=== PATIENT | male | born 1955 | race Caucasian/White ===

== ENCOUNTER → 2017-05-15 08:36 | Outpatient (CLI) | payer OTHER, SELFPAY ==
[2017-05-15 12:34] LABS: Absolute Lymphocyte Count 1.65 X10^3/ul (0.83-4.51); Basophil# 0.05 X10^3/uL; Basophil% 0.7 % (0-1); Eosinophil# 0.27 X10^3/uL; Hematocrit 44.2 % (40-54); Hemoglobin 15.4 g/dl (13.0-16.5); Lymphocyte # 1.65 X10^3/ul (4.0); Lymphocyte % 24.4 % (19-41); Mean Corp Hgb Conc 34.8 g/gl (32-36); Mean Corpuscular Hgb 30.6 pg (27.0-32.0); Mean Corpuscular Volume 87.7 fL (80-94); Mean Platelet Vol. 9.4 fl (6.2-12.0); Monocyte# 0.69 X10^3/uL; Monocyte% 10.2 % (0-10); Neutrophil # 4.03 X10^3/uL (2.7-7.7); Neutrophil % 59.7 % (47-70); Platelet Count 226 K/mm3 (150-450); RBC Distribution Width CV 13.1 % (11.6-14.6); Red Blood Count 5.04 M/mm3 (4.6-6.2); White Blood Count 6.8 K/mm3 (4.4-11.0)
[2017-05-15 12:39] LABS: POSITIVE COUNT NO; POSITIVE DIFFERENTIAL NO; POSITIVE MORPHOLOGY NO
[2017-05-15 12:56] LABS: ALB/GLOB Ratio 0.9 RATIO (0.9-2.4); AST(SGOT) 63 U/L (15-37); Alanine Aminotransfer ALT/SGPT 91 U/L (16-61); Albumin, Serum 3.6 g/dL (3.2-5.0); Alkaline Phosphatase 61 U/L (45-117); Anion Gap 9 (5-15); BUN 25 mg/dL (7-18); BUN/Creat Ratio 20.5 RATIO (10-20); Calcium,Total 8.5 mg/dL (8.5-10.1); Chloride 103 mmol/L (98-107); Cholesterol 200 mg/dL (200); Creatinine, Serum 1.22 mg/dL (0.70-1.30); EST Glomerular Filtration Rate 64 mL/min (>60); Est Glom Filt Rate - Afr Amer 77 mL/min (>60); Glucose 195 mg/dL (74-106); High Density Lipoprotein 40 mg/dL; Potassium 4.6 mmol/L (3.5-5.1); Protein, Total 7.6 g/dL (6.4-8.2); Sodium Level 137 mmol/L (136-145); Thyroid Stim Hormone (TSH) 1.39 uIU/mL (0.358-3.74); Triglycerides 218 mg/dL; Very Low Density Lipoprotein 44 mg/dL (5-40)
[2017-05-15 13:04] LABS: Microalbumin:Creatinine Ratio 72.5 mg/g CRE (<30 mg/g CRE)
== END ==
PROVIDERS: Family Provider Family Medicine; PCP Family Medicine; Visit Provider Family Medicine
DX: E11.65 Type 2 diabetes mellitus with hyperglycemia (principal); I12.9 Hypertensive chronic kidney disease with stage 1 through stage 4 chronic kidney disease, or unspecified chronic kidney disease; N18.9 Chronic kidney disease, unspecified; E78.5 Hyperlipidemia, unspecified
CPT/HCPCS: 36415; 80053; 80061; 82043; 82570; 84439; 84443; 85025

== ENCOUNTER → 2017-08-12 12:35 | Outpatient (CLI) | payer OTHER, SELFPAY ==
[2017-08-12 13:08] LABS: Absolute Neutrophil Count 9.7 X10^3/uL (2.0-7.7); Basophil# 0.03 X10^3/uL; Basophil% 0.3 % (0-1); Eosinophil# 0.03 X10^3/uL; Eosinophils% 0.3 % (0-5); Hematocrit 40.7 % (40-54); Hemoglobin 14.8 g/dl (13.0-16.5); Lymphocyte % 8.5 % (19-41); Mean Corp Hgb Conc 36.4 g/gl (32-36); Mean Corpuscular Hgb 31.2 pg (27.0-32.0); Mean Corpuscular Volume 85.9 fL (80-94); Mean Platelet Vol. 9.2 fl (6.2-12.0); Monocyte# 1.08 X10^3/uL; Monocyte% 9.1 % (0-10); Neutrophil # 9.65 X10^3/uL (2.7-7.7); Neutrophil % 81.5 % (47-70); Platelet Count 234 K/mm3 (150-450); RBC Distribution Width CV 12.6 % (11.6-14.6); RBC Distribution Width SD 38.8 fl (35.1-43.9); Red Blood Count 4.74 M/mm3 (4.6-6.2); White Blood Count 11.8 K/mm3 (4.4-11.0)
[2017-08-12 13:11] LABS: POSITIVE COUNT NO; POSITIVE DIFFERENTIAL NO; POSITIVE MORPHOLOGY NO
[2017-08-12 13:33] LABS: Anion Gap 7 (5-15); BUN 20 mg/dL (7-18); BUN/Creat Ratio 14.4 RATIO (10-20); Calcium,Total 8.9 mg/dL (8.5-10.1); Chloride 100 mmol/L (98-107); Creatinine, Serum 1.39 mg/dL (0.70-1.30); EST Glomerular Filtration Rate 55 mL/min (>60); Est Glom Filt Rate - Afr Amer 66 mL/min (>60); Glucose 158 mg/dL (74-106); Potassium 4.5 mmol/L (3.5-5.1); Sodium Level 133 mmol/L (136-145)
== END ==
PROVIDERS: Family Provider Family Medicine; PCP Family Medicine; Visit Provider Physician Assistant
DX: L03.90 Cellulitis, unspecified (principal)
CPT/HCPCS: 36415; 80048; 85025

== ENCOUNTER 2017-08-14 07:56 | Inpatient (IN) | payer OTHER, SELFPAY ==
[2017-08-14 07:57] VITALS: BP 134/60; PULSE 65; RESP 16; TEMP 36.2; O2SAT 98; BMI 37.8
--- NOTE | 2017-08-14 08:09 | ED.VISSUMM ---
- ER Visit Summary Date of Service: 08/14/17 Chief Complaint: Foot infection History of Present Illness: The patient is a 61 M history of insulin-dependent diabetes and neuropathy presents with right foot infection. Patient noticed some redness between his fourth and fifth toes a few days ago. He went to urgent care 2 days ago. He was started on Bactrim and Augmentin. He has been taking them. Over the past 48 hours since starting the medications, his infection has worsened. He has had increasing redness, swelling in his foot, and drainage from the wound. He does not recall any trauma. He does have some neuropathy in his feet. He states he does check his feet regularly. Blood sugars have been running in normal range. He does admit to some chills and sweats. He states he feels like I just have the flu. Physical Examination: Vital signs reviewed General: Well-nourished, well-developed Head: Normocephalic, atraumatic Eyes: Pupils equal and reactive, extraocular muscles intact Neck, supple, no lymphadenopathy Heart: Regular rate and rhythm Respiratory: No distress, clear bilaterally Abdomen: Soft, nontender, nondistended, no peritoneal signs Back: Nontender Extremities: Nontender, 2 x 2 centimeter ulceration in between the fourth and fifth toes. Surrounding cellulitis. Streaking up the mid hernandez. Normal pulses. Skin: Normal color no rash Neuro: Alert and oriented, no focal or lateralizing deficits Test Results: [] Emergency Department Course and Treatment: The patient does have ulceration with extending cellulitis. He has been on oral antibiotics without improvement. I did obtain screening labs. He has no significant leukocytosis. He is not tachycardic or hypotensive. His lactate is elevated to 2.5, but I do suspect this is likely from his metformin rather than acute sepsis. Blood cultures were obtained. X-rays show no bony destruction. As the patient has had worsening symptoms despite oral antibiotics, I do feel he is going require IV antibiotic and admission. Patient was discussed with the hospitalist and will be admitted. Treatment Plan: [] Disposition: Admission Impression: 1. Diabetic foot infection with cellulitis and failed outpatient treatment This note was generated with [employer] software. It may contain incorrect words, spelling, and punctuation that were not noted in review of the chart prior to signing ED Disposition - Plan for ED Patient: Chief Complaint: Wound Referrals: Otilio Sahu MD [Primary Care Provider] -
--- NOTE | 2017-08-14 08:50 | RAD_ITS ---
STUDY: X-RAY - RIGHT FOOT CLINICAL: Male, 61 years old. Nonhealing foot ulcer at the fifth MTP TECHNIQUE: 3 view(s) of the foot. COMPARISON: None. FINDINGS: There is an enthesophyte involving the posterior superior calcaneus at the site of insertion of the Achilles tendon. There is accessory navicular. There is os peroneum. Normal visualized subtalar, talonavicular, calcaneocuboid, tarsal and tarsometatarsal articulations. Normal metatarsi. There is degenerative arthrosis of the metatarsophalangeal joint of the hallux with a hallux valgus deformity. Normal tibial and fibular sesamoid bones. Normal interphalangeal joint of the great toe. Normal phalanges of the great toe. Normal second through fifth metatarsophalangeal joints. Normal interphalangeal joints and phalanges of the lesser toes. There are vascular calcifications. There is no fracture or destruction. RAD/Foot min 3 Views IMPRESSION: No fracture or destruction. Electronically Signed: Lionel Meier MD at 9:17 EDT , Service support ,
[2017-08-14 09:00] LABS: Absolute Lymphocyte Count 1.25 X10^3/ul (0.83-4.51); Absolute Neutrophil Count 6.6 X10^3/uL (2.0-7.7); Basophil# 0.02 X10^3/uL; Basophil% 0.2 % (0-1); Eosinophil# 0.13 X10^3/uL; Eosinophils% 1.4 % (0-5); Hematocrit 39.1 % (40-54); Hemoglobin 13.7 g/dl (13.0-16.5); Lymphocyte # 1.25 X10^3/ul (4.0); Lymphocyte % 13.9 % (19-41); Mean Corpuscular Hgb 30.4 pg (27.0-32.0); Mean Corpuscular Volume 86.9 fL (80-94); Mean Platelet Vol. 9.1 fl (6.2-12.0); Monocyte# 0.94 X10^3/uL; Monocyte% 10.5 % (0-10); Neutrophil # 6.61 X10^3/uL (2.7-7.7); Neutrophil % 73.8 % (47-70); POSITIVE COUNT NO; POSITIVE DIFFERENTIAL NO; POSITIVE MORPHOLOGY NO; Platelet Count 184 K/mm3 (150-450); RBC Distribution Width CV 13.1 % (11.6-14.6); RBC Distribution Width SD 41.8 fl (35.1-43.9)
[2017-08-14 09:21] LABS: ALB/GLOB Ratio 0.8 RATIO (0.9-2.4); AST(SGOT) 17 U/L (15-37); Alanine Aminotransfer ALT/SGPT 39 U/L (16-61); Albumin, Serum 3.1 g/dL (3.2-5.0); Alkaline Phosphatase 55 U/L (45-117); Anion Gap 7 (5-15); BUN 23 mg/dL (7-18); BUN/Creat Ratio 14.6 RATIO (10-20); Calcium,Total 8.3 mg/dL (8.5-10.1); Chloride 100 mmol/L (98-107); Creatinine, Serum 1.57 mg/dL (0.70-1.30); EST Glomerular Filtration Rate 48 mL/min (>60); Est Glom Filt Rate - Afr Amer 58 mL/min (>60); Estimated Creatinine Clearance 48.78 ml/min; Globulin 3.9 g/dL (2.2-4.2); Glucose 281 mg/dL (74-106); Potassium 4.6 mmol/L (3.5-5.1); Sodium Level 131 mmol/L (136-145)
--- NOTE | 2017-08-14 09:30 | ED.RN ---
lactic 2.[address] olson aware
[2017-08-14 09:31] LABS: Lactic Acid 2.5 mmol/L (0.4-2.0)
--- NOTE | 2017-08-14 09:44 | CASEMGMT ---
Social Work Note Attempted to see for initial assessment. Pt receiving pt care. Will need to be assessed on assigned unit. Lisbeth Henley, INJECTION MOLDING SUPERVISOR, STEP FINISHER
[2017-08-14 09:51] VITALS: BP 144/72; PULSE 62; RESP 18; O2SAT 95
[2017-08-14 10:15] VITALS: BMI 37.8
[2017-08-14 10:17] VITALS: BP 162/70; PULSE 60; RESP 18; TEMP 36.6; O2SAT 96
--- NOTE | 2017-08-14 10:35 | NURSING ---
pt doesn't take immunizations
[2017-08-14 11:26] LABS: Bedside Glucose 206 mg/dL (70-110)
[2017-08-14 11:59] LABS: Erythrocyte Sedimentation Rate 17 mm/hr (0-20)
--- NOTE | 2017-08-14 12:15 | CASEMGMT ---
RN PETR Face to Face with patient for initial transition planning/care coordination assessment. RN CM introduced self and role at [facility]. Patient sitting in chair, alert and oriented. Patient willing to participate in assessment and is able to answer all questions appropriately. Care providers, pharmacy, and demographics verified. See link attached. Patient wishes to discharge home, denies need for home health at this time. Patient states he has no further needs or concerns at this time. CM to follow for discharge planning needs that may arise. Disposition Plan: Patient to discharge home with family support and follow-up plans in place.
[2017-08-14 12:19] LABS: M R Staph aureus DNA By PCR Negative (Negative)
[2017-08-14 12:20] LABS: Probe Check PASS; Specimen Processing Control PASS; Staph aureus DNA By PCR POSITIVE (Negative)
[2017-08-14 12:20] LABS: M R Staph aureus DNA By PCR Negative (Negative); Probe Check PASS; Specimen Processing Control PASS
--- NOTE | 2017-08-14 12:39 | HP.PCM_ITS ---
<Eligio Kelly - Last Filed: 08/14/17 12:29> Problem List (1) Cellulitis Status: Acute (2) CAD (coronary artery disease) Status: Chronic (3) Type 2 diabetes mellitus Status: Chronic (4) Hypertension Status: Chronic (5) Hyperlipidemia Status: Chronic History of Present Illness Date of Admission: 08/14/17 Chief Complaint: right foot wound The patient is a 61 year old M with a hx of DMt2, HTN, CAD with prior stents and CABG, peripheral neuropathy, who presents to the ER with worsening of right foot wound after failing outpatient therapy. He presented to the [facility] 2 days ago with a one day history of blister with surrounding erythema of the right 5th digit and dorsum of his foot and malaise. He was prescribed bactrim and augmentin. He went to the hospital and had a CBC and BMP drawn that day with mild leukocytosis and mildly elevated BUN and Cr. He went home and his blister became larger, later deroofed, and the erythema worsened. He states he feels like he has the flu and has fevers chills and sweats at home. He has had prior feet infections that have led to admission to the hospital. He does not know if he had any particular bacteria or MRSA. 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 He cannot remember a specific trauma or inciting event. He has minimal pain. [] Past Medical History Past Medical History (Chronic Problems): Chronic Problems (Last Updated 08/12/17 @ 11:54 by Lorenza Nguyễn) CAD (coronary artery disease) (Chronic) Type 2 diabetes mellitus (Chronic) Hypertension (Chronic) Hyperlipidemia (Chronic) Medical History: Medical History (Last Updated 08/12/17 @ 11:54 by Lorenza Nguyễn) Diabetes E11.9 Heart disease I51.9 Liver disease K76.9 Hypertension I10 Allergies No Known Allergies Allergy (Unverified 08/14/17 07:58) Home Medications: Ambulatory Orders Medication Instructions Recorded carvedilol 25 mg tablet 25 mg PO BID 08/12/17 glimepiride 4 mg tablet 4 mg PO QAM 08/12/17 insulin glargine (U-100) 100 50 - 60 unit SC QDAY 08/12/17 unit/mL (3 mL) subcutaneous pen metformin 1,000 mg tablet 1,000 mg PO BID 08/12/17 omega-3 fatty acids 1,000 mg 1,200 mg PO BID 08/12/17 capsule Amoxicillin/Potassium Clav 1 each PO BID 08/14/17 [Augmentin 875-125 Tablet] Lisinopril [Zestril] 20 mg PO BID 08/14/17 Smz/Tmp Ds [Bactrim Ds] 1 tablet PO BID 08/14/17 Surgical History: Surgical History (Last Updated 08/12/17 @ 11:56 by Lorenza Nguyễn) History of back surgery Z98.890 Hx of CABG Z95.1 Hx of appendectomy Z90.49 Hx of toe surgery Z98.890 Surgical History: appendectomy, coronary bypass surgery, - - cabg Psychiatric History: No pertinent psych hx Lives: With Family Smoking Status: Never smoker Tobacco Use: Non-smoker Alcohol: Rare Drugs: None - *Family History Maternal Family History: Family History (Last Updated 08/12/17 @ 11:56 by Lorenza Nguyễn) Other CAD (coronary artery disease) Diabetes History Items: Diabetes Paternal Family History: Family History (Last Updated 08/12/17 @ 11:56 by Lorenza Nguyễn) Other CAD (coronary artery disease) Diabetes History Items: Heart Disease Review of Systems Constitutional: Reports: Anorexia, Chills, Fever, Night Sweats, Malaise. Denies : Weight Change HEENT: Denies: Head Aches, Sinus Congestion, Sinus Drainage Cardiovascular: Denies: Chest Pain, Palpitations Respiratory: Denies: Cough, Shortness of breath at rest, Sputum production Gastrointestinal: Denies: Abdominal Pain, Nausea, Vomiting Genitourinary: Denies: Dysuria Musculoskeletal: Denies: Joint Pain, Joint Tenderness Skin: Reports: Wounds. Denies: Rash Neurological: Denies: Numbness, Tingling, Focal weakness Psychiatric: Denies: Anxiety, Depression, Homicidal Ideations, Suicidal Ideations Hematologic/ Lymphatic: Denies: Easy Bruising, Easy Bleeding VTE Information - Inpt Only VTE Present on Admission: No VTE Mechan Device Prophylaxis: SCD's VTE Pharm Prophylaxis ordered?: Yes Patient Problems: Active and Suspected Problems (Last Updated 08/12/17 @ 11:54 by Lorenza Nguyễn) Cellulitis (Acute) - Physical Exam General: Alert, Oriented x3, Cooperative HEENT: Atraumatic, PERRLA, EOMI, Normocephalic Neck: Supple, No JVD, Negative Carotid Bruits Lungs: Clear to auscultation, Normal air movement Cardiovascular: Regular rate, No murmurs Abdomen: Bowel Sounds Present, Soft, Non Tender Extremities: No edema, Capillary Refill Less than 3 Seconds Skin: No rashes, No breakdown, Ulcer/ Wound - right 5th digit dorsal side open wound, no drainage currently, surrounding erythema. Musculoskeletal: No Tenderness to Palpation of Joints or Extremities Neurological: Cranial nerves II-XII grossly intact Psych/Mental Status: Normal Affect, Appropriate, Alert and oriented to time, place, person, mood and affect Vital Signs Temp Pulse Resp BP Pulse Ox 98 F 60 18 162/70 H 96 08/14/17 10:17 08/14/17 10:17 08/14/17 10:17 08/14/17 10:17 08/14/17 10:17 Oxygen Delivery Method Room Air Weight: 116 kg Body Mass Index (BMI) 37.8 Laboratory Tests Past 24 Hrs 08/14/17 08/14/17 10:45 10:50 S.aureus Protein A PCR POSITIVE H MRSA (PCR) Negative Negative POC Glucose 08/14/17 11:20 POC Glucose 206 H Assessment/Plan All Active Problems (Last Updated 08/12/17 @ 11:54 by Lorenza Nguyễn) Cellulitis (Acute) 1. Cellulitis Right 5th digit with diabetic foot wound - failed o/p therapy with Bactrim Augmentin. Start Vanc / Zosyn. Wound Cx. Blood Cx. Elevated Lactate - repeat. XR negative. Consult Podiatry, ID. Consider MRI. Currently afebrile. Leukocytosis has resolved. Elevated CRP, ESR normal. Hx cellulitis with hospital admission - ? bacterial pathology. MRSA screen negative, DC Vanco. MSSA positive. 2. DMt2 - hold orals - SSI. Diabetic diet. 3. Mildly elevated BUN/Cr - suspect underlying CKD based on prior labs on file. Will hydrate with IV fluids and monitor. 4. CAD prior stents/CABG - coreg, leila (hold), not on asa/statin, unclear why. 5. Hx Fatty liver dz. 6. Mild hyponatremia - ? etiology, possibly 2/2 hyperglycemia. Trend. 7. Obesity in DM - dietary consult. Diabetic diet. DVT ppx: heparin This patient was seen by Eligio Kelly PA-C under the supervision of Doctor Simon. <Best Montes - Last Filed: 08/14/17 16:04> History of Present Illness Seen and examined Patient came with a 2 days history of right fifth digit blister which burst out into ulcer. No fever or chills. [] Past Medical History Medical History: Medical History (Last Updated 08/12/17 @ 11:54 by Lorenza Nguyễn) Diabetes E11.9 Heart disease I51.9 Liver disease K76.9 Hypertension I10 Allergies No Known Allergies Allergy (Unverified 08/14/17 07:58) Surgical History: Surgical History (Last Updated 08/12/17 @ 11:56 by Lorenza Nguyễn) History of back surgery Z98.890 Hx of CABG Z95.1 Hx of appendectomy Z90.49 Hx of toe surgery Z98.890 - *Family History Maternal Family History: Family History (Last Updated 08/12/17 @ 11:56 by Lorenza Nguyễn) Other CAD (coronary artery disease) Diabetes Paternal Family History: Family History (Last Updated 08/12/17 @ 11:56 by Lorenza Nguyễn) Other CAD (coronary artery disease) Diabetes - Physical Exam Skin: Ulcer/ Wound - right 5th digit dorsal side open wound, no drainage currently, surrounding erythema. Superficial ulcer on the dorsum of right fifth digit Callosity present on the left fifth MTP joint Musculoskeletal: Arthritic Changes Vital Signs Temp Pulse Resp BP Pulse Ox 98 F 60 18 162/70 H 96 08/14/17 10:17 08/14/17 10:17 08/14/17 10:17 08/14/17 10:17 08/14/17 10:17 Oxygen Delivery Method Room Air Weight: 255 lb 11.779 oz Body Mass Index (BMI) 37.8 Laboratory Tests Past 24 Hrs 08/14/17 08/14/17 08/14/17 10:45 10:50 13:00 Lactic Acid 2.0 S.aureus Protein A PCR POSITIVE H MRSA (PCR) Negative Negative POC Glucose 08/14/17 11:20 POC Glucose 206 H Assessment/Plan This patient was seen in conjunction with Eligio CRAMER. I have independently interviewed and examined the patient and reviewed pertinent history, examination findings, laboratory and plan of management. I have reviewed the note and agree with the documented findings with the few additional points. In brief, patient is admitted for right fifth digit superficial ulcer with diabetic foot. Patient failed outpatient antibiotic. Patient got IV vancomycin. On IV Zosyn. Follow cultures. Podiatry and ID consult. Foot x-ray negative for fracture or dislocation I have discussed my assessment with Eligio CRAMER and orders have been reviewed. Clinical Impression(s) from Imaging Studies Foot X-Ray 08/14/17 08:50 IMPRESSION: No fracture or destruction. Code Visit Inpatient E&M: 23101 Init Hosp L3
[2017-08-14 12:49] LABS: Reflex Lactate? Y
[2017-08-14] MEDS: Piperacil/Tazobactam 3.375 GM/50 ML ML IV ×2 (14:56→21:13)
[2017-08-14] MEDS: 0.9% Normal Saline 1,000 ML 100 ML IV (15:01)
[2017-08-14 16:00] VITALS: BP 156/67; PULSE 96; RESP 16; TEMP 37.1; O2SAT 95
[2017-08-14 16:56] LABS: Bedside Glucose 181 mg/dL (70-110)
--- NOTE | 2017-08-14 17:12 | PCM.PROGNOTE ---
Patient Problems: Active and Suspected Problems (Last Updated 08/12/17 @ 11:54 by Lorenza Nguyễn) Ulcer of right foot with fat layer exposed (Acute) Type 2 diabetes mellitus with diabetic neuropathy (Acute) Cellulitis (Acute) Subjective: This 61 year old diabetic male was consulted to podiatry for cellulitis as well as a deroofed blister/ulcer to dorsolateral right foot and base of 5th toe. Patient states he noticed a small blister on his to on Thursday, and he says the blister grew quickly. He also noticed some redness and warmth to the area as well. He was admitted through the ER for this. Patient says that over the course of the day, he no longer has any feelings of nausea, vomiting, fever, or chills. - Physical Exam General: Alert, Oriented x3, Cooperative, No apparent distress Extremities: Capillary Refill Less than 3 Seconds - to distal digits, No Calf Tenderness - negative socorro and ayala sign, Diminished Peripheral Pulses - DP pulses palpable and PT pulses non palpable at this time, Edema - slight lower extremity edema appreciated Skin: Ulcer/ Wound - Ulcer underlying deroofed blister to dorsolateral right foot and extending to the base of the 5th toe. Area measuers approximately 3cm x 2.5 cm. Base is mixture of adherent slough, fibrin, and granular tissue. There is no probing to bone noted. There is no purulence. Slight serous drainage appreciated. Some surrounding erythema appreciated as well as an increase in warmth. Musculoskeletal: - - No tenderness with ulcer site manipulation Neurological: - - epicritic sensation grossly absent to right lower extremity Psych/Mental Status: Normal Affect, Appropriate Vital Signs Temp Pulse Resp BP Pulse Ox 98 F 60 18 162/70 H 96 08/14/17 10:17 08/14/17 10:17 08/14/17 10:17 08/14/17 10:17 08/14/17 10:17 Oxygen Delivery Method Room Air Weight: 116 kg Body Mass Index (BMI) 37.8 Laboratory Tests Past 24 Hrs 08/14/17 08/14/17 08/14/17 10:45 10:50 13:00 Lactic Acid 2.0 S.aureus Protein A PCR POSITIVE H MRSA (PCR) Negative Negative POC Glucose 08/14/17 08/14/17 16:49 11:20 POC Glucose 181 H 206 H Medical Necessity - Tobacco Use Smoking Status: Never smoker Tobacco Use: Non-smoker Assessment/Plan All Active Problems (Last Updated 08/12/17 @ 11:54 by Lorenza Nguyễn) Ulcer of right foot with fat layer exposed (Acute) Type 2 diabetes mellitus with diabetic neuropathy (Acute) Cellulitis (Acute) Ulcer/Deroofed blister with fat layer exposed to right foot Cellulitis right foot DM II Patient was carefully examined and evaluated in detail. Vital signs are currently stable with exception of increased BP. WBC is 9. ESR is 17 and CRP is 111. Wound cultures were taken and sent for aerobic, anaerobic, and mrsa pcr evaluation. Wound culture results are pending. MRSA pcr is negative. Blood culture results are pending. X-rays taken of right foot and show no osseous destruction or signs of osteomyelitis. No soft tissue emphysema appreciated. At this time, the ulcer site was carefully cleansed. Betadine then painted to ulcer base, followed by aquacel ag, 2x2, 4x4, and kerlix. Patient to keep all pressure off of the top of the right foot while ulcer is open. Patient to be partial weight bearing to heel of the right foot if possible. Podiatry will continue to follow this patient and monitor for lab results while patient is in house. Please contact with any questions.
--- NOTE | 2017-08-14 17:30 | NURSING ---
dr. Holt with patient, applying new dressing
[2017-08-14 20:53] VITALS: BP 161/72; PULSE 58; RESP 16; TEMP 36.9; O2SAT 96
[2017-08-14] MEDS: Glucerna Shake 120 ML LIQUID PO (21:15)
[2017-08-14 21:26] LABS: Bedside Glucose 237 mg/dL (70-110)
[2017-08-15] MEDS: metFORMIN HCl 1,000 MG Tablet 1000 MG PO ×3 (00:03→18:17)
[2017-08-15] MEDS: Lisinopril 20 MG Tablet PO ×3 (00:04→22:30)
[2017-08-15] MEDS: Carvedilol 25 MG Tablet PO ×3 (00:04→22:31)
[2017-08-15] MEDS: 0.9% Normal Saline 1,000 ML 100 ML IV ×2 (01:41→10:53)
[2017-08-15 02:45] VITALS: BP 125/65; PULSE 57; RESP 16; TEMP 37.1; O2SAT 96
[2017-08-15] MEDS: Piperacil/Tazobactam 3.375 GM/50 ML ML IV ×3 (06:50→22:37)
[2017-08-15] MEDS: Insulin Lispro 100 UNIT/ML INSULN.PEN SC ×3 (07:20→22:32)
[2017-08-15 07:25] LABS: Bedside Glucose 186 mg/dL (70-110)
[2017-08-15] MEDS: Glimepiride 4 MG Tablet PO (07:42)
[2017-08-15 07:53] VITALS: BP 134/77; PULSE 57; RESP 18; TEMP 37.2; O2SAT 99
[2017-08-15 08:30] LABS: Anion Gap 7 (5-15); BUN 14 mg/dL (7-18); BUN/Creat Ratio 10.5 RATIO (10-20); Calcium,Total 8.2 mg/dL (8.5-10.1); Chloride 105 mmol/L (98-107); Creatinine, Serum 1.33 mg/dL (0.70-1.30); EST Glomerular Filtration Rate 58 mL/min (>60); Est Glom Filt Rate - Afr Amer 70 mL/min (>60); Estimated Creatinine Clearance 57.59 ml/min; Glucose 191 mg/dL (74-106); Potassium 4.5 mmol/L (3.5-5.1); Sodium Level 136 mmol/L (136-145)
[2017-08-15 08:35] LABS: Hemoglobin A1c 7.8 % (4.2-6.3)
[2017-08-15] MEDS: Glucerna Shake 120 ML LIQUID PO ×4 (09:01→22:37)
--- NOTE | 2017-08-15 09:40 | PN_ITS ---
Patient Problems: Active and Suspected Problems (Last Updated 08/12/17 @ 11:54 by Lorenza Nguyễn) Ulcer of right foot with fat layer exposed (Acute) Type 2 diabetes mellitus with diabetic neuropathy (Acute) Cellulitis (Acute) Subjective: No fever chills, tachycardia Seen by freedom of information officer Dr. Holt. Wound reviewed Small amount of superficial slough present otherwise no soft tissue crepitus or bony tenderness Vitals/I&O's: Vital Signs Temp Pulse Resp BP Pulse Ox 98.9 F 57 L 18 134/77 H 99 08/15/17 07:53 08/15/17 07:53 08/15/17 07:53 08/15/17 07:53 08/15/17 07:53 Oxygen Delivery Method Room Air Weight: 255 lb 11.779 oz Body Mass Index (BMI) 37.8 Intake and Output for Last 24 Hours 08/13/17 08/14/17 08/15/17 23:59 23:59 23:59 Intake Total 1425 / 1425 3124 / 3124 Output Total 1800 / 1800 Balance -375 / -375 3124 / 3124 General: Alert, Oriented x3, Cooperative HEENT: Atraumatic, PERRLA, EOMI, Normocephalic Neck: Supple, No JVD, Negative Carotid Bruits Lungs: Clear to auscultation, Normal air movement Cardiovascular: Regular rate, Normal S1, Normal S2, No murmurs Abdomen: Bowel Sounds Present, Soft, Non Tender Extremities: No edema, Capillary Refill Less than 3 Seconds Skin: Ulcer/ Wound - Superficial ulcer present over the dorsum of right 5 MTP region. Small amount of superficial slough and localized surrounding erythema but. Musculoskeletal: No Tenderness to Palpation of Joints or Extremities Neurological: Cranial nerves II-XII grossly intact Psych/Mental Status: Normal Affect, Appropriate Microbiology Past 72 Hours 08/14/17 16:50 Wound - Toe Gram Stain - Final Laboratory Results 08/14/17 10:45: S.aureus Protein A PCR POSITIVE H, MRSA (PCR) Negative 08/14/17 10:50: MRSA (PCR) Negative 08/14/17 11:20: POC Glucose 206 H 08/14/17 13:00: Lactic Acid 2.0 08/14/17 16:49: POC Glucose 181 H 08/14/17 21:12: POC Glucose 237 H 08/15/17 07:08: POC Glucose 186 H 08/15/17 07:32: Sodium 136, Potassium 4.5, Chloride 105, Carbon Dioxide 24.0, Anion Gap 7, BUN 14, Creatinine 1.33 H, Estim Creat Clear Calc 57.59, Est GFR ( MDRD) Af Amer 70, Est GFR (MDRD) Non-Af 58 L, BUN/Creatinine Ratio 10.5, Glucose 191 H, Calcium 8.2 L, Phosphorus 3.0 08/15/17 07:32: Hemoglobin A1c 7.8 H Current Medications Acetaminophen (Tylenol) 650 mg PO Q6H PRN PRN PRN Reason: Mild Pain (scale 0-3)/T>100.7 Al Hydroxide/Mg Hydroxide (Mylanta Ii) 30 ml PO Q6H PRN PRN PRN Reason: Gastric Burning Bisacodyl (Dulcolax) 10 mg RECTAL DAILY PRN PRN PRN Reason: Constipation Carvedilol (Coreg) 25 mg PO BID [facility] Last Admin: 08/15/17 09:00 Dose: 25 mg Docusate Sodium (Colace) 200 mg PO BID PRN PRN PRN Reason: Constipation Fish Oil (Cvs Fish Oil 1,200 Mg Softgel) 1 each PO BID [facility] Last Admin: 08/15/17 09:01 Dose: 1 each Glimepiride (Amaryl) 4 mg PO DAILY@0800 [facility] Last Admin: 08/15/17 07:42 Dose: 4 mg Hydralazine HCl (Apresoline Iv) 5 mg IV Q6H PRN PRN PRN Reason: BLOOD PRESSURE Sodium Chloride () 1,000 mls @ 100 mls/hr IV .Q10H [facility] Last Admin: 08/15/17 01:41 Dose: 100 mls/hr Piperacillin Sod/Tazobactam Sod (Zosyn) 3.375 gm in 50 mls @ 12.5 mls/hr IV Q8 [facility] Last Admin: 08/15/17 06:50 Dose: 12.5 mls/hr Insulin Detemir (Levemir (Bkc)) 50 units SC QHS [facility] Last Admin: 08/15/17 00:04 Dose: 50 u Insulin Human Lispro (Humalog Kwikpen (Bk)) 0 unit SC TIDAC [facility] PRN Reason: Protocol Last Admin: 08/15/17 07:20 Dose: 1 u Lisinopril (Zestril) 20 mg PO BID [facility] Last Admin: 08/15/17 09:00 Dose: 20 mg [facility] Last Admin: 08/15/17 07:42 Dose: 1,000 mg Morphine Sulfate () 1 - 2 mg IV Q4H PRN PRN PRN Reason: SEVERE PAIN (6-10/10) Nutritional Formula (Lactose Free) (Glucerna Shake) 120 ml PO 4X/DAY [facility] Last Admin: 08/15/17 09:01 Dose: 120 ml Ondansetron HCl (Zofran) 4 mg IV Q8H PRN PRN PRN Reason: Nausea Oxycodone HCl (Oxyir) 5 mg PO Q4H PRN PRN PRN Reason: Moderate Pain (pain scale 4-5) Sodium Chloride () 5 - 30 ml IV UD PRN PRN Reason: SALINE FLUSH Medical Necessity - Tobacco Use Smoking Status: Never smoker Tobacco Use: Non-smoker Assessment/Plan All Active Problems (Last Updated 08/12/17 @ 11:54 by Lorenza Nguyễn) Ulcer of right foot with fat layer exposed (Acute) Type 2 diabetes mellitus with diabetic neuropathy (Acute) Cellulitis (Acute) This is a 61-year-old gentleman patient is admitted for right fifth digit superficial ulcer with localized surrounding cellulitis of right foot. Patient failed outpatient antibiotic; was on Bactrim and Augmentin . Patient got IV vancomycin. On IV Zosyn. Podiatry and ID consult. Foot x-ray negative for fracture or dislocation 1. Right lateral superficial ulcer ON RIGHT 5TH MTP region with surrounding localized cellulitis with diabetic neuropathy: Patient failed o/p therapy with Bactrim Augmentin. Patient initially started on IV vancomycin and Zosyn in ER but vancomycin discontinued as MRSA screen negative. Wound culture is showing preliminary staph most probably MSSA. Continue Zosyn as diabetic ulcer is generally polymicrobial in nature. podiatry consult appreciated With superficial nature of ulcer with no bony tenderness/bone erosion s on x-ray , I think MRIs not indicated and is not recommended by freedom of information officer too. 2. Uncontrolled DMt2 - hold orals - SSI. Diabetic diet. A1c 7.8. Levemir dose increased. NovoLog sliding scale increased to high medium scale 3. Mildly elevated BUN/Cr; probably chronic kidney disease stage III suspect underlying CKD based on prior labs on file. Will hydrate with IV fluids and monitor. 4. CAD prior stents/CABG - coreg, leila (hold), not on asa/statin, unclear why. 5. Hx Fatty liver dz. 6. Mild hyponatremia; isovolumic possibly 2/2 hyperglycemia. Sodium is better. 7. Obesity in DM - dietary consult. Diabetic diet. DVT ppx: heparin Clinical Impression(s) from Imaging Studies Foot X-Ray 08/14/17 08:50 IMPRESSION: No fracture or destruction. Microbiology Past 72 Hours 08/14/17 16:50 Wound - Toe Gram Stain - Final 08/14/17 16:50 Wound - Toe Wound Culture - Preliminary Staphylococcus aureus 08/14/17 08:43 Wound - Right Foot Gram Stain - Final 08/14/17 08:43 Wound - Right Foot Wound Culture - Preliminary Staphylococcus aureus Laboratory Results 08/14/17 13:00: Lactic Acid 2.0 08/14/17 16:49: POC Glucose 181 H 08/14/17 21:12: POC Glucose 237 H 08/15/17 07:08: POC Glucose 186 H 08/15/17 07:32: Sodium 136, Potassium 4.5, Chloride 105, Carbon Dioxide 24.0, Anion Gap 7, BUN 14, Creatinine 1.33 H, Estim Creat Clear Calc 57.59, Est GFR ( MDRD) Af Amer 70, Est GFR (MDRD) Non-Af 58 L, BUN/Creatinine Ratio 10.5, Glucose 191 H, Calcium 8.2 L, Phosphorus 3.0 08/15/17 07:32: Hemoglobin A1c 7.8 H 08/15/17 11:33: POC Glucose 256 H Code Visit Inpatient E&M: 60997 Subs Hosp L3
[2017-08-15 11:35] LABS: Bedside Glucose 256 mg/dL (70-110)
--- NOTE | 2017-08-15 12:06 | PCM.PROGNOTE ---
Patient Problems: Active and Suspected Problems (Last Updated 08/12/17 @ 11:54 by Lorenza Nguyễn) Ulcer of right foot with fat layer exposed (Acute) Type 2 diabetes mellitus with diabetic neuropathy (Acute) Cellulitis (Acute) Subjective: 61 year old diabetic male was seen resting bedside again today for right dorsolateral foot ulcer. He said he had no issues through the evening. He says he still feels well and has an appetite. He currently denies any feelings of nausea, vomiting, fever, or chills. - Physical Exam General: Alert, Oriented x3, Cooperative, No apparent distress Extremities: Capillary Refill Less than 3 Seconds, No Calf Tenderness - negative socorro and yaala sign, Diminished Peripheral Pulses - DP and PT pulses non palpable, Edema - slight lower extremity edema noted Skin: Ulcer/ Wound - Ulcer underlying deroofed blister to dorsolateral right foot and extending to the base of the 5th toe. Area measuers approximately 3cm x 2.5 cm. Base continues to be mixture of adherent slough, fibrin, and granular tissue. There is no probing to bone noted. There is no purulence. Slight serous drainage appreciated to dressing today. Some surrounding erythema appreciated again today similar in appearance to yesterday. Slight inc. in warmth still noted. Musculoskeletal: - - No tenderness with manipulation of ulcer site Neurological: - - epicritic sensation grossly absent to lower extremity Psych/Mental Status: Normal Affect, Appropriate Vital Signs Temp Pulse Resp BP Pulse Ox 98.9 F 57 L 18 134/77 H 99 08/15/17 07:53 08/15/17 07:53 08/15/17 07:53 08/15/17 07:53 08/15/17 07:53 Oxygen Delivery Method Room Air Weight: 116 kg Body Mass Index (BMI) 37.8 Intake and Output for Last 24 Hours 08/13/17 08/14/17 08/15/17 23:59 23:59 23:59 Intake Total 1425 / 1425 3124 / 3124 Output Total 1800 / 1800 Balance -375 / -375 3124 / 3124 Microbiology Past 72 Hours 08/14/17 16:50 Gram Stain - Final Wound - Toe Wound Culture - Preliminary Staphylococcus aureus Laboratory Tests Past 24 Hrs 08/14/17 08/14/17 08/14/17 10:45 10:50 13:00 Sodium Potassium Chloride Carbon Dioxide Anion Gap BUN Creatinine Estim Creat Clear Calc Est GFR (MDRD) Af Amer Est GFR (MDRD) Non-Af BUN/Creatinine Ratio Glucose Hemoglobin A1c Lactic Acid 2.0 Calcium Phosphorus S.aureus Protein A PCR POSITIVE H MRSA (PCR) Negative Negative 08/15/17 08/15/17 07:32 07:32 Sodium 136 Potassium 4.5 Chloride 105 Carbon Dioxide 24.0 Anion Gap 7 BUN 14 Creatinine 1.33 H Estim Creat Clear Calc 57.59 Est GFR (MDRD) Af Amer 70 Est GFR (MDRD) Non-Af 58 L BUN/Creatinine Ratio 10.5 Glucose 191 H Hemoglobin A1c 7.8 H Lactic Acid Calcium 8.2 L Phosphorus 3.0 S.aureus Protein A PCR MRSA (PCR) POC Glucose 08/15/17 08/15/17 08/14/17 11:33 07:08 21:12 POC Glucose 256 H 186 H 237 H 08/14/17 16:49 POC Glucose 181 H Medical Necessity - Tobacco Use Smoking Status: Never smoker Tobacco Use: Non-smoker Assessment/Plan All Active Problems (Last Updated 08/12/17 @ 11:54 by Lorenza Nguyễn) Ulcer of right foot with fat layer exposed (Acute) Type 2 diabetes mellitus with diabetic neuropathy (Acute) Cellulitis (Acute) Ulcer/Deroofed blister with fat layer exposed to right foot Cellulitis right foot DM II Patient was carefully examined and evaluated bedside again today. Ulcer site remains stable since last evening. Vital signs remain stable. WBC was 9 yesterday. ESR 17 and CRP is 111 yesterday. Wound cultures were taken and sent for aerobic, anaerobic, and mrsa pcr evaluation. Wound culture prelim results shoe staph aureus. Will continue to monitor as further results come in. MRSA pcr is negative. Blood culture results are pending. X-rays taken of right foot and show no osseous destruction or signs of osteomyelitis. No soft tissue emphysema appreciated. Can consider MRI if no improvement continues to be seen. At this time, the ulcer site was carefully cleansed. Betadine then painted to ulcer base, followed by aquacel ag, 2x2, 4x4, and kerlix. Patient to keep all pressure off of the top of the right foot while ulcer is open. Patient to be partial weight bearing to heel of the right foot if he needs to get around. Patient encouraged to elevate his right leg. Podiatry will continue to follow this patient and monitor for lab results while patient is in house. Please contact with any questions.
[2017-08-15 14:14] VITALS: BP 145/59; PULSE 60; RESP 18; TEMP 36.9; O2SAT 96
[2017-08-15 17:05] LABS: Bedside Glucose 184 mg/dL (70-110)
[2017-08-15 22:00] VITALS: BP 158/77; PULSE 58; RESP 18; TEMP 36.6; O2SAT 98
[2017-08-15 22:20] VITALS: PULSE 58; RESP 18; O2SAT 98
[2017-08-15 23:21] LABS: Bedside Glucose 173 mg/dL (70-110)
[2017-08-16] VITALS (8 sets, daily range): BP systolic 142–177; BP diastolic 76–80; PULSE 55–59; RESP 18; TEMP 36.1–36.8; O2SAT 95–98
[2017-08-16] MEDS: Piperacil/Tazobactam 3.375 GM/50 ML ML IV (06:11)
[2017-08-16 06:55] LABS: Bedside Glucose 140 mg/dL (70-110)
[2017-08-16] MEDS: metFORMIN HCl 1,000 MG Tablet 1000 MG PO (08:13)
[2017-08-16] MEDS: Glimepiride 4 MG Tablet PO (08:13)
--- NOTE | 2017-08-16 09:32 | PCM.PN.HOSP ---
Patient Problems: Active and Suspected Problems (Last Updated 08/12/17 @ 11:54 by Lorenza Nguyễn) Ulcer of right foot with fat layer exposed (Acute) Type 2 diabetes mellitus with diabetic neuropathy (Acute) Cellulitis (Acute) Subjective: No fever, chills. Pt states he was not taking lisinopril at home. but home meds states on high dose of Metformin 1000 mg bid and lisinopril 20 mg bid. Kidney function improved. Wound culture positive of MSSA Vitals/I&O's: Vital Signs Temp Pulse Resp BP Pulse Ox 97.7 F L 55 L 18 143/78 H 97 08/16/17 04:20 08/16/17 04:41 08/16/17 04:20 08/16/17 04:20 08/16/17 04:20 Oxygen Delivery Method Room Air Weight: 255 lb 11.779 oz Body Mass Index (BMI) 37.8 Intake and Output for Last 24 Hours 08/14/17 08/15/17 08/16/17 23:59 23:59 23:59 Intake Total 1425 / 1425 5644 / 5644 1601 / 1601 Output Total 1800 / 1800 3750 / 3750 Balance -375 / -375 5644 / 5644 -2149 / -2149 General: Alert, Oriented x3, Cooperative HEENT: Atraumatic, PERRLA, EOMI, Normocephalic Neck: Supple, No JVD, Negative Carotid Bruits Lungs: Clear to auscultation, Normal air movement Cardiovascular: Regular rate, Normal S1, Normal S2, No murmurs Abdomen: Bowel Sounds Present, Soft, Non Tender Extremities: No edema, Capillary Refill Less than 3 Seconds Skin: Ulcer/ Wound - superficial slough present. minimal discharge, dry Musculoskeletal: No Tenderness to Palpation of Joints or Extremities Neurological: Cranial nerves II-XII grossly intact Psych/Mental Status: Normal Affect, Appropriate Microbiology Past 72 Hours 08/14/17 16:50 Wound - Toe Gram Stain - Final 08/14/17 16:50 Wound - Toe Wound Culture - Final Staphylococcus aureus Laboratory Results 08/15/17 11:33: POC Glucose 256 H 08/15/17 17:01: POC Glucose 184 H 08/15/17 22:29: POC Glucose 173 H 08/16/17 06:37: POC Glucose 140 H Current Medications Acetaminophen (Tylenol) 650 mg PO Q6H PRN PRN PRN Reason: Mild Pain (scale 0-3)/T>100.7 Al Hydroxide/Mg Hydroxide (Mylanta Ii) 30 ml PO Q6H PRN PRN PRN Reason: Gastric Burning Bisacodyl (Dulcolax) 10 mg RECTAL DAILY PRN PRN PRN Reason: Constipation Carvedilol (Coreg) 25 mg PO BID [facility] Last Admin: 08/15/17 22:31 Dose: 25 mg Docusate Sodium (Colace) 200 mg PO BID PRN PRN PRN Reason: Constipation Fish Oil (Cvs Fish Oil 1,200 Mg Softgel) 1 each PO BID [facility] Last Admin: 08/15/17 22:31 Dose: 1 each Glimepiride (Amaryl) 4 mg PO DAILY@0800 [facility] Last Admin: 08/16/17 08:13 Dose: 4 mg Hydralazine HCl (Apresoline Iv) 5 mg IV Q6H PRN PRN PRN Reason: BLOOD PRESSURE Clindamycin Phosphate 600 mg/ (Sodium Chloride) 54 mls @ 162 mls/hr IV Q8 [facility] Insulin Detemir (Levemir (Bkc)) 55 units SC QHS [facility] Last Admin: 08/15/17 22:31 Dose: 55 u Insulin Human Lispro (Humalog Kwikpen (Bkc)) 0 unit SC ACHS [facility] PRN Reason: Protocol Last Admin: 08/16/17 06:38 Dose: Not Given Lactobacillus Acidophilus (Acidophilus) 1 tablet PO TID [facility] Lisinopril (Zestril) 20 mg PO DAILY [facility] Last Admin: 08/16/17 08:13 Dose: 1,000 mg Morphine Sulfate () 1 - 2 mg IV Q4H PRN PRN PRN Reason: SEVERE PAIN (6-10/10) Nutritional Formula (Lactose Free) (Glucerna Shake) 120 ml PO 4X/DAY [facility] Last Admin: 08/15/17 22:37 Dose: 120 ml Ondansetron HCl (Zofran) 4 mg IV Q8H PRN PRN PRN Reason: Nausea Oxycodone HCl (Oxyir) 5 mg PO Q4H PRN PRN PRN Reason: Moderate Pain (pain scale 4-5) Sodium Chloride () 5 - 30 ml IV UD PRN PRN Reason: SALINE FLUSH Medical Necessity - Tobacco Use Smoking Status: Never smoker Tobacco Use: Non-smoker Assessment/Plan All Active Problems (Last Updated 08/12/17 @ 11:54 by Lorenza Nguyễn) Ulcer of right foot with fat layer exposed (Acute) Type 2 diabetes mellitus with diabetic neuropathy (Acute) Cellulitis (Acute) This is a 61-year-old gentleman patient is admitted for right fifth digit superficial ulcer with localized surrounding cellulitis of right foot. Patient failed outpatient antibiotic; was on Bactrim and Augmentin . Patient got IV vancomycin. On IV Zosyn. Podiatry and ID consult. Foot x-ray negative for fracture or dislocation 1. Right lateral superficial ulcer ON RIGHT 5TH MTP region with surrounding localized cellulitis secondary to MSSA with diabetic neuropathy: Patient failed o/p therapy with Bactrim Augmentin. Patient initially started on IV vancomycin and Zosyn in ER but vancomycin discontinued as MRSA screen negative. Wound culture is showing wound culture MSSA. Initially patient was started on Zosyn as diabetic ulcer is generally polymicrobial in nature but no change to clindamycin. 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 2. Uncontrolled DMt2 - hold orals - SSI. Diabetic diet. A1c 7.8. Levemir dose increased. NovoLog sliding scale increased to high medium scale. Metformin dose decreased as the patient has lactic acidosis with moderate CKD stage III with estimated creatinine clearance 55 L/min. 3. chronic kidney disease stage III, diabetic nephropathy based on prior labs on file. Will hydrate with IV fluids and monitor. Creatinine improved from 1.7-1.33. BMP. 4. CAD prior stents/CABG and hypertension: coreg, not on asa/statin. Lisinopril decreased to 20 mg daily. BP is controlled. 5. Hx Fatty liver dz. 6. Mild hyponatremia; isovolumic possibly 2/2 hyperglycemia. Sodium is better. 7. Obesity in DM - dietary consult. Diabetic diet. DVT ppx: heparin Clinical Impression(s) from Imaging Studies Foot X-Ray 08/14/17 08:50 IMPRESSION: No fracture or destruction. Microbiology Past 72 Hours 08/14/17 16:50 Wound - Toe Gram Stain - Final 08/14/17 16:50 Wound - Toe Wound Culture - Preliminary Staphylococcus aureus 08/14/17 08:43 Wound - Right Foot Gram Stain - Final 08/14/17 08:43 Wound - Right Foot Wound Culture - Preliminary Staphylococcus aureus Laboratory Results 08/14/17 13:00: Lactic Acid 2.0 08/14/17 16:49: POC Glucose 181 H 08/14/17 21:12: POC Glucose 237 H 08/15/17 07:08: POC Glucose 186 H 08/15/17 07:32: Sodium 136, Potassium 4.5, Chloride 105, Carbon Dioxide 24.0, Anion Gap 7, BUN 14, Creatinine 1.33 H, Estim Creat Clear Calc 57.59, Est GFR (MDRD) Af Amer 70, Est GFR (MDRD) Non-Af 58 L, BUN/Creatinine Ratio 10.5, Glucose 191 H, Calcium 8.2 L, Phosphorus 3.0 08/15/17 07:32: Hemoglobin A1c 7.8 H 08/15/17 11:33: POC Glucose 256 H Code Visit Inpatient E&M: 36029 Subs Hosp L2
--- NOTE | 2017-08-16 09:40 | PN_ITS ---
Patient Problems: Active and Suspected Problems (Last Updated 08/12/17 @ 11:54 by Lorenza Nguyễn) Ulcer of right foot with fat layer exposed (Acute) Type 2 diabetes mellitus with diabetic neuropathy (Acute) Cellulitis (Acute) Subjective: No fever, chills. Pt states he was not taking lisinopril at home. but home meds states on high dose of Metformin 1000 mg bid and lisinopril 20 mg bid. Kidney function improved. Wound culture positive of MSSA Vitals/I&O's: Vital Signs Temp Pulse Resp BP Pulse Ox 97.7 F L 55 L 18 143/78 H 97 08/16/17 04:20 08/16/17 04:41 08/16/17 04:20 08/16/17 04:20 08/16/17 04:20 Oxygen Delivery Method Room Air Weight: 255 lb 11.779 oz Body Mass Index (BMI) 37.8 Intake and Output for Last 24 Hours 08/14/17 08/15/17 08/16/17 23:59 23:59 23:59 Intake Total 1425 / 1425 5644 / 5644 1601 / 1601 Output Total 1800 / 1800 3750 / 3750 Balance -375 / -375 5644 / 5644 -2149 / -2149 General: Alert, Oriented x3, Cooperative HEENT: Atraumatic, PERRLA, EOMI, Normocephalic Neck: Supple, No JVD, Negative Carotid Bruits Lungs: Clear to auscultation, Normal air movement Cardiovascular: Regular rate, Normal S1, Normal S2, No murmurs Abdomen: Bowel Sounds Present, Soft, Non Tender Extremities: No edema, Capillary Refill Less than 3 Seconds Skin: Ulcer/ Wound - superficial slough present. minimal discharge, dry Musculoskeletal: No Tenderness to Palpation of Joints or Extremities Neurological: Cranial nerves II-XII grossly intact Psych/Mental Status: Normal Affect, Appropriate Microbiology Past 72 Hours 08/14/17 16:50 Wound - Toe Gram Stain - Final 08/14/17 16:50 Wound - Toe Wound Culture - Final Staphylococcus aureus Laboratory Results 08/15/17 11:33: POC Glucose 256 H 08/15/17 17:01: POC Glucose 184 H 08/15/17 22:29: POC Glucose 173 H 08/16/17 06:37: POC Glucose 140 H Current Medications Acetaminophen (Tylenol) 650 mg PO Q6H PRN PRN PRN Reason: Mild Pain (scale 0-3)/T>100.7 Al Hydroxide/Mg Hydroxide (Mylanta Ii) 30 ml PO Q6H PRN PRN PRN Reason: Gastric Burning Bisacodyl (Dulcolax) 10 mg RECTAL DAILY PRN PRN PRN Reason: Constipation Carvedilol (Coreg) 25 mg PO BID [facility] Last Admin: 08/15/17 22:31 Dose: 25 mg Docusate Sodium (Colace) 200 mg PO BID PRN PRN PRN Reason: Constipation Fish Oil (Cvs Fish Oil 1,200 Mg Softgel) 1 each PO BID [facility] Last Admin: 08/15/17 22:31 Dose: 1 each Glimepiride (Amaryl) 4 mg PO DAILY@0800 [facility] Last Admin: 08/16/17 08:13 Dose: 4 mg Hydralazine HCl (Apresoline Iv) 5 mg IV Q6H PRN PRN PRN Reason: BLOOD PRESSURE Clindamycin Phosphate 600 mg/ (Sodium Chloride) 54 mls @ 162 mls/hr IV Q8 [facility] Insulin Detemir (Levemir (Bkc)) 55 units SC QHS [facility] Last Admin: 08/15/17 22:31 Dose: 55 u Insulin Human Lispro (Humalog Kwikpen (Bkc)) 0 unit SC ACHS [facility] PRN Reason: Protocol Last Admin: 08/16/17 06:38 Dose: Not Given Lactobacillus Acidophilus (Acidophilus) 1 tablet PO TID [facility] Lisinopril (Zestril) 20 mg PO DAILY [facility] ([facility] Last Admin: 08/16/17 08:13 Dose: 1,000 mg Morphine Sulfate () 1 - 2 mg IV Q4H PRN PRN PRN Reason: SEVERE PAIN (6-10/10) Nutritional Formula (Lactose Free) (Glucerna Shake) 120 ml PO 4X/DAY [facility] Last Admin: 08/15/17 22:37 Dose: 120 ml Ondansetron HCl (Zofran) 4 mg IV Q8H PRN PRN PRN Reason: Nausea Oxycodone HCl (Oxyir) 5 mg PO Q4H PRN PRN PRN Reason: Moderate Pain (pain scale 4-5) Sodium Chloride () 5 - 30 ml IV UD PRN PRN Reason: SALINE FLUSH Medical Necessity - Tobacco Use Smoking Status: Never smoker Tobacco Use: Non-smoker Assessment/Plan All Active Problems (Last Updated 08/12/17 @ 11:54 by Lorenza Nguyễn) Ulcer of right foot with fat layer exposed (Acute) Type 2 diabetes mellitus with diabetic neuropathy (Acute) Cellulitis (Acute) This is a 61-year-old gentleman patient is admitted for right fifth digit superficial ulcer with localized surrounding cellulitis of right foot. Patient failed outpatient antibiotic; was on Bactrim and Augmentin . Patient got IV vancomycin. On IV Zosyn. Podiatry and ID consult. Foot x-ray negative for fracture or dislocation 1. Right lateral superficial ulcer ON RIGHT 5TH MTP region with surrounding localized cellulitis secondary to MSSA with diabetic neuropathy: Patient failed o/p therapy with Bactrim Augmentin. Patient initially started on IV vancomycin and Zosyn in ER but vancomycin discontinued as MRSA screen negative. Wound culture is showing wound culture MSSA. Initially patient was started on Zosyn as diabetic ulcer is generally polymicrobial in nature but no change to clindamycin. 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 2. Uncontrolled DMt2 - hold orals - SSI. Diabetic diet. A1c 7.8. Levemir dose increased. NovoLog sliding scale increased to high medium scale. Metformin dose decreased as the patient has lactic acidosis with moderate CKD stage III with estimated creatinine clearance 55 L/min. 3. chronic kidney disease stage III, diabetic nephropathy based on prior labs on file. Will hydrate with IV fluids and monitor. Creatinine improved from 1.7- 1.33. BMP. 4. CAD prior stents/CABG and hypertension: coreg, not on asa/statin. Lisinopril decreased to 20 mg daily. BP is controlled. 5. Hx Fatty liver dz. 6. Mild hyponatremia; isovolumic possibly 2/2 hyperglycemia. Sodium is better. 7. Obesity in DM - dietary consult. Diabetic diet. DVT ppx: heparin Clinical Impression(s) from Imaging Studies Foot X-Ray 08/14/17 08:50 IMPRESSION: No fracture or destruction. Microbiology Past 72 Hours 08/14/17 16:50 Wound - Toe Gram Stain - Final 08/14/17 16:50 Wound - Toe Wound Culture - Preliminary Staphylococcus aureus 08/14/17 08:43 Wound - Right Foot Gram Stain - Final 08/14/17 08:43 Wound - Right Foot Wound Culture - Preliminary Staphylococcus aureus Laboratory Results 08/14/17 13:00: Lactic Acid 2.0 08/14/17 16:49: POC Glucose 181 H 08/14/17 21:12: POC Glucose 237 H 08/15/17 07:08: POC Glucose 186 H 08/15/17 07:32: Sodium 136, Potassium 4.5, Chloride 105, Carbon Dioxide 24.0, Anion Gap 7, BUN 14, Creatinine 1.33 H, Estim Creat Clear Calc 57.59, Est GFR ( MDRD) Af Amer 70, Est GFR (MDRD) Non-Af 58 L, BUN/Creatinine Ratio 10.5, Glucose 191 H, Calcium 8.2 L, Phosphorus 3.0 08/15/17 07:32: Hemoglobin A1c 7.8 H 08/15/17 11:33: POC Glucose 256 H Code Visit Inpatient E&M: 65698 Subs Hosp L2
[2017-08-16 10:17] LABS: Anion Gap 7 (5-15); BUN 16 mg/dL (7-18); BUN/Creat Ratio 11.3 RATIO (10-20); Chloride 101 mmol/L (98-107); Cholesterol 137 mg/dL (200); Creatinine, Serum 1.42 mg/dL (0.70-1.30); EST Glomerular Filtration Rate 54 mL/min (>60); Est Glom Filt Rate - Afr Amer 65 mL/min (>60); Estimated Creatinine Clearance 53.94 ml/min; Glucose 254 mg/dL (74-106); High Density Lipoprotein 35 mg/dL; Potassium 4.7 mmol/L (3.5-5.1); Sodium Level 134 mmol/L (136-145); Triglycerides 166 mg/dL; Very Low Density Lipoprotein 33 mg/dL (5-40)
[2017-08-16] MEDS: Carvedilol 25 MG Tablet PO ×2 (10:54→21:40)
[2017-08-16] MEDS: Lisinopril 20 MG Tablet PO (10:54)
[2017-08-16] MEDS: Glucerna Shake 120 ML LIQUID PO ×2 (10:57→21:44)
[2017-08-16] MEDS: Insulin Lispro 100 UNIT/ML INSULN.PEN SC ×3 (11:44→21:49)
[2017-08-16] MEDS: amLODIPine 5 MG Tablet PO (12:00)
[2017-08-16 12:11] LABS: Bedside Glucose 236 mg/dL (70-110)
--- NOTE | 2017-08-16 12:15 | PCM.PROGNOTE ---
Patient Problems: Active and Suspected Problems (Last Updated 08/12/17 @ 11:54 by Lorenza Nguyễn) Ulcer of right foot with fat layer exposed (Acute) Type 2 diabetes mellitus with diabetic neuropathy (Acute) Cellulitis (Acute) Subjective: This 61 year old diabetic male was seen resting bedside again today for right dorsolateral foot ulcer. He said he had no issues through the evening again. He says he still feels well and has an appetite. He currently denies any feelings of nausea, vomiting, fever, or chills. - Physical Exam General: Alert, Oriented x3, Cooperative, No apparent distress Extremities: Capillary Refill Less than 3 Seconds - to distal digits of right foot, No Calf Tenderness - negative socorro and ayala sign, Diminished Peripheral Pulses - DP and PT pulses faintly palpable, Edema - lower extremity edema, improved since yesterday Skin: Ulcer/ Wound - Ulcer underlying deroofed blister to dorsolateral right foot and extending to the base of the 5th toe. Area measuers approximately 3cm x 2.5 cm. Base continues to be mixture of adherent slough, fibrin, and granular tissue. There is no probing to bone noted. There is no purulence. Slight serous drainage appreciated to dressing today again. Erythema surrouning the area has increased since yesterday. No fluctuance noted around the area. Musculoskeletal: - - No tenderness with manipulation of ulcer site Neurological: - - epicritic sensation grossly absent to lower extermity Psych/Mental Status: Normal Affect, Appropriate Vital Signs Temp Pulse Resp BP Pulse Ox 97.0 F L 57 L 18 177/76 H 96 08/16/17 10:51 08/16/17 10:51 08/16/17 10:51 08/16/17 10:51 08/16/17 10:51 Oxygen Delivery Method Room Air Weight: 116 kg Body Mass Index (BMI) 37.8 Intake and Output for Last 24 Hours 08/14/17 08/15/17 08/16/17 23:59 23:59 23:59 Intake Total 1425 / 1425 5644 / 5644 1601 / 1601 Output Total 1800 / 1800 3750 / 3750 Balance -375 / -375 5644 / 5644 -2149 / -2149 Microbiology Past 72 Hours 08/14/17 16:50 Gram Stain - Final Wound - Toe Wound Culture - Final Staphylococcus aureus Laboratory Tests Past 24 Hrs 08/16/17 09:49 Sodium 134 L Potassium 4.7 Chloride 101 Carbon Dioxide 26.0 Anion Gap 7 BUN 16 Creatinine 1.42 H Estim Creat Clear Calc 53.94 Est GFR (MDRD) Af Amer 65 Est GFR (MDRD) Non-Af 54 L BUN/Creatinine Ratio 11.3 Glucose 254 H Calcium 9.0 Triglycerides 166 Cholesterol 137 LDL Cholesterol 69 VLDL Cholesterol 33 HDL Cholesterol 35 L POC Glucose 08/16/17 08/16/17 08/15/17 11:41 06:37 22:29 POC Glucose 236 H 140 H 173 H 08/15/17 17:01 POC Glucose 184 H Medical Necessity - Tobacco Use Smoking Status: Never smoker Tobacco Use: Non-smoker Assessment/Plan All Active Problems (Last Updated 08/12/17 @ 11:54 by Lorenza Nguyễn) Ulcer of right foot with fat layer exposed (Acute) Type 2 diabetes mellitus with diabetic neuropathy (Acute) Cellulitis (Acute) Ulcer/Deroofed blister with fat layer exposed to right foot Cellulitis right foot DM II Patient was carefully examined and evaluated bedside again today. Ulcer base remains stable since last evening, surrounding erythema has slightly increased since yesterday and was outlined today. Patient remains afebrile. WBC was 9 when last checked. ESR 17 and CRP is 111. Wound cultures were taken and sent for aerobic, anaerobic, and mrsa pcr evaluation. Wound culture prelim results shoe staph aureus. Patient was taken off vanc and zosyn by hospitalist since mrsa pcr was negative and was started about an hour ago on clindamycin. We will give the antibiotic some time to see if it will help decrease the patient's erythema. Will continue to monitor for any further wound culture results. I would recommend ID consult for tomorrow. Blood culture results show no growth after 48 hours. X-rays taken of right foot and show no osseous destruction or signs of osteomyelitis. No soft tissue emphysema appreciated. Can consider MRI if no improvement continues to be seen. At this time, the ulcer site was carefully cleansed. Ulcer site dressed with aquacel ag, 2x2, 4x4, and kerlix. Patient to keep all pressure off of the top of the right foot while ulcer is open. Patient to be partial weight bearing to heel of the right foot if he needs to get around. Patient encouraged to elevate his right leg. Podiatry will continue to follow this patient and monitor for lab results while patient is in house. Please contact with any questions.
[2017-08-16] MEDS: hydrALAZINE 25 MG Tablet PO ×2 (15:24→21:39)
[2017-08-16 17:31] LABS: Bedside Glucose 237 mg/dL (70-110)
[2017-08-16] MEDS: Acetaminophen 325 MG Tablet 650 MG PO (21:44)
[2017-08-16 23:05] LABS: Bedside Glucose 217 mg/dL (70-110)
[2017-08-17] VITALS (9 sets, daily range): BP systolic 145–169; BP diastolic 71–82; PULSE 55–63; RESP 14–18; TEMP 36.4–36.8; O2SAT 96–98
[2017-08-17] MEDS: hydrALAZINE 25 MG Tablet PO ×3 (06:25→21:40)
[2017-08-17 06:28] LABS: Anion Gap 7 (5-15); BUN 18 mg/dL (7-18); BUN/Creat Ratio 13.7 RATIO (10-20); Calcium,Total 9.3 mg/dL (8.5-10.1); Chloride 101 mmol/L (98-107); Creatinine, Serum 1.31 mg/dL (0.70-1.30); EST Glomerular Filtration Rate 59 mL/min (>60); Est Glom Filt Rate - Afr Amer 71 mL/min (>60); Estimated Creatinine Clearance 58.47 ml/min; Glucose 165 mg/dL (74-106); Potassium 4.5 mmol/L (3.5-5.1); Sodium Level 134 mmol/L (136-145)
[2017-08-17] MEDS: Insulin Lispro 100 UNIT/ML INSULN.PEN SC ×4 (06:32→21:47)
[2017-08-17 06:56] LABS: Bedside Glucose 162 mg/dL (70-110)
[2017-08-17] MEDS: Glimepiride 4 MG Tablet PO (08:39)
[2017-08-17] MEDS: amLODIPine 5 MG Tablet PO (08:40)
[2017-08-17] MEDS: Carvedilol 25 MG Tablet PO ×2 (08:40→21:41)
[2017-08-17] MEDS: Aspirin E.C. 81 MG Tablet PO (08:44)
[2017-08-17] MEDS: Glucerna Shake 120 ML LIQUID PO ×2 (10:11→21:42)
[2017-08-17 11:51] LABS: Bedside Glucose 272 mg/dL (70-110)
--- NOTE | 2017-08-17 14:18 | PCM.HP.ID ---
Problem List (1) MSSA (methicillin susceptible Staphylococcus aureus) infection Status: Acute Reason for Consult: mssa Consulted by: Dr. Lynch History of Present Illness: The patient is a 61 year old M with DM neuropathy who presented 08/14 with 3-4 days of R lateral foot blistering with progressive redness and swelling. He developed fever, chills, aches, n/v. Was started on bactrim and augmentin, but sx continued to progress. Taken to ED, temp was normal, but lactate over 2. Podiatry consulted, cxs grew MSSA, initially given vanc and zosyn, now abx narrowed to iv clinda. Feeling better. Full ROS performed and neg except as noted above. - Medical History Past Medical History (Chronic Problems): Chronic Problems (Last Updated 08/12/17 @ 11:54 by Lorenza Nguyễn) CAD (coronary artery disease) (Chronic) Type 2 diabetes mellitus (Chronic) Hypertension (Chronic) Hyperlipidemia (Chronic) Allergies/Adverse Reactions: Allergies No Known Allergies Allergy (Unverified 08/14/17 07:58) Home Medications: Ambulatory Orders Medication Instructions Recorded carvedilol 25 mg tablet 25 mg PO BID 08/12/17 glimepiride 4 mg tablet 4 mg PO QAM 08/12/17 insulin glargine (U-100) 100 50 - 60 unit SC QDAY 08/12/17 unit/mL (3 mL) subcutaneous pen metformin 1,000 mg tablet 1,000 mg PO BID 08/12/17 omega-3 fatty acids 1,000 mg 1,200 mg PO BID 08/12/17 capsule Amoxicillin/Potassium Clav 1 each PO BID 08/14/17 [Augmentin 875-125 Tablet] Lisinopril [Zestril] 20 mg PO BID 08/14/17 Smz/Tmp Ds [Bactrim Ds] 1 tablet PO BID 08/14/17 - Social History SMOKING STATUS:: Never smoker Vital Signs Temp Pulse Resp BP Pulse Ox 98.0 F 63 14 145/74 H 98 08/17/17 08:35 08/17/17 08:35 08/17/17 08:35 08/17/17 08:35 08/17/17 08:35 Oxygen Delivery Method Room Air Weight: 116 kg Body Mass Index (BMI) 37.8 Microbiology Past 72 Hours 08/14/17 16:50 Gram Stain - Final Wound - Toe Wound Culture - Final Staphylococcus aureus Anaerobic Culture - Final No anaerobic bacteria isolated. Laboratory Tests Past 24 Hrs 08/17/17 05:48 Sodium 134 L Potassium 4.5 Chloride 101 Carbon Dioxide 26.0 Anion Gap 7 BUN 18 Creatinine 1.31 H Estim Creat Clear Calc 58.47 Est GFR (MDRD) Af Amer 71 Est GFR (MDRD) Non-Af 59 L BUN/Creatinine Ratio 13.7 Glucose 165 H Calcium 9.3 - Other Studies Radiology: [] reviewed Other Studies: [] Route of nutrition/ use of supplements: [] Nutritional Intake: [] IV Site: [] Triplett Catheter: [] - Physical Exam General: Alert, Oriented x3, Cooperative, No apparent distress HEENT: Atraumatic, PERRLA, EOMI Neck: Supple, No Nodes Lungs: Clear to auscultation, Normal air movement Cardiovascular: Regular rate, Regular Rhythm Abdomen: Bowel Sounds Present, Soft, Non Tender, Non-Distended Extremities: No edema Skin: Ulcer/ Wound - R lateral foot IV Site: Peripheral, without redness Musculoskeletal: No Tenderness to Palpation of Joints or Extremities Neurological: Cranial nerves II-XII grossly intact - Assessment/Plan Antibiotics: [] Assessment/Plan: [] Active and Suspected Problems (Last Updated 08/12/17 @ 11:54 by Lorenza Nguyễn) Cellulitis (Acute) MSSA R foot infection with DM neuropathy - much improved, podiatry following. On iv clinda. Ok for d/c home on po Duricef 500mg bid and po flagyl 500mg tid for 10 more days. Will follow, thank you.
--- NOTE | 2017-08-17 15:15 | PCM.PROGNOTE ---
Patient Problems: Active and Suspected Problems (Last Updated 08/12/17 @ 11:54 by Lorenza Nguyễn) MSSA (methicillin susceptible Staphylococcus aureus) infection (Acute) Cellulitis (Acute) Subjective: Patient was seen today for follow up on right foot infection, MSSA, no fevers or chills, no overnight or acute events. He relates to no pain to foot. ID saw patient today, ok to switch to oral antibiotics. - Physical Exam General: Alert, Oriented x3, Cooperative, No apparent distress Extremities: Capillary Refill Less than 3 Seconds, No Calf Tenderness, Peripheral Pulses Normal, - - Ulceration to the dorsal aspect of the distal aspect of the 4th intermetatarsal space right foot with mostly granular base and some fibrotic eschar noted, cellulitis to the dorsal lateral foot appears to be fading and improving; no maloder, no fluctuance, no crepitus, no visible abscess, no evidence of acute ischemia present. The 4th interdigital space right foot with some maceration. Vital Signs Temp Pulse Resp BP Pulse Ox 97.5 F L 59 L 16 148/71 H 96 08/17/17 13:55 08/17/17 13:55 08/17/17 13:55 08/17/17 13:55 08/17/17 13:55 Oxygen Delivery Method Room Air Weight: 116 kg Body Mass Index (BMI) 37.8 Intake and Output for Last 24 Hours 08/15/17 08/16/17 08/17/17 23:59 23:59 23:59 Intake Total 5644 / 5644 2701 / 2701 3840 / 3840 Output Total 3750 / 3750 3775 / 3775 Balance 5644 / 5644 -1049 / -1049 65 / 65 Microbiology Past 72 Hours 08/14/17 16:50 Gram Stain - Final Wound - Toe Wound Culture - Final Staphylococcus aureus Anaerobic Culture - Final No anaerobic bacteria isolated. Laboratory Tests Past 24 Hrs 08/17/17 05:48 Sodium 134 L Potassium 4.5 Chloride 101 Carbon Dioxide 26.0 Anion Gap 7 BUN 18 Creatinine 1.31 H Estim Creat Clear Calc 58.47 Est GFR (MDRD) Af Amer 71 Est GFR (MDRD) Non-Af 59 L BUN/Creatinine Ratio 13.7 Glucose 165 H Calcium 9.3 POC Glucose 08/17/17 08/17/17 08/16/17 11:29 06:31 21:48 POC Glucose 272 H 162 H 217 H 08/16/17 17:17 POC Glucose 237 H Medical Necessity - Tobacco Use Smoking Status: Never smoker Tobacco Use: Non-smoker Assessment/Plan All Active Problems (Last Updated 08/12/17 @ 11:54 by Lorenza Nguyễn) MSSA (methicillin susceptible Staphylococcus aureus) infection (Acute) Ulcer of right foot with fat layer exposed (Acute) Type 2 diabetes mellitus with diabetic neuropathy (Acute) Cellulitis (Acute) Ulcer fat layer exposed to right foot Cellulitis right foot DM II w/ neuropathy Improvement noted today. Continue with antibiotic therapy, ID following. Culture growing MSSA. Continue with local wound care - Aquacel Ag with overlying gauze, kerlix and leila dressing. Also applied betadine solution to the right 4th interdigital space maceration. Spoke with Dr. Lynch, and will keep patient for continued IV antibiotic therapy. Patient to keep all pressure off of the top of the right foot while ulcer is open. Patient to keep foot elevated. Podiatry will continue to follow. Please contact with any questions.
[2017-08-17 16:25] LABS: Bedside Glucose 180 mg/dL (70-110)
--- NOTE | 2017-08-17 20:36 | PCM.PROGNOTE ---
Patient Problems: Active and Suspected Problems (Last Updated 08/12/17 @ 11:54 by Lorenza Nguyễn) MSSA (methicillin susceptible Staphylococcus aureus) infection (Acute) Cellulitis (Acute) Subjective: The patient is a 61-year-old male with a past medical history of coronary artery disease, diabetes mellitus type 2, hypertension and hyperlipidemia who presented to the emergency department at [facility] on 08/14/2017 with a wound on the right foot dorsal surface at the base of the great toe and second toe. This wound was surrounded by erythema and it was warm to touch. The wound had started as a blister and this became deroofed. White blood cell count in the emergency room was 9.0 with 74% neutrophils. Hemoglobin and platelets were within normal limits. Sodium was low at 131 and the BUN was 23 with a creatinine of 1.57. Creatinine in April 2017 was 1.22. Lactic acid was increased at 2.5. A PCR on the wound drainage was positive for staph aureus but negative for MRSA. Hemoglobin A1c is 7.8. Plain x-ray of the foot showed no fracture and no bony destruction. He was admitted to the hospital with a diagnosis of severe sepsis secondary to diabetic foot infection and started on vancomycin and Zosyn. Podiatry was consulted. He has been afebrile for the duration of his hospital stay. He has persistent systolic hypertension. Lisinopril was held at admission secondary to elevated creatinine. Wound culture grew pansensitive staph aureus with the exception of benzyl penicillin. Blood sugars have been erratic but metformin was discontinued at admission. He has no complaints today. - Physical Exam General: Alert, Oriented x3, Cooperative, No apparent distress Oral: Moist Mucosa, No Gingival or Mucosal Lesions/ Ulcerations Lungs: Clear to auscultation Cardiovascular: Regular rate, Regular Rhythm, Normal S1, Normal S2, No Gallop Abdomen: Bowel Sounds Present, Soft, Non Tender, Non-Distended, - - Bowel sounds are not hyperactive and he denies diarrhea Extremities: Capillary Refill Less than 3 Seconds, - - I reviewed with Dr. Cruz the photo he took with dressing change today.....the erythema has faded somewhat but, there is still erythema over most of the dorsal surface of the right foot and there fibrotic eschar at the wound margins Psych/Mental Status: Normal Affect, Appropriate Vital Signs Temp Pulse Resp BP Pulse Ox 97.5 F L 59 L 16 148/71 H 96 08/17/17 13:55 08/17/17 13:55 08/17/17 13:55 08/17/17 13:55 08/17/17 13:55 Oxygen Delivery Method Room Air Weight: 255 lb 11.779 oz Body Mass Index (BMI) 37.8 Intake and Output for Last 24 Hours 08/15/17 08/16/17 08/17/17 23:59 23:59 23:59 Intake Total 5644 / 5644 2701 / 2701 6013 / 6013 Output Total 3750 / 3750 6300 / 6300 Balance 5644 / 5644 -1049 / -1049 -287 / -287 Microbiology Past 72 Hours 08/14/17 16:50 Gram Stain - Final Wound - Toe Wound Culture - Final Staphylococcus aureus Anaerobic Culture - Final No anaerobic bacteria isolated. Laboratory Tests Past 24 Hrs 08/17/17 05:48 Sodium 134 L Potassium 4.5 Chloride 101 Carbon Dioxide 26.0 Anion Gap 7 BUN 18 Creatinine 1.31 H Estim Creat Clear Calc 58.47 Est GFR (MDRD) Af Amer 71 Est GFR (MDRD) Non-Af 59 L BUN/Creatinine Ratio 13.7 Glucose 165 H Calcium 9.3 POC Glucose 08/17/17 08/17/17 08/17/17 16:14 11:29 06:31 POC Glucose 180 H 272 H 162 H 08/16/17 21:48 POC Glucose 217 H Medical Necessity - Tobacco Use Smoking Status: Never smoker Tobacco Use: Non-smoker Assessment/Plan All Active Problems (Last Updated 08/12/17 @ 11:54 by Lorenza Nguyễn) MSSA (methicillin susceptible Staphylococcus aureus) infection (Acute) Ulcer of right foot with fat layer exposed (Acute) Type 2 diabetes mellitus with diabetic neuropathy (Acute) Cellulitis (Acute) Impressions 1. Diabetic foot infection secondary to staph aureus 2. Diabetes mellitus type 2-hemoglobin A1c is 7.8 3. Coronary artery disease 4. Obesity 5. Zepzfaleclzldg-sicr-rgwqvotsso 6. Hypertension Continue IV clindamycin for at least 24 hours transitioned to p.o. clindamycin when the erythema is significantly decreased. Patient's creatinine is now stable will add Glucophage 500 mg twice daily Discontinue hydralazine 3 times daily and restart lisinopril 20 mg twice daily Encouraged patient to keep his hemoglobin A1c 7.0 or less and also encouraged some weight loss Possible discharge in the a.m. Code Visit Inpatient E&M: 05894 Subs Hosp L2
[2017-08-17 23:26] LABS: Bedside Glucose 269 mg/dL (70-110)
[2017-08-18 02:21] VITALS: BP 160/83; PULSE 54; RESP 16; TEMP 36.5; O2SAT 96
[2017-08-18] MEDS: Insulin Lispro 100 UNIT/ML INSULN.PEN SC (07:01)
[2017-08-18 07:16] LABS: Bedside Glucose 256 mg/dL (70-110)
--- NOTE | 2017-08-18 08:20 | PCM.DC.POD ---
Weight Bearing Status: Partial weight bearing - Avoid weight to right forefoot Keep extremity elevated above heart level: Right Leg - Must keep right foot elevated with pillows Call your doctor if your incision/area has: Sudden Increased Bleeding, Increased Redness, Foul Smelling Discharge Call your doctor if you observe: Fever of 101 or Higher, Shortness of breath, Chest pain, Calf discomfort, Uncontrolled pain Additional Dressing/Incision Instructions:: Change dressing to right foot daily. Cleanse with normal saline solution. Apply Aquacel Ag to wound. Apply Betadine solution in between 4th and 5th toes. Apply gauze dressing with overlying leila bandage. Allergies/Adverse Reactions: Allergies No Known Allergies Allergy (Unverified 08/14/17 07:58) Medications to take at Discharge carvedilol 25 mg tablet 25 mg PO BID 08/12/17 glimepiride 4 mg tablet 4 mg PO QAM 08/12/17 insulin glargine (U-100) 100 unit/mL (3 mL) subcutaneous pen 50 - 60 unit SC QDAY 08/12/17 metformin 1,000 mg tablet 1,000 mg PO BID 08/12/17 omega-3 fatty acids 1,000 mg capsule 1,200 mg PO BID 08/12/17 Amoxicillin/Potassium Clav [Augmentin 875-125 Tablet] 1 each PO BID 08/14/17 Lisinopril [Zestril] 20 mg PO BID 08/14/17 Smz/Tmp Ds [Bactrim Ds] 1 tablet PO BID 08/14/17 Primary Care Physician: Otilio Sahu MD [Primary Care Provider] - Please Follow Up With: Dennys Cruz DPM - Office number is [phone] When: on 08/20/17, sooner if needed, [facility]
--- NOTE | 2017-08-18 08:24 | PCM.PROGNOTE ---
Patient Problems: Active and Suspected Problems (Last Updated 08/12/17 @ 11:54 by Lorenza Nguyễn) MSSA (methicillin susceptible Staphylococcus aureus) infection (Acute) Cellulitis (Acute) Subjective: Patient was seen today for follow up on right foot. Patient was seen with Dr. Lynch. Patient with no overnight or acute events. Patient with no new complaints. - Physical Exam General: Alert, Oriented x3, Cooperative, No apparent distress Extremities: Capillary Refill Less than 3 Seconds, No Calf Tenderness, - - Ulceration to the dorsal aspect of the distal aspect of the 4th intermetatarsal space right foot with mostly granular base and some fibrotic eschar noted - improving, cellulitis to the dorsal lateral foot is fading and improving; no maloder, no fluctuance, no crepitus, no visible abscess, no evidence of acute ischemia present. The 4th interdigital space right foot with some maceration, also improved. Vital Signs Temp Pulse Resp BP Pulse Ox 97.7 F L 54 L 16 160/83 H 96 08/18/17 02:21 08/18/17 02:21 08/18/17 02:21 08/18/17 02:21 08/18/17 02:21 Oxygen Delivery Method Room Air Weight: 116 kg Body Mass Index (BMI) 37.8 Intake and Output for Last 24 Hours 08/16/17 08/17/17 08/18/17 23:59 23:59 23:59 Intake Total 2701 / 2701 6013 / 6013 1187.3 / 1187.3 Output Total 3750 / 3750 6300 / 6300 Balance -1049 / -1049 -287 / -287 1187.3 / 1187.3 Microbiology Past 72 Hours 08/14/17 16:50 Gram Stain - Final Wound - Toe Wound Culture - Final Staphylococcus aureus Anaerobic Culture - Final No anaerobic bacteria isolated. POC Glucose 08/18/17 08/17/17 08/17/17 07:01 21:46 16:14 POC Glucose 256 H 269 H 180 H 08/17/17 11:29 POC Glucose 272 H Medical Necessity - Tobacco Use Smoking Status: Never smoker Tobacco Use: Non-smoker Assessment/Plan All Active Problems (Last Updated 08/12/17 @ 11:54 by Lorenza Nguyễn) MSSA (methicillin susceptible Staphylococcus aureus) infection (Acute) Ulcer of right foot with fat layer exposed (Acute) Type 2 diabetes mellitus with diabetic neuropathy (Acute) Cellulitis (Acute) Ulcer fat layer exposed to right foot Cellulitis right foot DM II w/ neuropathy Continued improvement noted. Reviewed with Dr. Lynch, patient going to be discharged home on oral antibiotic. Continue with local wound care - Aquacel Ag with overlying gauze, kerlix and leila dressing, and betadine solution in between 4th and 5th toes - change daily. Patient to keep all pressure off of the top of the right foot and off of forefoot while ulcer is open. Patient to keep foot elevated. Patient was advised to [facility] on , sooner if needed.
[2017-08-18 09:20] VITALS: BP 141/71; PULSE 60; RESP 16; TEMP 36.8; O2SAT 95
[2017-08-18] MEDS: Aspirin E.C. 81 MG Tablet PO (09:31)
[2017-08-18] MEDS: Carvedilol 25 MG Tablet PO (09:32)
[2017-08-18] MEDS: Glimepiride 4 MG Tablet PO (09:32)
[2017-08-18] MEDS: Glucerna Shake 120 ML LIQUID PO (09:35)
[2017-08-18] MEDS: amLODIPine 10 MG Tablet PO (09:35)
[2017-08-18] MEDS: Lisinopril 20 MG Tablet PO (09:35)
--- NOTE | 2017-08-18 09:45 | PCM.DC ---
- Discharge Diagnoses Current Active Problems: Current Active and Chronic Problems (Last Updated 08/12/17 @ 11:54 by Lorenza Nguyễn) MSSA (methicillin susceptible Staphylococcus aureus) infection (Acute) Cellulitis (Acute) You will use the following diet at home:: Calorie/Carbohydrate Controlled (specify 1200, 1400, etc) - 1900 calories Your food should be the consistency of: Regular Your liquids should be the consistency of: Regular/Thin Discharge Activity: - - You are going to have to decrease activity and keep the pight leg elevated until the ulceration is healed and the infection has resolved. May resume sexual activity in: No Restrictions Weight Bearing Status: Partial weight bearing - Avoid weight to right forefoot Keep extremity elevated above heart level: Right Leg - Must keep right foot elevated with pillows Call your doctor if your incision/area has: Sudden Increased Bleeding, Increased Redness, Foul Smelling Discharge Call your doctor if you observe: Fever of 101 or Higher, Shortness of breath, Chest pain, Calf discomfort, Uncontrolled pain Additional Dressing/Incision Instructions:: Change dressing to right foot daily. Cleanse with normal saline solution. Apply Aquacel Ag to wound. Apply Betadine solution in between 4th and 5th toes. Apply gauze dressing with overlying leila bandage. Additional Instructions: 1. The lipids are very well controlled but, unfortunately your blood sugars are not well controlled. Weight loss and increased exercise will help to get the BS's controlled. Your HGBA1C was 7.8 and I would like to see it 7.0 or less. After the foot has healed I think you should start an exercise program and work up to walking at least 30 minutes daily. IT IS VERY HARD TO LOSE WEIGHT.....I know this personally but you can do this! 2. Your Blood pressures have been high in the hospital but the Lisinopril was held due to a change in the kidney function due to the infection. I have restarted the Lisinopril. Ideally I would like to see the BP under 130/80. It might be a good idea to get a BP cuff for home and check your BP a few times a day at different times over the next 2 weeks and then bring the record to your PCP to review. Pending Tests on Discharge: none Allergies/Adverse Reactions: Allergies No Known Allergies Allergy (Unverified 08/14/17 07:58) Medications to take at Discharge carvedilol 25 mg tablet 25 mg PO BID 08/12/17 glimepiride 4 mg tablet 4 mg PO QAM 08/12/17 insulin glargine (U-100) 100 unit/mL (3 mL) subcutaneous pen 50 - 60 unit SC QDAY 08/12/17 metformin 1,000 mg tablet 1,000 mg PO BID 08/12/17 omega-3 fatty acids 1,000 mg capsule 1,200 mg PO BID 08/12/17 Lisinopril [Zestril] 20 mg PO BID 08/14/17 Cefadroxil [Duricef] 500 mg PO BID #20 cap 08/18/17 Metronidazole [Flagyl] 500 mg PO TID #30 tab 08/18/17 Oxycodone HCl/Acetaminophen [Percocet 5/325] 1 - 2 tab PO Q6H PRN PRN 7 Days #30 tab 08/18/17 The following prescriptions were given: Oxycodone HCl/Acetaminophen [Percocet 5/325] 1 - 2 tab PO Q6H PRN PRN 7 Days #30 tab PRN Reason: Pain Cefadroxil [Duricef] 500 mg PO BID #20 cap Metronidazole [Flagyl] 500 mg PO TID #30 tab Primary Care Physician: Otilio Sahu MD [Primary Care Provider] - Please follow up with your Primary Care Physician in: 1-2 weeks Please Follow Up With: Dennys Cruz DPM - Office number is [phone] When: on 08/20/17, sooner if needed, at [facility] Proposed Discharge Date: 08/18/17
--- NOTE | 2017-08-18 09:59 | DCINST_ITS ---
- Discharge Diagnoses Current Active Problems: Current Active and Chronic Problems (Last Updated 08/12/17 @ 11:54 by Lorenza Nguyễn) MSSA (methicillin susceptible Staphylococcus aureus) infection (Acute) Cellulitis (Acute) You will use the following diet at home:: Calorie/Carbohydrate Controlled ( specify 1200, 1400, etc) - 1900 calories Your food should be the consistency of: Regular Your liquids should be the consistency of: Regular/Thin Discharge Activity: - - You are going to have to decrease activity and keep the pight leg elevated until the ulceration is healed and the infection has resolved. May resume sexual activity in: No Restrictions Weight Bearing Status: Partial weight bearing - Avoid weight to right forefoot Keep extremity elevated above heart level: Right Leg - Must keep right foot elevated with pillows Call your doctor if your incision/area has: Sudden Increased Bleeding, Increased Redness, Foul Smelling Discharge Call your doctor if you observe: Fever of 101 or Higher, Shortness of breath, Chest pain, Calf discomfort, Uncontrolled pain Additional Dressing/Incision Instructions:: Change dressing to right foot daily. Cleanse with normal saline solution. Apply Aquacel Ag to wound. Apply Betadine solution in between 4th and 5th toes. Apply gauze dressing with overlying leila bandage. Additional Instructions: 1. The lipids are very well controlled but, unfortunately your blood sugars are not well controlled. Weight loss and increased exercise will help to get the BS's controlled. Your HGBA1C was 7.8 and I would like to see it 7.0 or less. After the foot has healed I think you should start an exercise program and work up to walking at least 30 minutes daily. IT IS VERY HARD TO LOSE WEIGHT.....I know this personally but you can do this! 2. Your Blood pressures have been high in the hospital but the Lisinopril was held due to a change in the kidney function due to the infection. I have restarted the Lisinopril. Ideally I would like to see the BP under 130/80. It might be a good idea to get a BP cuff for home and check your BP a few times a day at different times over the next 2 weeks and then bring the record to your PCP to review. Pending Tests on Discharge: none Allergies/Adverse Reactions: Allergies No Known Allergies Allergy (Unverified 08/14/17 07:58) Medications to take at Discharge carvedilol 25 mg tablet 25 mg PO BID 08/12/17 glimepiride 4 mg tablet 4 mg PO QAM 08/12/17 insulin glargine (U-100) 100 unit/mL (3 mL) subcutaneous pen 50 - 60 unit SC QDAY 08/12/17 metformin 1,000 mg tablet 1,000 mg PO BID 08/12/17 omega-3 fatty acids 1,000 mg capsule 1,200 mg PO BID 08/12/17 Lisinopril [Zestril] 20 mg PO BID 08/14/17 Cefadroxil [Duricef] 500 mg PO BID #20 cap 08/18/17 Metronidazole [Flagyl] 500 mg PO TID #30 tab 08/18/17 Oxycodone HCl/Acetaminophen [Percocet 5/325] 1 - 2 tab PO Q6H PRN PRN 7 Days # 30 tab 08/18/17 The following prescriptions were given: Oxycodone HCl/Acetaminophen [Percocet 5/325] 1 - 2 tab PO Q6H PRN PRN 7 Days # 30 tab PRN Reason: Pain Cefadroxil [Duricef] 500 mg PO BID #20 cap Metronidazole [Flagyl] 500 mg PO TID #30 tab Primary Care Physician: Otilio Sahu MD [Primary Care Provider] - Please follow up with your Primary Care Physician in: 1-2 weeks Please Follow Up With: Dennys Cruz DPM - Office number is [phone] When: on 08/20/17, sooner if needed, at [facility] Proposed Discharge Date: 08/18/17
--- NOTE | 2017-08-18 10:03 | PCM.DC.SUM ---
Discharge Date and Diagnosis - Problem List Patient Problems: Active and Suspected Problems (Last Updated 08/12/17 @ 11:54 by Lorenza Nguyễn) Obesity, Class II, BMI 35-39.9, with comorbidity (Acute) Date of Admission: 08/14/17 Date of Discharge: 08/18/17 - Primary Discharge Diagnosis Active and Suspected Problems (Last Updated 08/12/17 @ 11:54 by Lorenza Nguyễn) MSSA (methicillin susceptible Staphylococcus aureus) infection (Acute) Right foot Cellulitis (Acute) with ulceration of the Right foot with fat layer exposed AGUSTIN due to infection - Secondary Discharge Diagnosis Chronic Problems (Last Updated 08/12/17 @ 11:54 by Lorenza Nguyễn) Type 2 diabetes mellitus with diabetic neuropathy (Chronic) - not adequately controlled with HGBA1C of 7.8 CAD (coronary artery disease) (Chronic) Hypertension (Chronic) Hyperlipidemia (Chronic) Obesity, Class II, BMI 35-39.9, with comorbidity (Acute) Hospital Course and Treatment Imaging Results: Clinical Impression(s) from Imaging Studies Foot X-Ray 08/14/17 08:50 IMPRESSION: No fracture or destruction. Electronically Signed: Lionel Meier MD at 9:17 EDT , Service support , Laboratory Tests 08/14/17 08/14/17 08/14/17 08:40 08:40 08:43 WBC 9.0 RBC 4.50 L Hgb 13.7 Hct 39.1 L MCV 86.9 MCH 30.4 MCHC 35.0 RDW 13.1 RDW Differential 41.8 Plt Count 184 MPV 9.1 Immature Gran % (Auto) 0.200 Neut % (Auto) 73.8 H Lymph % (Auto) 13.9 L [place] % (Auto) 10.5 H Eos % (Auto) 1.4 Baso % (Auto) 0.2 Absolute Neuts (auto) 6.6 Absolute Lymphs (auto) 1.25 Total Counted Not Reportable ESR 17 Sodium Potassium Chloride Carbon Dioxide Anion Gap BUN Creatinine Estim Creat Clear Calc Est GFR (MDRD) Af Amer Est GFR (MDRD) Non-Af BUN/Creatinine Ratio Glucose Hemoglobin A1c Lactic Acid Calcium Phosphorus Total Bilirubin AST ALT Alkaline Phosphatase C-React Prot Ext Range 111.00 H Total Protein Albumin Globulin Albumin/Globulin Ratio Triglycerides Cholesterol LDL Cholesterol VLDL Cholesterol HDL Cholesterol S.aureus Protein A PCR MRSA (PCR) POC Glucose 08/14/17 08/14/17 08/14/17 08:43 08:43 10:45 WBC RBC Hgb Hct MCV MCH MCHC RDW RDW Differential Plt Count MPV Immature Gran % (Auto) Neut % (Auto) Lymph % (Auto) [place] % (Auto) Eos % (Auto) Baso % (Auto) Absolute Neuts (auto) Absolute Lymphs (auto) Total Counted ESR Sodium 131 L Potassium 4.6 Chloride 100 Carbon Dioxide 24.0 Anion Gap 7 BUN 23 H Creatinine 1.57 H Estim Creat Clear Calc 48.78 Est GFR (MDRD) Af Amer 58 L Est GFR (MDRD) Non-Af 48 L BUN/Creatinine Ratio 14.6 Glucose 281 H Hemoglobin A1c Lactic Acid 2.5 H Calcium 8.3 L Phosphorus Total Bilirubin 0.90 AST 17 ALT 39 Alkaline Phosphatase 55 C-React Prot Ext Range Total Protein 7.0 Albumin 3.1 L Globulin 3.9 Albumin/Globulin Ratio 0.8 L Triglycerides Cholesterol LDL Cholesterol VLDL Cholesterol HDL Cholesterol S.aureus Protein A PCR POSITIVE H MRSA (PCR) Negative POC Glucose 08/14/17 08/14/17 08/14/17 10:50 11:20 13:00 WBC RBC Hgb Hct MCV MCH MCHC RDW RDW Differential Plt Count MPV Immature Gran % (Auto) Neut % (Auto) Lymph % (Auto) [place] % (Auto) Eos % (Auto) Baso % (Auto) Absolute Neuts (auto) Absolute Lymphs (auto) Total Counted ESR Sodium Potassium Chloride Carbon Dioxide Anion Gap BUN Creatinine Estim Creat Clear Calc Est GFR (MDRD) Af Amer Est GFR (MDRD) Non-Af BUN/Creatinine Ratio Glucose Hemoglobin A1c Lactic Acid 2.0 Calcium Phosphorus Total Bilirubin AST ALT Alkaline Phosphatase C-React Prot Ext Range Total Protein Albumin Globulin Albumin/Globulin Ratio Triglycerides Cholesterol LDL Cholesterol VLDL Cholesterol HDL Cholesterol S.aureus Protein A PCR MRSA (PCR) Negative POC Glucose 206 H 08/14/17 08/14/17 08/15/17 16:49 21:12 07:08 WBC RBC Hgb Hct MCV MCH MCHC RDW RDW Differential Plt Count MPV Immature Gran % (Auto) Neut % (Auto) Lymph % (Auto) [place] % (Auto) Eos % (Auto) Baso % (Auto) Absolute Neuts (auto) Absolute Lymphs (auto) Total Counted ESR Sodium Potassium Chloride Carbon Dioxide Anion Gap BUN Creatinine Estim Creat Clear Calc Est GFR (MDRD) Af Amer Est GFR (MDRD) Non-Af BUN/Creatinine Ratio Glucose Hemoglobin A1c Lactic Acid Calcium Phosphorus Total Bilirubin AST ALT Alkaline Phosphatase C-React Prot Ext Range Total Protein Albumin Globulin Albumin/Globulin Ratio Triglycerides Cholesterol LDL Cholesterol VLDL Cholesterol HDL Cholesterol S.aureus Protein A PCR MRSA (PCR) POC Glucose 181 H 237 H 186 H 08/15/17 08/15/17 08/15/17 07:32 07:32 11:33 WBC RBC Hgb Hct MCV MCH MCHC RDW RDW Differential Plt Count MPV Immature Gran % (Auto) Neut % (Auto) Lymph % (Auto) [place] % (Auto) Eos % (Auto) Baso % (Auto) Absolute Neuts (auto) Absolute Lymphs (auto) Total Counted ESR Sodium 136 Potassium 4.5 Chloride 105 Carbon Dioxide 24.0 Anion Gap 7 BUN 14 Creatinine 1.33 H Estim Creat Clear Calc 57.59 Est GFR (MDRD) Af Amer 70 Est GFR (MDRD) Non-Af 58 L BUN/Creatinine Ratio 10.5 Glucose 191 H Hemoglobin A1c 7.8 H Lactic Acid Calcium 8.2 L Phosphorus 3.0 Total Bilirubin AST ALT Alkaline Phosphatase C-React Prot Ext Range Total Protein Albumin Globulin Albumin/Globulin Ratio Triglycerides Cholesterol LDL Cholesterol VLDL Cholesterol HDL Cholesterol S.aureus Protein A PCR MRSA (PCR) POC Glucose 256 H 08/15/17 08/15/17 08/16/17 17:01 22:29 06:37 WBC RBC Hgb Hct MCV MCH MCHC RDW RDW Differential Plt Count MPV Immature Gran % (Auto) Neut % (Auto) Lymph % (Auto) [place] % (Auto) Eos % (Auto) Baso % (Auto) Absolute Neuts (auto) Absolute Lymphs (auto) Total Counted ESR Sodium Potassium Chloride Carbon Dioxide Anion Gap BUN Creatinine Estim Creat Clear Calc Est GFR (MDRD) Af Amer Est GFR (MDRD) Non-Af BUN/Creatinine Ratio Glucose Hemoglobin A1c Lactic Acid Calcium Phosphorus Total Bilirubin AST ALT Alkaline Phosphatase C-React Prot Ext Range Total Protein Albumin Globulin Albumin/Globulin Ratio Triglycerides Cholesterol LDL Cholesterol VLDL Cholesterol HDL Cholesterol S.aureus Protein A PCR MRSA (PCR) POC Glucose 184 H 173 H 140 H 08/16/17 08/16/17 08/16/17 09:49 11:41 17:17 WBC RBC Hgb Hct MCV MCH MCHC RDW RDW Differential Plt Count MPV Immature Gran % (Auto) Neut % (Auto) Lymph % (Auto) [place] % (Auto) Eos % (Auto) Baso % (Auto) Absolute Neuts (auto) Absolute Lymphs (auto) Total Counted ESR Sodium 134 L Potassium 4.7 Chloride 101 Carbon Dioxide 26.0 Anion Gap 7 BUN 16 Creatinine 1.42 H Estim Creat Clear Calc 53.94 Est GFR (MDRD) Af Amer 65 Est GFR (MDRD) Non-Af 54 L BUN/Creatinine Ratio 11.3 Glucose 254 H Hemoglobin A1c Lactic Acid Calcium 9.0 Phosphorus Total Bilirubin AST ALT Alkaline Phosphatase C-React Prot Ext Range Total Protein Albumin Globulin Albumin/Globulin Ratio Triglycerides 166 Cholesterol 137 LDL Cholesterol 69 VLDL Cholesterol 33 HDL Cholesterol 35 L S.aureus Protein A PCR MRSA (PCR) POC Glucose 236 H 237 H 08/16/17 08/17/17 08/17/17 21:48 05:48 06:31 WBC RBC Hgb Hct MCV MCH MCHC RDW RDW Differential Plt Count MPV Immature Gran % (Auto) Neut % (Auto) Lymph % (Auto) [place] % (Auto) Eos % (Auto) Baso % (Auto) Absolute Neuts (auto) Absolute Lymphs (auto) Total Counted ESR Sodium 134 L Potassium 4.5 Chloride 101 Carbon Dioxide 26.0 Anion Gap 7 BUN 18 Creatinine 1.31 H Estim Creat Clear Calc 58.47 Est GFR (MDRD) Af Amer 71 Est GFR (MDRD) Non-Af 59 L BUN/Creatinine Ratio 13.7 Glucose 165 H Hemoglobin A1c Lactic Acid Calcium 9.3 Phosphorus Total Bilirubin AST ALT Alkaline Phosphatase C-React Prot Ext Range Total Protein Albumin Globulin Albumin/Globulin Ratio Triglycerides Cholesterol LDL Cholesterol VLDL Cholesterol HDL Cholesterol S.aureus Protein A PCR MRSA (PCR) POC Glucose 217 H 162 H 08/17/17 08/17/17 08/17/17 11:29 16:14 21:46 WBC RBC Hgb Hct MCV MCH MCHC RDW RDW Differential Plt Count MPV Immature Gran % (Auto) Neut % (Auto) Lymph % (Auto) [place] % (Auto) Eos % (Auto) Baso % (Auto) Absolute Neuts (auto) Absolute Lymphs (auto) Total Counted ESR Sodium Potassium Chloride Carbon Dioxide Anion Gap BUN Creatinine Estim Creat Clear Calc Est GFR (MDRD) Af Amer Est GFR (MDRD) Non-Af BUN/Creatinine Ratio Glucose Hemoglobin A1c Lactic Acid Calcium Phosphorus Total Bilirubin AST ALT Alkaline Phosphatase C-React Prot Ext Range Total Protein Albumin Globulin Albumin/Globulin Ratio Triglycerides Cholesterol LDL Cholesterol VLDL Cholesterol HDL Cholesterol S.aureus Protein A PCR MRSA (PCR) POC Glucose 272 H 180 H 269 H 08/18/17 07:01 WBC RBC Hgb Hct MCV MCH MCHC RDW RDW Differential Plt Count MPV Immature Gran % (Auto) Neut % (Auto) Lymph % (Auto) [place] % (Auto) Eos % (Auto) Baso % (Auto) Absolute Neuts (auto) Absolute Lymphs (auto) Total Counted ESR Sodium Potassium Chloride Carbon Dioxide Anion Gap BUN Creatinine Estim Creat Clear Calc Est GFR (MDRD) Af Amer Est GFR (MDRD) Non-Af BUN/Creatinine Ratio Glucose Hemoglobin A1c Lactic Acid Calcium Phosphorus Total Bilirubin AST ALT Alkaline Phosphatase C-React Prot Ext Range Total Protein Albumin Globulin Albumin/Globulin Ratio Triglycerides Cholesterol LDL Cholesterol VLDL Cholesterol HDL Cholesterol S.aureus Protein A PCR MRSA (PCR) POC Glucose 256 H Microbiology 08/14/17 16:50 Wound - Toe Gram Stain - Final 08/14/17 16:50 Wound - Toe Wound Culture - Final Staphylococcus aureus 08/14/17 16:50 Wound - Toe Anaerobic Culture - Final No anaerobic bacteria isolated. 08/14/17 09:03 Blood Culture (Wb) - Right Hand Blood Culture - Preliminary No growth in 48 hours. 08/14/17 08:43 Blood Culture (Wb) - Right Forearm Blood Culture - Preliminary No growth in 48 hours. 08/14/17 08:43 Wound - Right Foot Gram Stain - Final 08/14/17 08:43 Wound - Right Foot Wound Culture - Final Staphylococcus aureus Consultations 08/14/17 12:19 Consult: Onc/Wound/orthotics technician Routine Comment: Reason for Consult:: right MTP site ulcer Operations: None Procedures: - - Bedside debridement by podiatry Summary of Care Provided: The patient is a 61-year-old male with a past medical history of coronary artery disease, diabetes mellitus type 2, hypertension and hyperlipidemia who presented to the emergency department at [facility] on 08/14/2017 with a wound on the right foot dorsal surface in the fourth interdigital space. This wound was surrounded by erythema and it was warm to touch. The wound had started as a blister and this became deroofed. White blood cell count in the emergency room was 9.0 with 74% neutrophils. Hemoglobin and platelets were within normal limits. Sodium was low at 131 and the BUN was 23 with a creatinine of 1.57. Creatinine in April 2017 was 1.22. Lactic acid was increased at 2.5. A PCR on the wound drainage was positive for staph aureus but negative for MRSA. Hemoglobin A1c is 7.8. The sed rate was 17 but CRP was increased at 111. Plain x-ray of the foot showed no fracture and no bony destruction. He was admitted to the hospital with a diagnosis of severe sepsis secondary to diabetic foot infection and started on vancomycin and Zosyn. Podiatry was consulted. Dr. Bowser from infectious disease was also consulted. Vancomycin was discontinued when the results of the PCR were negative for MRSA but the patient was continued on Zosyn. The erythema gradually dissipated the swelling improved with elevation. Creatinine decreased to 1.31 on 08/17/2017. Lipid panel showed the LDL to be 69 and HDL to be 35. Hemoglobin A1c was 7.8 which is improved from his last hemoglobin A1c which was in excess of 9. On 08/18/2017 he was afebrile with stable vital signs. There was a trace of swelling in the right foot but overall it had markedly improved. The erythema continues to fade and there was no pain to palpation. Was discharged home with a 10 day course of Flagyl 500 mg 3 times daily and Duricef 500 mg twice daily. He will follow-up with Dr. Cruz in the office on 08/20/2017. Was instructed to limit weightbearing on the right foot and to keep it elevated anytime he is sitting. If the erythema or swelling increase he will call Dr. Cruz. He was also instructed to follow-up with his primary care physician, Dr. Otilio Sahu, in 1-2 weeks. He has been having significant diarrhea with metformin 1000 mg twice daily and it is sometimes embarrassing and inconvenient with his work. The importance of diet and exercise was stressed. He has chrnic back pain and swimming may a good option for him. He has not followed with podiatry in the past and has had multiple blisters on his feet when attempting to exercise. Dr. Cruz will be addressing proper footwear with this patient. Discharge Activity: - - You are going to have to decrease activity and keep the pight leg elevated until the ulceration is healed and the infection has resolved. May resume sexual activity in: No Restrictions Weight Bearing Status: Partial weight bearing - Avoid weight to right forefoot Keep extremity elevated above heart level: Right Leg - Must keep right foot elevated with pillows Call your doctor if your incision/area has: Sudden Increased Bleeding, Increased Redness, Foul Smelling Discharge Call your doctor if you observe: Fever of 101 or Higher, Shortness of breath, Chest pain, Calf discomfort, Uncontrolled pain Additional Dressing/Incision Instructions:: Change dressing to right foot daily. Cleanse with normal saline solution. Apply Aquacel Ag to wound. Apply Betadine solution in between 4th and 5th toes. Apply gauze dressing with overlying leila bandage. Home Medications: Medications to take at Discharge carvedilol 25 mg tablet 25 mg PO BID 08/12/17 glimepiride 4 mg tablet 4 mg PO QAM 08/12/17 insulin glargine (U-100) 100 unit/mL (3 mL) subcutaneous pen 50 - 60 unit SC QDAY 08/12/17 metformin 1,000 mg tablet 1,000 mg PO BID 08/12/17 omega-3 fatty acids 1,000 mg capsule 1,200 mg PO BID 08/12/17 Lisinopril [Zestril] 20 mg PO BID 08/14/17 Cefadroxil [Duricef] 500 mg PO BID #20 cap 08/18/17 Metronidazole [Flagyl] 500 mg PO TID #30 tab 08/18/17 Oxycodone HCl/Acetaminophen [Percocet 5/325] 1 - 2 tab PO Q6H PRN PRN 7 Days #30 tab 08/18/17 Following Prescrptions Were Given to Patient: Oxycodone HCl/Acetaminophen [Percocet 5/325] 1 - 2 tab PO Q6H PRN PRN 7 Days #30 tab PRN Reason: Pain Cefadroxil [Duricef] 500 mg PO BID #20 cap Metronidazole [Flagyl] 500 mg PO TID #30 tab Primary Care Physician: Otilio Sahu MD [Primary Care Provider] - Please follow up with your Primary Care Physician in: 1-2 weeks Please Follow Up With: Dennys Cruz DPM - Office number is [phone] When: on 08/20/17, sooner if needed, at [facility] Disposition: Home Minutes spent on discharge:: 35 Patient Condition:: Good Medical Necessity - Tobacco Use Smoking Status: Never smoker Tobacco Use: Non-smoker Meaningful Use Info Meaningful Use Diagnoses (Choose all that apply): None applicable Code Visit Inpatient E&M: 36710 Disch Hosp
[2017-08-18 11:45] VITALS: BP 144/78; PULSE 60; RESP 14; TEMP 36.9; O2SAT 97
== END 2017-08-18 12:13 | disposition home or self-care (01) | DRG 638 ==
LOC: ED 08:13 → MS3 09:54
PROVIDERS: Podiatrist; Admitting Provider Internal Medicine; Emergency Provider Emergency Medicine; Family Provider Family Medicine; PCP Family Medicine; Visit Provider Internal Medicine
DX: E11.621 Type 2 diabetes mellitus with foot ulcer (principal); L03.115 Cellulitis of right lower limb; E87.1 Hypo-osmolality and hyponatremia; Z68.37 Body mass index [BMI] 37.0-37.9, adult; N17.9 Acute kidney failure, unspecified; E66.9 Obesity, unspecified; E11.40 Type 2 diabetes mellitus with diabetic neuropathy, unspecified; I25.10 Atherosclerotic heart disease of native coronary artery without angina pectoris; E78.5 Hyperlipidemia, unspecified; B95.61 Methicillin susceptible Staphylococcus aureus infection as the cause of diseases classified elsewhere; K76.0 Fatty (change of) liver, not elsewhere classified; E11.65 Type 2 diabetes mellitus with hyperglycemia; L97.512 Non-pressure chronic ulcer of other part of right foot with fat layer exposed; Z95.1 Presence of aortocoronary bypass graft; Z79.4 Long term (current) use of insulin; E11.628 Type 2 diabetes mellitus with other skin complications; I10 Essential (primary) hypertension
CPT/HCPCS: 36415; 73630; 80048; 80053; 80061; 82962; 83036; 83605; 84100; 85025; 85652; 86140; 87040; 87070; 87075; 87077; 87186; 87205; 87640; 87641; 97802; 99284; J7030; J7040; J7050; A4216; J3490

== ENCOUNTER → 2017-09-09 12:14 | Outpatient (CLI) | payer OTHER, SELFPAY ==
[2017-09-09 13:26] LABS: Anion Gap 9 (5-15); BUN 22 mg/dL (7-18); BUN/Creat Ratio 20.4 RATIO (10-20); Calcium,Total 8.8 mg/dL (8.5-10.1); Chloride 103 mmol/L (98-107); Creatinine, Serum 1.08 mg/dL (0.70-1.30); EST Glomerular Filtration Rate 73 mL/min (>60); Est Glom Filt Rate - Afr Amer 89 mL/min (>60); Glucose 147 mg/dL (74-106); Potassium 4.3 mmol/L (3.5-5.1); Sodium Level 139 mmol/L (136-145)
[2017-09-09 14:01] LABS: AST(SGOT) 23 U/L (15-37); Alanine Aminotransfer ALT/SGPT 42 U/L (16-61); Albumin, Serum 3.5 g/dL (3.2-5.0); Alkaline Phosphatase 51 U/L (45-117); Bilirubin, Direct 0.13 mg/dL (0.00-0.30); Protein, Total 7.5 g/dL (6.4-8.2)
[2017-09-09 14:38] LABS: Hematocrit 40.1 % (40-54); Hemoglobin 14.1 g/dl (13.0-16.5); Mean Corp Hgb Conc 35.2 g/gl (32-36); Mean Corpuscular Hgb 30.7 pg (27.0-32.0); Mean Corpuscular Volume 87.2 fL (80-94); RBC Distribution Width CV 12.8 % (11.6-14.6); RBC Distribution Width SD 40.9 fl (35.1-43.9); White Blood Count 6.8 K/mm3 (4.4-11.0)
[2017-09-09 14:39] LABS: Absolute Lymphocyte Count 2.01 X10^3/ul (0.83-4.51); Absolute Neutrophil Count 3.9 X10^3/uL (2.0-7.7); Basophil# 0.03 X10^3/uL; Basophil% 0.4 % (0-1); Eosinophil# 0.22 X10^3/uL; Eosinophils% 3.2 % (0-5); Lymphocyte # 2.01 X10^3/ul (4.0); Lymphocyte % 29.4 % (19-41); Mean Platelet Vol. 9.4 fl (6.2-12.0); Monocyte# 0.64 X10^3/uL; Monocyte% 9.4 % (0-10); Neutrophil # 3.91 X10^3/uL (2.7-7.7); Neutrophil % 57.2 % (47-70); POSITIVE COUNT NO; POSITIVE DIFFERENTIAL NO; POSITIVE MORPHOLOGY NO; Platelet Count 193 K/mm3 (150-450)
== END ==
PROVIDERS: Family Provider Family Medicine; PCP Family Medicine; Visit Provider Podiatrist
DX: L03.115 Cellulitis of right lower limb (principal)
CPT/HCPCS: 36415; 80048; 80076; 85025

== ENCOUNTER → 2017-09-24 18:26 | Outpatient (CLI) | payer OTHER, SELFPAY | PROVIDERS: Visit Provider Podiatrist | DX: L03.116 Cellulitis of left lower limb (principal) | CPT/HCPCS: 87070; 87205 ==

== ENCOUNTER → 2018-05-07 13:54 | Outpatient (CLI) | payer OTHER, SELFPAY ==
[2018-05-07 15:41] LABS: ALB/GLOB Ratio 1.1 RATIO (0.9-2.4); AST(SGOT) 39 U/L (15-37); Alanine Aminotransfer ALT/SGPT 69 U/L (16-61); Alkaline Phosphatase 57 U/L (45-117); Anion Gap 8 (5-15); BUN 26 mg/dL (7-18); BUN/Creat Ratio 20.8 RATIO (10-20); Calcium,Total 9.1 mg/dL (8.5-10.1); Chloride 101 mmol/L (98-107); Creatinine, Serum 1.25 mg/dL (0.70-1.30); EST Glomerular Filtration Rate 62 mL/min (>60); Est Glom Filt Rate - Afr Amer 75 mL/min (>60); Globulin 3.8 g/dL (2.2-4.2); Glucose 95 mg/dL (74-106); Potassium 4.5 mmol/L (3.5-5.1); Protein, Total 7.8 g/dL (6.4-8.2); Sodium Level 134 mmol/L (136-145)
== END ==
PROVIDERS: Family Provider Family Medicine; PCP Family Medicine; Visit Provider Family Medicine
DX: E11.65 Type 2 diabetes mellitus with hyperglycemia (principal); E11.22 Type 2 diabetes mellitus with diabetic chronic kidney disease; N18.9 Chronic kidney disease, unspecified; R74.8 Abnormal levels of other serum enzymes
CPT/HCPCS: 36415; 80053

== ENCOUNTER 2019-09-16 19:33 | Inpatient (IN) | payer OTHER, SELFPAY ==
[2019-09-16 19:35] VITALS: BP 158/71; PULSE 96; RESP 18; TEMP 37.8; O2SAT 95; BMI 34.7
--- NOTE | 2019-09-16 20:13 | ED.VISSUMM ---
- ER Visit Summary Date of Service: 09/16/19 Chief Complaint: Cellulitis right great toe History of Present Illness: The patient is a 63 M who presents with cellulitis to his right great toe that is been getting worse over the past 2 weeks. Patient states that is gotten significantly worse over the last 2 days. Patient states the pain is a mild ache. Patient states that today he developed a fever of 100 at home. Patient states nothing makes the pain better or worse. Patient states he called his primary care physician who was supposed to call in a topical antibiotic but never did. Patient states he has a history of cellulitis to his right great toe that went into sepsis a couple years ago. Patient denies any discharge or drainage. Patient is a history of diabetes and diabetic neuropathy. Physical Examination: Vital signs are stable. Patient does have a temperature of 100.1 here. Patient is in no acute distress. Skin is warm and dry. There is edema, erythema, and ecchymosis over the right great toe. There is also a grade 2 ulceration on the plantar aspect of the right great toe. There is no discharge or drainage. There is some edema of the right foot and ankle. Pedal pulses were equal bilaterally. There is no calf tenderness. Heart was regular rate and rhythm. Lungs are clear and equal bilaterally. Abdomen is soft and nontender. Cranial nerves II through XII are intact. Sensation was intact light touch in all digits. Capillary refill was less than 2 seconds in all digits. There are no focal motor or sensory deficits. Test Results: CBC shows mild leukocytosis of 13.1. Comprehensive metabolic profile showed slightly elevated BUN of 38 and creatinine of 1.42. These were slightly increased from most recent values but they have been elevated like this in the past. Glucose was elevated at 307. Lactate was normal at 1.0. X-rays of the right foot were obtained. There is some soft tissue swelling but no evidence of osteomyelitis. Emergency Department Course and Treatment: Patient was given a dose of Unasyn here. The wound was cleaned and dressed. Patient is feeling better on reevaluation. Given the patient's history of sepsis from his cellulitis, I recommended the patient be admitted at least overnight for observation. Case was discussed with the hospitalist. She will admit the patient to her service. Patient understood and was agreeable with the plan. All questions were answered. Disposition: Admit to hospital Impression: 1. Cellulitis right foot 2. Open wound right great toe This note was generated with [employer] dictation software. It may contain incorrect words, spelling, and punctuation that were not noted in review of the chart prior to signing ED Disposition - Plan for ED Patient: Disposition: Acute Care Hospital [facility] Diagnosis: Cellulitis, Open wound of right great toe Referrals: Otilio Sahu MD [Primary Care Provider] -
[2019-09-16 20:23] LABS: Absolute Lymphocyte Count 0.52 X10^3/uL (0.83-4.51); Absolute Neutrophil Count 11.9 X10^3/uL (2.0-7.7); Basophil# 0.03 X10^3/uL; Basophil% 0.2 % (0-1); Eosinophil# 0.11 X10^3/uL; Eosinophils% 0.8 % (0-5); Hematocrit 37.3 % (40-54); Hemoglobin 13.1 g/dL (13.0-16.5); Lymphocyte # 0.52 X10^3/ul (4.0); Mean Corp Hgb Conc 35.1 g/dL (32-36); Mean Corpuscular Hgb 30.4 pg (27.0-32.0); Mean Corpuscular Volume 86.5 fL (80-94); Mean Platelet Vol. 8.9 fl (6.2-12.0); Monocyte# 0.48 X10^3/uL; Monocyte% 3.7 % (0-10); NRBC Flagged by Analyzer 0 % (0-5); Neutrophil # 11.89 X10^3/uL (2.7-7.7); Neutrophil % 90.6 % (47-70); POSITIVE DIFFERENTIAL YES; Platelet Count 277 K/mm3 (150-450); RBC Distribution Width CV 11.9 % (11.6-14.6); RBC Distribution Width SD 37.9 fl (35.1-43.9); Red Blood Count 4.31 M/mm3 (4.6-6.2); White Blood Count 13.1 K/mm3 (4.4-11.0)
[2019-09-16 20:26] LABS: Differential Indicated SCAN CRITERIA MET
[2019-09-16] MEDS: 0.9% Normal Saline 1,000 ML 1000 ML IV (20:28)
[2019-09-16 20:30] LABS: Prothrombin Time (Protime)PT. 12.8 SECONDS (11.7-14.9)
[2019-09-16 20:34] LABS: ALB/GLOB Ratio 0.8 RATIO (0.9-2.4); AST(SGOT) 16 U/L (15-37); Alanine Aminotransfer ALT/SGPT 20 U/L (16-61); Albumin, Serum 3.4 g/dL (3.2-5.0); Alkaline Phosphatase 76 U/L (45-117); Anion Gap 8 (5-15); BUN 38 mg/dL (7-18); BUN/Creat Ratio 26.8 RATIO (10-20); Chloride 102 mmol/L (98-107); Creatinine, Serum 1.42 mg/dL (0.70-1.30); EST Glomerular Filtration Rate 53 mL/min (>60); Est Glom Filt Rate - Afr Amer 64 mL/min (>60); Estimated Creatinine Clearance 52.55 ml/min; Globulin 4.1 g/dL (2.2-4.2); Glucose 307 mg/dL (74-106); Protein, Total 7.5 g/dL (6.4-8.2); Sodium Level 133 mmol/L (136-145)
[2019-09-16 20:36] VITALS: BP 125/55; PULSE 94; RESP 20; TEMP 37.7; O2SAT 96
[2019-09-16 21:07] LABS: Differential Comment SCANNED
--- NOTE | 2019-09-16 21:12 | RAD_ITS ---
STUDY: X-RAY - RIGHT FOOT CLINICAL: Male, 63 years old. blister and drainage in right foot with pain TECHNIQUE: 3 view(s) of the foot. COMPARISON: None. FINDINGS: Normal talus, calcaneus, and tarsal bones. Small corticated ossicles at the medial side of the navicular bone compatible with an unfused apophysis which is a normal variant. Small cortical osteophytes seen at the tip of the medial malleolus. A small osteochondromas also present at the base and medial side of the distal phalanx of the great toe, and is benign and of no clinical significance. Moderate soft tissue swelling is seen on the medial side of the foot with milder changes seen on the lateral side. No visualized subcutaneous gas on this image. No cortical erosion/osteomyelitis seen. No fracture is seen. RAD/Foot min 3 Views IMPRESSION: Mild to moderate soft tissue swelling Electronically Signed: Kip Sahrma MD at 21:57 EDT , Service support ,
[2019-09-16 21:36] VITALS: BP 156/73; PULSE 87; RESP 20; TEMP 37.4; O2SAT 95
--- NOTE | 2019-09-16 22:25 | PCM.HP.STD ---
Problem List (1) Cellulitis Status: Acute Qualifiers: Site of cellulitis: extremity Site of cellulitis of extremity: toe Laterality: right Qualified Code(s): L03.031 - Cellulitis of right toe (2) Ulcer of right foot with fat layer exposed Status: Acute (3) Obesity (BMI 30.0-34.9) Status: Chronic (4) Type 2 diabetes mellitus with diabetic neuropathy Status: Chronic Qualifiers: Diabetes mellitus intermediate designer insulin use: with shelter use Qualified Code(s): E11.40 - Type 2 diabetes mellitus with diabetic neuropathy, unspecified; Z79.4 - detention (current) use of insulin (5) CAD (coronary artery disease) Status: Chronic Qualifiers: Coronary Disease-Associated Artery/Lesion type: unspecified vessel or lesion type [place] vs. transplanted heart: unspecified whether [place] or transplanted heart Associated angina: angina presence unspecified Qualified Code(s): I25.10 - Atherosclerotic heart disease of [place] coronary artery without angina pectoris (6) Hypertension Status: Chronic Qualifiers: Hypertension type: essential hypertension Qualified Code(s): I10 - Essential (primary) hypertension (7) Hyperlipidemia Status: Chronic Qualifiers: Hyperlipidemia type: unspecified Qualified Code(s): E78.5 - Hyperlipidemia, unspecified History of Present Illness Date of Admission: 09/16/19 Chief Complaint: R great toe redness, erythema, wound The patient is a 63 y/o M w/ PMHx: CKD stage III, Diabetes mellitus type II with neuropathy, HTN, HLD, Obesity who presents to the [facility] ED on 09/16/19 with history of right great toe redness, edema and pain ongoing for the last 2 weeks, more severe over the last 2 days with ongoing pain described as an aching with no improvement with any interventions noting that he had discussed the case with his PCP and was supposed to have topical antibiotic therapy with this was not initiated prompting eventual presentation to the ED for evaluation. He reportedly was recently in the pool and states he had been very long. He has a pool at his home in the pool is treated. He denies any recent injury specifically or trauma to the right great toe. He describes the pain as moderate to severe, rated currently 5 out of 10 in severity. He notes recently increased fatigue, malaise, fever, chills as well as decreased appetite and nausea associated. Work-up in the ED included T100.1, heart rate 96, BP 158/71, respiratory rate 20, 96% on room air, CBC with WC 13.1, hemoglobin 13.1, platelet 277 with left shift with concurrent lymphopenia, unremarkable coags, CMP with sodium 133, BUN/creatinine 38/1.42, glucose 307, lactic acid 1.0, plain film of the right foot with mild to moderate soft tissue swelling. In the ED patient administered normal saline, Unasyn therapy. Past Medical History Past Medical History (Chronic Problems): Chronic Problems (Last Updated 08/12/17 @ 11:54 by Lorenza Nguyễn) Obesity (BMI 30.0-34.9) (Chronic) Type 2 diabetes mellitus with diabetic neuropathy (Chronic) CAD (coronary artery disease) (Chronic) Type 2 diabetes mellitus (Chronic) Hypertension (Chronic) Hyperlipidemia (Chronic) Medical History: Medical History (Last Updated 08/12/17 @ 11:54 by Lorenza Nguyễn) Diabetes E11.9 Heart disease I51.9 Liver disease K76.9 Hypertension I10 Allergies atorvastatin [From Lipitor] Adverse Reaction (Verified 09/16/19 20:33) Pain in joints rosuvastatin [From Crestor] Adverse Reaction (Verified 09/16/19 20:33) Pain in joints Home Medications: Ambulatory Orders Medication Instructions Recorded carvedilol 25 mg tablet 25 mg PO BID 08/12/17 glimepiride 4 mg tablet 4 mg PO DAILY 08/12/17 insulin glargine 100 unit/mL (3 40 - 50 unit SC DAILY 08/12/17 mL) subcutaneous pen metformin 1,000 mg tablet 1,000 mg PO BID 08/12/17 Lisinopril [Zestril] 20 mg PO BID 08/14/17 Multivit-Mins/Iron/Folic/Lycop 1 tab PO BID 09/16/19 [Centrum Ultra Men's Tablet] Oregano Oil [Oil of Oregano] 1,500 mg PO BID 09/16/19 Surgical History: Surgical History (Last Updated 08/12/17 @ 11:56 by Lorenza Nguyễn) History of back surgery Z98.890 Hx of CABG Z95.1 Hx of appendectomy Z90.49 Hx of toe surgery Z98.890 Surgical History: appendectomy, coronary bypass surgery, - - CABG x 4 and PCI x 4, appendectomy, toe surgery, back surgery x2. Psychiatric History: No pertinent psych hx Lives: Spouse/ Significant Other Smoking Status: Never smoker Tobacco Use: Non-smoker Alcohol: None Drugs: None - *Family History Maternal Family History: Family History (Last Updated 08/12/17 @ 11:56 by Lorenza Nguyễn) Other CAD (coronary artery disease) Diabetes History Items: Diabetes Paternal Family History: Family History (Last Updated 08/12/17 @ 11:56 by Lorenza Nguyễn) Other CAD (coronary artery disease) Diabetes History Items: Heart Disease Review of Systems Constitutional: Reports: Anorexia, Chills, Fever, Malaise, Weakness, Fatigue. Denies: Weight Change HEENT: Denies: Head Aches, Sinus Congestion, Sinus Drainage Cardiovascular: Denies: Chest Pain, Palpitations Respiratory: Denies: Cough, Shortness of breath at rest, Sputum production Gastrointestinal: Reports: Nausea. Denies: Abdominal Pain, Vomiting Genitourinary: Denies: Dysuria Musculoskeletal: Reports: Foot Pain, Joint Pain. Denies: Joint Tenderness Skin: Reports: Skin Changes. Denies: Rash, Wounds Neurological: Denies: Numbness, Tingling, Focal weakness Psychiatric: Denies: Anxiety, Depression, Homicidal Ideations, Suicidal Ideations Hematologic/ Lymphatic: Reports: Easy Bruising, Easy Bleeding VTE Information - Inpt Only VTE Present on Admission: No VTE Mechan Device Prophylaxis: SCD's VTE Pharm Prophylaxis ordered?: Yes Subjective: Patient seated upright in the ED bed, fatigued appearing, flat affect. Objective: Physical Examination: General: awake, alert, oriented x 3 and cooperative, seated upright in the ED bed in no apparent distress but fatigued and ill-appearing. Skin: normal color, turgor, no icterus, cyanosis except notable right great toe edema extending to midfoot and dorsally, dorsal great toe ulceration, no discharge, erythema extending circumferentially and up to the proximal foot concurrently. HEENT: AT/NC, EOMI, PERRLA, dry MM, no carotid bruits or JVD noted. Lungs: CTA bilaterally, moderate effort, moderate decrease BL bases, no rales, ronchi or wheezing. Heart: Improved, regular rate and rhythm; no gallop, rub audible. Abdomen: soft, obese, NTTP, ND, normal BS, no HSM. Extremities: no cyanosis, clubbing, see skin. Neurological: patient awake, alert, oriented x 3; cognitive function intact; pupils equally reactive to light and accomodation; cranial nerves II-XII grossly normal, moving all 4 extremities with discomfort of the right lower extremity with movements, no focal deficits, strength moderately global decrease secondary to acute presentation. Psychiatric: affect appears fatigued, mildly flat affect, no acute evidence of depressive or anxiety feelings. - Physical Exam Vitals/I&O's: Vital Signs Temp Pulse Resp BP Pulse Ox 99.4 F H 87 20 H 156/73 H 95 09/16/19 21:36 09/16/19 21:36 09/16/19 21:36 09/16/19 21:36 09/16/19 21:36 Oxygen Delivery Method Room Air Weight: 235 lb Body Mass Index (BMI) 34.7 Intake and Output for Last 24 Hours 09/14/19 09/15/19 09/16/19 23:59 23:59 23:59 Intake Total 1112 / 1112 Balance 1112 / 1112 Laboratory Results 09/16/19 19:55: WBC 13.1 H, RBC 4.31 L, Hgb 13.1, Hct 37.3 L, MCV 86.5, MCH 30.4, MCHC 35.1, RDW Std Deviation 37.9, RDW Coeff of [place] 11.9, Plt Count 277, MPV 8.9, Immature Gran % (Auto) 0.700, Neut % (Auto) 90.6 H, Lymph % (Auto) 4.0 L, [place] % (Auto) 3.7, Eos % (Auto) 0.8, Baso % (Auto) 0.2, Absolute Neuts (auto) 11.9 H, Absolute Lymphs (auto) 0.52 L, Nucleated RBC % 0, Differential Comment SCANNED 09/16/19 19:55: PT 12.8, INR 1.0, APTT 30.0 09/16/19 19:55: Sodium 133 L, Potassium 4.0, Chloride 102, Carbon Dioxide 23.0, Anion Gap 8, BUN 38 H, Creatinine 1.42 H, Estim Creat Clear Calc 52.55, Est GFR (MDRD) Af Amer 64, Est GFR (MDRD) Non-Af 53 L, BUN/Creatinine Ratio 26.8 H, Glucose 307 H, Calcium 9.0, Total Bilirubin 0.60, AST 16, ALT 20, Alkaline Phosphatase 76, Total Protein 7.5, Albumin 3.4, Globulin 4.1, Albumin/Globulin Ratio 0.8 L 09/16/19 19:55: Lactic Acid 1.0 Assessment/Plan All Active Problems (Last Updated 08/12/17 @ 11:54 by Lorenza Nguyễn) Obesity, Class II, BMI 35-39.9, with comorbidity (Acute) MSSA (methicillin susceptible Staphylococcus aureus) infection (Acute) Ulcer of right foot with fat layer exposed (Acute) Cellulitis (Acute) The patient is a 63 y/o M w/ PMHx: CKD stage III, Diabetes mellitus type II with neuropathy, HTN, HLD, Obesity who presents to the [facility] ED on 09/16/19 with history of right great toe redness, edema and pain ongoing for the last 2 weeks, more severe over the last 2 days with ongoing pain described as an aching with no improvement with associated fatigue, malaise, fever, chills as well as decreased appetite and nausea associated. 1. Right lower extremity foot/great toe Cellulitis/Diabetic foot infection: Will admit to [facility], maintain on IV Vanco and Unasyn giving patient diabetic history pending wound cultures and podiatry evaluation (previously evaluated by Dr. Cruz service), currently no drainage but if onset would obtain wound culture and wound MRSA PCR, plan repeat CBC in AM, continue affected extremity elevation above heart when seated and in bed, monitor erythema outline with VS checks. Wound RN consulted and pending. 2. Diabetes mellitus type II: Hold oral home regimen, obtain hemoglobin A1c, nutrition consultation for education and teaching given presentation, ADA diet, accu checks w/ ISS. 3. Hypertension: Continue home regimen including Coreg, lisinopril, PRN hydralazine. 4. Hyperlipidemia: Noted statin allergy, not on regimen. 5. Chronic Kidney Disease Stage III: Admission BUN/Cr 38/1.42, baseline renal function 1.0-1.2, mildly increased, judiciously hydrating, repeat BMP in AM. 6. CAD: Status post CABG x 4 and PCI x 4, will maintain on asa, coreg, lisinopril, noted statin allergy. 7. Obesity: Weight loss and lifestyle changes encouraged. 8. DVT prophylaxis: SCDs, Lovenox. 9. CODE status: Discussed concept of healthcare power of assistant city attorney and living will with patient at length and his noted that if he was interested he could discuss these items with social work/case management for assistance and initiation. Discussed CODE status concept including difference between FULL code, DNR-CCA and DNR-CC status. Following discussions about the differences in these status will remain full code with encourage continued discussions and set up of healthcare Pap assistant city attorney/living will. Advanced Care Planning Face to Face Time: 16 minutes. Inpatient E&M: 26748 Init Hosp L3 Procedures: 70226 Advncd Care Plan 30 Min
[2019-09-16 22:36] VITALS: BP 130/61; PULSE 84; RESP 18; TEMP 37.1; O2SAT 94
[2019-09-16 23:00] VITALS: BP 130/61; PULSE 85; RESP 18; TEMP 37.1; O2SAT 94
[2019-09-16 23:40] VITALS: BMI 35.9
[2019-09-16 23:43] VITALS: BP 134/71; PULSE 74; RESP 14; TEMP 36.9; O2SAT 98
[2019-09-16 23:53] LABS: Magnesium 1.5 mg/dL (1.6-2.6)
[2019-09-16 23:57] VITALS: BMI 36.0
[2019-09-17] MEDS: 0.9% Normal Saline 1,000 ML 100 ML IV ×3 (00:25→21:25)
--- NOTE | 2019-09-17 00:50 | PCM.RX.CS ---
Consult Pharmacy has been consulted to manage selected antiobiotic: Vancomycin Type of Consult: New start Suspected Infection: Skin/Soft tissue Labs: Sodium 133 mmol/L (136-145) L 09/16/19 19:55 Potassium 4.0 mmol/L (3.5-5.1) 09/16/19 19:55 Chloride 102 mmol/L (98-107) 09/16/19 19:55 Carbon Dioxide 23.0 mmol/L (21.0-32.0) 09/16/19 19:55 Anion Gap 8 (5-15) 09/16/19 19:55 BUN 38 mg/dL (7-18) H 09/16/19 19:55 Creatinine 1.42 mg/dL (0.70-1.30) H 09/16/19 19:55 Est GFR (MDRD) Af Amer 64 mL/min (>60) 09/16/19 19:55 Est GFR (MDRD) Non-Af 53 mL/min (>60) L 09/16/19 19:55 BUN/Creatinine Ratio 26.8 RATIO (10-20) H 09/16/19 19:55 Glucose 307 mg/dL (74-106) H 09/16/19 19:55 Weight used for dosin kg Estimated Creatinine Clearance: 64.2 Goal Trough: 15-20 mcg/mL Pharmacy Plan for Drug Dosing: Pharmacy Service will continue to monitor and adjust dosing as required. Medications Vancomycin HCl 1,500 mg/ (Sodium Chloride) 530 mls @ 250 mls/hr IV Q12H CYN Vancomycin HCl 2,000 mg/ (Sodium Chloride) 540 mls @ 250 mls/hr IV X1 ONE Stop: 09/17/19 01:39 Last Admin: 09/17/19 00:25 Dose: 250 mls/hr Documented by: Follow-Up Labs: Trough Vancomycin Labs to be done on [date and time ordered]: 09/17 @ 1200
[2019-09-17 01:13] LABS: Hemoglobin A1c 10.7 % (3.8-5.6)
[2019-09-17 04:35] VITALS: BP 151/71; PULSE 68; RESP 16; TEMP 36.7; O2SAT 97
[2019-09-17] MEDS: Acetaminophen 325 MG Tablet 650 MG PO ×2 (04:46→21:34)
[2019-09-17] MEDS: Insulin Lispro 100 UNIT/ML INSULN.PEN SC ×4 (06:43→21:37)
[2019-09-17 06:45] LABS: Absolute Neutrophil Count 11.4 X10^3/uL (2.0-7.7); Basophil# 0.03 X10^3/uL; Basophil% 0.2 % (0-1); Eosinophil# 0.03 X10^3/uL; Eosinophils% 0.2 % (0-5); Hematocrit 34.4 % (40-54); Lymphocyte % 4.7 % (19-41); Mean Corp Hgb Conc 34.9 g/dL (32-36); Mean Corpuscular Hgb 30.9 pg (27.0-32.0); Mean Corpuscular Volume 88.7 fL (80-94); Mean Platelet Vol. 8.7 fl (6.2-12.0); Monocyte# 0.73 X10^3/uL; Monocyte% 5.7 % (0-10); NRBC Flagged by Analyzer 0 % (0-5); Neutrophil # 11.43 X10^3/uL (2.7-7.7); Neutrophil % 88.6 % (47-70); POSITIVE DIFFERENTIAL YES; Platelet Count 226 K/mm3 (150-450); RBC Distribution Width CV 12.5 % (11.6-14.6); RBC Distribution Width SD 39.7 fl (35.1-43.9); Red Blood Count 3.88 M/mm3 (4.6-6.2); White Blood Count 12.9 K/mm3 (4.4-11.0)
[2019-09-17 06:46] LABS: Bedside Glucose 330 mg/dL (70-110)
[2019-09-17 06:56] LABS: ALB/GLOB Ratio 0.8 RATIO (0.9-2.4); AST(SGOT) 13 U/L (15-37); Alanine Aminotransfer ALT/SGPT 17 U/L (16-61); Albumin, Serum 2.8 g/dL (3.2-5.0); Alkaline Phosphatase 60 U/L (45-117); Anion Gap 5 (5-15); BUN 30 mg/dL (7-18); BUN/Creat Ratio 27.3 RATIO (10-20); Calcium,Total 8.3 mg/dL (8.5-10.1); Chloride 105 mmol/L (98-107); EST Glomerular Filtration Rate 71 mL/min (>60); Est Glom Filt Rate - Afr Amer 86 mL/min (>60); Estimated Creatinine Clearance 67.84 ml/min; Globulin 3.7 g/dL (2.2-4.2); Glucose 331 mg/dL (74-106); Potassium 4.6 mmol/L (3.5-5.1); Protein, Total 6.5 g/dL (6.4-8.2); Sodium Level 134 mmol/L (136-145)
[2019-09-17 06:57] LABS: Differential Indicated SCAN CRITERIA MET
--- NOTE | 2019-09-17 07:12 | PCM.PN.HOSP ---
Patient Problems: Active and Suspected Problems (Last Updated 08/12/17 @ 11:54 by Lorenza Nguyễn) Cellulitis (Acute) Open wound of right great toe (Acute) Cellulitis of right foot (Acute) Ulcer of right foot with fat layer exposed (Acute) Reason for Visit: Right great toes ulcer with cellulitis. Diabetes mellitus type 2, coronary artery disease status post quadruple bypass in 2013 Objective: Patient is admitted with 2-week history of right great toe ulcer with surrounding cellulitis. Patient is non-smoker Wound is deep to subcutaneous tissue level which is debrided bedside by industrial organization manager. No fever or chills. Blood pressure controlled Physical exam General: Alert, Oriented x3, Cooperative HEENT: Atraumatic, PERRLA, EOMI, Normocephalic Oral: No Gingival or Mucosal Lesions/ Ulcerations Neck: Supple, No JVD, Negative Carotid Bruits Lungs: Air entry diminished in bilateral lung bases. No crepitation/rhonchi Cardiovascular: Regular rate, Regular Rhythm, Normal S1, Normal S2, No murmurs. CABG scar Abdomen: Bowel Sounds Present, Soft, Non Tender, Non-Distended : No renal angle tenderness. No suprapubic tenderness. Extremities: No edema, Capillary Refill Less than 3 Seconds Skin: Right great toe ulcer with dressing on. Surrounding cellulitis with redness and mild edema in surrounding forefoot Musculoskeletal: No Tenderness to Palpation of Joints or Extremities. 2 times lumbar spine surgery with surgical scar Neurological: Cranial nerves II-XII grossly intact, Deep Tendon Reflexes 2+/4 and Symmetrical, Neuro grossly intact Psych/Mental Status: Normal Affect, Appropriate Vitals/I&O's: Vital Signs Temp Pulse Resp BP Pulse Ox 98.1 F 68 16 151/71 H 97 09/17/19 04:35 09/17/19 04:35 09/17/19 04:35 09/17/19 04:35 09/17/19 04:35 Oxygen Delivery Method Room Air Weight: 243 lb 9.773 oz Body Mass Index (BMI) 35.9 Intake and Output for Last 24 Hours 09/15/19 09/16/19 09/17/19 23:59 23:59 23:59 Intake Total 1112 / 1112 644 / 644 Output Total 775 / 775 Balance 1112 / 1112 -131 / -131 Laboratory Results 09/16/19 19:55: WBC 13.1 H, RBC 4.31 L, Hgb 13.1, Hct 37.3 L, MCV 86.5, MCH 30.4, MCHC 35.1, RDW Std Deviation 37.9, RDW Coeff of [place] 11.9, Plt Count 277, MPV 8.9, Immature Gran % (Auto) 0.700, Neut % (Auto) 90.6 H, Lymph % (Auto) 4.0 L, [place] % (Auto) 3.7, Eos % (Auto) 0.8, Baso % (Auto) 0.2, Absolute Neuts (auto) 11.9 H, Absolute Lymphs (auto) 0.52 L, Nucleated RBC % 0, Differential Comment SCANNED 09/16/19 19:55: PT 12.8, INR 1.0, APTT 30.0 09/16/19 19:55: Sodium 133 L, Potassium 4.0, Chloride 102, Carbon Dioxide 23.0, Anion Gap 8, BUN 38 H, Creatinine 1.42 H, Estim Creat Clear Calc 52.55, Est GFR (MDRD) Af Amer 64, Est GFR (MDRD) Non-Af 53 L, BUN/Creatinine Ratio 26.8 H, Glucose 307 H, Calcium 9.0, Total Bilirubin 0.60, AST 16, ALT 20, Alkaline Phosphatase 76, Total Protein 7.5, Albumin 3.4, Globulin 4.1, Albumin/Globulin Ratio 0.8 L 09/16/19 19:55: Lactic Acid 1.0 09/16/19 19:55: Magnesium 1.5 L 09/16/19 19:55: Hemoglobin A1c 10.7 H 09/17/19 06:25: WBC 12.9 H, RBC 3.88 L, Hgb 12.0 L, Hct 34.4 L, MCV 88.7, MCH 30.9, MCHC 34.9, RDW Std Deviation 39.7, RDW Coeff of [place] 12.5, Plt Count 226, MPV 8.7, Immature Gran % (Auto) 0.600, Neut % (Auto) 88.6 H, Lymph % (Auto) 4.7 L, [place] % (Auto) 5.7, Eos % (Auto) 0.2, Baso % (Auto) 0.2, Absolute Neuts (auto) 11.4 H, Absolute Lymphs (auto) 0.60 L, Nucleated RBC % 0 09/17/19 06:25: Sodium 134 L, Potassium 4.6, Chloride 105, Carbon Dioxide 24.0, Anion Gap 5, BUN 30 H, Creatinine 1.10, Estim Creat Clear Calc 67.84, Est GFR (MDRD) Af Amer 86, Est GFR (MDRD) Non-Af 71, BUN/Creatinine Ratio 27.3 H, Glucose 331 H, Calcium 8.3 L, Total Bilirubin 0.70, AST 13 L, ALT 17, Alkaline Phosphatase 60, Total Protein 6.5, Albumin 2.8 L, Globulin 3.7, Albumin/Globulin Ratio 0.8 L 09/17/19 06:39: POC Glucose 330 H Current Medications Acetaminophen (Tylenol) 650 mg PO Q6H PRN PRN PRN Reason: Pain Score 1-10/Temp > 100.7 F Last Admin: 09/17/19 04:46 Dose: 650 mg Documented by: Al Hydroxide/Mg Hydroxide (Mylanta Ii) 30 ml PO Q6H PRN PRN PRN Reason: Gastric Burning Albuterol Sulfate (Ventolin Aerosols) 2.5 mg INHALATION Q2H PRN PRN PRN Reason: Dyspnea, wheezing Carvedilol (Coreg) 25 mg PO BID [facility] Dextrose (D50w Syringe) 0 gm IV X1 PRN; Protocol PRN Reason: Hypoglycemia Enoxaparin Sodium (Lovenox) 40 mg SC DAILY [facility] Glucagon () 1 mg IM .X1 PRN PRN Reason: Hypoglycemia Guaifenesin (Robitussin) 20 ml PO Q4H PRN PRN PRN Reason: COUGH Hydralazine HCl (Apresoline Iv) 10 mg IV Q4H PRN PRN PRN Reason: SBP > 160 Sodium Chloride () 1,000 mls @ 100 mls/hr IV .Q10H [facility] Last Infusion: 09/17/19 02:35 Dose: 100 mls/hr Documented by: Vancomycin IV Pharmacy to Dose (1 ea/ Sodium Chloride) 500 mls @ 250 mls/hr IV X1 PRN; Protocol PRN Reason: Rx to Dose Piperacillin Sod/Tazobactam (Sod 3.375 gm/ Sodium Chloride) 50 mls @ 12.5 mls/hr IV Q8 [facility] Last Admin: 09/17/19 06:17 Dose: 12.5 mls/hr Documented by: Sodium Chloride () 250 mls @ 15 mls/hr IV .[id number] PRN PRN Reason: Saline Flush Sodium Chloride () 250 mls @ 15 mls/hr IV .[id number] PRN PRN Reason: Additional IVPB Infusion Vancomycin HCl 1,500 mg/ (Sodium Chloride) 530 mls @ 250 mls/hr IV Q12H [facility] Insulin Glargine (Lantus (Bkc)) 40 units SC DAILY [facility] Insulin Human Lispro (Humalog Kwikpen (Bkc)) 0 unit SC ACHS [facility]; Protocol Last Admin: 09/17/19 06:43 Dose: 5 u Documented by: Lisinopril (Zestril) 20 mg PO BID [facility] Magnesium Hydroxide (Milk Of Magnesia) 30 ml PO DAILY PRN PRN PRN Reason: Constipation Morphine Sulfate () 2 mg IV Q3H PRN PRN PRN Reason: Pain Score 6-10/10 Nitroglycerin (Nitrostat) 0.4 mg SUBLINGUAL Q5M PRN PRN Reason: CARDIAC/CHEST PAIN Ondansetron HCl (Zofran) 4 mg IV Q8H PRN PRN PRN Reason: NAUSEA/VOMITING Oxycodone HCl (Oxyir) 5 mg PO Q4H PRN PRN PRN Reason: Pain Score 4-5/10 Prochlorperazine Edisylate (Compazine Iv) 5 mg IV Q4H PRN PRN PRN Reason: Breakthrough nausea/vomiting Psyllium Hydrophilic Mucilloid (Metamucil) 1 packet PO DAILY PRN PRN PRN Reason: Constipation Senna/Docusate Sodium (Senokot-S, Lizz-Colace) 2 tablet PO BID PRN PRN PRN Reason: Constipation Sodium Chloride () 10 - 40 ml IV UD PRN PRN Reason: SALINE FLUSH Temazepam (Restoril) 15 mg PO QHS PRN PRN PRN Reason: INSOMNIA Throat Lozenges (Cepacol Sore Throat Lozenge) 1 lozenge MUCOUS MEM Q2H PRN PRN PRN Reason: SORE THROAT STROKE Vital Signs/Narrative: Vital Signs Temp Pulse Resp BP Pulse Ox 09/17/19 04:35 98.1 F 68 16 151/71 H 97 Medical Necessity - Tobacco Use Smoking Status: Never smoker Tobacco Use: Non-smoker Assessment/Plan All Active Problems (Last Updated 08/12/17 @ 11:54 by Lorenza Nguyễn) Cellulitis (Acute) Open wound of right great toe (Acute) Cellulitis of right foot (Acute) Ulcer of right foot with fat layer exposed (Acute) Obesity, Class II, BMI 35-39.9, with comorbidity (Acute) MSSA (methicillin susceptible Staphylococcus aureus) infection (Acute) Ulcer of right foot with fat layer exposed (Acute) Cellulitis (Acute) The patient is a 63 y/o with history of coronary artery disease status post CABG, CKD stage III, Diabetes mellitus type II with neuropathy, HTN, HLD, Obesity is admitted with right great toe redness, edema and pain ongoing for the last 2 weeks, which started with a small blister, got ruptured into ulcer along with systemic symptoms of fever, chills, nausea and loss of appetite. 1. Right great toe superficial ulcer with surrounding cellulitis of foot: Patient is being admitted in [facility] floor. Was seen by industrial organization manager. Had bedside wound debridement, subcutaneous deep ulcer. Wound deep culture was taken and pending. On broad-spectrum antibiotic, will narrow down as the culture result comes. ESR and CRP are elevated. 2. Diabetes mellitus type II, uncontrolled with hyperglycemia: Glucose 330. A1c 10.7%. On glimepiride 4 mg daily. Lantus 50 units subcutaneous daily. Accu-Cheks before meals and at bedtime and cover with Humalog sliding scale. Titrate insulin as per Accu-Chek. Hold metformin. 3. Hypertension: Blood pressure elevated. Continue home regimen including Coreg, lisinopril, PRN hydralazine. 4. Hyperlipidemia: Noted statin allergy, not on hyperlipidemic agent. Fasting lipid profile ordered 5. Chronic Kidney Disease Stage III: Admission BUN/Cr 38/1.42, baseline renal function 1.0-1.2, monitor kidney function and electrolytes. 6. CAD: Status post CABG x 4 and PCI x 4, continue Asa, coreg, lisinopril, noted statin allergy. 7. Obesity: Weight loss and lifestyle changes encouraged. 8. DVT prophylaxis: SCDs, Lovenox. 9. CODE status: Full code Total time of the visit including total time spent in counseling or coordination of care, (more than 50% of the total time, spent in obtaining medical information from nurses and other ancillary care providers), discussion with apprenticeship consultant, review of labs and imaging is 30 minutes. Clinical Impression(s) from Imaging Studies Foot X-Ray 09/16/19 21:12 IMPRESSION: Mild to moderate soft tissue swelling Inpatient E&M: 83796 Subs Hosp L2
--- NOTE | 2019-09-17 07:17 | CON.PCM_ITS ---
Problem List (1) Cellulitis of right foot Status: Acute (2) Ulcer of right foot with fat layer exposed Status: Acute (3) Type 2 diabetes mellitus with diabetic neuropathy Status: Chronic Qualifiers: Diabetes mellitus terminal computer operator insulin use: with senior care use Qualified Code(s): E11.40 - Type 2 diabetes mellitus with diabetic neuropathy, unspecified; Z79.4 - terminal gauger supervisor (current) use of insulin Reason for Consult Date of Consultation: 09/17/19 Reason for Consultation: Right great toe infection with ulcer History of Present Illness: The patient is a 63 year old M with significant past medical history of diabetes with neuropathy, cardiac disease, chronic kidney disease stage III, hyp ertension, hyperlipidemia, and obesity presents for right foot ulcer which he relates was present for approximately 2 weeks after he went in a swimming pool while he was visiting with his grandchildren, and developed a blister. This blister drained and he developed a wound. His status worsened approximately 3 days ago when he noticed redness, fever, chills, and loss of appetite. He presents to the emergency room overnight. He denies claudication. He does have neuropathy and has lack of sensation to the ball of his foot and toes. He does not have full feeling to his foot. He does have a history of prior lower extremity ulcer history. He denies current pain at this time. Past Medical History Past Medical History (Chronic Problems): Chronic Problems (Last Updated 08/12/17 @ 11:54 by Lorenza Nguyễn) Obesity (BMI 30.0-34.9) (Chronic) Type 2 diabetes mellitus with diabetic neuropathy (Chronic) CAD (coronary artery disease) (Chronic) Type 2 diabetes mellitus (Chronic) Hypertension (Chronic) Hyperlipidemia (Chronic) Medical History: Medical History (Last Updated 08/12/17 @ 11:54 by Lorenza Nguyễn) Diabetes E11.9 Heart disease I51.9 Liver disease K76.9 Hypertension I10 Allergies atorvastatin [From Lipitor] Adverse Reaction (Verified 09/16/19 20:33) Pain in joints rosuvastatin [From Crestor] Adverse Reaction (Verified 09/16/19 20:33) Pain in joints Home Medications: Ambulatory Orders Medication Instructions Recorded carvedilol 25 mg tablet 25 mg PO BID 08/12/17 glimepiride 4 mg tablet 4 mg PO DAILY 08/12/17 insulin glargine 100 unit/mL (3 40 - 50 unit SC DAILY 08/12/17 mL) subcutaneous pen metformin 1,000 mg tablet 1,000 mg PO BID 08/12/17 Lisinopril [Zestril] 20 mg PO BID 08/14/17 Multivit-Mins/Iron/Folic/Lycop 1 tab PO BID 09/16/19 [Centrum Ultra Men's Tablet] Oregano Oil [Oil of Oregano] 1,500 mg PO BID 09/16/19 Surgical History: Surgical History (Last Updated 08/12/17 @ 11:56 by Lorenza Nguyễn) History of back surgery Z98.890 Hx of CABG Z95.1 Hx of appendectomy Z90.49 Hx of toe surgery Z98.890 Surgical History: appendectomy, coronary bypass surgery, - - CABG x 4 and PCI x 4, appendectomy, toe surgery, back surgery x2. Psychiatric History: No pertinent psych hx Lives: Spouse/ Significant Other Smoking Status: Never smoker Tobacco Use: Non-smoker Alcohol: None Drugs: None - *Family History Maternal Family History: Family History (Last Updated 08/12/17 @ 11:56 by Lorenza Nguyễn) Other CAD (coronary artery disease) Diabetes History Items: Diabetes Paternal Family History: Family History (Last Updated 08/12/17 @ 11:56 by Lorenza Nguyễn) Other CAD (coronary artery disease) Diabetes History Items: Heart Disease Review of Systems Constitutional: Reports: Chills, Fever Cardiovascular: Denies: Chest Pain, Claudication Respiratory: Denies: Cough Gastrointestinal: Denies: Nausea, Vomiting Musculoskeletal: Denies: Foot Pain, Leg Pain Skin: Reports: Skin Changes, Wounds Neurological: Reports: Incoordination, Numbness, Tingling Psychiatric: Denies: Depression Hematologic/ Lymphatic: Reports: Easy Bruising, Easy Bleeding Patient Problems: Active and Suspected Problems (Last Updated 08/12/17 @ 11:54 by Lorenza Nguyễn) Cellulitis (Acute) Open wound of right great toe (Acute) Cellulitis of right foot (Acute) Ulcer of right foot with fat layer exposed (Acute) - Physical Exam Vitals/I&O's: Vital Signs Temp Pulse Resp BP Pulse Ox 98.1 F 68 16 151/71 H 97 09/17/19 04:35 09/17/19 04:35 09/17/19 04:35 09/17/19 04:35 09/17/19 04:35 Oxygen Delivery Method Room Air Weight: 110.5 kg Body Mass Index (BMI) 35.9 Intake and Output for Last 24 Hours 09/15/19 09/16/19 09/17/19 23:59 23:59 23:59 Intake Total 1112 / 1112 644 / 644 Output Total 775 / 775 Balance 1111 / 1111 -131 / -131 General: Alert, Oriented x3, Cooperative HEENT: Atraumatic Extremities: No cyanosis, Capillary Refill Less than 3 Seconds - All digits bilateral feet, No Calf Tenderness - Negative Clinton and Pina sign bilateral. Compartments are soft to palpate bilateral lower extremities, Edema - Mild forefoot, Peripheral Pulses Normal - 2 out of 4 PT and DP pulses bilateral Skin: Ulcer/ Wound - Skin discontinuity to plantar right hallux measures approximately 3.7 x 2.3 x 0.1 cm and post debridement 3.8 x 2.4 x 0.1 cm with granular and fibrous base. There is no deep tissue exposure noted. There is erythema extending to the hallux and just past proximally to the first metatarsal phalangeal joint level. There is no necrosis or deep probing., - - He does have a hair on his foot and his skin turgor is slightly atrophic Musculoskeletal: No Tenderness to Palpation of Joints or Extremities, - - No bogginess or fluctuance at the ulcer site. No pain on palpation, crepitus, laxity, or pain with passive manipulation of the hallux interphalangeal joint or first metatarsal phalangeal joint of the right foot. The nail complex remains well adhered and intact in the right hallux Neurological: - - decreased epicritic sensation via light touch consistent with neuropathy Psych/Mental Status: Normal Affect, Appropriate Microbiology Past 72 Hours 09/16/19 20:20 Blood Culture (Wb) - Right Forearm Blood Culture - Preliminary Laboratory Results 09/16/19 19:55: WBC 13.1 H, RBC 4.31 L, Hgb 13.1, Hct 37.3 L, MCV 86.5, MCH 30.4, MCHC 35.1, RDW Std Deviation 37.9, RDW Coeff of Shelby 11.9, Plt Count 277, MPV 8.9, Immature Gran % (Auto) 0.700, Neut % (Auto) 90.6 H, Lymph % (Auto) 4.0 L, Lee % (Auto) 3.7, Eos % (Auto) 0.8, Baso % (Auto) 0.2, Absolute Neuts (auto) 11.9 H, Absolute Lymphs (auto) 0.52 L, Nucleated RBC % 0, Differential Comment SCANNED 09/16/19 19:55: PT 12.8, INR 1.0, APTT 30.0 09/16/19 19:55: Sodium 133 L, Potassium 4.0, Chloride 102, Carbon Dioxide 23.0, Anion Gap 8, BUN 38 H, Creatinine 1.42 H, Estim Creat Clear Calc 52.55, Est GFR (MDRD) Af Amer 64, Est GFR (MDRD) Non-Af 53 L, BUN/Creatinine Ratio 26.8 H, Glucose 307 H, Calcium 9.0, Total Bilirubin 0.60, AST 16, ALT 20, Alkaline Phosphatase 76, Total Protein 7.5, Albumin 3.4, Globulin 4.1, Albumin/Globulin Ratio 0.8 L 09/16/19 19:55: Lactic Acid 1.0 09/16/19 19:55: Magnesium 1.5 L 09/16/19 19:55: Hemoglobin A1c 10.7 H 09/17/19 06:25: WBC 12.9 H, RBC 3.88 L, Hgb 12.0 L, Hct 34.4 L, MCV 88.7, MCH 30.9, MCHC 34.9, RDW Std Deviation 39.7, RDW Coeff of Shelby 12.5, Plt Count 226, MPV 8.7, Immature Gran % (Auto) 0.600, Neut % (Auto) 88.6 H, Lymph % (Auto) 4.7 L, Lee % (Auto) 5.7, Eos % (Auto) 0.2, Baso % (Auto) 0.2, Absolute Neuts (auto) 11.4 H, Absolute Lymphs (auto) 0.60 L, Nucleated RBC % 0 09/17/19 06:25: Sodium 134 L, Potassium 4.6, Chloride 105, Carbon Dioxide 24.0, Anion Gap 5, BUN 30 H, Creatinine 1.10, Estim Creat Clear Calc 67.84, Est GFR (MDRD) Af Amer 86, Est GFR (MDRD) Non-Af 71, BUN/Creatinine Ratio 27.3 H, Glucose 331 H, Calcium 8.3 L, Total Bilirubin 0.70, AST 13 L, ALT 17, Alkaline Phosphatase 60, Total Protein 6.5, Albumin 2.8 L, Globulin 3.7, Albumin/Globulin Ratio 0.8 L 09/17/19 06:39: POC Glucose 330 H Current Medications Acetaminophen (Tylenol) 650 mg PO Q6H PRN PRN PRN Reason: Pain Score 1-10/Temp > 100.7 F Last Admin: 09/17/19 04:46 Dose: 650 mg Documented by: Al Hydroxide/Mg Hydroxide (Mylanta Ii) 30 ml PO Q6H PRN PRN PRN Reason: Gastric Burning Albuterol Sulfate (Ventolin Aerosols) 2.5 mg INHALATION Q2H PRN PRN PRN Reason: Dyspnea, wheezing Carvedilol (Coreg) 25 mg PO BID [facility] Dextrose (D50w Syringe) 0 gm IV X1 PRN; Protocol PRN Reason: Hypoglycemia Enoxaparin Sodium (Lovenox) 40 mg SC DAILY [facility] Glucagon () 1 mg IM .X1 PRN PRN Reason: Hypoglycemia Guaifenesin (Robitussin) 20 ml PO Q4H PRN PRN PRN Reason: COUGH Hydralazine HCl (Apresoline Iv) 10 mg IV Q4H PRN PRN PRN Reason: SBP > 160 Sodium Chloride () 1,000 mls @ 100 mls/hr IV .Q10H [facility] Last Infusion: 09/17/19 02:35 Dose: 100 mls/hr Documented by: Vancomycin IV Pharmacy to Dose (1 ea/ Sodium Chloride) 500 mls @ 250 mls/hr IV X1 PRN; Protocol PRN Reason: Rx to Dose Piperacillin Sod/Tazobactam (Sod 3.375 gm/ Sodium Chloride) 50 mls @ 12.5 mls/hr IV Q8 [facility] Last Admin: 09/17/19 06:17 Dose: 12.5 mls/hr Documented by: Sodium Chloride () 250 mls @ 15 mls/hr IV .[id number] PRN PRN Reason: Saline Flush Sodium Chloride () 250 mls @ 15 mls/hr IV .[id number] PRN PRN Reason: Additional IVPB Infusion Vancomycin HCl 1,500 mg/ (Sodium Chloride) 530 mls @ 250 mls/hr IV Q12H [facility] Insulin Glargine (Lantus (Bkc)) 40 units SC DAILY [facility] Insulin Human Lispro (Humalog Kwikpen (Bkc)) 0 unit SC ACHS [facility]; Protocol Last Admin: 09/17/19 06:43 Dose: 5 u Documented by: Lisinopril (Zestril) 20 mg PO BID [facility] Magnesium Hydroxide (Milk Of Magnesia) 30 ml PO DAILY PRN PRN PRN Reason: Constipation Morphine Sulfate () 2 mg IV Q3H PRN PRN PRN Reason: Pain Score 6-10/10 Nitroglycerin (Nitrostat) 0.4 mg SUBLINGUAL Q5M PRN PRN Reason: CARDIAC/CHEST PAIN Ondansetron HCl (Zofran) 4 mg IV Q8H PRN PRN PRN Reason: NAUSEA/VOMITING Oxycodone HCl (Oxyir) 5 mg PO Q4H PRN PRN PRN Reason: Pain Score 4-5/10 Prochlorperazine Edisylate (Compazine Iv) 5 mg IV Q4H PRN PRN PRN Reason: Breakthrough nausea/vomiting Psyllium Hydrophilic Mucilloid (Metamucil) 1 packet PO DAILY PRN PRN PRN Reason: Constipation Senna/Docusate Sodium (Senokot-S, Lizz-Colace) 2 tablet PO BID PRN PRN PRN Reason: Constipation Sodium Chloride () 10 - 40 ml IV UD PRN PRN Reason: SALINE FLUSH Temazepam (Restoril) 15 mg PO QHS PRN PRN PRN Reason: INSOMNIA Throat Lozenges (Cepacol Sore Throat Lozenge) 1 lozenge MUCOUS MEM Q2H PRN PRN PRN Reason: SORE THROAT Assessment/Plan All Active Problems (Last Updated 08/12/17 @ 11:54 by Lorenza Nguyễn) Cellulitis (Acute) Open wound of right great toe (Acute) Cellulitis of right foot (Acute) Ulcer of right foot with fat layer exposed (Acute) Obesity, Class II, BMI 35-39.9, with comorbidity (Acute) MSSA (methicillin susceptible Staphylococcus aureus) infection (Acute) Ulcer of right foot with fat layer exposed (Acute) Cellulitis (Acute) Right foot cellulitis Right foot ulcer with fat layer exposed, Ware grade 1 Uncontrolled diabetes with neuropathy (hemoglobin A1c 10.7) Other comorbidities I reviewed and discussed his case. He did have a low-grade fever overnight. Otherwise, his vitals remained stable. He did also have leukocytosis and his white blood cell count still elevated at 12.9 this morning. ESR and CRP results are pending. His blood cultures were taken upon arrival and these are pending. After subcutaneous excisional debridement and irrigation was performed bedside this morning, and aerobic, anaerobic, and MRSA PCR culture was obtained. His 3 nonweightbearing foot x-rays were reviewed that were obtained upon arrival in the emergency room. There was no acute fracture, dislocation, soft tissue emphysema, foreign body. There is some edema noted to the forefoot. He was started on broad-spectrum antibiotics including vancomycin and Zosyn. I recommend continuing these medications until we get preliminary wound culture results. I do not suspect deep tissue was involved or an abscess at this time and do not recommend surgery. He will be monitored closely if lack of improvement is noted other advanced imaging or more aggressive care will be considered. Verbal consent was obtained to perform a subcutaneous excisional debridement of the right hallux with a 15 blade scalpel. He tolerated this well and anesthesia was not required due to his neuropathy status. This was performed to excise fibrous tissue, devitalized subcutaneous tissue, biofilm, slough, and peripheral macerated tissue. Pressure was applied to maintain hemostasis. Betadine soaked Adaptic, gauze, and Mark roll were applied as a dressing. Strict offloading was recommended by heel weightbearing in a surgical shoe. She was ordered. I recommend nutritional consultation and supplementation to optimize healing. We discussed diabetic control and how important it is to help him heal his current wound and prevent future complications. Medical management per hospitalist service is noted and appreciated. Thank you very much for the consultation. Please not hesitate to call if you have any questions. I will continue to follow him closely while in house. Sara Kendrick DPM, [facility] [phone]
[2019-09-17 08:55] LABS: Erythrocyte Sedimentation Rate 25 mm/hr (0-20)
[2019-09-17 09:24] LABS: Differential Comment SCANNED
[2019-09-17 09:34] LABS: M R Staph aureus DNA By PCR Negative (Negative); Probe Check PASS; Specimen Processing Control PASS; Staph aureus DNA By PCR POSITIVE (Negative)
[2019-09-17 10:19] VITALS: BP 159/69; PULSE 82; RESP 18; TEMP 37.8; O2SAT 98
[2019-09-17] MEDS: Lisinopril 20 MG Tablet PO ×2 (10:23→21:33)
[2019-09-17] MEDS: Carvedilol 25 MG Tablet PO ×2 (10:23→21:33)
[2019-09-17] MEDS: Ibuprofen 600 MG Tablet PO (10:29)
[2019-09-17] MEDS: Glimepiride 4 MG Tablet PO (10:30)
[2019-09-17] MEDS: Enoxaparin 40 MG/0.4 ML Syringe SC (10:31)
[2019-09-17 11:45] LABS: Bedside Glucose 491 mg/dL (70-110)
[2019-09-17] MEDS: Insulin Lispro 100 UNIT/ML INSULN.PEN 7 UNIT SC (12:39)
[2019-09-17 13:16] VITALS: O2SAT 96
[2019-09-17 14:20] VITALS: BP 117/64; PULSE 66; RESP 18; TEMP 36.7; O2SAT 96
--- NOTE | 2019-09-17 15:00 | CASEMGMT ---
RN CM PRINCIPAL TECHNICAL WRITER CM to room to meet with patient for initial transition planning/care coordination assessment. BROOK HUMPHREYS introduced self and role at [facility]. Pt voices understanding and consents to assessment at this time. Pt sitting up in recliner chair in room in no distress at this time. at bedside. Pt is A/O at this time and answers all questions appropriately. Care providers, pharmacy, and demographics verified/updated at this time. PCP: Dr Sahu Specialists: Coke [employer] Mason @ [facility] in [place]. Pt states he has not been there several years. Preferred Pharmacy: [facility] Insurance: No insurance. Self Pay Prescription Benefit: None. Self Pay Living Will/HPOA: Pt does not currently have LW/HCPOA and declines info at this time. Pt made aware that he can contact as an out-pt and make appt in the future if he decides he would like to talk with someone about this or would like to utilize [facility] social work for advanced directive completion. LNOK: , Emily. 4 adult children. Daughter, Santa is a BROADCAST FIELD SUPERVISOR and lives nearby. Living Arrangements: Lives w/his in one-story home w/3 steps to enter. Was independent prior to hospitalization. Has his own business. Transportation: Pt, , family. DME: States has the following DME: Glucometer, BP cuff. Pt to be NWB to rt great toe. Pt denies wanting crutches or walker. Pt/ state he has rented a Knee scooter in the past and they will be looking into purchasing one. occupational therapist home based aware pt is to have a Surgical shoe per Dr Kendrick note and is working on getting this for pt. HHC/SNF: No hx of SNF. Has had HHC in the past after CABG. Declines need for any HHC. /pt state they are comfortable/able to complete dressing changes. states, dtr/Santa/BROADCAST FIELD SUPERVISOR can assist if needed as well. Pt wishes to return home and states has no concerns with going home at time of discharge. CM to follow for any discharge planning/needs. Pt/ voices no further concerns/needs at this time. Advised them to ask for CM if any further questions/concerns/needs arise. They voice understanding. PLAN: Home with spousal/family support. Cultures pending. Per Dr Simon, he anticipates pt will be discharged home on PO atb's. CM to follow for any additional needs. Karin DENNISONN RN CM
[2019-09-17 16:36] LABS: Bedside Glucose 267 mg/dL (70-110)
[2019-09-17] MEDS: Insulin Lispro 100 UNIT/ML INSULN.PEN 10 UNIT SC (17:37)
[2019-09-17 21:27] VITALS: BP 164/84; PULSE 71; RESP 18; TEMP 37.7; O2SAT 98
[2019-09-17] MEDS: oxyCODONE 5 MG Tablet PO (21:34)
[2019-09-17 21:50] LABS: Bedside Glucose 350 mg/dL (70-110)
[2019-09-18 02:59] VITALS: BP 147/78; PULSE 67; RESP 16; TEMP 36.7; O2SAT 98
[2019-09-18] MEDS: Acetaminophen 325 MG Tablet 650 MG PO ×3 (05:20→22:37)
[2019-09-18] MEDS: oxyCODONE 5 MG Tablet PO ×3 (05:20→22:36)
[2019-09-18 06:18] LABS: Absolute Lymphocyte Count 1.27 X10^3/uL (0.83-4.51); Absolute Neutrophil Count 5.8 X10^3/uL (2.0-7.7); Basophil# 0.03 X10^3/uL; Basophil% 0.4 % (0-1); Eosinophil# 0.07 X10^3/uL; Eosinophils% 0.9 % (0-5); Hematocrit 33.5 % (40-54); Hemoglobin 11.6 g/dL (13.0-16.5); Lymphocyte # 1.27 X10^3/ul (4.0); Lymphocyte % 15.8 % (19-41); Mean Corp Hgb Conc 34.6 g/dL (32-36); Mean Corpuscular Hgb 30.4 pg (27.0-32.0); Mean Corpuscular Volume 87.9 fL (80-94); Mean Platelet Vol. 8.5 fl (6.2-12.0); Monocyte# 0.82 X10^3/uL; Monocyte% 10.2 % (0-10); NRBC Flagged by Analyzer 0 % (0-5); Neutrophil # 5.75 X10^3/uL (2.7-7.7); Neutrophil % 71.6 % (47-70); Platelet Count 208 K/mm3 (150-450); RBC Distribution Width CV 12.4 % (11.6-14.6); RBC Distribution Width SD 39.6 fl (35.1-43.9); Red Blood Count 3.81 M/mm3 (4.6-6.2)
[2019-09-18] MEDS: 0.9% Normal Saline 1,000 ML 100 ML IV (06:29)
[2019-09-18 06:50] LABS: Anion Gap 4 (5-15); BUN 24 mg/dL (7-18); BUN/Creat Ratio 22.6 RATIO (10-20); Calcium,Total 8.2 mg/dL (8.5-10.1); Chloride 102 mmol/L (98-107); Creatinine, Serum 1.06 mg/dL (0.70-1.30); EST Glomerular Filtration Rate 75 mL/min (>60); Est Glom Filt Rate - Afr Amer 90 mL/min (>60); Glucose 268 mg/dL (74-106); Potassium 4.2 mmol/L (3.5-5.1); Sodium Level 131 mmol/L (136-145)
[2019-09-18 07:25] VITALS: O2SAT 95
[2019-09-18] MEDS: Insulin Lispro 100 UNIT/ML INSULN.PEN SC ×4 (08:06→22:27)
[2019-09-18] MEDS: Insulin Lispro 100 UNIT/ML INSULN.PEN 15 UNIT SC ×3 (08:06→16:04)
[2019-09-18] MEDS: Glimepiride 4 MG Tablet PO (08:07)
[2019-09-18] MEDS: Carvedilol 25 MG Tablet PO ×2 (08:07→22:27)
[2019-09-18] MEDS: Lisinopril 20 MG Tablet PO ×2 (08:08→22:27)
[2019-09-18] MEDS: Enoxaparin 40 MG/0.4 ML Syringe SC (08:08)
--- NOTE | 2019-09-18 08:09 | PCM.PN.HOSP ---
Patient Problems: Active and Suspected Problems (Last Updated 08/12/17 @ 11:54 by Lorenza Nguyễn) Cellulitis (Acute) Open wound of right great toe (Acute) Cellulitis of right foot (Acute) Ulcer of right foot with fat layer exposed (Acute) Reason for Visit: Follow-up for left great toe diabetic ulcer with cellulitis and group B strep bacteremia Objective: Patient had low-grade fever, T 100, 99.8 Fahrenheit but no subjective chills or diaphoresis. Complain of mild pain over left shoulder and elbow arthritis pain as he felt on his left shoulder while working on his backyard and mild. About 3 weeks ago Physical exam: General: Alert, Oriented x3, Cooperative HEENT: Atraumatic, PERRLA, EOMI, Normocephalic Oral: No Gingival or Mucosal Lesions/ Ulcerations Neck: Supple, No JVD, Negative Carotid Bruits Lungs: Air entry diminished in bilateral lung bases. No crepitation/rhonchi Cardiovascular: Regular rate, Regular Rhythm, Normal S1, Normal S2, No murmurs Abdomen: Bowel Sounds Present, Soft, Non Tender, Non-Distended : No renal angle tenderness. No suprapubic tenderness. Extremities: No edema, Capillary Refill Less than 3 Seconds Skin: Right great toe superficial ulcer with cellulitis status post debridement and dressing Musculoskeletal: Mild tenderness over left shoulder over the deltoid region. Patient has all baseline range of movement although cannot lift more than 90 degrees abduction, which is chronic problem. Mild tenderness on the right great toe Neurological: Cranial nerves II-XII grossly intact, Deep Tendon Reflexes 2+/4 and Symmetrical, Neuro grossly intact Psych/Mental Status: Normal Affect, Appropriate Vitals/I&O's: Vital Signs Temp Pulse Resp BP Pulse Ox 98.0 F 67 16 147/78 H 95 09/18/19 02:59 09/18/19 02:59 09/18/19 02:59 09/18/19 02:59 09/18/19 07:25 Oxygen Delivery Method Room Air Weight: 243 lb 9.773 oz Body Mass Index (BMI) 35.9 Intake and Output for Last 24 Hours 09/16/19 09/17/19 09/18/19 23:59 23:59 23:59 Intake Total 1112 / 1112 4227.34 / 4527.34 2206.67 / 2206.67 Output Total 3125 / 4075 2650 / 2650 Balance 1112 / 1112 1102.34 / 452.34 -443.33 / -443.33 Microbiology Past 72 Hours 09/17/19 08:00 Wound - Aerobic & Anaerobic Swabs Gram Stain - Preliminary 09/16/19 20:20 Blood Culture (Wb) - Right Forearm Bacteria Detection (PCR) - Final Streptococcus agalactiae (B) 09/16/19 20:20 Blood Culture (Wb) - Right Forearm Blood Culture - Preliminary 09/16/19 19:55 Blood Culture (Wb) - Left Forearm Blood Culture - Preliminary Laboratory Results 09/17/19 06:25: Differential Comment SCANNED 09/17/19 06:25: ESR 25 H 09/17/19 06:25: C-React Prot Ext Range 103.00 H 09/17/19 08:00: S.aureus Protein A PCR POSITIVE H, MRSA (PCR) Negative 09/17/19 11:35: POC Glucose 491 H* 09/17/19 16:29: POC Glucose 267 H 09/17/19 21:37: POC Glucose 350 H 09/18/19 05:50: WBC 8.0, RBC 3.81 L, Hgb 11.6 L, Hct 33.5 L, MCV 87.9, MCH 30.4, MCHC 34.6, RDW Std Deviation 39.6, RDW Coeff of [place] 12.4, Plt Count 208, MPV 8.5, Immature Gran % (Auto) 1.100 H, Neut % (Auto) 71.6 H, Lymph % (Auto) 15.8 L, [place] % (Auto) 10.2 H, Eos % (Auto) 0.9, Baso % (Auto) 0.4, Absolute Neuts (auto) 5.8, Absolute Lymphs (auto) 1.27, Nucleated RBC % 0 09/18/19 05:50: Sodium 131 L, Potassium 4.2, Chloride 102, Carbon Dioxide 25.0, Anion Gap 4 L, BUN 24 H, Creatinine 1.06, Estim Creat Clear Calc 70.40, Est GFR (MDRD) Af Amer 90, Est GFR (MDRD) Non-Af 75, BUN/Creatinine Ratio 22.6 H, Glucose 268 H, Calcium 8.2 L Current Medications Acetaminophen (Tylenol) 650 mg PO Q6H PRN PRN PRN Reason: Pain Score 1-10/Temp > 100.7 F Last Admin: 09/18/19 05:20 Dose: 650 mg Documented by: Al Hydroxide/Mg Hydroxide (Mylanta Ii) 30 ml PO Q6H PRN PRN PRN Reason: Gastric Burning Albuterol Sulfate (Ventolin Aerosols) 2.5 mg INHALATION Q2H PRN PRN PRN Reason: Dyspnea, wheezing Carvedilol (Coreg) 25 mg PO BID [facility] Last Admin: 09/18/19 08:07 Dose: 25 mg Documented by: Dextrose (D50w Syringe) 0 gm IV X1 PRN; Protocol PRN Reason: Hypoglycemia Enoxaparin Sodium (Lovenox) 40 mg SC DAILY [facility] Last Admin: 09/18/19 08:08 Dose: 40 mg Documented by: Glimepiride (Amaryl) 4 mg PO DAILYCM [facility] Last Admin: 09/18/19 08:07 Dose: 4 mg Documented by: Glucagon () 1 mg IM .X1 PRN PRN Reason: Hypoglycemia Guaifenesin (Robitussin) 20 ml PO Q4H PRN PRN PRN Reason: COUGH Hydralazine HCl (Apresoline Iv) 10 mg IV Q4H PRN PRN PRN Reason: SBP > 160 Sodium Chloride () 1,000 mls @ 100 mls/hr IV .Q10H [facility] Last Admin: 09/18/19 06:29 Dose: 100 mls/hr Documented by: Sodium Chloride () 250 mls @ 15 mls/hr IV .[id number] PRN PRN Reason: Saline Flush Sodium Chloride () 250 mls @ 15 mls/hr IV .[id number] PRN PRN Reason: Additional IVPB Infusion Ceftriaxone Sodium 2 gm/ (Sodium Chloride) 50 mls @ 100 mls/hr IV Q24 [facility] Last Infusion: 09/17/19 13:09 Dose: Infused Documented by: Ibuprofen (Motrin) 600 mg PO Q8H PRN PRN Reason: Headache/pain 1-12/09 Last Admin: 09/17/19 10:29 Dose: 600 mg Documented by: Insulin Glargine (Lantus (Bkc)) 60 units SC DAILY [facility] Last Admin: 07/19/20 08:08 Dose: 60 u Documented by: Insulin Human Lispro (Humalog Kwikpen (Bkc)) 0 unit SC ACHS [facility]; Protocol Last Admin: 09/18/19 08:06 Dose: 3 u Documented by: Insulin Human Lispro (Humalog Kwikpen (Bkc)) 15 unit SC TIDAC [facility] Last Admin: 09/18/19 08:06 Dose: 15 u Documented by: Lisinopril (Zestril) 20 mg PO BID [facility] Last Admin: 09/18/19 08:08 Dose: 20 mg Documented by: Magnesium Hydroxide (Milk Of Magnesia) 30 ml PO DAILY PRN PRN PRN Reason: Constipation Morphine Sulfate () 2 mg IV Q3H PRN PRN PRN Reason: Pain Score 6-10/10 Nitroglycerin (Nitrostat) 0.4 mg SUBLINGUAL Q5M PRN PRN Reason: CARDIAC/CHEST PAIN Nutritional Formula (Efren - [place] Flavor) [facility] Last Admin: 09/18/19 08:06 Dose: 1 packet Documented by: Ondansetron HCl (Zofran) 4 mg IV Q8H PRN PRN PRN Reason: NAUSEA/VOMITING Oxycodone HCl (Oxyir) 5 mg PO Q4H PRN PRN PRN Reason: Pain Score 4-5/10 Last Admin: 09/18/19 05:20 Dose: 5 mg Documented by: Prochlorperazine Edisylate (Compazine Iv) 5 mg IV Q4H PRN PRN PRN Reason: Breakthrough nausea/vomiting Psyllium Hydrophilic Mucilloid (Metamucil) 1 packet PO DAILY PRN PRN PRN Reason: Constipation Senna/Docusate Sodium (Senokot-S, Lizz-Colace) 2 tablet PO BID PRN PRN PRN Reason: Constipation Sodium Chloride () 10 - 40 ml IV UD PRN PRN Reason: SALINE FLUSH Temazepam (Restoril) 15 mg PO QHS PRN PRN PRN Reason: INSOMNIA Throat Lozenges (Cepacol Sore Throat Lozenge) 1 lozenge MUCOUS MEM Q2H PRN PRN PRN Reason: SORE THROAT STROKE Vital Signs/Narrative: Vital Signs Pulse Ox 09/18/19 07:25 95 Medical Necessity - Tobacco Use Smoking Status: Never smoker Tobacco Use: Non-smoker Assessment/Plan All Active Problems (Last Updated 08/12/17 @ 11:54 by Lorenza Nguyễn) Cellulitis (Acute) Open wound of right great toe (Acute) Cellulitis of right foot (Acute) Ulcer of right foot with fat layer exposed (Acute) Obesity, Class II, BMI 35-39.9, with comorbidity (Acute) MSSA (methicillin susceptible Staphylococcus aureus) infection (Acute) Ulcer of right foot with fat layer exposed (Acute) Cellulitis (Acute) The patient is a 63 y/o with history of coronary artery disease status post CABG, CKD stage III, Diabetes mellitus type II with neuropathy, HTN, HLD, Obesity is admitted with right great toe redness, edema and pain ongoing for the last 2 weeks, which started with a small blister, got ruptured into ulcer along with systemic symptoms of fever, chills, nausea and loss of appetite. 1. Right great toe superficial ulcer with surrounding cellulitis of foot: Patient is being admitted in [facility] floor. Was seen by manager social services. Had bedside wound debridement, subcutaneous deep ulcer. Wound deep culture was taken and pending. On broad-spectrum antibiotic, will narrow down as the culture result comes. ESR and CRP are elevated. 09/17: Leukocytosis resolved. Mild low-grade fever. Continue IV antibiotic and follow blood and wound culture. Patient will need about 10 days total duration of antibiotic. 2. Diabetes mellitus type II, uncontrolled with hyperglycemia: Glucose 330. A1c 10.7%. On glimepiride 4 mg daily. Lantus 50 units subcutaneous daily. Accu-Cheks before meals and at bedtime and cover with Humalog sliding scale. Titrate insulin as per Accu-Chek. Hold metformin. Blood sugar increased between 270-350. Lantus and meal Humalog insulin increase. 3. Hypertension: Blood pressure elevated. Continue home regimen including Coreg, lisinopril, PRN hydralazine. 4. Hyperlipidemia: Noted statin allergy, not on hyperlipidemic agent. Fasting lipid profile ordered 5. Chronic Kidney Disease Stage III: Admission BUN/Cr 38/1.42, baseline renal function 1.0-1.2, monitor kidney function and electrolytes. 6. CAD: Status post CABG x 4 and PCI x 4, continue Asa, coreg, lisinopril, noted statin allergy. 7. Obesity: Weight loss and lifestyle changes encouraged. 8. DVT prophylaxis: SCDs, Lovenox. 9. CODE status: Full code Total time of the visit including total time spent in counseling or coordination of care, (more than 50% of the total time, spent in obtaining medical information from nurses and other ancillary care providers), discussion with medical record consultant, review of labs and imaging is 30 minutes. Clinical Impression(s) from Imaging Studies Foot X-Ray 09/16/19 21:12 IMPRESSION: Mild to moderate soft tissue swelling Inpatient E&M: 89553 Subs Hosp L2
[2019-09-18 08:25] VITALS: BP 156/78; PULSE 59; RESP 16; TEMP 36.8; O2SAT 99
--- NOTE | 2019-09-18 09:07 | PCM.PROGNOTE ---
Patient Problems: Active and Suspected Problems (Last Updated 08/12/17 @ 11:54 by Lorenza Nguyễn) Cellulitis (Acute) Open wound of right great toe (Acute) Cellulitis of right foot (Acute) Ulcer of right foot with fat layer exposed (Acute) Subjective: This 63-year-old male with diabetes seen bedside this morning for follow-up of right foot ulcer with cellulitis. He denies fever, chill, nausea, vomiting overnight. He denies foot pain. He has been able to heel weight-bear in a surgical shoe to keep pressure off of his ulcer site. He understands he has bacteremia and additional hospitalization and antibiotics are recommended. - Physical Exam Vitals/I&O's: Vital Signs Temp Pulse Resp BP Pulse Ox 98.3 F 59 L 16 156/78 H 99 09/18/19 08:25 09/18/19 08:25 09/18/19 08:25 09/18/19 08:25 09/18/19 08:25 Oxygen Delivery Method Room Air Weight: 110.5 kg Body Mass Index (BMI) 35.9 Intake and Output for Last 24 Hours 09/16/19 09/17/19 09/18/19 23:59 23:59 23:59 Intake Total 1112 / 1112 4227.34 / 4527.34 2413.34 / 2413.34 Output Total 3125 / 4075 2650 / 2650 Balance 1112 / 1112 1102.34 / 452.34 -236.66 / -236.66 General: Alert, Oriented x3, Cooperative Extremities: No cyanosis, Capillary Refill Less than 3 Seconds, No Calf Tenderness - Negative [place] and Pina, Edema - Decreased right foot, Peripheral Pulses Normal, - - No pain in the hallux interphalangeal joint or metatarsal phalangeal joint. Compartments are soft to palpate. Skin: Ulcer/ Wound - No purulence, odor, necrosis, or maceration. The peripheral erythema is significantly reduced in location and intensity. There is no deep probing. The ulcer bed is granular, fibrous. Musculoskeletal: Muscle Wasting Neurological: - - Lack of normal epicritic sensation consistent with neuropathy status Psych/Mental Status: Normal Affect, Appropriate Microbiology Past 72 Hours 09/17/19 08:00 Wound - Aerobic & Anaerobic Swabs Gram Stain - Preliminary 09/16/19 20:20 Blood Culture (Wb) - Right Forearm Bacteria Detection (PCR) - Final Streptococcus agalactiae (B) 09/16/19 20:20 Blood Culture (Wb) - Right Forearm Blood Culture - Preliminary 09/16/19 19:55 Blood Culture (Wb) - Left Forearm Blood Culture - Preliminary Laboratory Results 09/17/19 06:25: Differential Comment SCANNED 09/17/19 08:00: S.aureus Protein A PCR POSITIVE H, MRSA (PCR) Negative 09/17/19 11:35: POC Glucose 491 H* 09/17/19 16:29: POC Glucose 267 H 09/17/19 21:37: POC Glucose 350 H 09/18/19 05:50: WBC 8.0, RBC 3.81 L, Hgb 11.6 L, Hct 33.5 L, MCV 87.9, MCH 30.4, MCHC 34.6, RDW Std Deviation 39.6, RDW Coeff of [place] 12.4, Plt Count 208, MPV 8.5, Immature Gran % (Auto) 1.100 H, Neut % (Auto) 71.6 H, Lymph % (Auto) 15.8 L, [place] % (Auto) 10.2 H, Eos % (Auto) 0.9, Baso % (Auto) 0.4, Absolute Neuts (auto) 5.8, Absolute Lymphs (auto) 1.27, Nucleated RBC % 0 09/18/19 05:50: Sodium 131 L, Potassium 4.2, Chloride 102, Carbon Dioxide 25.0, Anion Gap 4 L, BUN 24 H, Creatinine 1.06, Estim Creat Clear Calc 70.40, Est GFR (MDRD) Af Amer 90, Est GFR (MDRD) Non-Af 75, BUN/Creatinine Ratio 22.6 H, Glucose 268 H, Calcium 8.2 L Current Medications Acetaminophen (Tylenol) 650 mg PO Q6H PRN PRN PRN Reason: Pain Score 1-10/Temp > 100.7 F Last Admin: 09/18/19 05:20 Dose: 650 mg Documented by: Al Hydroxide/Mg Hydroxide (Mylanta Ii) 30 ml PO Q6H PRN PRN PRN Reason: Gastric Burning Albuterol Sulfate (Ventolin Aerosols) 2.5 mg INHALATION Q2H PRN PRN PRN Reason: Dyspnea, wheezing Carvedilol (Coreg) 25 mg PO BID [facility] Last Admin: 09/18/19 08:07 Dose: 25 mg Documented by: Dextrose (D50w Syringe) 0 gm IV X1 PRN; Protocol PRN Reason: Hypoglycemia Enoxaparin Sodium (Lovenox) 40 mg SC DAILY [facility] Last Admin: 09/18/19 08:08 Dose: 40 mg Documented by: [facility] Last Admin: 09/18/19 08:07 Dose: 4 mg Documented by: Glucagon () 1 mg IM .X1 PRN PRN Reason: Hypoglycemia Guaifenesin (Robitussin) 20 ml PO Q4H PRN PRN PRN Reason: COUGH Hydralazine HCl (Apresoline Iv) 10 mg IV Q4H PRN PRN PRN Reason: SBP > 160 Sodium Chloride () 250 mls @ 15 mls/hr IV .[id number] PRN PRN Reason: Saline Flush Sodium Chloride () 250 mls @ 15 mls/hr IV .[id number] PRN PRN Reason: Additional IVPB Infusion Ceftriaxone Sodium 2 gm/ (Sodium Chloride) 50 mls @ 100 mls/hr IV Q24 [facility] Last Infusion: 09/17/19 13:09 Dose: Infused Documented by: Ibuprofen (Motrin) 600 mg PO Q8H PRN PRN Reason: Headache/pain 1-12/09 Last Admin: 09/17/19 10:29 Dose: 600 mg Documented by: Insulin Glargine (Lantus (Bkc)) 60 units SC DAILY [facility] Last Admin: 09/18/19 08:08 Dose: 60 u Documented by: Insulin Human Lispro (Humalog Kwikpen (Bkc)) 0 unit SC ACHS [facility]; Protocol Last Admin: 09/18/19 08:06 Dose: 3 u Documented by: Insulin Human Lispro (Humalog Kwikpen (Bkc)) 15 unit SC TIDAC [facility] Last Admin: 09/18/19 08:06 Dose: 15 u Documented by: Lisinopril (Zestril) 20 mg PO BID [facility] Last Admin: 09/18/19 08:08 Dose: 20 mg Documented by: Magnesium Hydroxide (Milk Of Magnesia) 30 ml PO DAILY PRN PRN PRN Reason: Constipation Morphine Sulfate () 2 mg IV Q3H PRN PRN PRN Reason: Pain Score 6-10/10 Nitroglycerin (Nitrostat) 0.4 mg SUBLINGUAL Q5M PRN PRN Reason: CARDIAC/CHEST PAIN Nutritional Formula (Efren - [place] Flavor) 1 packet PO BIDCM [facility] Last Admin: 09/18/19 08:06 Dose: 1 packet Documented by: Ondansetron HCl (Zofran) 4 mg IV Q8H PRN PRN PRN Reason: NAUSEA/VOMITING Oxycodone HCl (Oxyir) 5 mg PO Q4H PRN PRN PRN Reason: Pain Score 4-5/10 Last Admin: 09/18/19 05:20 Dose: 5 mg Documented by: Prochlorperazine Edisylate (Compazine Iv) 5 mg IV Q4H PRN PRN PRN Reason: Breakthrough nausea/vomiting Psyllium Hydrophilic Mucilloid (Metamucil) 1 packet PO DAILY PRN PRN PRN Reason: Constipation Senna/Docusate Sodium (Senokot-S, Lizz-Colace) 2 tablet PO BID PRN PRN PRN Reason: Constipation Sodium Chloride () 10 - 40 ml IV UD PRN PRN Reason: SALINE FLUSH Temazepam (Restoril) 15 mg PO QHS PRN PRN PRN Reason: INSOMNIA Throat Lozenges (Cepacol Sore Throat Lozenge) 1 lozenge MUCOUS MEM Q2H PRN PRN PRN Reason: SORE THROAT Medical Necessity - Tobacco Use Smoking Status: Never smoker Tobacco Use: Non-smoker Assessment/Plan All Active Problems (Last Updated 08/12/17 @ 11:54 by Lorenza Nguyễn) Cellulitis (Acute) Open wound of right great toe (Acute) Cellulitis of right foot (Acute) Ulcer of right foot with fat layer exposed (Acute) Obesity, Class II, BMI 35-39.9, with comorbidity (Acute) MSSA (methicillin susceptible Staphylococcus aureus) infection (Acute) Ulcer of right foot with fat layer exposed (Acute) Cellulitis (Acute) Right foot cellulitis resolving Right foot ulcer with fat layer exposed, Ware grade 1 Bacteremia Uncontrolled diabetes with neuropathy (hemoglobin A1c 10.7) Other comorbidities I reviewed and discussed his case. He did have a low-grade fever again yesterday. Otherwise, his vitals remained stable. His leukocytosis has resolved. His ESR was 25 and C-reactive protein was 103. His blood cultures is demonstrating strep growth in his wound cultures from his foot are still pending. He will continue on IV antibiotics at this time will likely need a 10-day course. His foot is demonstrating improvement I do not recommend surgical intervention or advanced imaging at this time. I recommend proceeding with wound care. Adaptic and Betadine soaked gauze was applied today. He will transition into other wound care products in the outpatient setting. Additional susceptibilities should be available tomorrow to develop his home plan. He was advised to keep strict weight off of the ulcer site to allow healing to occur. He is heel weightbearing surgical shoe. His glucose levels have been consistently elevated while in house. He understands better glucose management is needed for healing and to prevent additional problems. I recommend nutritional consultation and supplementation to optimize healing. Medical management and DVT prophylaxis per hospitalist service is noted and appreciated. Please not hesitate to call if you have any questions. I will continue to follow him closely while in house. Otherwise, to follow-up at the [facility] within the next week. Sara Kendrick DPM, FACFAS [facility] [phone]
--- NOTE | 2019-09-18 10:15 | DCINST_ITS ---
Weight Bearing Status: Partial weight bearing - heel weightbear with surgical shoe Keep extremity elevated above heart level: Right Leg Call your doctor if your incision/area has: Continuous Slow Oozing, Sudden Increased Bleeding, Increased Pain/ Swelling, Increased Redness, Foul Smelling Discharge Call your doctor if you observe: Fever of 101 or Higher, Change in Color, Calf discomfort, Uncontrolled pain Cleanse incision/area with: Soap & Water Additional Dressing/Incision Instructions:: change daily with adaptic and betadine gauze Allergies/Adverse Reactions: Allergies atorvastatin [From Lipitor] Adverse Reaction (Verified 09/16/19 20:33) Pain in joints rosuvastatin [From Crestor] Adverse Reaction (Verified 09/16/19 20:33) Pain in joints Medications to take at Discharge carvedilol 25 mg tablet 25 mg PO BID 08/12/17 glimepiride 4 mg tablet 4 mg PO DAILY 08/12/17 insulin glargine 100 unit/mL (3 mL) subcutaneous pen 40 - 50 unit SC DAILY 08/12/17 metformin 1,000 mg tablet 1,000 mg PO BID 08/12/17 Lisinopril [Zestril] 20 mg PO BID 08/14/17 Multivit-Mins/Iron/Folic/Lycop [Centrum Ultra Men's Tablet] 1 tab PO BID 09/16/19 Oregano Oil [Oil of Oregano] 1,500 mg PO BID 09/16/19 Primary Care Physician: Otilio Sahu MD [Primary Care Provider] - Test Results: Test results from this visit will be discussed in further detail at your follow- up appointment, if applicable. Please Follow Up With: Dennys Cruz DPM When: within [facility]. Call [phone].
[2019-09-18] MEDS: Doxycycline 100 MG CAPSULE PO ×2 (10:46→22:27)
[2019-09-18 11:46] VITALS: BP 136/74; PULSE 60; RESP 16; TEMP 37.1; O2SAT 99
[2019-09-18 15:42] VITALS: BP 163/72; PULSE 58; RESP 16; TEMP 37.1; O2SAT 100
[2019-09-18 17:03] LABS: Bedside Glucose 267 mg/dL (70-110)
[2019-09-18 17:03] LABS: Bedside Glucose 285 mg/dL (70-110)
[2019-09-18 17:04] LABS: Bedside Glucose 179 mg/dL (70-110)
[2019-09-18 22:31] VITALS: BP 161/76; PULSE 62; RESP 17; TEMP 37; O2SAT 98
[2019-09-18 22:35] LABS: Bedside Glucose 204 mg/dL (70-110)
[2019-09-19 02:32] VITALS: BP 151/85; PULSE 58; RESP 16; TEMP 37.1; O2SAT 98
[2019-09-19 07:30] VITALS: O2SAT 96
[2019-09-19] MEDS: Insulin Lispro 100 UNIT/ML INSULN.PEN 15 UNIT SC ×3 (07:55→16:53)
[2019-09-19] MEDS: Insulin Lispro 100 UNIT/ML INSULN.PEN SC ×3 (07:55→16:54)
[2019-09-19] MEDS: Glimepiride 4 MG Tablet PO (07:57)
[2019-09-19 08:01] LABS: Bedside Glucose 239 mg/dL (70-110)
[2019-09-19 08:38] VITALS: BP 158/78; PULSE 66; RESP 18; TEMP 36.9; O2SAT 100
--- NOTE | 2019-09-19 08:54 | NURSING ---
lab here to draw blood cultures
[2019-09-19] MEDS: Carvedilol 25 MG Tablet PO ×2 (09:12→22:05)
[2019-09-19] MEDS: Doxycycline 100 MG CAPSULE PO (09:12)
[2019-09-19] MEDS: Enoxaparin 40 MG/0.4 ML Syringe SC (09:13)
[2019-09-19] MEDS: Lisinopril 20 MG Tablet PO ×2 (09:13→22:05)
[2019-09-19] MEDS: 0.9% Saline Lock 10 ML Syringe IV (09:16)
[2019-09-19 12:05] LABS: Bedside Glucose 290 mg/dL (70-110)
--- NOTE | 2019-09-19 13:49 | ECHOCS_ITS ---
Reason For Study: MURMUR Procedure This was a 2D Doppler, Color Flow transthoracic echocardiogram. The study was technically difficult. Contrast injection was performed. Exam performed portable in patient room. Left Ventricle Normal LV size. Left ventricular systolic function is normal. The estimated ejection fraction is 53 %. No regional wall motion abnormalities noted. Right Ventricle Normal RV size. Normal systolic function. Atria The left atrium is mildly enlarged. Normal right atrium. Mitral Valve Mitral valve not well visualized. Tricuspid Valve The tricuspid valve is not well visualized. Mild tricuspid valve insufficiency. Aortic Valve The aortic valve is not well visualized. Great Vessels Normal aortic root. The pulmonary artery is normal size. Normal inferior vena cava. Pericardium/Pleural No pericardial effusion. Medication Diluted definity 3.0ml given slow IV push to enhance endocardial definition. MMode/2D Measurements & Calculations LVIDd: 5.2 cm IVSd: 0.95 cm Ao root diam: 4.2 cm LVIDs: 3.7 cm LVPWd: 0.99 cm RVDd: 4.3 cm FS: 29.9 % LAV(MOD-bp): 67.6 ml LA A4 area: 20.9 cm2 LA dimension(2D): 4.3 cm LAV(MOD-bp) Indexed: 30.1 ml/m2 LAV(MOD-sp2): 70.8 ml LAV(MOD-sp4): 60.3 ml RA A4 area: 19.3 cm2 Time Measurements MV dec time: 0.20 sec Doppler Measurements & Calculations MV E max jordan: 109.2 cm/sec Lat Peak E' Jordan: 9.8 cm/sec Med Peak E' Jordan: 7.2 cm/sec MV A max jordan: 83.5 cm/sec E/E' lat: 11.1 E/E' med: 15.2 MV E/A: 1.3 Ao V2 max: 140.1 cm/sec LV V1 max: 92.9 cm/sec PA V2 max: 108.6 cm/sec Ao max P.9 mmHg LV V1 max P.5 mmHg TR max jordan: 213.0 cm/sec TR max P.2 mmHg Interpretation Summary Normal LV size. Left ventricular systolic function is normal. The estimated ejection fraction is 53 %. Mild tricuspid valve insufficiency. Contrast injection was performed. Ordering Physician: Fernando Bowser Referring Physician: GORDO DONALD Performed By: Alva Ruff RDCS, RVT
--- NOTE | 2019-09-19 13:57 | PCM.PROGNOTE ---
Patient Problems: Active and Suspected Problems (Last Updated 08/12/17 @ 11:54 by Lorenza Nguyễn) Bacteremia (Acute) Cellulitis (Acute) Open wound of right great toe (Acute) Cellulitis of right foot (Acute) Ulcer of right foot with fat layer exposed (Acute) Subjective: Patient was seen today for follow up on infection ulceration right 1st toe. He is resting in chair, no other complaints. No complaints of fever, chills, nausea or vomiting at this time. - Physical Exam Vitals/I&O's: Vital Signs Temp Pulse Resp BP Pulse Ox 98.4 F 66 18 158/78 H 100 09/19/19 08:38 09/19/19 08:38 09/19/19 08:38 09/19/19 08:38 09/19/19 08:38 Oxygen Delivery Method Room Air Weight: 110.5 kg Body Mass Index (BMI) 35.9 Intake and Output for Last 24 Hours 09/17/19 09/18/19 09/19/19 23:59 23:59 23:59 Intake Total 4227.34 / 4527.34 3693.59 / 3693.59 700 / 700 Output Total 3125 / 4075 2650 / 2650 Balance 1102.34 / 452.34 1043.59 / 1043.59 700 / 700 General: Alert, Oriented x3, Cooperative, No apparent distress Extremities: No cyanosis, Capillary Refill Less than 3 Seconds, No Calf Tenderness, Peripheral Pulses Normal, - - Ulceration plantar right 1st toe with significantly less cellulitis present - ulcer is down to subcutaneous tissue layer, there is granular tissue and some fibrous tissue, no necrosis, no fluctuance, no visible abscess, slight serous drainage, no purulence, no maloder, ulceration measures 2.1 cm x 3cm. CFT < 2 seconds to all toes, some residual edema to the right foot which is improving. Microbiology Past 72 Hours 09/17/19 08:00 Wound - Aerobic & Anaerobic Swabs Gram Stain - Preliminary 09/17/19 08:00 Wound - Aerobic & Anaerobic Swabs Wound Culture - Preliminary Staphylococcus aureus Streptococcus agalactiae (B) 09/17/19 08:00 Wound - Aerobic & Anaerobic Swabs Anaerobic Culture - Preliminary Checking for anaerobes, further studies to follow. 09/16/19 19:55 Blood Culture (Wb) - Left Forearm Blood Culture - Preliminary Streptococcus agalactiae (B) Staphylococcus aureus 09/16/19 20:20 Blood Culture (Wb) - Right Forearm Bacteria Detection (PCR) - Final Streptococcus agalactiae (B) 09/16/19 20:20 Blood Culture (Wb) - Right Forearm Blood Culture - Preliminary Streptococcus agalactiae (B) Beta hemolytic organism Laboratory Results 09/18/19 06:29: POC Glucose 267 H 09/18/19 11:19: POC Glucose 285 H 09/18/19 16:02: POC Glucose 179 H 09/18/19 22:26: POC Glucose 204 H 09/19/19 07:51: POC Glucose 239 H 09/19/19 12:00: POC Glucose 290 H Current Medications Acetaminophen (Tylenol) 650 mg PO Q6H PRN PRN PRN Reason: Pain Score 1-10/Temp > 100.7 F Last Admin: 09/18/19 22:37 Dose: 650 mg Documented by: Albuterol Sulfate (Ventolin Aerosols) 2.5 mg INHALATION Q2H PRN PRN PRN Reason: Dyspnea, wheezing Carvedilol (Coreg) 25 mg PO BID [facility] Last Admin: 09/19/19 09:12 Dose: 25 mg Documented by: Dextrose (D50w Syringe) 0 gm IV X1 PRN; Protocol PRN Reason: Hypoglycemia Enoxaparin Sodium (Lovenox) 40 mg SC DAILY [facility] Last Admin: 09/19/19 09:13 Dose: 40 mg Documented by: [facility] Last Admin: 09/19/19 07:57 Dose: 4 mg Documented by: Glucagon () 1 mg IM .X1 PRN PRN Reason: Hypoglycemia Guaifenesin (Robitussin) 20 ml PO Q4H PRN PRN PRN Reason: COUGH Hydralazine HCl (Apresoline Iv) 10 mg IV Q4H PRN PRN PRN Reason: SBP > 160 Sodium Chloride () 250 mls @ 15 mls/hr IV .[id number] PRN PRN Reason: Saline Flush Sodium Chloride () 250 mls @ 15 mls/hr IV .[id number] PRN PRN Reason: Additional IVPB Infusion Cefazolin Sodium 2 gm/ Sodium (Chloride) 110 mls @ 150 mls/hr IV Q8 [facility] Vancomycin IV Pharmacy to Dose (1 ea/ Sodium Chloride) 500 mls @ 250 mls/hr IV X1 PRN; Protocol PRN Reason: Rx to Dose Ibuprofen (Motrin) 600 mg PO Q8H PRN PRN Reason: Headache/pain 1-10/10 Last Admin: 09/17/19 10:29 Dose: 600 mg Documented by: Insulin Glargine (Lantus (Bkc)) 60 units SC DAILY [facility] Last Admin: 09/19/19 09:14 Dose: 60 u Documented by: Insulin Human Lispro (Humalog Kwikpen (Bk)) 0 unit SC ACHS [facility]; Protocol Last Admin: 09/19/19 12:32 Dose: 4 u Documented by: Insulin Human Lispro (Humalog Kwikpen (Bk)) 15 unit SC TIDAC [facility] Last Admin: 09/19/19 12:30 Dose: 15 u Documented by: Lisinopril (Zestril) 20 mg PO BID [facility] Last Admin: 09/19/19 09:13 Dose: 20 mg Documented by: Morphine Sulfate () 2 mg IV Q3H PRN PRN PRN Reason: Pain Score 6-10/10 Nitroglycerin (Nitrostat) 0.4 mg SUBLINGUAL Q5M PRN PRN Reason: CARDIAC/CHEST PAIN Nutritional Formula (Efren - [place] Flavor) 1 packet PO BIDCM [facility] Last Admin: 09/19/19 07:57 Dose: 1 packet Documented by: Ondansetron HCl (Zofran) 4 mg IV Q8H PRN PRN PRN Reason: NAUSEA/VOMITING Oxycodone HCl (Oxyir) 5 mg PO Q4H PRN PRN PRN Reason: Pain Score 4-5/10 Last Admin: 09/18/19 22:36 Dose: 5 mg Documented by: Prochlorperazine Edisylate (Compazine Iv) 5 mg IV Q4H PRN PRN PRN Reason: Breakthrough nausea/vomiting Psyllium Hydrophilic Mucilloid (Metamucil) 1 packet PO DAILY PRN PRN PRN Reason: Constipation Senna/Docusate Sodium (Senokot-S, Lizz-Colace) 2 tablet PO BID PRN PRN PRN Reason: Constipation Sodium Chloride () 10 - 40 ml IV UD PRN PRN Reason: SALINE FLUSH Last Admin: 09/19/19 09:16 Dose: 20 ml Documented by: Temazepam (Restoril) 15 mg PO QHS PRN PRN PRN Reason: INSOMNIA Throat Lozenges (Cepacol Sore Throat Lozenge) 1 lozenge MUCOUS MEM Q2H PRN PRN PRN Reason: SORE THROAT Medical Necessity - Tobacco Use Smoking Status: Never smoker Tobacco Use: Non-smoker Assessment/Plan All Active Problems (Last Updated 08/12/17 @ 11:54 by Lorenza Nguyễn) Bacteremia (Acute) Cellulitis (Acute) Open wound of right great toe (Acute) Cellulitis of right foot (Acute) Ulcer of right foot with fat layer exposed (Acute) Obesity, Class II, BMI 35-39.9, with comorbidity (Acute) MSSA (methicillin susceptible Staphylococcus aureus) infection (Acute) Ulcer of right foot with fat layer exposed (Acute) Cellulitis (Acute) Right foot cellulitis resolving Right foot ulcer with fat layer exposed, Ware grade 1 Bacteremia Uncontrolled diabetes with neuropathy (hemoglobin A1c 10.7) Other comorbidities Cellulitis right 1st toe much improved. Reviewed culture results - wound culture and blood cultures- strep and staph - patient on IV antibiotics, and ID service/Dr. Bowser has been consulted. Wound care right 1st toe: Cleanse w/ normal saline soln. Apply Aquacel Ag and overlying gauze dressing - change daily. Keep offloaded at all times - heel weightbearing in surgical shoe. Reviewed importance of proper blood sugar control to optimize healing. Medical management and DVT prophylaxis per hospitalist service is noted and appreciated. Patient to follow up at [facility] within 1 week after discharge, sooner if needed.
--- NOTE | 2019-09-19 14:02 | NURSING ---
cefazolin antb not here for pt administration
--- NOTE | 2019-09-19 14:03 | PCM.PROGNOTE ---
Patient Problems: Active and Suspected Problems (Last Updated 08/12/17 @ 11:54 by Lorenza Nguyễn) Bacteremia (Acute) Cellulitis (Acute) Open wound of right great toe (Acute) Ulcer of right foot with fat layer exposed (Acute) Subjective: Chief complaint: Follow-up after admission for right big toe infected diabetic superficial ulcer with surrounding cellulitis and also found to have bacteremia. Patient seen and examined. No acute events overnight. Today, he denied any complaints. Denied fever or chills. He denied any pain of the right foot. Blood pressure slightly elevated, other vital signs are stable. - Physical Exam Vitals/I&O's: Vital Signs Temp Pulse Resp BP Pulse Ox 98.4 F 66 18 158/78 H 100 09/19/19 08:38 09/19/19 08:38 09/19/19 08:38 09/19/19 08:38 09/19/19 08:38 Oxygen Delivery Method Room Air Weight: 243 lb 9.773 oz Body Mass Index (BMI) 35.9 Intake and Output for Last 24 Hours 09/17/19 09/18/19 09/19/19 23:59 23:59 23:59 Intake Total 4227.34 / 4527.34 3693.59 / 3693.59 700 / 700 Output Total 3125 / 4075 2650 / 2650 Balance 1102.34 / 452.34 1043.59 / 1043.59 700 / 700 General: Alert, Oriented x3, Cooperative, No apparent distress HEENT: Atraumatic, PERRLA, EOMI, Normocephalic Oral: Moist Mucosa, No Gingival or Mucosal Lesions/ Ulcerations Neck: Supple, No JVD, Negative Carotid Bruits, Trachea Midline, Thyroid Normal Size and Texture Lungs: Clear to auscultation, Normal air movement, No rhonchi, No rales, Diminished Cardiovascular: Regular rate, Regular Rhythm, Normal S1, Normal S2, PMI Normal Abdomen: Bowel Sounds Present, Soft, Non Tender, Non-Distended, No Hepato-splenomegaly Extremities: No clubbing, No cyanosis, No edema Skin: No rashes, Ulcer/ Wound Lymphatic: No Cervical, Supraclavicular, or Inguinal Adenopathy Neurological: Cranial nerves II-XII grossly intact, Neuro grossly intact Psych/Mental Status: Normal Affect, Appropriate, Alert and oriented to time, place, person, mood and affect Microbiology Past 72 Hours 09/17/19 08:00 Wound - Aerobic & Anaerobic Swabs Gram Stain - Preliminary 09/17/19 08:00 Wound - Aerobic & Anaerobic Swabs Wound Culture - Preliminary Staphylococcus aureus Streptococcus agalactiae (B) 09/17/19 08:00 Wound - Aerobic & Anaerobic Swabs Anaerobic Culture - Preliminary Checking for anaerobes, further studies to follow. 09/16/19 19:55 Blood Culture (Wb) - Left Forearm Blood Culture - Preliminary Streptococcus agalactiae (B) Staphylococcus aureus 09/16/19 20:20 Blood Culture (Wb) - Right Forearm Bacteria Detection (PCR) - Final Streptococcus agalactiae (B) 09/16/19 20:20 Blood Culture (Wb) - Right Forearm Blood Culture - Preliminary Streptococcus agalactiae (B) Beta hemolytic organism Laboratory Results 09/18/19 06:29: POC Glucose 267 H 09/18/19 11:19: POC Glucose 285 H 09/18/19 16:02: POC Glucose 179 H 09/18/19 22:26: POC Glucose 204 H 09/19/19 07:51: POC Glucose 239 H 09/19/19 12:00: POC Glucose 290 H Current Medications Acetaminophen (Tylenol) 650 mg PO Q6H PRN PRN PRN Reason: Pain Score 1-10/Temp > 100.7 F Last Admin: 09/18/19 22:37 Dose: 650 mg Documented by: Albuterol Sulfate (Ventolin Aerosols) 2.5 mg INHALATION Q2H PRN PRN PRN Reason: Dyspnea, wheezing Carvedilol (Coreg) 25 mg PO BID [facility] Last Admin: 09/19/19 09:12 Dose: 25 mg Documented by: Dextrose (D50w Syringe) 0 gm IV X1 PRN; Protocol PRN Reason: Hypoglycemia Enoxaparin Sodium (Lovenox) 40 mg SC DAILY [facility] Last Admin: 09/19/19 09:13 Dose: 40 mg Documented by: [facility] Last Admin: 09/19/19 07:57 Dose: 4 mg Documented by: Glucagon () 1 mg IM .X1 PRN PRN Reason: Hypoglycemia Guaifenesin (Robitussin) 20 ml PO Q4H PRN PRN PRN Reason: COUGH Hydralazine HCl (Apresoline Iv) 10 mg IV Q4H PRN PRN PRN Reason: SBP > 160 Sodium Chloride () 250 mls @ 15 mls/hr IV .[id number] PRN PRN Reason: Saline Flush Sodium Chloride () 250 mls @ 15 mls/hr IV .[id number] PRN PRN Reason: Additional IVPB Infusion Cefazolin Sodium 2 gm/ Sodium (Chloride) 110 mls @ 150 mls/hr IV Q8 [facility] Vancomycin IV Pharmacy to Dose (1 ea/ Sodium Chloride) 500 mls @ 250 mls/hr IV X1 PRN; Protocol PRN Reason: Rx to Dose Ibuprofen (Motrin) 600 mg PO Q8H PRN PRN Reason: Headache/pain 1-12/09 Last Admin: 09/17/19 10:29 Dose: 600 mg Documented by: Insulin Glargine (Lantus (Bkc)) 60 units SC DAILY [facility] Last Admin: 09/19/19 09:14 Dose: 60 u Documented by: Insulin Human Lispro (Humalog Kwikpen (Bkc)) 0 unit SC ACHS [facility]; Protocol Last Admin: 09/19/19 12:32 Dose: 4 u Documented by: Insulin Human Lispro (Humalog Kwikpen (Bkc)) 15 unit SC TIDAC [facility] Last Admin: 09/19/19 12:30 Dose: 15 u Documented by: Lisinopril (Zestril) 20 mg PO BID [facility] Last Admin: 09/19/19 09:13 Dose: 20 mg Documented by: Morphine Sulfate () 2 mg IV Q3H PRN PRN PRN Reason: Pain Score 6-10/10 Nitroglycerin (Nitrostat) 0.4 mg SUBLINGUAL Q5M PRN PRN Reason: CARDIAC/CHEST PAIN Nutritional Formula (Efren - [place] Flavor) [facility] Last Admin: 09/19/19 07:57 Dose: 1 packet Documented by: Ondansetron HCl (Zofran) 4 mg IV Q8H PRN PRN PRN Reason: NAUSEA/VOMITING Oxycodone HCl (Oxyir) 5 mg PO Q4H PRN PRN PRN Reason: Pain Score 4-5/10 Last Admin: 09/18/19 22:36 Dose: 5 mg Documented by: Prochlorperazine Edisylate (Compazine Iv) 5 mg IV Q4H PRN PRN PRN Reason: Breakthrough nausea/vomiting Psyllium Hydrophilic Mucilloid (Metamucil) 1 packet PO DAILY PRN PRN PRN Reason: Constipation Senna/Docusate Sodium (Senokot-S, Lizz-Colace) 2 tablet PO BID PRN PRN PRN Reason: Constipation Sodium Chloride () 10 - 40 ml IV UD PRN PRN Reason: SALINE FLUSH Last Admin: 09/19/19 09:16 Dose: 20 ml Documented by: Temazepam (Restoril) 15 mg PO QHS PRN PRN PRN Reason: INSOMNIA Throat Lozenges (Cepacol Sore Throat Lozenge) 1 lozenge MUCOUS MEM Q2H PRN PRN PRN Reason: SORE THROAT Medical Necessity - Tobacco Use Smoking Status: Never smoker Tobacco Use: Non-smoker Assessment/Plan All Active Problems (Last Updated 08/12/17 @ 11:54 by Lorenza Nguyễn) Bacteremia (Acute) Cellulitis (Acute) Open wound of right great toe (Acute) Ulcer of right foot with fat layer exposed (Acute) MSSA (methicillin susceptible Staphylococcus aureus) infection (Acute) This is a 63 years old male patient presented to the emergency room because of swelling and erythema as well as pain of the right big toe, found to have infected diabetic superficial right big toe ulcer with surrounding cellulitis and also found to have bacteremia. #1 acute right big toe diabetic infected superficial nonhealing ulcer/surrounding cellulitis: Patient was on IV Rocephin. Infectious disease changed antibiotics to IV cefazolin and vancomycin. Routine blood work from yesterday reviewed, remarkable for sodium of 131, otherwise normal. No leukocytosis, patient has been afebrile. MRSA PCR was negative. Staph aureus PCR was positive. Wound culture revealed staph aureus and Streptococcus agalactiae, final is pending. Plan to continue IV cefazolin and IV vancomycin, repeat blood culture, repeat CBC and BMP tomorrow morning, follow blood and wound cultures. #2 Gram-positive bacteremia: Blood culture revealed strep agalactiae and staph aureus in 2 bottles. Patient is on IV cefazolin and vancomycin as above. Final results of the cultures are pending. Plan to repeat blood culture as above, infectious disease on the case. #3 type 2 diabetes mellitus: Blood sugar has been under fair control, has been in the 200s. He is on Lantus daily, Humalog insulin 3 times daily as well as sliding scale. Plan to continue same treatment. #4 hypertension: Blood pressure slightly elevated, continue Coreg and lisinopril, continue IV hydralazine PRN. #5 CAD status post CABG and stents: Stable, no acute issues. Continue lisinopril, Coreg. #6 stage III chronic kidney disease: Baseline creatinine has been anywhere from 1 to 1.5 mg/dL. Today's creatinine is 1.06, stable at baseline. #7 DVT prophylaxis: Subcu Lovenox. This note was generated with Win[employer] dictation software. It may contain incorrect words, spelling, and punctuation that were not noted in checking the note before signing. Inpatient E&M: 89561 Subs Hosp L2
--- NOTE | 2019-09-19 14:20 | NURSING ---
echo being done at bedside
[2019-09-19 15:00] VITALS: BP 159/87; PULSE 60; RESP 18; TEMP 36.7; O2SAT 97
--- NOTE | 2019-09-19 15:17 | PCM.HP.ID ---
Problem List (1) Bacteremia Status: Acute Reason for Consult: bacteremia Consulted by: Dr. Carter History of Present Illness: The patient is a 63 year old M with DM neuropathy, developed blister on R 1st toe about 2 weeks ago. Had progressive redness, swelling. No pain. Started to have redness up his foot, then fever, chills on 09/15. Came to ED that day, started vanc/unasyn, now on ceftriaxone. Feeling better. at bedside provided additional history. No more fever, redness improved, no n/v/d, no new joint or back pain. Full ROS performed and neg except as noted above. - Medical History Past Medical History (Chronic Problems): Chronic Problems (Last Updated 08/12/17 @ 11:54 by Lorenza Nguyễn) Obesity (BMI 30.0-34.9) (Chronic) Obesity, Class II, BMI 35-39.9, with comorbidity (Chronic) Type 2 diabetes mellitus with diabetic neuropathy (Chronic) CAD (coronary artery disease) (Chronic) Type 2 diabetes mellitus (Chronic) Hypertension (Chronic) Hyperlipidemia (Chronic) Allergies/Adverse Reactions: Allergies atorvastatin [From Lipitor] Adverse Reaction (Verified 09/16/19 20:33) Pain in joints rosuvastatin [From Crestor] Adverse Reaction (Verified 09/16/19 20:33) Pain in joints Home Medications: Ambulatory Orders Medication Instructions Recorded carvedilol 25 mg tablet 25 mg PO BID 08/12/17 glimepiride 4 mg tablet 4 mg PO DAILY 08/12/17 insulin glargine 100 unit/mL (3 40 - 50 unit SC DAILY 08/12/17 mL) subcutaneous pen metformin 1,000 mg tablet 1,000 mg PO BID 08/12/17 RX: Lisinopril [Zestril] 20 mg PO BID 08/14/17 Multivit-Mins/Iron/Folic/Lycop 1 tab PO BID 09/16/19 [Centrum Ultra Men's Tablet] Oregano Oil [Oil of Oregano] 1,500 mg PO BID 09/16/19 - Social History SMOKING STATUS:: Never smoker Vital Signs Temp Pulse Resp BP Pulse Ox 98.4 F 66 18 158/78 H 100 09/19/19 08:38 09/19/19 08:38 09/19/19 08:38 09/19/19 08:38 09/19/19 08:38 Oxygen Delivery Method Room Air Weight: 110.5 kg Body Mass Index (BMI) 35.9 Microbiology Past 72 Hours 09/17/19 08:00 Gram Stain - Preliminary Wound - Aerobic & Anaerobic Swabs Wound Culture - Preliminary Staphylococcus aureus Streptococcus agalactiae (B) Anaerobic Culture - Preliminary Checking for anaerobes, further studies to follow. 09/16/19 19:55 Blood Culture - Preliminary Blood Culture (Wb) - Left Forearm Streptococcus agalactiae (B) Staphylococcus aureus 09/16/19 20:20 Bacteria Detection (PCR) - Final Blood Culture (Wb) - Right Forearm Streptococcus agalactiae (B) Blood Culture - Preliminary Streptococcus agalactiae (B) Beta hemolytic organism - Other Studies Radiology: [] reviewed Other Studies: [] Route of nutrition/ use of supplements: [] Nutritional Intake: [] IV Site: [] Triplett Catheter: [] - Physical Exam General: Alert, Oriented x3, Cooperative, No apparent distress HEENT: Atraumatic, PERRLA, EOMI Neck: Supple, No Nodes Lungs: Clear to auscultation, Normal air movement Cardiovascular: Regular rate, Regular Rhythm, No murmurs Abdomen: Soft, Non Tender, Non-Distended Extremities: No edema Skin: Ulcer/ Wound - reviewed photo R big toe, - - no splinter hemorrhages on hands IV Site: Peripheral, without redness, - Musculoskeletal: No Tenderness to Palpation of Joints or Extremities - including spine Neurological: Cranial nerves II-XII grossly intact - Assessment/Plan Antibiotics: [] Assessment/Plan: [] Active and Suspected Problems (Last Updated 08/12/17 @ 11:54 by Lorenza Nguyễn) Bacteremia (Acute) Cellulitis (Acute) Open wound of right great toe (Acute) Ulcer of right foot with fat layer exposed (Acute) staph aureus and GBS bacteremia from R 1st toe diabetic infection - wound pcr with mssa. On ceftriaxone, will change to vanc/cefazolin while susc pending. Check TTE, repeat bcx pending from today. Will follow, thank you.
--- NOTE | 2019-09-19 15:41 | NURSING ---
cefazolin still not on unit for pt administration
--- NOTE | 2019-09-19 15:42 | CASEMGMT ---
Social Work Note Pt is listed as SPERDEP. Per PFS notes, pt completed ED self pay deposit. SW to continue to follow for any financial concerns that may arise. Marianela Yates CREATIVE ART THERAPIST, SPOOL TENDER
[2019-09-19] MEDS: Cefazolin 2 GM in 0.9% Normal Saline 100 ML IV ×2 (15:45→22:10)
[2019-09-19] MEDS: oxyCODONE 5 MG Tablet PO ×2 (15:51→22:05)
[2019-09-19 17:00] LABS: Bedside Glucose 186 mg/dL (70-110)
--- NOTE | 2019-09-19 17:40 | PCM.RX.CS ---
Consult Pharmacy has been consulted to manage selected antiobiotic: Vancomycin Type of Consult: New start Suspected Infection: Skin/Soft tissue, Bacteremia Prior Doses of Antibiotics Received/Current Regimen: 2000MG LOADING DOSE GIVEN 09/18 @ 1650 Labs: Sodium 131 mmol/L (136-145) L 09/18/19 05:50 Potassium 4.2 mmol/L (3.5-5.1) 09/18/19 05:50 Chloride 102 mmol/L (98-107) 09/18/19 05:50 Carbon Dioxide 25.0 mmol/L (21.0-32.0) 09/18/19 05:50 Anion Gap 4 (5-15) L 09/18/19 05:50 BUN 24 mg/dL (7-18) H 09/18/19 05:50 Creatinine 1.06 mg/dL (0.70-1.30) 09/18/19 05:50 Est GFR (MDRD) Af Amer 90 mL/min (>60) 09/18/19 05:50 Est GFR (MDRD) Non-Af 75 mL/min (>60) 09/18/19 05:50 BUN/Creatinine Ratio 22.6 RATIO (10-20) H 09/18/19 05:50 Glucose 268 mg/dL (74-106) H 09/18/19 05:50 Microbiology: Microbiology 09/17/19 08:00 Wound - Aerobic & Anaerobic Swabs Gram Stain - Preliminary 09/17/19 08:00 Wound - Aerobic & Anaerobic Swabs Wound Culture - Preliminary Staphylococcus aureus Streptococcus agalactiae (B) 09/17/19 08:00 Wound - Aerobic & Anaerobic Swabs Anaerobic Culture - Preliminary Checking for anaerobes, further studies to follow. 09/16/19 19:55 Blood Culture (Wb) - Left Forearm Blood Culture - Preliminary Streptococcus agalactiae (B) Staphylococcus aureus 09/16/19 20:20 Blood Culture (Wb) - Right Forearm Bacteria Detection (PCR) - Final Streptococcus agalactiae (B) 09/16/19 20:20 Blood Culture (Wb) - Right Forearm Blood Culture - Preliminary Streptococcus agalactiae (B) Beta hemolytic organism Weight used for dosin.5 kg Goal Trough: 15-20 mcg/mL Pharmacy Plan for Drug Dosing: NEW START IV VANCOMYCIN Consulting Physician: HENOK Indication: BACTEREMIA/WOUND Goal Trough: 15-20 MG/DL SrCr: 1.06 CrCl: 86.2 ML/MIN - USING ADJUSTED BODY WEIGHT Comments: BLOOD CX WITH STAPH, WOUND CX WITH STREP Vancomcyin Dose: GOT 2000MG LOADING DOSE 09/18 @ 1650. WILL START 2000MG Q12H 09/19 @ 0500 Pharmacy Service will continue to monitor and adjust dosing as required. Labs to be done on [date and time ordered]: 09/20 @ 5208
[2019-09-19 20:30] VITALS: BP 164/74; PULSE 57; RESP 16; TEMP 36.8; O2SAT 98
[2019-09-19] MEDS: Acetaminophen 325 MG Tablet 650 MG PO (22:05)
[2019-09-19 22:21] LABS: Bedside Glucose 144 mg/dL (70-110)
[2019-09-20 02:19] VITALS: BP 166/81; PULSE 55; RESP 16; TEMP 37; O2SAT 100
[2019-09-20] MEDS: Ibuprofen 600 MG Tablet PO (02:25)
[2019-09-20 02:26] VITALS: BP 166/81; PULSE 55
[2019-09-20] MEDS: hydrALAZINE 20 MG/ML Vial 10 MG IV (02:26)
[2019-09-20] MEDS: Cefazolin 2 GM in 0.9% Normal Saline 100 ML IV (05:21)
[2019-09-20 05:22] VITALS: BP 178/82; PULSE 56
[2019-09-20] MEDS: Lisinopril 20 MG Tablet PO (05:40)
[2019-09-20] MEDS: Carvedilol 25 MG Tablet PO (05:41)
[2019-09-20 06:08] LABS: Absolute Lymphocyte Count 1.34 X10^3/uL (0.83-4.51); Basophil# 0.04 X10^3/uL; Basophil% 0.8 % (0-1); Eosinophils% 3.8 % (0-5); Hematocrit 37.5 % (40-54); Hemoglobin 13.1 g/dL (13.0-16.5); Lymphocyte # 1.34 X10^3/ul (4.0); Lymphocyte % 25.5 % (19-41); Mean Corp Hgb Conc 34.9 g/dL (32-36); Mean Corpuscular Hgb 30.5 pg (27.0-32.0); Mean Corpuscular Volume 87.4 fL (80-94); Mean Platelet Vol. 8.7 fl (6.2-12.0); Monocyte# 0.58 X10^3/uL; NRBC Flagged by Analyzer 0 % (0-5); Neutrophil # 3.01 X10^3/uL (2.7-7.7); Neutrophil % 57.4 % (47-70); Platelet Count 254 K/mm3 (150-450); RBC Distribution Width CV 12.2 % (11.6-14.6); RBC Distribution Width SD 39.1 fl (35.1-43.9); Red Blood Count 4.29 M/mm3 (4.6-6.2); White Blood Count 5.3 K/mm3 (4.4-11.0)
[2019-09-20 06:28] LABS: Anion Gap 4 (5-15); BUN 21 mg/dL (7-18); BUN/Creat Ratio 18.6 RATIO (10-20); Calcium,Total 8.7 mg/dL (8.5-10.1); Chloride 101 mmol/L (98-107); Creatinine, Serum 1.13 mg/dL (0.70-1.30); EST Glomerular Filtration Rate 69 mL/min (>60); Est Glom Filt Rate - Afr Amer 84 mL/min (>60); Estimated Creatinine Clearance 66.04 ml/min; Glucose 239 mg/dL (74-106); Potassium 4.1 mmol/L (3.5-5.1); Sodium Level 133 mmol/L (136-145)
[2019-09-20 06:56] VITALS: BP 133/65; PULSE 56
[2019-09-20 07:10] VITALS: O2SAT 97
[2019-09-20 07:36] VITALS: BP 147/67; PULSE 53; RESP 16; TEMP 36.5; O2SAT 97
[2019-09-20 08:06] LABS: Bedside Glucose 278 mg/dL (70-110)
[2019-09-20] MEDS: Insulin Lispro 100 UNIT/ML INSULN.PEN SC ×2 (08:25→12:16)
[2019-09-20] MEDS: Insulin Lispro 100 UNIT/ML INSULN.PEN 15 UNIT SC ×2 (08:25→12:16)
[2019-09-20] MEDS: Glimepiride 4 MG Tablet PO (08:27)
[2019-09-20] MEDS: Enoxaparin 40 MG/0.4 ML Syringe SC (08:29)
--- NOTE | 2019-09-20 09:40 | CASEMGMT ---
RN CM NOTE: Pt will be discharged home on Zyvox, which has been e-scribed to [facility] retail pharmacy. Call placed to [facility] retail rx and zaidi check completed. Cost will be ~$59. Pt made aware and states this is affordable. Karin DENNISONN RN CM
--- NOTE | 2019-09-20 10:05 | DCINST_ITS ---
- Discharge Diagnoses Current Active Problems: Current Active and Chronic Problems (Last Updated 08/12/17 @ 11:54 by Lorenza Nguyễn) Obesity (BMI 30.0-34.9) (Chronic) Cellulitis (Acute) Open wound of right great toe (Acute) Ulcer of right foot with fat layer exposed (Acute) You will use the following diet at home:: Calorie/Carbohydrate Controlled (specify 1200, 1400, etc) - 1800 NOEL., Cardiac Your food should be the consistency of: Regular Discharge Activity: Return to Normal Activity Weight Bearing Status: Partial weight bearing - heel weightbear with surgical shoe Keep extremity elevated above heart level: Right Leg Call your doctor if your incision/area has: Continuous Slow Oozing, Sudden Increased Bleeding, Increased Pain/ Swelling, Increased Redness, Foul Smelling Discharge Call your doctor if you observe: Fever of 101 or Higher, Change in Color, Shortness of breath, Dizziness, Fainting spells, Chest pain, Increased palpitations (irregular heartbeat), Calf discomfort, Uncontrolled pain Cleanse incision/area with: Soap & Water Additional Dressing/Incision Instructions:: change daily with adaptic and betadine gauze Allergies/Adverse Reactions: Allergies atorvastatin [From Lipitor] Adverse Reaction (Verified 09/16/19 20:33) Pain in joints rosuvastatin [From Crestor] Adverse Reaction (Verified 09/16/19 20:33) Pain in joints Medications to take at Discharge carvedilol 25 mg tablet 25 mg PO BID 08/12/17 glimepiride 4 mg tablet 4 mg PO DAILY 08/12/17 insulin glargine 100 unit/mL (3 mL) subcutaneous pen 40 - 50 unit SC DAILY 08/12/17 metformin 1,000 mg tablet 1,000 mg PO BID 08/12/17 Lisinopril [Zestril] 20 mg PO BID 08/14/17 Multivit-Mins/Iron/Folic/Lycop [Centrum Ultra Men's Tablet] 1 tab PO BID 09/16/19 Oregano Oil [Oil of Oregano] 1,500 mg PO BID 09/16/19 Linezolid 600 mg PO BID #24 tab 09/20/19 The following prescriptions were given: Linezolid 600 mg PO BID #24 tab Transmission Status: Received by [facility] Primary Care Physician: Otilio Sahu MD [Primary Care Provider] - Please follow up with your Primary Care Physician in: 1 WEEK. Test Results: Test results from this visit will be discussed in further detail at your follow- up appointment, if applicable. Please Follow Up With: Dennys Cruz DPM When: within 1 week at [facility]. Call [phone].
--- NOTE | 2019-09-20 10:19 | NURSING ---
spoke with Tracy in retail pharmacy and was notified that they are filling prescription now and will bring up when completed. Notified that paid already over telephone. Pt updated with same.
--- NOTE | 2019-09-20 10:39 | PN.ID_ITS ---
Patient Problems: Active and Suspected Problems (Last Updated 08/12/17 @ 11:54 by Lorenza Nguyễn) Cellulitis (Acute) Open wound of right great toe (Acute) Ulcer of right foot with fat layer exposed (Acute) Subjective: Feeling good, no fever, no n/v/d. - Physical Exam Vitals/I&O's: Vital Signs Temp Pulse Resp BP Pulse Ox 97.7 F L 53 L 16 147/67 H 97 09/20/19 07:36 09/20/19 07:36 09/20/19 07:36 09/20/19 07:36 09/20/19 07:36 Oxygen Delivery Method Room Air Weight: 110.5 kg Body Mass Index (BMI) 35.9 Intake and Output for Last 24 Hours 09/18/19 09/19/19 09/20/19 23:59 23:59 23:59 Intake Total 3693.59 / 3693.59 1510 / 1510 650.25 / 650.25 Output Total 2650 / 2650 Balance 1043.59 / 1043.59 1510 / 1510 650.25 / 650.25 General: Alert, Cooperative, No apparent distress Lungs: Clear to auscultation, Normal air movement Cardiovascular: Regular rate, Regular Rhythm, No murmurs Abdomen: Soft, Non Tender, Non-Distended Skin: Ulcer/ Wound - R toe wrapped Microbiology Past 72 Hours 09/16/19 20:20 Blood Culture (Wb) - Right Forearm Bacteria Detection (PCR) - Final Streptococcus agalactiae (B) 09/16/19 20:20 Blood Culture (Wb) - Right Forearm Blood Culture - Final Streptococcus agalactiae (B) Staphylococcus aureus 09/17/19 08:00 Wound - Aerobic & Anaerobic Swabs Gram Stain - Preliminary 09/17/19 08:00 Wound - Aerobic & Anaerobic Swabs Wound Culture - Final Staphylococcus aureus Streptococcus agalactiae (B) 09/17/19 08:00 Wound - Aerobic & Anaerobic Swabs Anaerobic Culture - Preliminary Checking for anaerobes, further studies to follow. 09/16/19 19:55 Blood Culture (Wb) - Left Forearm Blood Culture - Preliminary Streptococcus agalactiae (B) Staphylococcus aureus Laboratory Results 09/19/19 12:00: POC Glucose 290 H 09/19/19 16:48: POC Glucose 186 H 09/19/19 22:09: POC Glucose 144 H 09/20/19 05:50: WBC 5.3, RBC 4.29 L, Hgb 13.1, Hct 37.5 L, MCV 87.4, MCH 30.5, MCHC 34.9, RDW Std Deviation 39.1, RDW Coeff of [place] 12.2, Plt Count 254, MPV 8.7, Immature Gran % (Auto) 1.500 H, Neut % (Auto) 57.4, Lymph % (Auto) 25.5, [place] % (Auto) 11.0 H, Eos % (Auto) 3.8, Baso % (Auto) 0.8, Absolute Neuts (auto) 3.0, Absolute Lymphs (auto) 1.34, Nucleated RBC % 0 09/20/19 05:50: Sodium 133 L, Potassium 4.1, Chloride 101, Carbon Dioxide 28.0, Anion Gap 4 L, BUN 21 H, Creatinine 1.13, Estim Creat Clear Calc 66.04, Est GFR (MDRD) Af Amer 84, Est GFR (MDRD) Non-Af 69, BUN/Creatinine Ratio 18.6, Glucose 239 H, Calcium 8.7 09/20/19 07:39: POC Glucose 278 H Current Medications Acetaminophen (Tylenol) 650 mg PO Q6H PRN PRN PRN Reason: Pain Score 1-10/Temp > 100.7 F Last Admin: 09/19/19 22:05 Dose: 650 mg Documented by: Albuterol Sulfate (Ventolin Aerosols) 2.5 mg INHALATION Q2H PRN PRN PRN Reason: Dyspnea, wheezing Carvedilol (Coreg) 25 mg PO BID [facility] Last Admin: 09/20/19 05:41 Dose: 25 mg Documented by: Dextrose (D50w Syringe) 0 gm IV X1 PRN; Protocol PRN Reason: Hypoglycemia Enoxaparin Sodium (Lovenox) 40 mg SC DAILY [facility] Last Admin: 09/20/19 08:29 Dose: 40 mg Documented by: [facility] Last Admin: 09/20/19 08:27 Dose: 4 mg Documented by: Glucagon () 1 mg IM .X1 PRN PRN Reason: Hypoglycemia Guaifenesin (Robitussin) 20 ml PO Q4H PRN PRN PRN Reason: COUGH Hydralazine HCl (Apresoline Iv) 10 mg IV Q4H PRN PRN PRN Reason: SBP > 160 Last Admin: 09/20/19 02:26 Dose: 10 mg Documented by: Sodium Chloride () 250 mls @ 15 mls/hr IV .[id number] PRN PRN Reason: Saline Flush Sodium Chloride () 250 mls @ 15 mls/hr IV .[id number] PRN PRN Reason: Additional IVPB Infusion Cefazolin Sodium 2 gm/ Sodium (Chloride) 110 mls @ 150 mls/hr IV Q8 [facility] Last Infusion: 09/20/19 06:05 Dose: Infused Documented by: Vancomycin IV Pharmacy to Dose (1 ea/ Sodium Chloride) 500 mls @ 250 mls/hr IV X1 PRN; Protocol PRN Reason: Rx to Dose Vancomycin HCl 2,000 mg/ (Sodium Chloride) 540 mls @ 250 mls/hr IV Q12H [facility] Last Infusion: 09/20/19 08:40 Dose: Infused Documented by: Ibuprofen (Motrin) 600 mg PO Q8H PRN PRN Reason: Headache/pain 1-10/10 Last Admin: 09/20/19 02:25 Dose: 600 mg Documented by: Insulin Glargine (Lantus (Bkc)) 60 units SC DAILY [facility] Last Admin: 09/20/19 08:27 Dose: 60 u Documented by: Insulin Human Lispro (Humalog Kwikpen (Bkc)) 0 unit SC ACHS [facility]; Protocol Last Admin: 09/20/19 08:25 Dose: 4 u Documented by: Insulin Human Lispro (Humalog Kwikpen (Bkc)) 15 unit SC TIDAC [facility] Last Admin: 09/20/19 08:25 Dose: 15 u Documented by: Lisinopril (Zestril) 20 mg PO BID [facility] Last Admin: 09/20/19 05:40 Dose: 20 mg Documented by: Morphine Sulfate () 2 mg IV Q3H PRN PRN PRN Reason: Pain Score 6-10/10 Nitroglycerin (Nitrostat) 0.4 mg SUBLINGUAL Q5M PRN PRN Reason: CARDIAC/CHEST PAIN Nutritional Formula (Efren - [place] Flavor) [facility] Last Admin: 09/20/19 08:27 Dose: 1 packet Documented by: Ondansetron HCl (Zofran) 4 mg IV Q8H PRN PRN PRN Reason: NAUSEA/VOMITING Oxycodone HCl (Oxyir) 5 mg PO Q4H PRN PRN PRN Reason: Pain Score 4-5/10 Last Admin: 09/19/19 22:05 Dose: 5 mg Documented by: Prochlorperazine Edisylate (Compazine Iv) 5 mg IV Q4H PRN PRN PRN Reason: Breakthrough nausea/vomiting Psyllium Hydrophilic Mucilloid (Metamucil) 1 packet PO DAILY PRN PRN PRN Reason: Constipation Senna/Docusate Sodium (Senokot-S, Lizz-Colace) 2 tablet PO BID PRN PRN PRN Reason: Constipation Sodium Chloride () 10 - 40 ml IV UD PRN PRN Reason: SALINE FLUSH Last Admin: 09/19/19 09:16 Dose: 20 ml Documented by: Temazepam (Restoril) 15 mg PO QHS PRN PRN PRN Reason: INSOMNIA Throat Lozenges (Cepacol Sore Throat Lozenge) 1 lozenge MUCOUS MEM Q2H PRN PRN PRN Reason: SORE THROAT Medical Necessity - Tobacco Use Smoking Status: Never smoker Tobacco Use: Non-smoker Route of nutrition/ use of supplements: [] Nutritional Intake: [] IV Site: [] Triplett Catheter: [] - Assessment/Plan Antibiotics: [] Assessment/Plan: [] Active and Suspected Problems (Last Updated 08/12/17 @ 11:54 by Lorenza Nguyễn) Bacteremia (Acute) Cellulitis (Acute) Open wound of right great toe (Acute) Ulcer of right foot with fat layer exposed (Acute) MSSA and GBS bacteremia from R 1st toe diabetic infection - wound pcr with mssa. Ok for d/c home on po linezolid for 12 more days. Repeat bcx neg so far, TTE neg for veg. Will follow, d/w Dr. Carter
--- NOTE | 2019-09-20 10:47 | DS.PCM_ITS ---
Discharge Date and Diagnosis - Problem List Patient Problems: Active and Suspected Problems (Last Updated 08/12/17 @ 11:54 by Lorenza Nguyễn) Cellulitis (Acute) Open wound of right great toe (Acute) Ulcer of right foot with fat layer exposed (Acute) Date of Admission: 09/16/19 Date of Discharge: 09/20/19 - Primary Discharge Diagnosis Acute Problems: Active Problems (Last Updated 08/12/17 @ 11:54 by Lorenza Nguyễn) #1 MSSA/Streptococcus agalactiae acute right big toe diabetic infected superficial nonhealing ulcer with surrounding cellulitis. #2 MSSA/Streptococcus agalactiae bacteremia. - Secondary Discharge Diagnosis Chronic Problems: Chronic Problems (Last Updated 08/12/17 @ 11:54 by Lorenza Nguyễn) Obesity (BMI 30.0-34.9) (Chronic) Obesity, Class II, BMI 35-39.9, with comorbidity (Chronic) Type 2 diabetes mellitus with diabetic neuropathy (Chronic) CAD (coronary artery disease) (Chronic) Type 2 diabetes mellitus (Chronic) Hypertension (Chronic) Hyperlipidemia (Chronic) Hospital Course and Treatment Imaging Results: Clinical Impression(s) from Imaging Studies Foot X-Ray 09/16/19 21:12 IMPRESSION: Mild to moderate soft tissue swelling Electronically Signed: Kip Sharma MD at 21:57 EDT , Service support , . Echocardiogram. Interpretation Summary Normal LV size. Left ventricular systolic function is normal. The estimated ejection fraction is 53 %. Mild tricuspid valve insufficiency. Contrast injection was performed. Consultations 09/16/19 23:40 Consult: Onc/Wound/tack welder Routine Comment: Operations: None Procedures: 2-D Echocardiogram, - - Subcutaneous excisional debridement of the right hallux. Summary of Care Provided: Patient seen and examined on the day of discharge and appeared to be stable to be discharged home. He denied any complaints. He remained afebrile, other vital signs were stable. The patient is a 63 year old M presented to the emergency room because of swelling and erythema as well as pain of the right big toe, found to have acute right big toe diabetic infected superficial ulcer with surrounding cellulitis and was complicated by bacteremia. Initially, patient was treated with IV Rocephin and later, he was started on IV cefazolin and vancomycin by infectious disease. His routine blood work was remarkable for leukocytosis which was resolved and treated. Staph aureus PCR was positive. MRSA PCR screen was negative. There was no evidence of sepsis or severe sepsis. Podiatry medicine consulted and patient underwent subcutaneous excisional debridement of the right hallux. Patient was continued on IV antibiotics. Wound culture revealed MSSA and Streptococcus agalactiae. Blood culture revealed same bacteria including MSSA and Streptococcus agalactiae. 2D echocardiogram done and showed no evidence of valvular vegetations, ejection fraction was normal. Patient remained afebrile throughout admission, leukocytosis resolved. Repeat blood culture sent before discharge and was negative up to the time of discharge. Patient discharged home in a stable medical condition, discharged on linezolid 600 g p.o. twice daily for 12 more days of treatment according to infectious disease recommendations, continued on his previous home medications without any changes, plan to follow-up with podiatry medicine in 1 week, recommended follow- up with PCP in 1 week. Patient Problems: Active and Suspected Problems (Last Updated 08/12/17 @ 11:54 by Lorenza Nguyễn) Cellulitis (Acute) Open wound of right great toe (Acute) Ulcer of right foot with fat layer exposed (Acute) - Physical Exam Vitals/I&O's: Vital Signs Temp Pulse Resp BP Pulse Ox 97.7 F L 53 L 16 147/67 H 97 09/20/19 07:36 09/20/19 07:36 09/20/19 07:36 09/20/19 07:36 09/20/19 07:36 Oxygen Delivery Method Room Air Weight: 243 lb 9.773 oz Body Mass Index (BMI) 35.9 Intake and Output for Last 24 Hours 09/18/19 09/19/19 09/20/19 23:59 23:59 23:59 Intake Total 3693.59 / 3693.59 1510 / 1510 650.25 / 650.25 Output Total 2650 / 2650 Balance 1043.59 / 1043.59 1510 / 1510 650.25 / 650.25 General: Alert, Oriented x3, Cooperative, No apparent distress HEENT: Atraumatic, PERRLA, EOMI, Normocephalic Oral: Moist Mucosa, No Gingival or Mucosal Lesions/ Ulcerations Neck: Supple, No JVD, Negative Carotid Bruits, Trachea Midline, Thyroid Normal Size and Texture Lungs: Clear to auscultation, Normal air movement, No rhonchi, No wheeze, No rales Cardiovascular: Regular rate, Regular Rhythm, Normal S1, Normal S2, PMI Normal Abdomen: Bowel Sounds Present, Soft, Non Tender, Non-Distended, No Hepato- splenomegaly Extremities: No clubbing, No cyanosis, No edema Skin: No rashes, Ulcer/ Wound Lymphatic: No Cervical, Supraclavicular, or Inguinal Adenopathy Neurological: Cranial nerves II-XII grossly intact, Neuro grossly intact Microbiology Past 72 Hours 09/16/19 20:20 Blood Culture (Wb) - Right Forearm Bacteria Detection (PCR) - Final Streptococcus agalactiae (B) 09/16/19 20:20 Blood Culture (Wb) - Right Forearm Blood Culture - Final Streptococcus agalactiae (B) Staphylococcus aureus 09/17/19 08:00 Wound - Aerobic & Anaerobic Swabs Gram Stain - Preliminary 09/17/19 08:00 Wound - Aerobic & Anaerobic Swabs Wound Culture - Final Staphylococcus aureus Streptococcus agalactiae (B) 09/17/19 08:00 Wound - Aerobic & Anaerobic Swabs Anaerobic Culture - Preliminary Checking for anaerobes, further studies to follow. 09/16/19 19:55 Blood Culture (Wb) - Left Forearm Blood Culture - Preliminary Streptococcus agalactiae (B) Staphylococcus aureus Laboratory Results 09/19/19 12:00: POC Glucose 290 H 09/19/19 16:48: POC Glucose 186 H 09/19/19 22:09: POC Glucose 144 H 09/20/19 05:50: WBC 5.3, RBC 4.29 L, Hgb 13.1, Hct 37.5 L, MCV 87.4, MCH 30.5, MCHC 34.9, RDW Std Deviation 39.1, RDW Coeff of [place] 12.2, Plt Count 254, MPV 8.7, Immature Gran % (Auto) 1.500 H, Neut % (Auto) 57.4, Lymph % (Auto) 25.5, [place] % (Auto) 11.0 H, Eos % (Auto) 3.8, Baso % (Auto) 0.8, Absolute Neuts (auto) 3.0, Absolute Lymphs (auto) 1.34, Nucleated RBC % 0 09/20/19 05:50: Sodium 133 L, Potassium 4.1, Chloride 101, Carbon Dioxide 28.0, Anion Gap 4 L, BUN 21 H, Creatinine 1.13, Estim Creat Clear Calc 66.04, Est GFR (MDRD) Af Amer 84, Est GFR (MDRD) Non-Af 69, BUN/Creatinine Ratio 18.6, Glucose 239 H, Calcium 8.7 09/20/19 07:39: POC Glucose 278 H Current Medications Acetaminophen (Tylenol) 650 mg PO Q6H PRN PRN PRN Reason: Pain Score 1-10/Temp > 100.7 F Last Admin: 09/19/19 22:05 Dose: 650 mg Documented by: Albuterol Sulfate (Ventolin Aerosols) 2.5 mg INHALATION Q2H PRN PRN PRN Reason: Dyspnea, wheezing Carvedilol (Coreg) 25 mg PO BID [facility] Last Admin: 09/20/19 05:41 Dose: 25 mg Documented by: Dextrose (D50w Syringe) 0 gm IV X1 PRN; Protocol PRN Reason: Hypoglycemia Enoxaparin Sodium (Lovenox) 40 mg SC DAILY [facility] Last Admin: 09/20/19 08:29 Dose: 40 mg Documented by: Glimepiride (Amaryl) 4 mg PO DAILYCM [facility] Last Admin: 09/20/19 08:27 Dose: 4 mg Documented by: Glucagon () 1 mg IM .X1 PRN PRN Reason: Hypoglycemia Guaifenesin (Robitussin) 20 ml PO Q4H PRN PRN PRN Reason: COUGH Hydralazine HCl (Apresoline Iv) 10 mg IV Q4H PRN PRN PRN Reason: SBP > 160 Last Admin: 09/20/19 02:26 Dose: 10 mg Documented by: Sodium Chloride () 250 mls @ 15 mls/hr IV .[id number] PRN PRN Reason: Saline Flush Sodium Chloride () 250 mls @ 15 mls/hr IV .[id number] PRN PRN Reason: Additional IVPB Infusion Cefazolin Sodium 2 gm/ Sodium (Chloride) 110 mls @ 150 mls/hr IV Q8 [facility] Last Infusion: 09/20/19 06:05 Dose: Infused Documented by: Vancomycin IV Pharmacy to Dose (1 ea/ Sodium Chloride) 500 mls @ 250 mls/hr IV X1 PRN; Protocol PRN Reason: Rx to Dose Vancomycin HCl 2,000 mg/ (Sodium Chloride) 540 mls @ 250 mls/hr IV Q12H [facility] Last Infusion: 09/20/19 08:40 Dose: Infused Documented by: Ibuprofen (Motrin) 600 mg PO Q8H PRN PRN Reason: Headache/pain 1-10/10 Last Admin: 09/20/19 02:25 Dose: 600 mg Documented by: Insulin Glargine (Lantus (Bkc)) 60 units SC DAILY [facility] Last Admin: 09/20/19 08:27 Dose: 60 u Documented by: Insulin Human Lispro (Humalog Kwikpen ([facility])) 0 unit SC ACHS [facility]; Protocol Last Admin: 09/20/19 08:25 Dose: 4 u Documented by: Insulin Human Lispro (Humalog Kwikpen ([facility])) 15 unit SC TIDAC [facility] Last Admin: 09/20/19 08:25 Dose: 15 u Documented by: Lisinopril (Zestril) 20 mg PO BID [facility] Last Admin: 09/20/19 05:40 Dose: 20 mg Documented by: Morphine Sulfate () 2 mg IV Q3H PRN PRN PRN Reason: Pain Score 6-10/10 Nitroglycerin (Nitrostat) 0.4 mg SUBLINGUAL Q5M PRN PRN Reason: CARDIAC/CHEST PAIN Nutritional Formula (Efren - [place] Flavor) [facility] Last Admin: 09/20/19 08:27 Dose: 1 packet Documented by: Ondansetron HCl (Zofran) 4 mg IV Q8H PRN PRN PRN Reason: NAUSEA/VOMITING Oxycodone HCl (Oxyir) 5 mg PO Q4H PRN PRN PRN Reason: Pain Score 4-5/10 Last Admin: 09/19/19 22:05 Dose: 5 mg Documented by: Prochlorperazine Edisylate (Compazine Iv) 5 mg IV Q4H PRN PRN PRN Reason: Breakthrough nausea/vomiting Psyllium Hydrophilic Mucilloid (Metamucil) 1 packet PO DAILY PRN PRN PRN Reason: Constipation Senna/Docusate Sodium (Senokot-S, Lizz-Colace) 2 tablet PO BID PRN PRN PRN Reason: Constipation Sodium Chloride () 10 - 40 ml IV UD PRN PRN Reason: SALINE FLUSH Last Admin: 09/19/19 09:16 Dose: 20 ml Documented by: Temazepam (Restoril) 15 mg PO QHS PRN PRN PRN Reason: INSOMNIA Throat Lozenges (Cepacol Sore Throat Lozenge) 1 lozenge MUCOUS MEM Q2H PRN PRN PRN Reason: SORE THROAT Discharge Activity: Return to Normal Activity Weight Bearing Status: Partial weight bearing - heel weightbear with surgical shoe Keep extremity elevated above heart level: Right Leg Call your doctor if your incision/area has: Continuous Slow Oozing, Sudden Increased Bleeding, Increased Pain/ Swelling, Increased Redness, Foul Smelling Discharge Call your doctor if you observe: Fever of 101 or Higher, Change in Color, Shortness of breath, Dizziness, Fainting spells, Chest pain, Increased palpitations (irregular heartbeat), Calf discomfort, Uncontrolled pain Cleanse incision/area with: Soap & Water Additional Dressing/Incision Instructions:: change daily with adaptic and betadine gauze Home Medications: Medications to take at Discharge carvedilol 25 mg tablet 25 mg PO BID 08/12/17 glimepiride 4 mg tablet 4 mg PO DAILY 08/12/17 insulin glargine 100 unit/mL (3 mL) subcutaneous pen 40 - 50 unit SC DAILY 08/12/17 metformin 1,000 mg tablet 1,000 mg PO BID 08/12/17 Lisinopril [Zestril] 20 mg PO BID 08/14/17 Multivit-Mins/Iron/Folic/Lycop [Centrum Ultra Men's Tablet] 1 tab PO BID 09/16/19 Oregano Oil [Oil of Oregano] 1,500 mg PO BID 09/16/19 Linezolid 600 mg PO BID #24 tab 09/20/19 Following Prescrptions Were Given to Patient: Linezolid 600 mg PO BID #24 tab Transmission Status: Received by [facility] Primary Care Physician: Otilio Sahu MD [Primary Care Provider] - Please follow up with your Primary Care Physician in: 1 WEEK. Please Follow Up With: Dennys Cruz DPM When: within 1 week at [facility]. Call [phone]. Disposition: Home Minutes spent on discharge:: 32 Patient Condition:: Stable Medical Necessity - Tobacco Use Smoking Status: Never smoker Tobacco Use: Non-smoker Meaningful Use Info Meaningful Use Diagnoses (Choose all that apply): None applicable Inpatient E&M: 17521 Disch Hosp
--- NOTE | 2019-09-20 10:50 | NURSING ---
Addendum entered by Amanda Barbour 09/20/19 10:56: Dressing changed to right great toe per dr. mcrae, prior to d/c Original Note: called office- staff had appointment listed for dr. cruz for 09/21 at 1330. Pt states he scheduled appt for 09/21 at 1630 and would prefer to keep this appt. this rN called into office and verified that 1630 is scheduled and notified that it does not appear that there was one scheduled for 1330 for pt. Also, spoke with Dr. Cruz to clarify home dressing change. Pt notified this RN that staff is to change dressing today prior to d/c per Dr. Cruz's request. Same to be completed.
[2019-09-20 11:20] LABS: Bedside Glucose 323 mg/dL (70-110)
--- NOTE | 2019-09-20 11:34 | PHA.DC.MC ---
Pharmacy Service has performed discharge medication reconciliation and counseling for this patient. 1. LINEZOLID 600MG PO BID X 12 DAYS The patient's discharge medication list was reviewed for discrepancies and discrepancies were resolved. Home Medications carvedilol 25 mg tablet 25 mg PO BID 08/12/17 glimepiride 4 mg tablet 4 mg PO DAILY 08/12/17 insulin glargine 100 unit/mL (3 mL) subcutaneous pen 40 - 50 unit SC DAILY 08/12/17 metformin 1,000 mg tablet 1,000 mg PO BID 08/12/17 Lisinopril [Zestril] 20 mg PO BID 08/14/17 Multivit-Mins/Iron/Folic/Lycop [Centrum Ultra Men's Tablet] 1 tab PO BID 09/16/19 Oregano Oil [Oil of Oregano] 1,500 mg PO BID 09/16/19 Linezolid 600 mg PO BID #24 tab 09/20/19 The patient was counseled on the following discharge medications and changes in medications for homegoing were reviewed. The Reason for Use, instructions for use, and potential side effects were reviewed for all new medications. The patient's questions regarding all of their medications were answered. The patient was able to verbally demonstrate an understanding of their discharge medications.
--- NOTE | 2019-09-21 16:35 | CASEMGMT ---
[facility] Discharge Follow-up Phone Call: TOMER: Geoffrey Strata: 3 Call Date: 09/21/2019 Discharge Date: 09/20/2019 Time of Call: 1635 Admitting Diagnosis: Infected DM toe ulcer with cellulitis Call placed to patient. Patient states he has been doing well since discharge. States he has not yet changed his dressing but denied any concerns about doing so and affirmed he has support from his and daughter. States he has his antibiotic. Denied any fever. Pt denied any questions regarding his discharge instructions or his medications. Trey Hollis RN CM
== END 2019-09-20 12:20 | disposition home or self-care (01) | DRG 623 ==
LOC: ED 22:29 → MS3 09-17 01:47
PROVIDERS: Internal Medicine; Podiatrist; Admitting Provider Family Medicine; Emergency Provider Emergency Medicine; PCP Family Medicine; Visit Provider Hospitalist
DX: E11.621 Type 2 diabetes mellitus with foot ulcer (principal); L03.115 Cellulitis of right lower limb; R78.81 Bacteremia; B95.61 Methicillin susceptible Staphylococcus aureus infection as the cause of diseases classified elsewhere; B95.1 Streptococcus, group B, as the cause of diseases classified elsewhere; B96.89 Other specified bacterial agents as the cause of diseases classified elsewhere; E11.22 Type 2 diabetes mellitus with diabetic chronic kidney disease; L97.512 Non-pressure chronic ulcer of other part of right foot with fat layer exposed; I12.9 Hypertensive chronic kidney disease with stage 1 through stage 4 chronic kidney disease, or unspecified chronic kidney disease; N18.3 Chronic kidney disease, stage 3 (moderate); I25.10 Atherosclerotic heart disease of native coronary artery without angina pectoris; E11.40 Type 2 diabetes mellitus with diabetic neuropathy, unspecified; E11.65 Type 2 diabetes mellitus with hyperglycemia; E78.5 Hyperlipidemia, unspecified; E66.9 Obesity, unspecified; Z68.35 Body mass index [BMI] 35.0-35.9, adult; Z79.4 Long term (current) use of insulin; Z79.899 Other long term (current) drug therapy; Z95.1 Presence of aortocoronary bypass graft
CPT/HCPCS: 36415; 73630; 80048; 80053; 82962; 83036; 83605; 83735; 85025; 85610; 85652; 85730; 86140; 87040; 87070; 87075; 87077; 87149; 87186; 87205; 87640; 93306; 97802; 99251; 99284; J7030; J7040; Q9957; A4216; C8929; G0463; J0295; J0696

== ENCOUNTER 2019-12-12 20:33 | Emergency (ER) | payer MEDICARE, BC, SELFPAY ==
[2019-12-12 20:33] VITALS: BP 117/57; PULSE 68; RESP 16; TEMP 36.3; O2SAT 97; BMI 37.7
[2019-12-12 20:34] VITALS: BP 117/57; PULSE 68; RESP 16; TEMP 36.3; O2SAT 97
--- NOTE | 2019-12-12 20:44 | ED.DCSUM_ITS ---
History of Present Illness Chief Complaint: Wound Informant: Patient Onset: Yesterday Narrative: Patient present secondary to left foot wound. He has history of diabetic foot wounds to his right foot that Dr. Patel has been treating. Yesterday he noted a wound to the bottom of his left second toe. His daughter who is a nurse practitioner called in prescriptions for Augmentin and Bactrim for him. He has not noted fever or chills. - Past Medical History (1) CAD (coronary artery disease) Status: Chronic (2) Hyperlipidemia Status: Chronic (3) Hypertension Status: Chronic (4) Type 2 diabetes mellitus with diabetic neuropathy Status: Chronic Past Medical History - Allergies and Home Meds Allergies/Adverse Reactions: Allergies atorvastatin [From Lipitor] Adverse Reaction (Verified 09/16/19 20:33) Pain in joints rosuvastatin [From Crestor] Adverse Reaction (Verified 09/16/19 20:33) Pain in joints Primary Care Physician: Otilio Sahu MD [Primary Care Provider] - Prior records reviewed: Yes Surgical History: appendectomy, coronary bypass surgery, - - CABG x 4 and PCI x 4, appendectomy, toe surgery, back surgery x2. Lives: Spouse/ Significant Other Smoking Status: Never smoker - Family History Maternal Family History: Family History (Last Updated 08/12/17 @ 11:56 by Lorenza Nguyễn) Other CAD (coronary artery disease) Diabetes Family History: Reports: Diabetes Paternal Family History: Family History (Last Updated 08/12/17 @ 11:56 by Lorenza Nguyễn) Other CAD (coronary artery disease) Diabetes Family History: Reports: Heart Disease Review of Systems General: Denies: Chills, Fever Eyes: Denies: Visual changes - bilaterally Cardiovascular: Denies: Chest pain Respiratory: Denies: Dyspnea, Cough Gastrointestinal: Denies: Abdominal pain Musculoskeletal: Denies: Swelling Skin: Reports: Wounds Neurological: Reports: Parasthesia - Chronic neuropathy to feet. Denies: Weakness Hematologic: Denies: Easy bruising, Easy bleeding Allergy: Denies: Uticaria Physical Exam Vital Signs/Narrative: Vital Signs Temp Pulse Resp BP Pulse Ox 12/12/19 20:33 97.4 F L 68 16 117/57 L 97 Inital Vital Signs reviewed: Yes General: Well nourished, Well developed Head: Normocephalic ENT: Moist mucous membranes Neck: Supple Cardiovascular: Regular rate, Regular rhythm Respiratory: No distress, CTA bilaterally Abdomen: Soft, Nontender Extremities: - - Boot in place on right foot. The plantar surface of the left second toe has an open wound. Mild erythema at the base of the left toe. No lymphangitic streak noted. No tenderness over the calf. Neurological: Alert, Oriented x3 Psychological: Normal affect Diagnostic/Tx/Re-eval Impressions Foot X-Ray 12/12/19 21:15 IMPRESSION: Normal x-ray examination of the foot. Electronically Signed: Marshall Dawson DO at 22:29 EDT Tel [phone], Service support , 12/12/19 21:15 Foot min 3 Views [RAD] Stat Laboratory Results 12/12/19 12/12/19 20:55 20:55 WBC 8.9 RBC 4.44 L Hgb 13.6 Hct 38.8 L MCV 87.4 MCH 30.6 MCHC 35.1 RDW Std Deviation 40.0 RDW Coeff of [place] 12.5 Plt Count 248 MPV 9.2 Immature Gran % (Auto) 1.000 H Neut % (Auto) 63.6 Lymph % (Auto) 23.2 [place] % (Auto) 9.1 Eos % (Auto) 2.7 Baso % (Auto) 0.4 Absolute Neuts (auto) 5.7 Absolute Lymphs (auto) 2.07 Nucleated RBC % 0 Sodium 134 L Potassium 4.6 Chloride 103 Carbon Dioxide 25.0 Anion Gap 6 BUN 27 H Creatinine 1.44 H Estim Creat Clear Calc 51.14 Est GFR (MDRD) Af Amer 63 Est GFR (MDRD) Non-Af 52 L BUN/Creatinine Ratio 18.8 Glucose 215 H Calcium 8.8 - Medical Decision Making Wound and blood cultures were obtained. Test results discussed with patient and at bedside. He was given IV fluids secondary to mild dehydration. I spoke with Dr. Cruz, his vegetable farmworker. He states the patient can use the silver cell dressing and gauze that he has been using for his other foot. He is to call the office tomorrow morning and he will be seen tomorrow. Patient and are in agreement this plan. ED Disposition - Plan for ED Patient: Disposition: Home or Assisted Living Diagnosis: Diabetic foot infection Instructions: Diabetic Foot Ulcers Referrals: Dennys Cruz DPM [STAFF PHYSICIAN] - 1 Day
[2019-12-12 21:09] LABS: Absolute Lymphocyte Count 2.07 X10^3/uL (0.83-4.51); Absolute Neutrophil Count 5.7 X10^3/uL (2.0-7.7); Basophil# 0.04 X10^3/uL; Basophil% 0.4 % (0-1); Eosinophil# 0.24 X10^3/uL; Eosinophils% 2.7 % (0-5); Hematocrit 38.8 % (40-54); Hemoglobin 13.6 g/dL (13.0-16.5); Lymphocyte # 2.07 X10^3/ul (4.0); Lymphocyte % 23.2 % (19-41); Mean Corp Hgb Conc 35.1 g/dL (32-36); Mean Corpuscular Hgb 30.6 pg (27.0-32.0); Mean Corpuscular Volume 87.4 fL (80-94); Mean Platelet Vol. 9.2 fl (6.2-12.0); Monocyte# 0.81 X10^3/uL; Monocyte% 9.1 % (0-10); NRBC Flagged by Analyzer 0 % (0-5); Neutrophil # 5.68 X10^3/uL (2.7-7.7); Neutrophil % 63.6 % (47-70); Platelet Count 248 K/mm3 (150-450); RBC Distribution Width CV 12.5 % (11.6-14.6); Red Blood Count 4.44 M/mm3 (4.6-6.2); White Blood Count 8.9 K/mm3 (4.4-11.0)
--- NOTE | 2019-12-12 21:15 | RAD_ITS ---
STUDY: X-RAY - LEFT FOOT CLINICAL: Male, 64 years old. LEFT FOOT INFECTION UNDER SECOND TOE TECHNIQUE: 3 view(s) of the foot. COMPARISON: None. FINDINGS: Normal talus, calcaneus, and tarsal bones. Normal visualized subtalar, talonavicular, calcaneocuboid, tarsal and tarsometatarsal articulations. Normal metatarsi. Normal metatarsophalangeal joint of the great toe. Normal tibial and fibular sesamoid bones. Normal interphalangeal joint of the great toe. Normal phalanges of the great toe. Normal second through fifth metatarsophalangeal joints. Normal interphalangeal joints and phalanges of the lesser toes. The soft tissue structures are unremarkable. No subcutaneous emphysema. RAD/Foot min 3 Views IMPRESSION: Normal x-ray examination of the foot. Electronically Signed: Marshall Dawson DO at 22:29 EDT Tel [phone], Service support ,
[2019-12-12 21:28] LABS: Anion Gap 6 (5-15); BUN 27 mg/dL (7-18); BUN/Creat Ratio 18.8 RATIO (10-20); Calcium,Total 8.8 mg/dL (8.5-10.1); Chloride 103 mmol/L (98-107); Creatinine, Serum 1.44 mg/dL (0.70-1.30); EST Glomerular Filtration Rate 52 mL/min (>60); Est Glom Filt Rate - Afr Amer 63 mL/min (>60); Estimated Creatinine Clearance 51.14 ml/min; Glucose 215 mg/dL (74-106); Potassium 4.6 mmol/L (3.5-5.1); Sodium Level 134 mmol/L (136-145)
[2019-12-12 21:34] VITALS: BP 132/72; PULSE 60; RESP 18; TEMP 36.7; O2SAT 98
[2019-12-12 22:00] VITALS: BP 145/75; PULSE 61; RESP 18; TEMP 36.9; O2SAT 95
[2019-12-12] MEDS: 0.9% Normal Saline 1,000 ML 999 ML IV (22:11)
[2019-12-12 23:04] VITALS: BP 166/66; PULSE 71; RESP 18; O2SAT 98
== END 2019-12-12 23:05 | disposition home or self-care (01) ==
PROVIDERS: Emergency Provider Emergency Medicine; PCP Family Medicine
DX: L08.9 Local infection of the skin and subcutaneous tissue, unspecified (principal); I25.10 Atherosclerotic heart disease of native coronary artery without angina pectoris; Z95.1 Presence of aortocoronary bypass graft
CPT/HCPCS: 73630; 80048; 85025; 87040; 87070; 87077; 87186; 87205; 99281; 99285; J7030; A4216

== ENCOUNTER → 2019-12-16 15:25 | Outpatient (CLI) | payer MEDICARE, SELFPAY ==
[2019-12-12 20:33] VITALS: BMI 37.7
[2019-12-16 17:42] LABS: Hematocrit 43.3 % (40-54); Hemoglobin 14.7 g/dL (13.0-16.5); Mean Corp Hgb Conc 33.9 g/dL (32-36); Mean Corpuscular Hgb 29.8 pg (27.0-32.0); Mean Corpuscular Volume 87.7 fL (80-94); Platelet Count 334 K/mm3 (150-450); RBC Distribution Width CV 12.7 % (11.6-14.6); RBC Distribution Width SD 40.7 fl (35.1-43.9); Red Blood Count 4.94 M/mm3 (4.6-6.2); White Blood Count 9.8 K/mm3 (4.4-11.0)
[2019-12-16 17:54] LABS: Anion Gap 7 (5-15); BUN 34 mg/dL (7-18); BUN/Creat Ratio 22.1 RATIO (10-20); Calcium,Total 9.4 mg/dL (8.5-10.1); Chloride 100 mmol/L (98-107); Creatinine, Serum 1.54 mg/dL (0.70-1.30); EST Glomerular Filtration Rate 48 mL/min (>60); Est Glom Filt Rate - Afr Amer 59 mL/min (>60); Glucose 154 mg/dL (74-106); Potassium 4.5 mmol/L (3.5-5.1); Sodium Level 132 mmol/L (136-145)
== END ==
PROVIDERS: PCP Family Medicine; Referring Provider Internal Medicine Infectious Disease; Visit Provider Internal Medicine Infectious Disease
DX: E11.9 Type 2 diabetes mellitus without complications (principal)
CPT/HCPCS: 36415; 80048; 85027

== ENCOUNTER 2020-01-25 13:02 | Outpatient (RCR) | payer MEDICARE, SELFPAY ==
[2020-01-25 13:19] VITALS: BP 151/76; PULSE 79; RESP 18; TEMP 36.6; BMI 76.5
--- NOTE | 2020-01-25 20:06 | HP.PCM_ITS ---
(1) Other specified peripheral vascular diseases Status: Chronic Code(s): I73.89 - Other specified peripheral vascular diseases (2) Ulcer of right foot with fat layer exposed Status: Chronic Code(s): L97.512 - Non-pressure chronic ulcer of other part of right foot with fat layer exposed (3) Ulcer of left foot with fat layer exposed Status: Chronic Code(s): L97.522 - Non-pressure chronic ulcer of other part of left foot with fat layer exposed (4) Type 2 diabetes mellitus with diabetic neuropathy Status: Chronic Qualifiers: Code(s): E11.40 - Type 2 diabetes mellitus with diabetic neuropathy, unspecified (5) Delayed wound healing Status: Acute Code(s): T14.8XXD - Other injury of unspecified body region, subsequent encounter History of Present Illness Date of Service: 01/25/20 Chief Complaint: Right great toe ulcer. Left second toe ulcer History of Wound: This 64-year-old diabetic male has chronic recurrent foot ulcers. He was initially seen for right hallux infected ulcer in the hospital and the ulcer has been present for over 4 months. He has had ongoing delayed healing. He has recently been offloading the right foot with a cam walker boot and continues to offload the left ulcer with a surgical shoe. He reports improved compliance with offloading at home. He relates his glucose levels are too elevated and his hemoglobin A1c is over 10. He has been changing the dressings daily with silver cell. He washes his feet with saline. He denies fever, chill, nausea, vomiting. He denies claudication. He has rest paresthesias and neuropathy. He presents to the wound care center today to see if there are advanced comprehensive treatment options. Past Medical History Past Medical History: Chronic Problems (Last Updated 08/12/17 @ 11:54 by Lorenza Nguyễn) Other specified peripheral vascular diseases (Chronic) Ulcer of right foot with fat layer exposed (Chronic) Ulcer of left foot with fat layer exposed (Chronic) Obesity (BMI 30.0-34.9) (Chronic) Obesity, Class II, BMI 35-39.9, with comorbidity (Chronic) Type 2 diabetes mellitus with diabetic neuropathy (Chronic) CAD (coronary artery disease) (Chronic) Type 2 diabetes mellitus (Chronic) Hypertension (Chronic) Hyperlipidemia (Chronic) Surgical History: appendectomy, coronary bypass surgery, - - CABG x 4 and PCI x 4, appendectomy, toe surgery, back surgery x2. Allergies/Adverse Reactions: Allergies atorvastatin [From Lipitor] Adverse Reaction (Verified 01/25/20 13:39) Pain in joints rosuvastatin [From Crestor] Adverse Reaction (Verified 01/25/20 13:39) Pain in joints Home Medications: Ambulatory Orders Medication Instructions Recorded carvedilol 25 mg tablet 25 mg PO BID 08/12/17 glimepiride 4 mg tablet 4 mg PO DAILY 08/12/17 insulin glargine 100 unit/mL (3 40 - 50 unit SC DAILY 08/12/17 mL) subcutaneous pen metformin 1,000 mg tablet 1,000 mg PO BID 08/12/17 Lisinopril [Zestril] 20 mg PO BID 08/14/17 Multivit-Mins/Iron/Folic/Lycop 1 tab PO BID 09/16/19 [Centrum Ultra Men's Tablet] Oregano Oil [Oil of Oregano] 1,500 mg PO BID 09/16/19 - Family History Maternal Family History: Family History (Last Updated 08/12/17 @ 11:56 by Lorenza Nguyễn) Other CAD (coronary artery disease) Diabetes Diabetes Paternal Family History: Family History (Last Updated 08/12/17 @ 11:56 by Lorenza Nguyễn) Other CAD (coronary artery disease) Diabetes Heart Disease Smoking Status: Never smoker Tobacco Use: Non-smoker Review of Systems Constitutional: Denies: Chills, Fever, Weakness, Fatigue Cardiovascular: Denies: Chest Pain, Claudication, Edema Respiratory: Denies: Cough, Shortness of Breath Gastrointestinal: Denies: Nausea, Vomiting Musculoskeletal: Denies: Foot Pain, Leg Pain Skin: Reports: Skin Changes, Wounds Neurological: Reports: Numbness - Physical Exam Vital Signs Temp Pulse Resp BP 97.9 F 79 18 151/76 H 01/25/20 13:19 01/25/20 13:19 01/25/20 13:19 01/25/20 13:19 General: Alert, Oriented x3, Cooperative, No apparent distress HEENT: Atraumatic Extremities: No cyanosis, Capillary Refill Less than 3 Seconds - All digits bilateral, No Calf Tenderness - Negative [place] and Pina sign bilateral. Compartments soft to palpate without fluctuance or bogginess bilateral lower extremities, Diminished Peripheral Pulses - He does have palpable DP pulses and nonpalpable PT pulses bilateral Skin: Ulcer/ Wound - Right hallux ulcer and left second toe ulcer have significant peripheral epithelialization and the bases are now healthy and granular. He does not have purulence, erythema streaking, maceration necrosis or deep tissue exposure. Adjacent skin is hairless and atrophic Wound Measurements and Assessment WC - Nurse 1 - General Ulcer Measurement Start: 01/25/20 13:16 Freq: Status: Active Protocol: Activity Type Activity Date Activity User E-Sign Co-Sign Detail Recorded Client Recorded Date Recorded By Document 01/25/20 13:19 DL [id number] 01/25/20 13:36 DL 01/25/20 13:19 Wound Center Nurse 1 [Ulcer Assessment] #2 L 2nd toe -Current Size (cm) - Length 0.3 -Current Size (cm) - Width 0.2 -Current Size (cm) - Depth 0.1 -Total Square Cm 0.06 -Photo Taken Yes -Tunneling No -Undermining/Tunneling No -Exudate Amt None Present -Wound Margin Thickened -Granulation Amt Small (1-33%) -Granulation Quality [place] -Necrosis Amt Small (1-33%) -Necrotic Tissue Type Adherent Slough -Structure Exposed N/A -Texture (Lizz-wound Skin Appearance) Scarring -Moisture (Lizz-wound Skin Appearance Dry/Scaly ) -Color (Lizz-wound Skin Appearance) No Abnormality -Temperature (Lizz-wound Skin No Abnormality Appearance) (Pt Warm) -Tenderness on Palpation (Lizz-wound No Skin Appearance) -Anesthetic Used 4% Lidocaine Solution #1 R Grt Toe -Current Size (cm) - Length 0.4 -Current Size (cm) - Width 0.4 -Current Size (cm) - Depth 0.3 -Total Square Cm 0.16 -Photo Taken Yes -Maximum Distance #2 (cm) 0.2 -Circular Undermining Yes -Exudate Amt None Present -Exudate Type Serosanguineous -Wound Margin Thickened -Granulation Amt Small (1-33%) -Granulation Quality Red -Necrosis Amt Small (1-33%) -Necrotic Tissue Type Adherent Slough -Structure Exposed N/A -Texture (Lizz-wound Skin Appearance) Callus,Scarring -Moisture (Lizz-wound Skin Appearance Dry/Scaly ) -Color (Lizz-wound Skin Appearance) No Abnormality -Temperature (Lizz-wound Skin No Abnormality Appearance) (Pt Warm) -Tenderness on Palpation (Lizz-wound No Skin Appearance) -Ulcer Cleansing Wound Cleanser -Foul Odor after Cleansing No -Anesthetic Used 4% Lidocaine Solution WC - Nurse 2 - General Ulcer CM Notes Start: 01/25/20 13:16 Freq: Status: Active Protocol: Activity Type Activity Date Activity User E-Sign Co-Sign Detail Recorded Client Recorded Date Recorded By Document 01/25/20 13:53 [id number] 01/25/20 14:00 01/25/20 13:53 Wound Center Nurse 2 [Procedure/Treatment] #2 L 2nd toe -Time 13:56 -Correct Patient Yes -Correct Side, Site, Position Yes -Correct Procedure Yes -Procedure Performed Yes -Type of Procedure Debridement -Clinical Debridement Subcutaneous -Tissue Removed Subcutaneous -Post Debridement (cm) - Length 0.4 -Post Debridement (cm) - Width 0.9 -Post Debridement (cm) - Depth 0.1 -Total Square (Post) (cm) 0.36 -Area of Debridement (cm) - Length 0.4 -Area of Debridement (cm) - Width 0.9 -Total Square (Area) (cm) 0.36 -Tunneling No -Undermining/Tunneling No -Circular Undermining No -Wound/Ulcer Outcome Not Healed -Ulcer Cleansing Rinsed/ Irrigated with Saline -Foul Odor after Cleansing No -Bioengineered Tissue No -Bleeding Controlled with Pressure -Offloading Yes -Type of Offloading Surgical Shoe -Treatment Response Procedure Tolerated Well -Debridement - Subq, 1st 20sq cm No #1 R Grt Toe -Time 13:57 -Correct Patient Yes -Correct Side, Site, Position Yes -Correct Procedure Yes -Procedure Performed Yes -Type of Procedure Debridement -Clinical Debridement Subcutaneous -Tissue Removed Subcutaneous -Post Debridement (cm) - Length 0.5 -Post Debridement (cm) - Width 0.9 -Post Debridement (cm) - Depth 0.1 -Total Square (Post) (cm) 0.45 -Area of Debridement (cm) - Length 0.5 -Area of Debridement (cm) - Width 0.9 -Total Square (Area) (cm) 0.45 -Tunneling No -Undermining/Tunneling No -Circular Undermining No -Wound/Ulcer Outcome Not Healed -Ulcer Cleansing Rinsed/ Irrigated with Saline -Foul Odor after Cleansing No -Bioengineered Tissue No -Bleeding Controlled with Pressure -Offloading Yes -Type of Offloading Camwalker -Treatment Response Procedure Tolerated Well -Debridement - Subq, 1st 20sq cm Yes [See Physician Procedure note for Specifics] Pain Scale: 0-10 Numeric [Pain] -Is Patient Pain Free? Yes - Nurse 3 - General Ulcer D/C NN Start: 01/25/20 13:16 Freq: Status: Active Protocol: Activity Type Activity Date Activity User E-Sign Co-Sign Detail Recorded Client Recorded Date Recorded By Document 01/25/20 14:11 DL [id number] 01/25/20 14:15 DL 01/25/20 14:11 Wound Care Nurse 3 [Wound Dressing] #2 L 2nd toe -Ulcer Cleansing Rinsed/ Irrigated with Saline -Foul Odor after Cleansing No -Primary Dressing Applied Aquacel AG 4x4 -Primary Dressing Covered/Secured Dry Gauze, with Secured with Tape -Aquacel AG 4x4 1 #1 R Grt Toe -Ulcer Cleansing Rinsed/ Irrigated with Saline -Foul Odor after Cleansing No -Other Dressing Aqaucel ag -Primary Dressing Covered/Secured Dry Gauze, with Secured with Tape [Post Procedure Tolerated] -Treatment Response Procedure Tolerated Well Pain Scale: 0-10 Numeric [Pain] -Is Patient Pain Free? Yes - Visit Discharge [Visit Discharge Information] -Discharge Condition Stable -Ambulatory Status Ambulatory -Transportation Private Auto Musculoskeletal: No Tenderness to Palpation of Joints or Extremities, Muscle Wasting, - - Reduced first metatarsophalangeal joint loaded and unloaded range of motion right Neurological: - - Lack of epicritic sensation to light touch is consistent with neuropathy Psych/Mental Status: Normal Affect, Appropriate Debridement Note Post-Debridement Measurements/Treatment WC - Nurse 2 - General Ulcer CM Notes Start: 01/25/20 13:16 Freq: Status: Active Protocol: Activity Type Activity Date Activity User E-Sign Co-Sign Detail Recorded Client Recorded Date Recorded By Document 01/25/20 13:53 [id number] 01/25/20 14:00 01/25/20 13:53 Wound Center Nurse 2 #2 L 2nd toe -Time 13:56 -Correct Patient Yes -Correct Side, Site, Position Yes -Correct Procedure Yes -Procedure Performed Yes -Type of Procedure Debridement -Clinical Debridement Subcutaneous -Tissue Removed Subcutaneous -Post Debridement (cm) - Length 0.4 -Post Debridement (cm) - Width 0.9 -Post Debridement (cm) - Depth 0.1 -Total Square (Post) (cm) 0.36 -Area of Debridement (cm) - Length 0.4 -Area of Debridement (cm) - Width 0.9 -Total Square (Area) (cm) 0.36 -Tunneling No -Undermining/Tunneling No -Circular Undermining No -Wound/Ulcer Outcome Not Healed -Ulcer Cleansing Rinsed/ Irrigated with Saline -Foul Odor after Cleansing No -Bioengineered Tissue No -Bleeding Controlled with Pressure -Offloading Yes -Type of Offloading Surgical Shoe -Treatment Response Procedure Tolerated Well -Debridement - Subq, 1st 20sq cm No #1 R Grt Toe -Time 13:57 -Correct Patient Yes -Correct Side, Site, Position Yes -Correct Procedure Yes -Procedure Performed Yes -Type of Procedure Debridement -Clinical Debridement Subcutaneous -Tissue Removed Subcutaneous -Post Debridement (cm) - Length 0.5 -Post Debridement (cm) - Width 0.9 -Post Debridement (cm) - Depth 0.1 -Total Square (Post) (cm) 0.45 -Area of Debridement (cm) - Length 0.5 -Area of Debridement (cm) - Width 0.9 -Total Square (Area) (cm) 0.45 -Tunneling No -Undermining/Tunneling No -Circular Undermining No -Wound/Ulcer Outcome Not Healed -Ulcer Cleansing Rinsed/ Irrigated with Saline -Foul Odor after Cleansing No -Bioengineered Tissue No -Bleeding Controlled with Pressure -Offloading Yes -Type of Offloading Camwalker -Treatment Response Procedure Tolerated Well -Debridement - Subq, 1st 20sq cm Yes Pain Scale: 0-10 Numeric Is Patient Pain Free? Yes WC - Nurse 3 - General Ulcer D/C NN Start: 01/25/20 13:16 Freq: Status: Active Protocol: Activity Type Activity Date Activity User E-Sign Co-Sign Detail Recorded Client Recorded Date Recorded By Document 01/25/20 14:11 DL [id number] 01/25/20 14:15 DL 01/25/20 14:11 Wound Care Nurse 3 #2 L 2nd toe -Ulcer Cleansing Rinsed/ Irrigated with Saline -Foul Odor after Cleansing No -Primary Dressing Applied Aquacel AG 4x4 -Primary Dressing Covered/Secured with Dry Gauze, Secured with Tape -Aquacel AG 4x4 1 #1 R Grt Toe -Ulcer Cleansing Rinsed/ Irrigated with Saline -Foul Odor after Cleansing No -Other Dressing Aqaucel ag -Primary Dressing Covered/Secured with Dry Gauze, Secured with Tape Treatment Response Procedure Tolerated Well Pain Scale: 0-10 Numeric Is Patient Pain Free? Yes WC - Visit Discharge Discharge Condition Stable Ambulatory Status Ambulatory Transportation Private Auto Wound debrided: plantar hallux Laterality: Right Wound Grade/Stage: grade 1 Type of Debridement: Excisional debridement Anesthesia Used: 5% Lidocaine Gel Depth: in the subcutaneous layer Percentage of wound debrided: 100 Instrument Used: #15 blade Tissue Removed: fibrous, devitalized subcutaneous, biofilm, slough Severity: Fat Layer Exposed Amount of bleeding with debridement: Mild Bleeding Controlled with: Pressure Patient tolerated procedure well - Additional Wound Wound debrided: plantar second toe Laterality: Left Wound Grade/Stage: grade 1 Type of Debridement: Excisional debridement Anesthesia Used: 5% Lidocaine Gel Depth: in the subcutaneous layer Percentage of wound debrided: 100 Instrument Used: #15 blade Tissue Removed: fibrous, devitalized subcutaneous, biofilm, slough Severity: Fat Layer Exposed Amount of bleeding with debridement: Mild Bleeding Controlled with: Pressure Patient tolerated procedure: Patient tolerated procedure well Assessment/Plan Active Problems (Last Updated 08/12/17 @ 11:54 by Lorenza Nguyễn) Other specified peripheral vascular diseases (Chronic) Ulcer of right foot with fat layer exposed (Chronic) Ulcer of left foot with fat layer exposed (Chronic) Delayed wound healing (Acute) Type 2 diabetes mellitus with diabetic neuropathy (Chronic) Assessment: Right foot ulcer hallux with fat layer exposed, no infection. Left second toe ulcer fat layer exposed, no infection. Uncontrolled diabetes (hemoglobin A1c 10.7). Delayed healing. Peripheral vascular disease work-up in process. Malnutrition suspected Plan: I reviewed and discussed his case and reviewed his medical records. Ulcer debridement was performed as noted in the clinical panel in a subcutaneous excisional manner. To continue to change dressing daily with silver cell. I recommend he washes his feet daily with antibacterial soap and water such as Dial soap. He was reassured no local signs of infection or deep tissue exposure was noted. To continue strict offloading with right cam walker boot and left surgical shoe with dual density offloading Plastizote liners. Due to his ulcer chronicity I recommend noninvasive vascular studies in order was provided today. I also recommend he maintains proper glycemic control and improve diet. I recommended a previous nutrition referral and endocrinology referral. I will confirm where he is at his process. I will also confirm if he had a recent x- ray of the foot performed if he demonstrates lack of progress at his follow-up exam. It is noted both ulcers have significantly reduced in size. His size reduction currently does not qualify him for application for advanced wound healing product, such as epifix. This will be considered if he has a setback. I reviewed his labs from last month without gross abnormalities. His hemoglobin A1c was 10.7 on 09-16-2019. I answered all his questions. He was advised to return to the wound center in 1 week.
== END 2020-01-30 23:59 ==
LOC: WC 13:02
PROVIDERS: PCP Family Medicine; Referring Provider Podiatrist; Visit Provider Podiatrist
DX: E11.621 Type 2 diabetes mellitus with foot ulcer (principal); E11.51 Type 2 diabetes mellitus with diabetic peripheral angiopathy without gangrene; E11.40 Type 2 diabetes mellitus with diabetic neuropathy, unspecified; L97.512 Non-pressure chronic ulcer of other part of right foot with fat layer exposed; L97.522 Non-pressure chronic ulcer of other part of left foot with fat layer exposed; I25.10 Atherosclerotic heart disease of native coronary artery without angina pectoris; E66.9 Obesity, unspecified; E78.5 Hyperlipidemia, unspecified; I10 Essential (primary) hypertension
CPT/HCPCS: 11042; 99213; G0463

== ENCOUNTER 2020-01-28 11:29 | Inpatient (IN) | payer MEDICARE, BC, SELFPAY ==
[2020-01-28] VITALS (8 sets, daily range): BP systolic 119–196; BP diastolic 60–107; PULSE 75–93; RESP 18–29; TEMP 37.3–38.3; O2SAT 93–97; BMI 35.4; BMI 37.6; BMI 37.7
--- NOTE | 2020-01-28 11:40 | RAD_ITS ---
STUDY: X-RAY CHEST REASON FOR EXAM: Male, 64 years old. FEVER TECHNIQUE: AP COMPARISON: None. FINDINGS: EKG leads project over the chest. Sternal wires and mediastinal surgical clips compatible with prior CABG. Lungs are underexpanded with patchy groundglass and reticular opacities predominantly in the lung bases also extending into the left upper lobe. There is no demonstrated pleural abnormality. Normal size heart. Normal mediastinum and sharmila. Normal visualized pulmonary arteries. Normal visualized aortic arch and descending thoracic aorta. Normal visualized thoracic spine. Normal visualized ribs, clavicles, and shoulders. There is no demonstrated abnormality of the visualized soft tissue structures of the upper abdomen. RAD/Chest 1 View (Portable) IMPRESSION: Multilobar groundglass opacities suggesting possibility of pneumonia, including viral causes, although can also be seen in pulmonary edema. Electronically Signed: Eric Marie MD ([place]) at 13:13 EST , Service support ,
--- NOTE | 2020-01-28 11:40 | EKG12_ITS ---
Test Reason : DYSRHYTHMIA Blood Pressure : / mmHG Vent. Rate : 079 BPM Atrial Rate : 079 BPM P-R Int : 184 ms QRS Dur : 148 ms QT Int : 388 ms P-R-T Axes : 040 -30 -10 degrees QTc Int : 444 ms Normal sinus rhythm Left axis deviation Right bundle branch block Inferior infarct , age undetermined Abnormal ECG Confirmed by TAHIR BERMUDEZ, RENYALDO ([id number]), editor dictionary KRYSTYNA NUÑEZ ([id number]) on 01/31/2020 9:13:28 AM Referred By: LUCIANO Confirmed By:REYNALDO HARO MD
--- NOTE | 2020-01-28 11:48 | NURSING ---
NO OLD EKGS
--- NOTE | 2020-01-28 11:50 | RAD_ITS ---
STUDY: X-RAY - RIGHT FOOT CLINICAL: Male, 64 years old. ULCER BIG TOE TECHNIQUE: 3 view(s) of the foot. COMPARISON: None. FINDINGS: Normal talus, calcaneus, and tarsal bones. Degenerative spurring of the dorsal midfoot. Normal metatarsi. There is degenerative arthrosis of the metatarsophalangeal joint of the hallux . Normal tibial and fibular sesamoid bones. Normal interphalangeal joint of the great toe. Normal phalanges of the great toe. Normal second through fifth metatarsophalangeal joints. Normal interphalangeal joints and phalanges of the lesser toes. The soft tissue structures are unremarkable. RAD/Foot min 3 Views IMPRESSION: No destructive bony process. Degenerative changes. Electronically Signed: Eric Marie MD ([place]) at 13:15 EST , Service support ,
--- NOTE | 2020-01-28 11:50 | RAD_ITS ---
STUDY: X-RAY - LEFT FOOT CLINICAL: Male, 64 years old. RED RIGHT FOOT. PT ONLY COMPLAINT IS BACK PAIN TECHNIQUE: 3 view(s) of the foot. COMPARISON: None. FINDINGS: Normal talus, calcaneus, and tarsal bones. Degenerative spurring of the dorsal midfoot. Normal metatarsi. There is degenerative arthrosis of the metatarsophalangeal joint of the hallux . Normal tibial and fibular sesamoid bones. Normal interphalangeal joint of the great toe. Normal phalanges of the great toe. Normal second through fifth metatarsophalangeal joints. Normal interphalangeal joints and phalanges of the lesser toes. The soft tissue structures are unremarkable. RAD/Foot min 3 Views IMPRESSION: No destructive bony process. Degenerative changes. Electronically Signed: Eric Marie MD ([place]) at 13:14 EST , Service support ,
[2020-01-28] MEDS: Acetaminophen 500 MG Tablet 1000 MG PO (11:58)
--- NOTE | 2020-01-28 12:07 | ED.VISSUMM ---
- ER Visit Summary Date of Service: 01/28/20 Chief Complaint: Fever, chills, toe infection History of Present Illness: The patient is a 64 M who presents with fever, chills, and infection in his toes that began yesterday. states it is gradually gotten worse. states the patient has become more weak since yesterday. Patient also admits to some pain in his low back. Patient describes it as sharp. Patient is nothing makes his symptoms better or worse. Patient admits to some nausea and vomiting. Patient also admits to mild headache. Patient denies any chest pain or shortness of breath. Patient states his temperature at home was not elevated but states he felt warm. Physical Examination: Vital signs are stable. Patient is febrile here with a temperature of 101. Patient is in no acute distress. Oral mucosa is pink and moist. Neck is supple. Trachea is midline. There is no JVD. Heart was regular rate and rhythm. Lungs are clear and equal bilaterally. There is good respiratory effort noted. Abdomen is soft. Bowel sounds are normal. There is no tenderness. Cranial nerves II through XII are grossly intact. There are no focal motor or sensory deficits noted. Skin is warm and dry. There is erythema over the right great toe and left second toe. There is a superficial ulcer on the plantar aspect of the distal phalanx of the right great toe and on the plantar aspect of the proximal phalanx of the left second toe. There is no active discharge or drainage. Capillary refill is less than 2 seconds in all digits. Test Results: Portable 1 view chest x-ray was obtained. On my interpretation, lung palm show bilateral groundglass infiltrates versus pulmonary edema. There is normal cardiac silhouette. Bony thorax is normal. There is no acute process noted. Radiologist also interpreted the x-ray and agrees. CBC shows a mild leukocytosis of 13.6. Sodium was 129. Blood cultures were obtained and are pending. COVID-19 antigen test was obtained and was negative. X-ray of the right foot was obtained. There are 3 views. On my interpretation, there is no acute fracture or evidence of osteomyelitis. X-ray of the left foot was obtained. There are 3 views. On my interpretation there is also no evidence of fracture or osteomyelitis. These were also interpreted by the radiologist and he agrees with interpretation. Emergency Department Course and Treatment: Patient was started on Unasyn and vancomycin. Case was discussed with the hospitalist. He will admit the patient to his service. Patient understands and is agreeable with the plan. All questions were answered. Sepsis re-evaluation was performed. Disposition: Admit to hospital Impression: 1. Sepsis 2. Cellulitis right great toe 3. Cellulitis left second toe This note was generated with [employer] dictation software. It may contain incorrect words, spelling, and punctuation that were not noted in review of the chart prior to signing ED Disposition - Plan for ED Patient: Disposition: Acute Care Hospital [facility] Diagnosis: Sepsis, Cellulitis of great toe, right, Cellulitis of second toe, left Referrals: Otilio Sahu MD [Primary Care Provider] -
[2020-01-28 12:23] LABS: Absolute Neutrophil Count 11.8 X10^3/uL (2.0-7.7); Basophil# 0.03 X10^3/uL; Basophil% 0.2 % (0-1); Eosinophil# 0.01 X10^3/uL; Eosinophils% 0.1 % (0-5); Hematocrit 39.4 % (40-54); Hemoglobin 14.4 g/dL (13.0-16.5); Lymphocyte % 3.7 % (19-41); Mean Corp Hgb Conc 36.5 g/dL (32-36); Mean Corpuscular Hgb 31.7 pg (27.0-32.0); Mean Corpuscular Volume 86.8 fL (80-94); Mean Platelet Vol. 9.3 fl (6.2-12.0); Monocyte# 1.03 X10^3/uL; Monocyte% 7.6 % (0-10); NRBC Flagged by Analyzer 0 % (0-5); POSITIVE DIFFERENTIAL YES; Platelet Count 206 K/mm3 (150-450); RBC Distribution Width CV 12.9 % (11.6-14.6); RBC Distribution Width SD 40.2 fl (35.1-43.9); Red Blood Count 4.54 M/mm3 (4.6-6.2); White Blood Count 13.6 K/mm3 (4.4-11.0)
[2020-01-28 12:24] LABS: Differential Indicated SCAN CRITERIA MET
[2020-01-28 12:30] LABS: Partial Thromboplast Time 28.6 Seconds (24.1-36.2)
[2020-01-28 12:37] LABS: ALB/GLOB Ratio 0.9 RATIO (0.9-2.4); AST(SGOT) 16 U/L (15-37); Alanine Aminotransfer ALT/SGPT 29 U/L (16-61); Albumin, Serum 3.5 g/dL (3.2-5.0); Alkaline Phosphatase 75 U/L (45-117); Anion Gap 8 (5-15); BUN 23 mg/dL (7-18); BUN/Creat Ratio 18.4 RATIO (10-20); Calcium,Total 8.9 mg/dL (8.5-10.1); Chloride 97 mmol/L (98-107); Creatinine, Serum 1.25 mg/dL (0.70-1.30); EST Glomerular Filtration Rate 62 mL/min (>60); Est Glom Filt Rate - Afr Amer 75 mL/min (>60); Estimated Creatinine Clearance 58.92 ml/min; Globulin 4.1 g/dL (2.2-4.2); Glucose 304 mg/dL (74-106); Potassium 4.2 mmol/L (3.5-5.1); Protein, Total 7.6 g/dL (6.4-8.2); Sodium Level 129 mmol/L (136-145)
[2020-01-28] MEDS: Ondansetron 4 MG/2 ML Vial IV (12:38)
[2020-01-28 12:44] LABS: Lactic Acid 1.8 mmol/L (0.4-1.9)
[2020-01-28 12:47] LABS: Differential Comment SCANNED
[2020-01-28] MEDS: Morphine 4 MG/ML Syringe IV (14:56)
--- NOTE | 2020-01-28 15:20 | NURSING ---
DR ALSTON FOR DR DUBON
--- NOTE | 2020-01-28 15:26 | NURSING ---
MED SURG KOTSONIS SEPSIS, CELLULITIS RT GREAT TOE, CELLULITISI LT SECOND TOE
--- NOTE | 2020-01-28 15:49 | HP.PCM_ITS ---
<Eligio Kelly - Last Filed: 01/28/20 15:49> Problem List (1) COVID-19 Status: Acute (2) Cellulitis Status: Acute (3) Type 2 diabetes mellitus with diabetic neuropathy Status: Chronic (4) CAD (coronary artery disease) Status: Chronic (5) Type 2 diabetes mellitus Status: Chronic (6) Hypertension Status: Chronic (7) Hyperlipidemia Status: Chronic History of Present Illness Date of Admission: 01/28/20 Chief Complaint: fevers The patient is a 64 year old M with pmhx of DMt2 with peripheral neuropathy and associated nonhealing toe wounds, CAD with prior CABG, who presents with generalized illness including fevers/chills, and concern for worsening toe wounds. He has been followed by Leonard Kendrick and Nancy for his toe wounds and was recently seen in the office and told his feet are improving significantly. 2 days ago he developed fevers and chills, and some increased redness and a small amount of yellow discharge on the band aid. He now has fevers, chills, cough, mild SOB with no hypoxia, diarrhea, abdominal bloating, worsening of his chronic back pain. He has no sensation of pain in his feet due to neuropathy. He denies any new trauma to the area. In the ER he was found to have mild redness around the toe wounds - left 2nd digit, right 1st digit - no discharge present. His chest xray demonstrates BL groundglass opacities. [] Past Medical History Past Medical History (Chronic Problems): Chronic Problems (Last Updated 08/12/17 @ 11:54 by Lorenza Nguyễn) Other specified peripheral vascular diseases (Chronic) Ulcer of right foot with fat layer exposed (Chronic) Ulcer of left foot with fat layer exposed (Chronic) Obesity (BMI 30.0-34.9) (Chronic) Obesity, Class II, BMI 35-39.9, with comorbidity (Chronic) Type 2 diabetes mellitus with diabetic neuropathy (Chronic) CAD (coronary artery disease) (Chronic) Type 2 diabetes mellitus (Chronic) Hypertension (Chronic) Hyperlipidemia (Chronic) Medical History: Medical History (Last Updated 08/12/17 @ 11:54 by Lorenza Nguyễn) Diabetes E11.9 Heart disease I51.9 Liver disease K76.9 Hypertension I10 Allergies atorvastatin [From Lipitor] Adverse Reaction (Verified 01/25/20 13:39) Pain in joints rosuvastatin [From Crestor] Adverse Reaction (Verified 01/25/20 13:39) Pain in joints Home Medications: Ambulatory Orders Medication Instructions Recorded carvedilol 25 mg tablet 25 mg PO BID 08/12/17 glimepiride 4 mg tablet 4 mg PO DAILY 08/12/17 insulin glargine 100 unit/mL (3 70 unit SC QHS 08/12/17 mL) subcutaneous pen metformin 1,000 mg tablet 1,000 mg PO BID 08/12/17 Lisinopril [Zestril] 20 mg PO BID 08/14/17 Multivit-Mins/Iron/Folic/Lycop 1 tab PO BID 09/16/19 [Centrum Ultra Men's Tablet] Oregano Oil [Oil of Oregano] 1,500 mg PO BID 09/16/19 Surgical History: Surgical History (Last Updated 08/12/17 @ 11:56 by Lorenza Nguyễn) History of back surgery Z98.890 Hx of CABG Z95.1 Hx of appendectomy Z90.49 Hx of toe surgery Z98.890 Surgical History: appendectomy, coronary bypass surgery, - - CABG x 4 and PCI x 4, appendectomy, toe surgery, back surgery x2. Psychiatric History: No pertinent psych hx Lives: With Family Smoking Status: Never smoker Tobacco Use: Non-smoker Alcohol: None Drugs: None - *Family History Maternal Family History: Family History (Last Reviewed 01/28/20 @ 16:02 by BELA Camarena) Other CAD (coronary artery disease) Diabetes History Items: Diabetes Paternal Family History: Family History (Last Reviewed 01/28/20 @ 16:02 by BELA Camarena) Other CAD (coronary artery disease) Diabetes History Items: Heart Disease Review of Systems Constitutional: Reports: Chills, Fever, Malaise, Weakness. Denies: Weight Change HEENT: Denies: Head Aches, Sinus Congestion, Sinus Drainage Cardiovascular: Denies: Chest Pain, Chest Tightness, Edema, Heaviness, Light Headedness, Palpitations, Syncope Respiratory: Reports: Cough, Shortness of Breath. Denies: Shortness of breath at rest, Sputum production Gastrointestinal: Reports: Diarrhea, - - bloating. Denies: Abdominal Pain, Nausea, Vomiting Genitourinary: Denies: Dysuria, Hesitancy, Urgency Musculoskeletal: Reports: Back Pain - worsening of chronic back pain. Denies: Joint Pain, Joint Tenderness Skin: Reports: Wounds. Denies: Lesions, Rash Neurological: Denies: Numbness, Tingling, Focal weakness Psychiatric: Denies: Anxiety, Depression, Homicidal Ideations, Suicidal Ideations Hematologic/ Lymphatic: Denies: Easy Bruising, Easy Bleeding VTE Information - Inpt Only VTE Present on Admission: No VTE Mechan Device Prophylaxis: None VTE Pharm Prophylaxis ordered?: Yes - Physical Exam Vitals/I&O's: Vital Signs Temp Pulse Resp BP Pulse Ox 99.1 F 76 20 H 138/75 H 97 01/28/20 15:36 01/28/20 15:36 01/28/20 15:36 01/28/20 15:36 01/28/20 15:36 Oxygen Flow Rate (L/min) 2 Oxygen Delivery Method Room Air Weight: 240 lb Body Mass Index (BMI) 35.4 Intake and Output for Last 24 Hours 01/26/20 01/27/20 01/28/20 23:59 23:59 23:59 Intake Total 112 / 112 Balance 112 / 112 General: Alert, Oriented x3, Cooperative HEENT: Atraumatic, PERRLA, EOMI, Normocephalic Neck: Supple, No JVD, Negative Carotid Bruits Lungs: Clear to auscultation, Normal air movement Cardiovascular: Regular rate, No murmurs Abdomen: Bowel Sounds Present, Soft, Non Tender Extremities: No edema, Capillary Refill Less than 3 Seconds Skin: No rashes, No breakdown Musculoskeletal: No Tenderness to Palpation of Joints or Extremities Neurological: Cranial nerves II-XII grossly intact Psych/Mental Status: Normal Affect, Appropriate, Alert and oriented to time, place, person, mood and affect Microbiology Past 72 Hours 01/28/20 14:30 Mucosa - Nose SARS-CoV-2 Antigen (Rapid) - Final Laboratory Results 01/28/20 12:10: WBC 13.6 H, RBC 4.54 L, Hgb 14.4, Hct 39.4 L, MCV 86.8, MCH 31.7, MCHC 36.5 H, RDW Std Deviation 40.2, RDW Coeff of Shelby 12.9, Plt Count 206, MPV 9.3, Immature Gran % (Auto) 1.400 H, Neut % (Auto) 87.0 H, Lymph % (Auto) 3.7 L, Cedar % (Auto) 7.6, Eos % (Auto) 0.1, Baso % (Auto) 0.2, Absolute Neuts (auto) 11.8 H, Absolute Lymphs (auto) 0.50 L, Nucleated RBC % 0, Differential Comment SCANNED 01/28/20 12:10: PT 13.0, INR 1.0, APTT 28.6 01/28/20 12:10: Sodium 129 L, Potassium 4.2, Chloride 97 L, Carbon Dioxide 24.0, Anion Gap 8, BUN 23 H, Creatinine 1.25, Estim Creat Clear Calc 58.92, Est GFR (MDRD) Af Amer 75, Est GFR (MDRD) Non-Af 62, BUN/Creatinine Ratio 18.4, Glucose 304 H, Calcium 8.9, Total Bilirubin 1.30 H, AST 16, ALT 29, Alkaline Phosphatase 75, Total Protein 7.6, Albumin 3.5, Globulin 4.1, Albumin/Globulin Ratio 0.9 01/28/20 12:10: Lactic Acid 1.8 Current Medications Vancomycin HCl 2,000 mg/ (Sodium Chloride) 540 mls @ 250 mls/hr IV X1 ONE Stop: 01/28/20 16:09 Last Admin: 01/28/20 15:16 Dose: 250 mls/hr Documented by: Assessment/Plan All Active Problems (Last Updated 08/12/17 @ 11:54 by Lorenza Nguyễn) Delayed wound healing (Acute) COVID-19 (Acute) Sepsis (Acute) Cellulitis of great toe, right (Acute) Cellulitis of second toe, left (Acute) Bacteremia (Acute) Cellulitis (Acute) Open wound of right great toe (Acute) Ulcer of right foot with fat layer exposed (Acute) MSSA (methicillin susceptible Staphylococcus aureus) infection (Acute) 1. Covid 19 - patient presenting with fever, cough, sob, leukocytosis, GI symptoms, lymphopenia, BL multilobular ground glass infiltrates on xray. Covid antigen test is negative however his clinical picture is c/w covid19. Pt will be admitted to the cohort unit and started on decadron. He is not hypoxic at this time. Check D dimer and Procalcitonin. He is tachypneic with a fever of 101.0. 2. Possible sepsis due to nonhealing wounds/cellulitis - confounding the above is his presentation with some mild increase in redness and a yellow discharge on his band aid from his toe wounds. In the ER there is only mild increased redness and no discharge. Xrays are negative for acute process. Pt will be started empirically on vancomycin. He has had strep and staph in the past. Dr Kendrick will be consulted as she has been following in the wound center - and notably the patient and state that at the last visit his wounds were improving. Consult wound nurse. 3. Hyponatremia - possibly due to infection and hyperglycemia. Provide 0.9% NaCl. 4. Hx CAD/CABG - coreg, zestril. statin allergic. non on aspirin for unclear reasons. 5. DMt2 with hyperglycemia, peripheral neuropathy, obesity - galrgine will be divided into BID dosing. Add sliding scale. Expect worsening hyperglycemia with decadron. Hold metformin, glimeperide. Punchboard Filling Machine Operator consult. 6. HTN - home meds DVT ppx: Lovenox This patient was seen by Eligio Kelly PA-C under the supervision of Dr. Delgadillo. <Jori Delgadillo - Last Filed: 01/28/20 19:19> History of Present Illness The patient is a 64 year old M [] Past Medical History Medical History: Medical History (Last Updated 08/12/17 @ 11:54 by Lorenza Nguyễn) Diabetes E11.9 Heart disease I51.9 Liver disease K76.9 Hypertension I10 Allergies atorvastatin [From Lipitor] Adverse Reaction (Verified 01/25/20 13:39) Pain in joints rosuvastatin [From Crestor] Adverse Reaction (Verified 01/25/20 13:39) Pain in joints Surgical History: Surgical History (Last Updated 08/12/17 @ 11:56 by Lorenza Nguyễn) History of back surgery Z98.890 Hx of CABG Z95.1 Hx of appendectomy Z90.49 Hx of toe surgery Z98.890 - *Family History Maternal Family History: Family History (Last Reviewed 01/28/20 @ 16:02 by BELA Camarena) Other CAD (coronary artery disease) Diabetes Paternal Family History: Family History (Last Reviewed 11/28/20 @ 16:02 by BELA Camarena) Other CAD (coronary artery disease) Diabetes - Physical Exam Vitals/I&O's: Vital Signs Temp Pulse Resp BP Pulse Ox 100.2 F H 89 18 159/77 H 96 01/28/20 17:17 01/28/20 17:17 01/28/20 17:17 01/28/20 17:17 01/28/20 17:17 Oxygen Flow Rate (L/min) 2 Oxygen Delivery Method Nasal Cannula Weight: 255 lb Body Mass Index (BMI) 37.6 Intake and Output for Last 24 Hours 01/26/20 01/27/20 01/28/20 23:59 23:59 23:59 Intake Total 752 / 752 Balance 752 / 752 Microbiology Past 72 Hours 01/28/20 14:30 Mucosa - Nose SARS-CoV-2 Antigen (Rapid) - Final Laboratory Results 01/28/20 12:10: WBC 13.6 H, RBC 4.54 L, Hgb 14.4, Hct 39.4 L, MCV 86.8, MCH 31.7, MCHC 36.5 H, RDW Std Deviation 40.2, RDW Coeff of Shelby 12.9, Plt Count 206, MPV 9.3, Immature Gran % (Auto) 1.400 H, Neut % (Auto) 87.0 H, Lymph % (Auto) 3.7 L, Cedar % (Auto) 7.6, Eos % (Auto) 0.1, Baso % (Auto) 0.2, Absolute Neuts (auto) 11.8 H, Absolute Lymphs (auto) 0.50 L, Nucleated RBC % 0, Differential Comment SCANNED 01/28/20 12:10: PT 13.0, INR 1.0, APTT 28.6 01/28/20 12:10: Sodium 129 L, Potassium 4.2, Chloride 97 L, Carbon Dioxide 24.0, Anion Gap 8, BUN 23 H, Creatinine 1.25, Estim Creat Clear Calc 58.92, Est GFR (MDRD) Af Amer 75, Est GFR (MDRD) Non-Af 62, BUN/Creatinine Ratio 18.4, Glucose 304 H, Calcium 8.9, Total Bilirubin 1.30 H, AST 16, ALT 29, Alkaline Phosphatase 75, Total Protein 7.6, Albumin 3.5, Globulin 4.1, Albumin/Globulin Ratio 0.9 01/28/20 12:10: Lactic Acid 1.8 01/28/20 12:10: D-Dimer Quant (PE/DVT) 0.55 H* 01/28/20 12:10: Procalcitonin 0.36 H 01/28/20 17:55: POC Glucose 306 H Current Medications Acetaminophen (Acetaminophen 325 Mg Tablet) 650 mg PO Q6H PRN PRN PRN Reason: Pain Score 1-10/Temp > 100.7 F Carvedilol (Carvedilol 25 Mg Tablet) 25 mg PO BID@0800,2200 [facility] Dexamethasone (Dexamethasone 4 Mg Tablet) 6 mg PO DAILY@0800 [facility] Last Admin: 01/28/20 18:58 Dose: 6 mg Documented by: Dextrose (Dextrose 50%-Water 25 Gm/50 Ml Disp.Syrin) 0 gm IV X1 PRN; Protocol PRN Reason: Hypoglycemia Enoxaparin Sodium (Enoxaparin 40 Mg/0.4 Ml Syringe) 40 mg SC DAILY@0800 [facility] Glucagon (Glucagon 1 Mg/Ml Syringe) 1 mg IM .X1 PRN PRN Reason: Hypoglycemia Sodium Chloride () 1,000 mls @ 100 mls/hr IV .Q10H [facility] Last Admin: 01/28/20 18:57 Dose: 100 mls/hr Documented by: Vancomycin IV Pharmacy to Dose (1 ea/ Sodium Chloride) 500 mls @ 250 mls/hr IV PRN PRN; Protocol PRN Reason: Rx to Dose Vancomycin HCl 1,750 mg/ (Sodium Chloride) 535 mls @ 250 mls/hr IV Q12H [facility] Insulin Glargine (Insulin Glargine 100 Units/Ml Pen) 35 units SC BREAKFAST [facility] Insulin Glargine (Insulin Glargine 100 Units/Ml Pen) 35 units SC DINNER [facility] Last Admin: 01/28/20 18:57 Dose: 35 u Documented by: Insulin Human Lispro (Insulin Lispro 100 Unit/Ml Insuln.Pen) 0 unit SC ACHS [facility]; Protocol Last Admin: 01/28/20 19:00 Dose: 6 u Documented by: Lisinopril (Lisinopril 20 Mg Tablet) 20 mg PO BID@0800,2200 [facility] Melatonin (Melatonin 3 Mg Tablet) 3 mg PO QHS PRN PRN PRN Reason: INSOMNIA Ondansetron HCl (Ondansetron 4 Mg/2 Ml Vial) 4 mg IV Q8H PRN PRN PRN Reason: NAUSEA/VOMITING Sodium Chloride (0.9% Saline Lock 10 Ml Syringe) 10 - 40 ml IV UD PRN PRN Reason: SALINE FLUSH Addendum: Dr. Delgadillo I personally examined the patient and reviewed the chart. I agree with the above. 64-year-old male with a history of diabetes with peripheral neuropathy presents to the hospital with acute on chronic back pain. Per the , since he had just received morphine and was groggy, he made an odd motion yesterday try to get out of the way of his daughter and may have developed a muscle spasm but he was complaining of a significant enough amount of pain today that he presented to the hospital. She also mentioned that part of her concern was a new fever as well as purulent drainage from his left second digit when she remove the Band-Aid. He has wounds on his second toe on the left and his first toe on the right that are being followed by the wound care doctors. The right great toe is somewhat red, but is the second toe on the left that had the purulent drainage. He may benefit from an MRI on Thursday. His previous wound cultures have grown staph aureus and strep agalactiae both sensitive to vancomycin which is what he will be continued with. His confounding history begins with the fever followed by cough, that was initially related to be new and then in discussion with his with a chronic cough that he has mostly when he sleeps. Though he did cough frequently during my exam. He is short of breath and tachypneic but not hypoxic so he was placed on oxygen. His Covid test came back negative however this was felt to potentially be a false negative given the shortness of breath, fever, and chest x-ray changes consisting of multilobar groundglass opacities. D-dimer is normal for age. We will continue with Decadron for his Covid. Inpatient E&M: 24435 Init Hosp L3
[2020-01-28 18:05] LABS: Bedside Glucose 306 mg/dL (70-110)
--- NOTE | 2020-01-28 18:06 | PCM.RX.CS ---
Consult Pharmacy has been consulted to manage selected antiobiotic: Vancomycin Type of Consult: New start Suspected Infection: Skin/Soft tissue Labs: Sodium 129 mmol/L (136-145) L 01/28/20 12:10 Potassium 4.2 mmol/L (3.5-5.1) 01/28/20 12:10 Chloride 97 mmol/L (98-107) L 01/28/20 12:10 Carbon Dioxide 24.0 mmol/L (21.0-32.0) 01/28/20 12:10 Anion Gap 8 (5-15) 01/28/20 12:10 BUN 23 mg/dL (7-18) H 01/28/20 12:10 Creatinine 1.25 mg/dL (0.70-1.30) 01/28/20 12:10 Est GFR (MDRD) Af Amer 75 mL/min (>60) 01/28/20 12:10 Est GFR (MDRD) Non-Af 62 mL/min (>60) 01/28/20 12:10 BUN/Creatinine Ratio 18.4 RATIO (-20) 01/28/20 12:10 Glucose 304 mg/dL (74-106) H 01/28/20 12:10 Microbiology: Microbiology 01/28/20 14:30 Mucosa - Nose SARS-CoV-2 Antigen (Rapid) - Final Goal Trough: 15-20 mcg/mL Pharmacy Plan for Drug Dosing: NEW START IV VANCOMYCIN Consulting Physician: Dr. Delgadillo Indication: SSTI Goal Trough: 15-20 SrCr: 1.25 CrCl: 74 mL/min (using AdjBW) Comments: Pt had 2000mg IV X1 in the ED 01/28/20 @1516. Vancomcyin Dose: 1750mg IV Q12hr 01/29/20 @0300 (12hrs from initial dose) Pending Level: 01/30/20 @0230 (prior to 4th total dose per protocol) Pharmacy Service will continue to monitor and adjust dosing as required.
[2020-01-28 18:18] LABS: Procalcitonin 0.36 ng/mL (0.00-0.09)
[2020-01-28 18:28] LABS: D-Dimer Quantitative (DVT/PE) 0.55 FEU/ug/m (0.27-0.49)
[2020-01-28] MEDS: 0.9% Normal Saline 1,000 ML 100 ML IV (18:57)
[2020-01-28] MEDS: dexAMETHasone 4 MG Tablet 6 MG PO (18:58)
[2020-01-28] MEDS: Insulin Lispro 100 UNIT/ML INSULN.PEN SC ×2 (19:00→21:06)
--- NOTE | 2020-01-28 19:32 | NURSING ---
ELEVATED D DIMER 0.55, PRIMARY NURSE MADE AWARE
--- NOTE | 2020-01-28 20:27 | CON.PCM_ITS ---
Reason for Consult Date of Consultation: 01/28/20 Reason for Consultation: Infected toe ulcers History of Present Illness: The patient is a 64 year old gentleman with multiple medical problems including uncontrolled diabetes presented to ER today for fever, chills, nausea/vomiting, shortness of breath, back pain and concern for infected ulcerations on feet. Patient most recently has been following at wound center and was last seen this past Thursday by Dr. Kendrick and at that time wounds were looking good with no evidence of infection. Patient relates his symptoms started on Thanksgiving, relates he was on feet more than he should have been. Symptoms have been worsening so he was admitted. He had a COVID test which was negative however there is concern this could be a false negative. Patient had bilateral foot xrays done in the ER which did not show any evidence of osteomyelitis, and no gas in the tissues. Patient's WBC elevated at 13.6 Temp is 100.2F, Blood cultures with gram positive cocci in chains. Past Medical History Past Medical History (Chronic Problems): Chronic Problems (Last Updated 08/12/17 @ 11:54 by Lorenza Nguyễn) Other specified peripheral vascular diseases (Chronic) Ulcer of right foot with fat layer exposed (Chronic) Ulcer of left foot with fat layer exposed (Chronic) Obesity (BMI 30.0-34.9) (Chronic) Obesity, Class II, BMI 35-39.9, with comorbidity (Chronic) Type 2 diabetes mellitus with diabetic neuropathy (Chronic) CAD (coronary artery disease) (Chronic) Type 2 diabetes mellitus (Chronic) Hypertension (Chronic) Hyperlipidemia (Chronic) Medical History: Medical History (Last Updated 08/12/17 @ 11:54 by Lorenza Nguyễn) Diabetes E11.9 Heart disease I51.9 Liver disease K76.9 Hypertension I10 Allergies atorvastatin [From Lipitor] Adverse Reaction (Verified 01/25/20 13:39) Pain in joints rosuvastatin [From Crestor] Adverse Reaction (Verified 01/25/20 13:39) Pain in joints Home Medications: Ambulatory Orders Medication Instructions Recorded carvedilol 25 mg tablet 25 mg PO BID 08/12/17 glimepiride 4 mg tablet 4 mg PO DAILY 08/12/17 insulin glargine 100 unit/mL (3 70 unit SC QHS 08/12/17 mL) subcutaneous pen metformin 1,000 mg tablet 1,000 mg PO BID 08/12/17 RX: Lisinopril [Zestril] 20 mg PO BID 08/14/17 RX: Multivit-Mins/Iron/Folic/Lycop 1 tab PO BID 09/16/19 [Centrum Ultra Men's Tablet] RX: Oregano Oil [Oil of Oregano] 1,500 mg PO BID 09/16/19 Surgical History: Surgical History (Last Updated 08/12/17 @ 11:56 by Lorenza Nguyễn) History of back surgery Z98.890 Hx of CABG Z95.1 Hx of appendectomy Z90.49 Hx of toe surgery Z98.890 Surgical History: appendectomy, coronary bypass surgery, - - CABG x 4 and PCI x 4, appendectomy, toe surgery, back surgery x2. Psychiatric History: No pertinent psych hx Lives: With Family Smoking Status: Never smoker Tobacco Use: Non-smoker Alcohol: None Drugs: None - *Family History Maternal Family History: Family History (Last Reviewed 01/28/20 @ 16:02 by Eligio CRAMER PA) Other CAD (coronary artery disease) Diabetes History Items: Diabetes Paternal Family History: Family History (Last Reviewed 01/28/20 @ 16:02 by Eligio CRAMER PA) Other CAD (coronary artery disease) Diabetes History Items: Heart Disease Patient Problems: Active and Suspected Problems (Last Updated 08/12/17 @ 11:54 by Lorenza Nguyễn) COVID-19 (Acute) Sepsis (Acute) Cellulitis of great toe, right (Acute) Cellulitis of second toe, left (Acute) Cellulitis (Acute) - Physical Exam Vitals/I&O's: Vital Signs Temp Pulse Resp BP Pulse Ox 100.2 F H 89 18 159/77 H 96 01/28/20 17:17 01/28/20 17:17 01/28/20 17:17 01/28/20 17:17 01/28/20 17:17 Oxygen Flow Rate (L/min) 2 Oxygen Delivery Method Nasal Cannula Weight: 115.666 kg Body Mass Index (BMI) 37.6 Intake and Output for Last 24 Hours 01/26/20 01/27/20 01/28/20 23:59 23:59 23:59 Intake Total 752 / 752 Balance 752 / 752 General: Oriented x3, Cooperative, Lethargic Extremities: No clubbing, No cyanosis, Capillary Refill Less than 3 Seconds, No Calf Tenderness, Edema - there is some edema to the right 1st toe, there is no evidence of acute ishemia to the foot or ankle bilateral., Peripheral Pulses Normal, - - Ulceration to the right 1st toe plantarly down to subcutanous tissue with cellulitis noted to 1st ray, there is nonviable tissue, there is no probe to bone, no visible abscess, no crepitus, no maloder, no fluctuance, no blistering Skin: No rashes - to the foot or ankle bilateral., Ulcer/ Wound, - - Ulceration to the left 2nd toe plantarly down to subcutanous tissue with slight cellulitis noted around the margins, there is some nonviable tissue, there is no probe to bone, no visible abscess, no crepitus, no maloder, no fluctuance, no blister Musculoskeletal: No Tenderness to Palpation of Joints or Extremities - to the foot or ankle bilateral., No Muscle Wasting Psych/Mental Status: Alert and oriented to time, place, person, mood and affect Microbiology Past 72 Hours 01/28/20 12:10 Blood Culture (Wb) - Right Hand Blood Culture - Preliminary 01/28/20 12:10 Blood Culture (Wb) - Left Hand Blood Culture - Preliminary 01/28/20 14:30 Mucosa - Nose SARS-CoV-2 Antigen (Rapid) - Final Laboratory Results 01/28/20 12:10: WBC 13.6 H, RBC 4.54 L, Hgb 14.4, Hct 39.4 L, MCV 86.8, MCH 31.7, MCHC 36.5 H, RDW Std Deviation 40.2, RDW Coeff of Shelby 12.9, Plt Count 206, MPV 9.3, Immature Gran % (Auto) 1.400 H, Neut % (Auto) 87.0 H, Lymph % (Auto) 3.7 L, Grand % (Auto) 7.6, Eos % (Auto) 0.1, Baso % (Auto) 0.2, Absolute Neuts (auto) 11.8 H, Absolute Lymphs (auto) 0.50 L, Nucleated RBC % 0, Differential Comment SCANNED 01/28/20 12:10: PT 13.0, INR 1.0, APTT 28.6 01/28/20 12:10: Sodium 129 L, Potassium 4.2, Chloride 97 L, Carbon Dioxide 24.0, Anion Gap 8, BUN 23 H, Creatinine 1.25, Estim Creat Clear Calc 58.92, Est GFR (MDRD) Af Amer 75, Est GFR (MDRD) Non-Af 62, BUN/Creatinine Ratio 18.4, Glucose 304 H, Calcium 8.9, Total Bilirubin 1.30 H, AST 16, ALT 29, Alkaline Phosphatase 75, Total Protein 7.6, Albumin 3.5, Globulin 4.1, Albumin/Globulin Ratio 0.9 01/28/20 12:10: Lactic Acid 1.8 01/28/20 12:10: D-Dimer Quant (PE/DVT) 0.55 H* 01/28/20 12:10: Procalcitonin 0.36 H 01/28/20 17:55: POC Glucose 306 H Current Medications Acetaminophen (Acetaminophen 325 Mg Tablet) 650 mg PO Q6H PRN PRN PRN Reason: Pain Score 1-10/Temp > 100.7 F Carvedilol (Carvedilol 25 Mg Tablet) 25 mg PO BID@0800,2200 [facility] Dexamethasone (Dexamethasone 4 Mg Tablet) 6 mg PO DAILY@0800 [facility] Last Admin: 01/28/20 18:58 Dose: 6 mg Documented by: Dextrose (Dextrose 50%-Water 25 Gm/50 Ml Disp.Syrin) 0 gm IV X1 PRN; Protocol PRN Reason: Hypoglycemia Enoxaparin Sodium (Enoxaparin 40 Mg/0.4 Ml Syringe) 40 mg SC DAILY@0800 [facility] Glucagon (Glucagon 1 Mg/Ml Syringe) 1 mg IM .X1 PRN PRN Reason: Hypoglycemia Sodium Chloride () 1,000 mls @ 100 mls/hr IV .Q10H [facility] Last Admin: 01/28/20 18:57 Dose: 100 mls/hr Documented by: Vancomycin IV Pharmacy to Dose (1 ea/ Sodium Chloride) 500 mls @ 250 mls/hr IV PRN PRN; Protocol PRN Reason: Rx to Dose Vancomycin HCl 1,750 mg/ (Sodium Chloride) 535 mls @ 250 mls/hr IV Q12H [facility] Insulin Glargine (Insulin Glargine 100 Units/Ml Pen) 35 units SC BREAKFAST [facility] Insulin Glargine (Insulin Glargine 100 Units/Ml Pen) 35 units SC DINNER [facility] Last Admin: 01/28/20 18:57 Dose: 35 u Documented by: Insulin Human Lispro (Insulin Lispro 100 Unit/Ml Insuln.Pen) 0 unit SC ACHS [facility]; Protocol Last Admin: 01/28/20 19:00 Dose: 6 u Documented by: Lisinopril (Lisinopril 20 Mg Tablet) 20 mg PO BID@0800,2200 [facility] Melatonin (Melatonin 3 Mg Tablet) 3 mg PO QHS PRN PRN PRN Reason: INSOMNIA Ondansetron HCl (Ondansetron 4 Mg/2 Ml Vial) 4 mg IV Q8H PRN PRN PRN Reason: NAUSEA/VOMITING Sodium Chloride (0.9% Saline Lock 10 Ml Syringe) 10 - 40 ml IV UD PRN PRN Reason: SALINE FLUSH Assessment/Plan All Active Problems (Last Updated 08/12/17 @ 11:54 by Lorenza Nguyễn) Delayed wound healing (Acute) COVID-19 (Acute) Sepsis (Acute) Cellulitis of great toe, right (Acute) Cellulitis of second toe, left (Acute) Bacteremia (Acute) Cellulitis (Acute) Open wound of right great toe (Acute) Ulcer of right foot with fat layer exposed (Acute) MSSA (methicillin susceptible Staphylococcus aureus) infection (Acute) Ulceration down to subcutaneous tissue right 1st toe with cellulitis Ulceration down to subcutaneous tissue left 2nd toe with cellulitis Uncontrolled Diabetes with peripheral neuropathy COVID 19 Sepsis Multiple Comorbidities Reviewed diagnostic data, temp 100.2F, WBC elevated at 13.6, bilateral foot xrays with no gas or evidence of osteomyelitis, blood cultures with gram positive cocci in chains. There is noted infection to the right 1st toe and left 2nd toe. The ulcerations were debrided in excisional fashion using a 15 blade down to the subcutaneous tissue layer. Post debridement the ulcerations measured: right 1st toe: 2.4cm x 1.3cm and 0.2cm in depth and left 2nd toe: 0.8cm x 0.5cm and 0.2cm in depth both down to subcutaneous tissue layer. There is no probe to bone or abscess noted. A culture was obtained from each wound site and sent to microbiology. No anesthesia was needed due to patient's neuropathy. Hemostasis was achieved with pressure and gauze, EBL was minimal. Cleansed with normal saline soln. Applied Aquacel Ag and overlying gauze, kerlix and leila dressing - change daily. Follow cultures - broad spectrum IV antibiotics at this time - Vancomycin, added Zosyn Will discuss with medicine team about possible MRI for further evaluation of osteomyelitis, especially right 1st toe as ulceration has been open for several months. Keep ulcerations offloaded at all times. Diabetes, COVID and other medical problems per medicine team. Podiatry will continue to follow, thank you for consultation.
[2020-01-28] MEDS: Lisinopril 20 MG Tablet PO (21:06)
[2020-01-28] MEDS: Carvedilol 25 MG Tablet PO (21:06)
[2020-01-28] MEDS: Acetaminophen 325 MG Tablet 650 MG PO (21:22)
[2020-01-28 21:30] LABS: Bedside Glucose 344 mg/dL (70-110)
[2020-01-28 22:24] LABS: M R Staph aureus DNA By PCR Negative (Negative); Probe Check PASS; Specimen Processing Control PASS; Staph aureus DNA By PCR POSITIVE (Negative)
[2020-01-28] MEDS: 0.9% Saline Lock 10 ML Syringe IV (22:40)
[2020-01-29 03:06] VITALS: BP 113/53; PULSE 64; RESP 16; TEMP 36.9; O2SAT 97
[2020-01-29] MEDS: 0.9% Normal Saline 1,000 ML 100 ML IV (05:43)
[2020-01-29 06:54] LABS: Absolute Lymphocyte Count 0.77 X10^3/uL (0.83-4.51); Basophil# 0.02 X10^3/uL; Basophil% 0.2 % (0-1); Hematocrit 36.4 % (40-54); Hemoglobin 12.4 g/dL (13.0-16.5); Lymphocyte # 0.77 X10^3/ul (4.0); Lymphocyte % 5.9 % (19-41); Mean Corp Hgb Conc 34.1 g/dL (32-36); Mean Corpuscular Hgb 30.2 pg (27.0-32.0); Mean Corpuscular Volume 88.8 fL (80-94); Monocyte# 0.85 X10^3/uL; Monocyte% 6.5 % (0-10); NRBC Flagged by Analyzer 0 % (0-5); Neutrophil % 84.7 % (47-70); Platelet Count 153 K/mm3 (150-450); RBC Distribution Width SD 42.2 fl (35.1-43.9)
[2020-01-29 07:19] LABS: Anion Gap 8 (5-15); BUN 29 mg/dL (7-18); BUN/Creat Ratio 19.6 RATIO (10-20); Calcium,Total 8.2 mg/dL (8.5-10.1); Chloride 97 mmol/L (98-107); Creatinine, Serum 1.48 mg/dL (0.70-1.30); EST Glomerular Filtration Rate 51 mL/min (>60); Est Glom Filt Rate - Afr Amer 61 mL/min (>60); Estimated Creatinine Clearance 49.76 ml/min; Glucose 345 mg/dL (74-106); Potassium 4.4 mmol/L (3.5-5.1); Sodium Level 129 mmol/L (136-145)
[2020-01-29 09:19] VITALS: BP 135/70; PULSE 71; RESP 18; TEMP 36.6; O2SAT 98
[2020-01-29] MEDS: Enoxaparin 40 MG/0.4 ML Syringe SC (09:24)
[2020-01-29] MEDS: dexAMETHasone 4 MG Tablet 6 MG PO (09:25)
[2020-01-29] MEDS: Carvedilol 25 MG Tablet PO ×2 (09:25→21:51)
[2020-01-29] MEDS: Lisinopril 20 MG Tablet PO ×2 (09:25→21:51)
[2020-01-29] MEDS: Insulin Lispro 100 UNIT/ML INSULN.PEN SC ×4 (09:26→22:33)
--- NOTE | 2020-01-29 09:57 | PN_ITS ---
Patient Problems: Active and Suspected Problems (Last Updated 08/12/17 @ 11:54 by Lorenza Nguyễn) COVID-19 (Acute) Sepsis (Acute) Cellulitis of great toe, right (Acute) Cellulitis of second toe, left (Acute) Cellulitis (Acute) Reason for Visit: Cellulitis Subjective: No shortness of breath. Notes that his feet have been an issue for several months. Denies any COVID-19 contacts. Vitals/I&O's: Vital Signs Temp Pulse Resp BP Pulse Ox 36.6 C 71 18 135/70 H 98 01/29/20 09:19 01/29/20 09:19 01/29/20 09:19 01/29/20 09:19 01/29/20 09:19 Oxygen Flow Rate (L/min) 1 Oxygen Delivery Method Room Air Weight: 115.666 kg Body Mass Index (BMI) 37.6 Intake and Output for Last 24 Hours 01/27/20 01/28/20 01/29/20 23:59 23:59 23:59 Intake Total 752 / 752 1496.67 / 1496.67 Output Total 1100 / 1100 Balance 752 / 752 396.67 / 396.67 General: Alert, No apparent distress HEENT: Atraumatic, Normocephalic Oral: Moist Mucosa, No Gingival or Mucosal Lesions/ Ulcerations Neck: No Nodes, Thyroid Normal Size and Texture Lungs: Clear to auscultation, Normal air movement, No rhonchi, No wheeze, No rales Cardiovascular: Regular rate, Regular Rhythm, Normal S1, Normal S2, No murmurs Abdomen: Bowel Sounds Present, Soft, Non Tender, Non-Distended, No Hepato-s plenomegaly Extremities: - - feet wrapped, did not remove. Skin: No rashes, No breakdown Psych/Mental Status: Normal Affect, Appropriate Microbiology Past 72 Hours 01/28/20 20:15 Wound - Left Foot Wound Culture - Preliminary Streptococcus group B 01/28/20 20:15 Wound - Right Foot Wound Culture - Preliminary Streptococcus group B 01/28/20 12:10 Blood Culture (Wb) - Right Hand Blood Culture - Preliminary 01/28/20 12:10 Blood Culture (Wb) - Left Hand Bacteria Detection (PCR) - Final Streptococcus agalactiae (B) 01/28/20 12:10 Blood Culture (Wb) - Left Hand Blood Culture - Preliminary 01/28/20 14:30 Mucosa - Nose SARS-CoV-2 Antigen (Rapid) - Final Laboratory Results 01/28/20 12:10: WBC 13.6 H, RBC 4.54 L, Hgb 14.4, Hct 39.4 L, MCV 86.8, MCH 31.7, MCHC 36.5 H, RDW Std Deviation 40.2, RDW Coeff of Shelby 12.9, Plt Count 206, MPV 9.3, Immature Gran % (Auto) 1.400 H, Neut % (Auto) 87.0 H, Lymph % (Auto) 3.7 L, [place]cher % (Auto) 7.6, Eos % (Auto) 0.1, Baso % (Auto) 0.2, Absolute Neuts (auto) 11.8 H, Absolute Lymphs (auto) 0.50 L, Nucleated RBC % 0, Differential Comment SCANNED 01/28/20 12:10: PT 13.0, INR 1.0, APTT 28.6 01/28/20 12:10: Sodium 129 L, Potassium 4.2, Chloride 97 L, Carbon Dioxide 24.0, Anion Gap 8, BUN 23 H, Creatinine 1.25, Estim Creat Clear Calc 58.92, Est GFR (MDRD) Af Amer 75, Est GFR (MDRD) Non-Af 62, BUN/Creatinine Ratio 18.4, Glucose 304 H, Calcium 8.9, Total Bilirubin 1.30 H, AST 16, ALT 29, Alkaline Phosphatase 75, Total Protein 7.6, Albumin 3.5, Globulin 4.1, Albumin/Globulin Ratio 0.9 01/28/20 12:10: Lactic Acid 1.8 01/28/20 12:10: D-Dimer Quant (PE/DVT) 0.55 H* 01/28/20 12:10: Procalcitonin 0.36 H 01/28/20 17:55: POC Glucose 306 H 01/28/20 20:15: S.aureus Protein A PCR POSITIVE H, MRSA (PCR) Negative 01/28/20 20:15: S.aureus Protein A PCR POSITIVE H, MRSA (PCR) Negative 01/28/20 21:04: POC Glucose 344 H 01/29/20 06:36: WBC 13.0 H, RBC 4.10 L, Hgb 12.4 L, Hct 36.4 L, MCV 88.8, MCH 30.2, MCHC 34.1 D, RDW Std Deviation 42.2, RDW Coeff of Shelby 13.0, Plt Count 153, MPV 9.0, Immature Gran % (Auto) 2.700 H, Neut % (Auto) 84.7 H, Lymph % (Auto) 5.9 L, [place] % (Auto) 6.5, Eos % (Auto) 0.0, Baso % (Auto) 0.2, Absolute Neuts (auto) 11.0 H, Absolute Lymphs (auto) 0.77 L, Nucleated RBC % 0 01/29/20 06:36: Sodium 129 L, Potassium 4.4, Chloride 97 L, Carbon Dioxide 24.0, Anion Gap 8, BUN 29 H, Creatinine 1.48 H, Estim Creat Clear Calc 49.76, Est GFR (MDRD) Af Amer 61, Est GFR (MDRD) Non-Af 51 L, BUN/Creatinine Ratio 19.6, Glucose 345 H, Calcium 8.2 L 01/29/20 07:42: COVID-19 (ANNE) Pending Current Medications Acetaminophen (Acetaminophen 325 Mg Tablet) 650 mg PO Q6H PRN PRN PRN Reason: Pain Score 1-10/Temp > 100.7 F Last Admin: 01/28/20 21:22 Dose: 650 mg Documented by: Carvedilol (Carvedilol 25 Mg Tablet) 25 mg PO BID@0800,2200 [facility] Last Admin: 01/29/20 09:25 Dose: 25 mg Documented by: Dexamethasone (Dexamethasone 4 Mg Tablet) 6 mg PO DAILY@0800 [facility] Last Admin: 01/29/20 09:25 Dose: 6 mg Documented by: Dextrose (Dextrose 50%-Water 25 Gm/50 Ml Disp.Syrin) 0 gm IV X1 PRN; Protocol PRN Reason: Hypoglycemia Enoxaparin Sodium (Enoxaparin 40 Mg/0.4 Ml Syringe) 40 mg SC DAILY@0800 [facility] Last Admin: 01/29/20 09:24 Dose: 40 mg Documented by: Glucagon (Glucagon 1 Mg/Ml Syringe) 1 mg IM .X1 PRN PRN Reason: Hypoglycemia Sodium Chloride () 1,000 mls @ 100 mls/hr IV .Q10H [facility] Last Infusion: 01/29/20 09:46 Dose: 100 mls/hr Documented by: Vancomycin IV Pharmacy to Dose (1 ea/ Sodium Chloride) 500 mls @ 250 mls/hr IV PRN PRN; Protocol PRN Reason: Rx to Dose Vancomycin HCl 1,750 mg/ (Sodium Chloride) 535 mls @ 250 mls/hr IV Q12H [facility] Last Infusion: 01/29/20 05:24 Dose: Infused Documented by: Piperacillin Sod/Tazobactam (Sod 3.375 gm/ Sodium Chloride) 50 mls @ 12.5 mls/hr IV Q8 [facility] Last Infusion: 01/29/20 09:43 Dose: Infused Documented by: Insulin Glargine (Insulin Glargine 100 Units/Ml Pen) 35 units SC BREAKFAST [facility] Last Admin: 01/29/20 09:26 Dose: 35 u Documented by: Insulin Glargine (Insulin Glargine 100 Units/Ml Pen) 35 units SC DINNER [facility] Last Admin: 01/28/20 18:57 Dose: 35 u Documented by: Insulin Human Lispro (Insulin Lispro 100 Unit/Ml Insuln.Pen) 0 unit SC ACHS [facility]; Protocol Last Admin: 01/29/20 09:26 Dose: 8 u Documented by: Lisinopril (Lisinopril 20 Mg Tablet) 20 mg PO BID@0800,2200 [facility] Last Admin: 01/29/20 09:25 Dose: 20 mg Documented by: Melatonin (Melatonin 3 Mg Tablet) 3 mg PO QHS PRN PRN PRN Reason: INSOMNIA Ondansetron HCl (Ondansetron 4 Mg/2 Ml Vial) 4 mg IV Q8H PRN PRN PRN Reason: NAUSEA/VOMITING Sodium Chloride (0.9% Saline Lock 10 Ml Syringe) 10 - 40 ml IV UD PRN PRN Reason: SALINE FLUSH Last Admin: 01/28/20 22:40 Dose: 10 ml Documented by: STROKE Vital Signs/Narrative: Vital Signs Temp Pulse Resp BP Pulse Ox 01/29/20 09:19 36.6 C 71 18 135/70 H 98 Medical Necessity - Tobacco Use Smoking Status: Never smoker Tobacco Use: Non-smoker Assessment/Plan All Active Problems (Last Updated 08/12/17 @ 11:54 by Lorenza Nguyễn) Delayed wound healing (Acute) COVID-19 (Acute) Sepsis (Acute) Cellulitis of great toe, right (Acute) Cellulitis of second toe, left (Acute) Bacteremia (Acute) Cellulitis (Acute) Open wound of right great toe (Acute) Ulcer of right foot with fat layer exposed (Acute) MSSA (methicillin susceptible Staphylococcus aureus) infection (Acute) 1. bilateral foot diabetic ulcers with cellulitis * podiatry following * concern for osteomyelitis, at least on the right * check MRI on Right foot * on pip/tazo and vanc * culture growing out group B strep bilaterally. But continue broad spectrum abx until cx finalized. * DW Dr. Cruz, right toe has been present for months. He cannot probe bone, but noted purulence. For the left, that appears to be healing and low likelihood of osteo. 2. Sepsis: * POA * at least due to above. Concern for COVID-19. Not hypoxic. Xray reviewed and had poor inspiratory effort. Read by radiology as infiltrate. * Antigen negative. If PCR negative, then I would feel patient does not have COVID-19 and will discontinue isolation and dexa. 3. DM2 * uncontrolled * last A1c was 10.7 from 09/16/2019 * on glargine 70 at home, split to 35 BID here. Will increase to 45 BID. Start scheduled prandial insulin 10 QAC. DC glimepiride and metformin as has not helped and poses risk of hypoglycemia. 4. Hyponatremia * chronic, though lower than normal. * at attributable to hyperglycemia, but rule our other processes. * check TSH and cortisol. If normal then check SIADH labs (urine Na, urine Osm, serum Osm). 5. VTE prophylaxis: LMWH. Inpatient E&M: 96129 Subs Hosp L2
--- NOTE | 2020-01-29 11:16 | PN_ITS ---
Patient Problems: Active and Suspected Problems (Last Updated 08/12/17 @ 11:54 by Lorenza Nguyễn) COVID-19 (Acute) Sepsis (Acute) Cellulitis of great toe, right (Acute) Cellulitis of second toe, left (Acute) Cellulitis (Acute) Subjective: Patient was seen this morning for follow up on bilateral foot ulcerations. Patient feeling better this morning, currently afebrile. COVID test negative. No new complaints. - Physical Exam Vitals/I&O's: Vital Signs Temp Pulse Resp BP Pulse Ox 97.8 F 71 18 135/70 H 98 01/29/20 09:19 01/29/20 09:19 01/29/20 09:19 01/29/20 09:19 01/29/20 09:19 Oxygen Flow Rate (L/min) 1 Oxygen Delivery Method Room Air Weight: 115.666 kg Body Mass Index (BMI) 37.6 Intake and Output for Last 24 Hours 01/27/20 01/28/20 01/29/20 23:59 23:59 23:59 Intake Total 752 / 752 1496.67 / 1496.67 Output Total 1100 / 1100 Balance 752 / 752 396.67 / 396.67 General: Alert, Oriented x3, Cooperative, No apparent distress Extremities: No cyanosis, Capillary Refill Less than 3 Seconds, No Calf Tenderness, Edema - some residual edema to the right 1st toe, otherwise no other edema bilateral foot or ankle. Skin: Ulcer/ Wound - Ulceration right 1st toe and left 2nd toe - improvement noted, resolved cellulitis left 2nd toe and left 2nd toe ulcer almost completely healed. Right 1st toe with less cellulitis but there is some residual noted to the site. Ulcers down to subcutaneous tissue, no probe to bone, no maloder, - - No visible abscess, no fluctuance, no crepitus, no purulence noted today - ulcerations improved today. Musculoskeletal: No Tenderness to Palpation of Joints or Extremities - To the foot or ankle bilateral. Psych/Mental Status: Normal Affect, Appropriate, Alert and oriented to time, place, person, mood and affect Microbiology Past 72 Hours 01/28/20 20:15 Wound - Left Foot Gram Stain - Final 01/28/20 20:15 Wound - Left Foot Wound Culture - Preliminary Streptococcus group B 01/28/20 20:15 Wound - Right Foot Gram Stain - Final 01/28/20 20:15 Wound - Right Foot Wound Culture - Preliminary Streptococcus group B 01/28/20 12:10 Blood Culture (Wb) - Right Hand Blood Culture - Preliminary 01/28/20 12:10 Blood Culture (Wb) - Left Hand Bacteria Detection (PCR) - Final Streptococcus agalactiae (B) 01/28/20 12:10 Blood Culture (Wb) - Left Hand Blood Culture - Preliminary 01/28/20 14:30 Mucosa - Nose SARS-CoV-2 Antigen (Rapid) - Final Laboratory Results 01/28/20 12:10: WBC 13.6 H, RBC 4.54 L, Hgb 14.4, Hct 39.4 L, MCV 86.8, MCH 31.7, MCHC 36.5 H, RDW Std Deviation 40.2, RDW Coeff of Shelby 12.9, Plt Count 206, MPV 9.3, Immature Gran % (Auto) 1.400 H, Neut % (Auto) 87.0 H, Lymph % (Auto) 3.7 L, Roane % (Auto) 7.6, Eos % (Auto) 0.1, Baso % (Auto) 0.2, Absolute Neuts (auto) 11.8 H, Absolute Lymphs (auto) 0.50 L, Nucleated RBC % 0, Differential Comment SCANNED 01/28/20 12:10: PT 13.0, INR 1.0, APTT 28.6 01/28/20 12:10: Sodium 129 L, Potassium 4.2, Chloride 97 L, Carbon Dioxide 24.0, Anion Gap 8, BUN 23 H, Creatinine 1.25, Estim Creat Clear Calc 58.92, Est GFR (MDRD) Af Amer 75, Est GFR (MDRD) Non-Af 62, BUN/Creatinine Ratio 18.4, Glucose 304 H, Calcium 8.9, Total Bilirubin 1.30 H, AST 16, ALT 29, Alkaline Phosphatase 75, Total Protein 7.6, Albumin 3.5, Globulin 4.1, Albumin/Globulin Ratio 0.9 01/28/20 12:10: Lactic Acid 1.8 01/28/20 12:10: D-Dimer Quant (PE/DVT) 0.55 H* 01/28/20 12:10: Procalcitonin 0.36 H 01/28/20 17:55: POC Glucose 306 H 01/28/20 20:15: S.aureus Protein A PCR POSITIVE H, MRSA (PCR) Negative 01/28/20 20:15: S.aureus Protein A PCR POSITIVE H, MRSA (PCR) Negative 01/28/20 21:04: POC Glucose 344 H 01/29/20 06:36: WBC 13.0 H, RBC 4.10 L, Hgb 12.4 L, Hct 36.4 L, MCV 88.8, MCH 30.2, MCHC 34.1 D, RDW Std Deviation 42.2, RDW Coeff of Shelby 13.0, Plt Count 153, MPV 9.0, Immature Gran % (Auto) 2.700 H, Neut % (Auto) 84.7 H, Lymph % (Auto) 5.9 L, Roane % (Auto) 6.5, Eos % (Auto) 0.0, Baso % (Auto) 0.2, Absolute Neuts (auto) 11.0 H, Absolute Lymphs (auto) 0.77 L, Nucleated RBC % 0 01/29/20 06:36: Sodium 129 L, Potassium 4.4, Chloride 97 L, Carbon Dioxide 24.0, Anion Gap 8, BUN 29 H, Creatinine 1.48 H, Estim Creat Clear Calc 49.76, Est GFR (MDRD) Af Amer 61, Est GFR (MDRD) Non-Af 51 L, BUN/Creatinine Ratio 19.6, Glucose 345 H, Calcium 8.2 L 01/29/20 07:42: COVID-19 (ANNE) Not Detected Current Medications Acetaminophen (Acetaminophen 325 Mg Tablet) 650 mg PO Q6H PRN PRN PRN Reason: Pain Score 1-10/Temp > 100.7 F Last Admin: 01/28/20 21:22 Dose: 650 mg Documented by: Carvedilol (Carvedilol 25 Mg Tablet) 25 mg PO BID@0800,2200 [facility] Last Admin: 01/29/20 09:25 Dose: 25 mg Documented by: Dextrose (Dextrose 50%-Water 25 Gm/50 Ml Disp.Syrin) 0 gm IV X1 PRN; Protocol PRN Reason: Hypoglycemia Enoxaparin Sodium (Enoxaparin 40 Mg/0.4 Ml Syringe) 40 mg SC DAILY@0800 [facility] Last Admin: 11/29/20 09:24 Dose: 40 mg Documented by: Glucagon (Glucagon 1 Mg/Ml Syringe) 1 mg IM .X1 PRN PRN Reason: Hypoglycemia Sodium Chloride () 1,000 mls @ 100 mls/hr IV .Q10H [facility] Last Infusion: 01/29/20 09:46 Dose: 100 mls/hr Documented by: Vancomycin IV Pharmacy to Dose (1 ea/ Sodium Chloride) 500 mls @ 250 mls/hr IV PRN PRN; Protocol PRN Reason: Rx to Dose Vancomycin HCl 1,750 mg/ (Sodium Chloride) 535 mls @ 250 mls/hr IV Q12H [facility] Last Infusion: 01/29/20 05:24 Dose: Infused Documented by: Piperacillin Sod/Tazobactam (Sod 3.375 gm/ Sodium Chloride) 50 mls @ 12.5 mls/hr IV Q8 [facility] Last Infusion: 01/29/20 09:43 Dose: Infused Documented by: Insulin Glargine (Insulin Glargine 100 Units/Ml Pen) 45 units SC BREAKFAST [facility] Insulin Glargine (Insulin Glargine 100 Units/Ml Pen) 45 units SC DINNER CYN Insulin Human Lispro (Insulin Lispro 100 Unit/Ml Insuln.Pen) 0 unit SC ACHS [facility] ; Protocol Last Admin: 01/29/20 09:26 Dose: 8 u Documented by: Insulin Human Lispro (Insulin Lispro 100 Unit/Ml Insuln.Pen) 10 unit SC TIDAC [facility] Lisinopril (Lisinopril 20 Mg Tablet) 20 mg PO BID@0800,2200 [facility] Last Admin: 01/29/20 09:25 Dose: 20 mg Documented by: Melatonin (Melatonin 3 Mg Tablet) 3 mg PO QHS PRN PRN PRN Reason: INSOMNIA Ondansetron HCl (Ondansetron 4 Mg/2 Ml Vial) 4 mg IV Q8H PRN PRN PRN Reason: NAUSEA/VOMITING Sodium Chloride (0.9% Saline Lock 10 Ml Syringe) 10 - 40 ml IV UD PRN PRN Reason: SALINE FLUSH Last Admin: 01/28/20 22:40 Dose: 10 ml Documented by: Medical Necessity - Tobacco Use Smoking Status: Never smoker Tobacco Use: Non-smoker Assessment/Plan All Active Problems (Last Updated 08/12/17 @ 11:54 by Lorenza Nguyễn) Delayed wound healing (Acute) COVID-19 (Acute) Sepsis (Acute) Cellulitis of great toe, right (Acute) Cellulitis of second toe, left (Acute) Bacteremia (Acute) Cellulitis (Acute) Open wound of right great toe (Acute) Ulcer of right foot with fat layer exposed (Acute) MSSA (methicillin susceptible Staphylococcus aureus) infection (Acute) Ulceration down to subcutaneous tissue right 1st toe with cellulitis - improved Ulceration down to subcutaneous tissue left 2nd toe with cellulitis - improved Uncontrolled Diabetes with peripheral neuropathy COVID 19 Sepsis Multiple Comorbidities Reviewed diagnostic data, temp on admission - currently afebrile, WBC elevated at 13, bilateral foot xrays with no gas or evidence of osteomyelitis, blood cultures with strep agalactiae. There is noted infection to the right 1st toe and left 2nd toe, right much worse than left but clinically much improved today. Continue with daily dressing changes to wound sites. Cleansed with normal saline soln. Applied Aquacel Ag and overlying gauze, kerlix and leila dressing - change daily. Follow cultures -reviewed - growing strep group B - broad spectrum IV antibiotics at this time - Vancomycin/Zosyn Keep ulcerations offloaded at all times. MRI ordered of right foot, discussed with Dr. Win. Diabetes, possible COVID and other medical problems per medicine team. Podiatry will continue to follow.
[2020-01-29 11:40] LABS: Hemoglobin A1c 7.8 % (3.8-5.6)
[2020-01-29 12:10] LABS: Bedside Glucose 342 mg/dL (70-110)
[2020-01-29 12:40] LABS: Bedside Glucose 384 mg/dL (70-110)
[2020-01-29] MEDS: Insulin Lispro 100 UNIT/ML INSULN.PEN 10 UNIT SC ×2 (12:51→16:40)
[2020-01-29] MEDS: Acetaminophen 325 MG Tablet 650 MG PO (12:59)
--- NOTE | 2020-01-29 14:35 | NURSING ---
Update given to patient's regarding POC, negative COVID tests and transfer up to [facility].
--- NOTE | 2020-01-29 14:35 | NURSING ---
Report called the [facility].
[2020-01-29 14:57] VITALS: BP 145/63; PULSE 70; RESP 18; TEMP 36.7; O2SAT 96
[2020-01-29 16:51] LABS: Bedside Glucose 394 mg/dL (70-110)
[2020-01-29 21:00] VITALS: BP 127/64; PULSE 61; RESP 16; TEMP 36.4; O2SAT 99
[2020-01-30 00:06] LABS: Bacteria 0 SEEN /hpf (None Seen); Color, Urine Yellow (Yellow); Glucose, Dipstick 1000 mg/dl (Normal); Ketone-Dipstick Negative (Negative); Leukocyte Esterase-Dipstick Negative /ul (Negative); Mucous, Urine 0 SEEN /hpf (<or=2+); Nitrite-Dipstick Negative (Negative); Occult Blood-Urine 10 /ul (Negative); Protein-Dipstick 30 mg/dl (Negative); Squamous Epithelial Cells - UA 0 SEEN /hpf (0-5); Urine Bilirubin Dipstick Negative (Negative); Urine Clarity Clear (Clear); Urine Urobilinogen Normal (Normal); White Blood Cells 0 SEEN /hpf (0-5)
[2020-01-30 00:12] LABS: Red Blood Cells-Urine 0-5 SEEN /hpf (0-5)
[2020-01-30 02:30] LABS: Absolute Lymphocyte Count 0.75 X10^3/uL (0.83-4.51); Absolute Neutrophil Count 13.5 X10^3/uL (2.0-7.7); Basophil# 0.03 X10^3/uL; Basophil% 0.2 % (0-1); Hematocrit 37.3 % (40-54); Lymphocyte # 0.75 X10^3/ul (4.0); Lymphocyte % 4.8 % (19-41); Mean Corp Hgb Conc 34.9 g/dL (32-36); Mean Corpuscular Hgb 30.9 pg (27.0-32.0); Mean Corpuscular Volume 88.6 fL (80-94); Mean Platelet Vol. 9.5 fl (6.2-12.0); Monocyte# 1.13 X10^3/uL; Monocyte% 7.2 % (0-10); NRBC Flagged by Analyzer 0 % (0-5); Neutrophil # 13.46 X10^3/uL (2.7-7.7); Neutrophil % 85.8 % (47-70); Platelet Count 198 K/mm3 (150-450); RBC Distribution Width CV 13.2 % (11.6-14.6); RBC Distribution Width SD 42.5 fl (35.1-43.9); Red Blood Count 4.21 M/mm3 (4.6-6.2); White Blood Count 15.7 K/mm3 (4.4-11.0)
[2020-01-30 02:52] LABS: Vancomycin, Trough Level 16.2 ug/mL (5.0-15.0)
[2020-01-30 02:56] LABS: Anion Gap 7 (5-15); BUN 40 mg/dL (7-18); BUN/Creat Ratio 28.4 RATIO (10-20); Calcium,Total 8.6 mg/dL (8.5-10.1); Chloride 102 mmol/L (98-107); Creatinine, Serum 1.41 mg/dL (0.70-1.30); EST Glomerular Filtration Rate 54 mL/min (>60); Est Glom Filt Rate - Afr Amer 65 mL/min (>60); Estimated Creatinine Clearance 52.23 ml/min; Glucose 348 mg/dL (74-106); Potassium 4.3 mmol/L (3.5-5.1); Sodium Level 133 mmol/L (136-145); Thyroid Stim Hormone (TSH) 0.92 uIU/mL (0.358-3.74)
[2020-01-30 03:00] VITALS: BP 128/67; PULSE 60; RESP 16; TEMP 36.4; O2SAT 96
--- NOTE | 2020-01-30 03:07 | PCM.RX.CS ---
Consult Pharmacy has been consulted to manage selected antiobiotic: Vancomycin Type of Consult: Follow-up Suspected Infection: Skin/Soft tissue Prior Doses of Antibiotics Received/Current Regimen: Medications Vancomycin HCl 1,750 mg/ (Sodium Chloride) 535 mls @ 250 mls/hr IV Q12H [facility] Last Admin: 01/30/20 03:01 Dose: 250 mls/hr Labs: Sodium 133 mmol/L (136-145) L 01/30/20 02:24 Potassium 4.3 mmol/L (3.5-5.1) 01/30/20 02:24 Chloride 102 mmol/L (98-107) 01/30/20 02:24 Carbon Dioxide 24.0 mmol/L (21.0-32.0) 01/30/20 02:24 Anion Gap 7 (5-15) 01/30/20 02:24 BUN 40 mg/dL (7-18) H 01/30/20 02:24 Creatinine 1.41 mg/dL (0.70-1.30) H 01/30/20 02:24 Est GFR (MDRD) Af Amer 65 mL/min (>60) 01/30/20 02:24 Est GFR (MDRD) Non-Af 54 mL/min (>60) L 01/30/20 02:24 BUN/Creatinine Ratio 28.4 RATIO (10-20) H 01/30/20 02:24 Glucose 348 mg/dL (74-106) H 01/30/20 02:24 Vancomycin Trough 16.2 ug/mL (5.0-15.0) H 01/30/20 02:24 Microbiology: Microbiology 01/28/20 20:15 Wound - Right Foot Gram Stain - Final 01/28/20 20:15 Wound - Right Foot Wound Culture - Preliminary Streptococcus group B Staphylococcus species 01/28/20 20:15 Wound - Left Foot Gram Stain - Final 01/28/20 20:15 Wound - Left Foot Wound Culture - Preliminary Streptococcus group B Staphylococcus species 01/28/20 12:10 Blood Culture (Wb) - Right Hand Blood Culture - Preliminary 01/28/20 12:10 Blood Culture (Wb) - Left Hand Bacteria Detection (PCR) - Final Streptococcus agalactiae (B) 01/28/20 12:10 Blood Culture (Wb) - Left Hand Blood Culture - Preliminary 01/28/20 14:30 Mucosa - Nose SARS-CoV-2 Antigen (Rapid) - Final Weight used for dosin.6 kg Estimated Creatinine Clearance: 52 Goal Trough: 15-20 mcg/mL Pharmacy Plan for Drug Dosing: Vancomycin trough level of 16.2 was within the target range of 15-20. Will continue current dosing and re-draw trough 02/02/20. Pharmacy Service will continue to monitor and adjust dosing as required. Follow-Up Labs: Trough Vancomycin Labs to be done on [date and time ordered]: 02/02/20 @0155
[2020-01-30] MEDS: 0.9% Normal Saline 1,000 ML 100 ML IV ×2 (03:17→16:58)
[2020-01-30 03:26] LABS: Bedside Glucose 396 mg/dL (70-110)
--- NOTE | 2020-01-30 06:17 | PCM.PROGNOTE ---
Patient Problems: Active and Suspected Problems (Last Updated 08/12/17 @ 11:54 by Lorenza Nguyễn) COVID-19 (Acute) Sepsis (Acute) Cellulitis of great toe, right (Acute) Cellulitis of second toe, left (Acute) Cellulitis (Acute) Subjective: This 64-year-old diabetic male was seen bedside for bilateral foot ulcers with cellulitis and sepsis. He relates his chills and vomiting have resolved. He denies fever, nausea, fatigue is resolving well. He denies foot pain. He is washing up this morning with a sock on the right foot and a surgical shoe on the left foot. - Physical Exam Vitals/I&O's: Vital Signs Temp Pulse Resp BP Pulse Ox 97.6 F L 60 16 128/67 H 96 01/30/20 03:00 01/30/20 03:00 01/30/20 03:00 01/30/20 03:00 01/30/20 03:00 Oxygen Flow Rate (L/min) 1 Oxygen Delivery Method Room Air Weight: 115.666 kg Body Mass Index (BMI) 37.6 Intake and Output for Last 24 Hours 01/28/20 01/29/20 01/30/20 23:59 23:59 23:59 Intake Total 752 / 752 3861.67 / 4221.67 410 / 410 Output Total 2100 / 2600 500 / 500 Balance 752 / 752 1761.67 / 1621.67 -90 / -90 General: Alert, Oriented x3, Cooperative HEENT: Atraumatic Extremities: No cyanosis, Capillary Refill Less than 3 Seconds, No Calf Tenderness, Diminished Peripheral Pulses, Edema - Mild bilateral lower extremity Skin: Ulcer/ Wound - No purulence, erythema, streaking, odor, infection left foot. No deep probing. The ulcer bed is granular. Right foot plantar medial hallux ulcer also does not have any purulence or odor streaking necrosis or deep tissue., - - Right hallux ulcer is granular and there is some periulcer inflammation and partial fibrous base Musculoskeletal: No Tenderness to Palpation of Joints or Extremities, Muscle Wasting, - - Decreased loaded first metatarsophalangeal joint range of motion Neurological: - - Lack of normal epicritic sensation light touch is consistent with neuropathy Psych/Mental Status: Normal Affect, Appropriate Microbiology Past 72 Hours 01/28/20 20:15 Wound - Right Foot Gram Stain - Final 01/28/20 20:15 Wound - Right Foot Wound Culture - Preliminary Streptococcus group B Staphylococcus species 01/28/20 20:15 Wound - Left Foot Gram Stain - Final 01/28/20 20:15 Wound - Left Foot Wound Culture - Preliminary Streptococcus group B Staphylococcus species 01/28/20 12:10 Blood Culture (Wb) - Right Hand Blood Culture - Preliminary 01/28/20 12:10 Blood Culture (Wb) - Left Hand Bacteria Detection (PCR) - Final Streptococcus agalactiae (B) 01/28/20 12:10 Blood Culture (Wb) - Left Hand Blood Culture - Preliminary 01/28/20 14:30 Mucosa - Nose SARS-CoV-2 Antigen (Rapid) - Final Laboratory Results 01/29/20 06:36: WBC 13.0 H, RBC 4.10 L, Hgb 12.4 L, Hct 36.4 L, MCV 88.8, MCH 30.2, MCHC 34.1 D, RDW Std Deviation 42.2, RDW Coeff of Shelby 13.0, Plt Count 153, MPV 9.0, Immature Gran % (Auto) 2.700 H, Neut % (Auto) 84.7 H, Lymph % (Auto) 5.9 L, Maverick % (Auto) 6.5, Eos % (Auto) 0.0, Baso % (Auto) 0.2, Absolute Neuts (auto) 11.0 H, Absolute Lymphs (auto) 0.77 L, Nucleated RBC % 0 01/29/20 06:36: Sodium 129 L, Potassium 4.4, Chloride 97 L, Carbon Dioxide 24.0, Anion Gap 8, BUN 29 H, Creatinine 1.48 H, Estim Creat Clear Calc 49.76, Est GFR (MDRD) Af Amer 61, Est GFR (MDRD) Non-Af 51 L, BUN/Creatinine Ratio 19.6, Glucose 345 H, Calcium 8.2 L 01/29/20 06:36: Hemoglobin A1c 7.8 H 01/29/20 07:42: COVID-19 (ANNE) Not Detected 01/29/20 09:16: POC Glucose 342 H 01/29/20 12:09: POC Glucose 384 H 01/29/20 16:38: POC Glucose 394 H 01/29/20 22:32: POC Glucose 396 H 01/29/20 23:55: Urine Color Yellow, Urine Clarity Clear, Urine pH 5.0, Ur Specific Abrams 1.010, Urine Protein 30 H, Urine Glucose (UA) 1000 H, Urine Ketones Negative, Urine Occult Blood 10 H, Urine Nitrite Negative, Urine Bilirubin Negative, Urine Urobilinogen Normal, Ur Leukocyte Esterase Negative, Urine RBC 0-5 SEEN, Urine WBC 0 SEEN, Ur Squamous Epith Cells 0 SEEN, Urine Bacteria 0 SEEN, Urine Mucus 0 SEEN 01/30/20 02:24: Vancomycin Trough 16.2 H 01/30/20 02:24: WBC 15.7 H, RBC 4.21 L, Hgb 13.0, Hct 37.3 L, MCV 88.6, MCH 30.9, MCHC 34.9, RDW Std Deviation 42.5, RDW Coeff of Shelby 13.2, Plt Count 198, MPV 9.5, Immature Gran % (Auto) 2.000 H, Neut % (Auto) 85.8 H, Lymph % (Auto) 4.8 L, Maverick % (Auto) 7.2, Eos % (Auto) 0.0, Baso % (Auto) 0.2, Absolute Neuts (auto) 13.5 H, Absolute Lymphs (auto) 0.75 L, Nucleated RBC % 0 01/30/20 02:24: Sodium 133 L, Potassium 4.3, Chloride 102, Carbon Dioxide 24.0, Anion Gap 7, BUN 40 H, Creatinine 1.41 H, Estim Creat Clear Calc 52.23, Est GFR (MDRD) Af Amer 65, Est GFR (MDRD) Non-Af 54 L, BUN/Creatinine Ratio 28.4 H, Glucose 348 H, Calcium 8.6, TSH 0.92 01/30/20 02:24: Cortisol Pending Current Medications Acetaminophen (Acetaminophen 325 Mg Tablet) 650 mg PO Q6H PRN PRN PRN Reason: Pain Score 1-10/Temp > 100.7 F Last Admin: 01/29/20 12:59 Dose: 650 mg Documented by: Carvedilol (Carvedilol 25 Mg Tablet) 25 mg PO BID@0800,2200 [facility] Last Admin: 01/29/20 21:51 Dose: 25 mg Documented by: Dextrose (Dextrose 50%-Water 25 Gm/50 Ml Disp.Syrin) 0 gm IV X1 PRN; Protocol PRN Reason: Hypoglycemia Enoxaparin Sodium (Enoxaparin 40 Mg/0.4 Ml Syringe) 40 mg SC DAILY@0800 [facility] Last Admin: 01/29/20 09:24 Dose: 40 mg Documented by: Glucagon (Glucagon 1 Mg/Ml Syringe) 1 mg IM .X1 PRN PRN Reason: Hypoglycemia Sodium Chloride () 1,000 mls @ 100 mls/hr IV .Q10H [facility] Last Admin: 01/30/20 03:17 Dose: 100 mls/hr Documented by: Vancomycin IV Pharmacy to Dose (1 ea/ Sodium Chloride) 500 mls @ 250 mls/hr IV PRN PRN; Protocol PRN Reason: Rx to Dose Vancomycin HCl 1,750 mg/ (Sodium Chloride) 535 mls @ 250 mls/hr IV Q12H [facility] Last Admin: 01/30/20 03:01 Dose: 250 mls/hr Documented by: Piperacillin Sod/Tazobactam (Sod 3.375 gm/ Sodium Chloride) 50 mls @ 12.5 mls/hr IV Q8 [facility] Last Infusion: 01/30/20 03:07 Dose: Infused Documented by: Insulin Glargine (Insulin Glargine 100 Units/Ml Pen) 45 units SC BREAKFAST [facility] Insulin Glargine (Insulin Glargine 100 Units/Ml Pen) 45 units SC DINNER [facility] Last Admin: 01/29/20 16:40 Dose: 45 u Documented by: Insulin Human Lispro (Insulin Lispro 100 Unit/Ml Insuln.Pen) 0 unit SC ACHS [facility]; Protocol Last Admin: 01/29/20 22:33 Dose: 10 u Documented by: Insulin Human Lispro (Insulin Lispro 100 Unit/Ml Insuln.Pen) 10 unit SC TIDAC [facility] Last Admin: 01/29/20 16:40 Dose: 10 u Documented by: Lisinopril (Lisinopril 20 Mg Tablet) 20 mg PO BID@0800,2200 [facility] Last Admin: 01/29/20 21:51 Dose: 20 mg Documented by: Melatonin (Melatonin 3 Mg Tablet) 3 mg PO QHS PRN PRN PRN Reason: INSOMNIA Ondansetron HCl (Ondansetron 4 Mg/2 Ml Vial) 4 mg IV Q8H PRN PRN PRN Reason: NAUSEA/VOMITING Sodium Chloride (0.9% Saline Lock 10 Ml Syringe) 10 - 40 ml IV UD PRN PRN Reason: SALINE FLUSH Last Admin: 01/28/20 22:40 Dose: 10 ml Documented by: Medical Necessity - Tobacco Use Smoking Status: Never smoker Tobacco Use: Non-smoker Assessment/Plan All Active Problems (Last Updated 08/12/17 @ 11:54 by Lorenza Nguyễn) Delayed wound healing (Acute) COVID-19 (Acute) Sepsis (Acute) Cellulitis of great toe, right (Acute) Cellulitis of second toe, left (Acute) Bacteremia (Acute) Cellulitis (Acute) Open wound of right great toe (Acute) Ulcer of right foot with fat layer exposed (Acute) MSSA (methicillin susceptible Staphylococcus aureus) infection (Acute) Ulceration down to subcutaneous tissue right 1st toe with cellulitis - improved Work-up osteomyelitis right hallux in process Ulceration down to subcutaneous tissue left 2nd toe with cellulitis - improved Uncontrolled Diabetes with peripheral neuropathy (A1c decreased from > 10 to 7.8%) COVID 19 test was negative Sepsis resolving Multiple Comorbidities I reviewed his diagnostic data and discussed his case. He is currently afebrile, WBC continues to increase to 15.7 now. Bilateral foot xrays with no gas or evidence of osteomyelitis. There is noted infection to the right 1st toe that is improving and now resolved to the left 2nd toe. Due to the chronicity of his foot ulcer an MRI was ordered to rule out any underlying osteomyelitis of the right hallux and this is pending. There is no palpable abscess noted. Continue with daily dressing changes to wound sites. I changed his dressing this morning and applied Aquacel Ag with overlying gauze, kerlix and leila dressing. Follow cultures -reviewed - wound culture growth with strep group B and staph species - broad spectrum IV antibiotics at this time - Vancomycin/Zosyn. I recommended infectious disease follow-up. His initial blood culture demonstrated strep B also. Urine culture is also pending. Keep ulcerations offloaded at all times. He has a surgical shoe for the left foot and a cam walker for the right. Compliance was discussed. Diabetes, possible COVID work-up, and other medical problems per medicine team. Podiatry will continue to follow. Please do not hesitate to call if you have any questions. Sara Kendrick DPM, [facility] [phone]
[2020-01-30] MEDS: Acetaminophen 325 MG Tablet 650 MG PO ×3 (06:44→19:59)
[2020-01-30 07:36] LABS: Bedside Glucose 332 mg/dL (70-110)
--- NOTE | 2020-01-30 07:53 | PN_ITS ---
Patient Problems: Active and Suspected Problems (Last Updated 08/12/17 @ 11:54 by Lorenza Nguyễn) COVID-19 (Acute) Sepsis (Acute) Cellulitis of great toe, right (Acute) Cellulitis of second toe, left (Acute) Cellulitis (Acute) Vitals/I&O's: Vital Signs Temp Pulse Resp BP Pulse Ox 97.6 F L 60 16 128/67 H 96 01/30/20 03:00 01/30/20 03:00 01/30/20 03:00 01/30/20 03:00 01/30/20 03:00 Oxygen Flow Rate (L/min) 1 Oxygen Delivery Method Room Air Weight: 254 lb 15.998 oz Body Mass Index (BMI) 37.6 Intake and Output for Last 24 Hours 01/28/20 01/29/20 01/30/20 23:59 23:59 23:59 Intake Total 752 / 752 3861.67 / 4221.67 945 / 945 Output Total 2100 / 2600 950 / 950 Balance 752 / 752 1761.67 / 1621.67 -5 / -5 Microbiology Past 72 Hours 01/28/20 12:10 Blood Culture (Wb) - Right Hand Blood Culture - Final Streptococcus agalactiae (B) 01/28/20 20:15 Wound - Left Foot Gram Stain - Final 01/28/20 20:15 Wound - Left Foot Wound Culture - Preliminary Streptococcus agalactiae (B) Staphylococcus aureus 01/28/20 20:15 Wound - Right Foot Gram Stain - Final 01/28/20 20:15 Wound - Right Foot Wound Culture - Preliminary Streptococcus agalactiae (B) Staphylococcus aureus 01/28/20 12:10 Blood Culture (Wb) - Left Hand Bacteria Detection (PCR) - Final Streptococcus agalactiae (B) 01/28/20 12:10 Blood Culture (Wb) - Left Hand Blood Culture - Final Streptococcus agalactiae (B) 01/28/20 14:30 Mucosa - Nose SARS-CoV-2 Antigen (Rapid) - Final Laboratory Results 01/29/20 06:36: Hemoglobin A1c 7.8 H 01/29/20 07:42: COVID-19 (ANNE) Not Detected 01/29/20 09:16: POC Glucose 342 H 01/29/20 12:09: POC Glucose 384 H 01/29/20 16:38: POC Glucose 394 H 01/29/20 22:32: POC Glucose 396 H 01/29/20 23:55: Urine Color Yellow, Urine Clarity Clear, Urine pH 5.0, Ur Specific [place] 1.010, Urine Protein 30 H, Urine Glucose (UA) 1000 H, Urine Ketones Negative, Urine Occult Blood 10 H, Urine Nitrite Negative, Urine B ilirubin Negative, Urine Urobilinogen Normal, Ur Leukocyte Esterase Negative, Urine RBC 0-5 SEEN, Urine WBC 0 SEEN, Ur Squamous Epith Cells 0 SEEN, Urine Bacteria 0 SEEN, Urine Mucus 0 SEEN 01/30/20 02:24: Vancomycin Trough 16.2 H 01/30/20 02:24: WBC 15.7 H, RBC 4.21 L, Hgb 13.0, Hct 37.3 L, MCV 88.6, MCH 30.9, MCHC 34.9, RDW Std Deviation 42.5, RDW Coeff of [place] 13.2, Plt Count 198, MPV 9.5, Immature Gran % (Auto) 2.000 H, Neut % (Auto) 85.8 H, Lymph % (Auto) 4.8 L, [place] % (Auto) 7.2, Eos % (Auto) 0.0, Baso % (Auto) 0.2, Absolute Neuts (auto) 13.5 H, Absolute Lymphs (auto) 0.75 L, Nucleated RBC % 0 01/30/20 02:24: Sodium 133 L, Potassium 4.3, Chloride 102, Carbon Dioxide 24.0, Anion Gap 7, BUN 40 H, Creatinine 1.41 H, Estim Creat Clear Calc 52.23, Est GFR (MDRD) Af Amer 65, Est GFR (MDRD) Non-Af 54 L, BUN/Creatinine Ratio 28.4 H, Glucose 348 H, Calcium 8.6, TSH 0.92 01/30/20 02:24: Cortisol Pending 01/30/20 07:27: POC Glucose 332 H Current Medications Acetaminophen (Acetaminophen 325 Mg Tablet) 650 mg PO Q6H PRN PRN PRN Reason: Pain Score 1-10/Temp > 100.7 F Last Admin: 01/30/20 06:44 Dose: 650 mg Documented by: Carvedilol (Carvedilol 25 Mg Tablet) 25 mg PO BID@0800,2200 [facility] Last Admin: 01/29/20 21:51 Dose: 25 mg Documented by: Dextrose (Dextrose 50%-Water 25 Gm/50 Ml Disp.Syrin) 0 gm IV X1 PRN; Protocol PRN Reason: Hypoglycemia Enoxaparin Sodium (Enoxaparin 40 Mg/0.4 Ml Syringe) 40 mg SC DAILY@0800 [facility] Last Admin: 01/29/20 09:24 Dose: 40 mg Documented by: Glucagon (Glucagon 1 Mg/Ml Syringe) 1 mg IM .X1 PRN PRN Reason: Hypoglycemia Sodium Chloride () 1,000 mls @ 100 mls/hr IV .Q10H [facility] Last Admin: 01/30/20 03:17 Dose: 100 mls/hr Documented by: Vancomycin IV Pharmacy to Dose (1 ea/ Sodium Chloride) 500 mls @ 250 mls/hr IV PRN PRN; Protocol PRN Reason: Rx to Dose Vancomycin HCl 1,750 mg/ (Sodium Chloride) 535 mls @ 250 mls/hr IV Q12H [facility] Last Infusion: 01/30/20 06:29 Dose: Infused Documented by: Piperacillin Sod/Tazobactam (Sod 3.375 gm/ Sodium Chloride) 50 mls @ 12.5 mls/hr IV Q8 [facility] Last Admin: 01/30/20 06:39 Dose: 12.5 mls/hr Documented by: Insulin Glargine (Insulin Glargine 100 Units/Ml Pen) 45 units SC BREAKFAST [facility] Insulin Glargine (Insulin Glargine 100 Units/Ml Pen) 45 units SC DINNER [facility] Last Admin: 01/29/20 16:40 Dose: 45 u Documented by: Insulin Human Lispro (Insulin Lispro 100 Unit/Ml Insuln.Pen) 0 unit SC ACHS [facility]; Protocol Last Admin: 01/29/20 22:33 Dose: 10 u Documented by: Insulin Human Lispro (Insulin Lispro 100 Unit/Ml Insuln.Pen) 10 unit SC TIDAC [facility] Last Admin: 01/29/20 16:40 Dose: 10 u Documented by: Lisinopril (Lisinopril 20 Mg Tablet) 20 mg PO BID@0800,2200 [facility] Last Admin: 01/29/20 21:51 Dose: 20 mg Documented by: Melatonin (Melatonin 3 Mg Tablet) 3 mg PO QHS PRN PRN PRN Reason: INSOMNIA Ondansetron HCl (Ondansetron 4 Mg/2 Ml Vial) 4 mg IV Q8H PRN PRN PRN Reason: NAUSEA/VOMITING Sodium Chloride (0.9% Saline Lock 10 Ml Syringe) 10 - 40 ml IV UD PRN PRN Reason: SALINE FLUSH Last Admin: 01/28/20 22:40 Dose: 10 ml Documented by: Medical Necessity - Tobacco Use Smoking Status: Never smoker Tobacco Use: Non-smoker Assessment/Plan All Active Problems (Last Updated 08/12/17 @ 11:54 by Lorenza Nguyễn) Delayed wound healing (Acute) COVID-19 (Acute) Sepsis (Acute) Cellulitis of great toe, right (Acute) Cellulitis of second toe, left (Acute) Bacteremia (Acute) Cellulitis (Acute) Open wound of right great toe (Acute) Ulcer of right foot with fat layer exposed (Acute) MSSA (methicillin susceptible Staphylococcus aureus) infection (Acute) 1. bilateral foot diabetic ulcers with cellulitis * podiatry following * concern for osteomyelitis, at least on the right * check MRI on Right foot * on pip/tazo and vanc * culture growing out group B strep bilaterally. But continue broad spectrum abx until cx finalized. * DW Dr. Cruz, right toe has been present for months. He cannot probe bone, but noted purulence. For the left, that appears to be healing and low likelihood of osteo. 2. Sepsis: * POA * at least due to above. Concern for COVID-19. Not hypoxic. Xray reviewed and had poor inspiratory effort. Read by radiology as infiltrate. * Antigen negative. If PCR negative, then I would feel patient does not have COVID-19 and will discontinue isolation and dexa. 3. DM2 * uncontrolled * last A1c was 10.7 from 09/16/2019 * on glargine 70 at home, split to 35 BID here. Will increase to 45 BID. Start scheduled prandial insulin 10 QAC. DC glimepiride and metformin as has not helped and poses risk of hypoglycemia. 4. Hyponatremia * chronic, though lower than normal. * at attributable to hyperglycemia, but rule our other processes. * check TSH and cortisol. If normal then check SIADH labs (urine Na, urine Osm, serum Osm). 5. VTE prophylaxis: LMWH. COVID-19 PCR negative. discontinue isolation and discontinue dexamethasone.
--- NOTE | 2020-01-30 08:15 | NURSING ---
Dr Kendrick had been in and changed dressings to bilateral feet. will leave in place since dressings had just been changed by podiatry.
--- NOTE | 2020-01-30 09:00 | MRI_ITS ---
STUDY: MRI RIGHT FOREFOOT WITHOUT CONTRAST REASON FOR EXAM: Right great toe ulcer for 3 months. TECHNIQUE: Standardized fat and water weighted pulse sequences were obtained in all 3 orthogonal planes. COMPARISON: Radiographs 01/20/2020. FINDINGS: Normal metatarsophalangeal joint of the hallux. There is a stress fracture of the tibial sesamoid (T1 sagittal images 5, 6), without bone edema, likely chronic. Normal fibular sesamoid. Normal interphalangeal joint of the hallux. There is mild bone edema of the dorsal aspect of the diaphysis of the first distal phalanx (inversion recovery sagittal image 9) without corresponding decreased T1 bone marrow signal. Normal proximal of the great toe. Normal medial and lateral heads of the flexor hallucis brevis tendons. Normal flexor and extensor hallucis longus tendons. Normal second through fifth metatarsophalangeal (MTP) joints. Normal interphalangeal joints of the second through fifth toes. Normal proximal, middle and distal phalanges of the second through fifth toes. There is a small intermetatarsal neuroma of the second webspace (T1 series 4 image 16) measuring 0.4 cm in transverse dimension. Normal flexor and extensor tendons of the second through fifth toes. Normal visualized metatarsi. Normal intrinsic muscles of the forefoot. There is edema in the subcutis adipose space without focal fluid collection to indicate soft tissue abscess. MRI/Lower Ext/No Jt/w/o IMPRESSION: Mild bone edema of the first distal phalanx, either reactive bone edema or early osteomyelitis. Stress fracture of the tibial sesamoid without bone edema, likely chronic. Small intermetatarsal neuroma of the second webspace. Edema in the subcutis adipose space without demonstrated soft tissue abscess. Electronically Signed: Escobar Alcantara MD at 10:29 EST Tel , Service support ,
[2020-01-30] MEDS: Insulin Lispro 100 UNIT/ML INSULN.PEN SC ×4 (09:59→21:48)
[2020-01-30] MEDS: Insulin Lispro 100 UNIT/ML INSULN.PEN 10 UNIT SC ×2 (09:59→11:58)
[2020-01-30] MEDS: Carvedilol 25 MG Tablet PO ×2 (10:00→21:47)
[2020-01-30] MEDS: Lisinopril 20 MG Tablet PO ×2 (10:02→21:47)
[2020-01-30] MEDS: Enoxaparin 40 MG/0.4 ML Syringe SC (10:02)
--- NOTE | 2020-01-30 10:35 | CASEMGMT ---
RN PETR Face to Face with patient for initial transition planning/care coordination assessment. RN CM introduced self and role at [facility]. Patient sitting in chair, alert and oriented. Patient willing to participate in assessment and is able to answer all questions appropriately. Care providers, pharmacy, and demographics verified. Patient wishes to discharge home, will monitor for need for HHC pending ATBs at discharge. Patient states he has no further needs or concerns at this time. CM to follow for discharge planning needs that may arise. PCP: Luis Alberto Specialists: [facility] Preferred Pharmacy: [facility] Insurance: [facility] Prescription Benefit: yes Living Will/HPOA: none LNOK: , daughter Living Arrangements: Patient lives with in a single story home with 3 steps to enter. Patient is independent at home. Transportation: self/ DME/HHC: Patient states he has cane at home. Patient denies previous HHC. Disposition Plan: Patient to discharge home with family support and follow-up plans in place. Will monitor for HHC and IV ATBs at discharge. Marianela YOUNGER, RN, CM
[2020-01-30 10:38] VITALS: BP 133/66; PULSE 64; RESP 16; TEMP 36.4; O2SAT 97
[2020-01-30 12:15] LABS: Bedside Glucose 298 mg/dL (70-110)
--- NOTE | 2020-01-30 12:47 | PN_ITS ---
<Eligio Kelly - Last Filed: 01/30/20 12:47> Patient Problems: Active and Suspected Problems (Last Updated 08/12/17 @ 11:54 by Lorenza Nguyễn) COVID-19 (Acute) Sepsis (Acute) Cellulitis of great toe, right (Acute) Cellulitis of second toe, left (Acute) Cellulitis (Acute) Reason for Visit: cellulitis Subjective: Pt with significant neuropathy in feet so little pain reported. No fever / chills. No SOB/cough today. No chest pain. Overall pt feels much better. Vitals/I&O's: Vital Signs Temp Pulse Resp BP Pulse Ox 97.6 F L 64 16 133/66 H 97 01/30/20 10:38 01/30/20 10:38 01/30/20 10:38 01/30/20 10:38 01/30/20 10:38 Oxygen Flow Rate (L/min) 1 Oxygen Delivery Method Room Air Weight: 254 lb 15.998 oz Body Mass Index (BMI) 37.6 Intake and Output for Last 24 Hours 01/28/20 01/29/20 01/30/20 23:59 23:59 23:59 Intake Total 752 / 752 3861.67 / 4221.67 995 / 995 Output Total 2100 / 2600 950 / 950 Balance 752 / 752 1761.67 / 1621.67 45 / 45 General: Alert, Oriented x3, Cooperative HEENT: Atraumatic, PERRLA, EOMI, Normocephalic Neck: Supple, No JVD, Negative Carotid Bruits Lungs: Clear to auscultation, Normal air movement Cardiovascular: Regular rate, No murmurs Abdomen: Bowel Sounds Present, Soft, Non Tender Extremities: No edema, Capillary Refill Less than 3 Seconds Skin: No rashes, No breakdown Musculoskeletal: No Tenderness to Palpation of Joints or Extremities Neurological: Cranial nerves II-XII grossly intact Psych/Mental Status: Normal Affect, Appropriate, Alert and oriented to time, place, person, mood and affect Microbiology Past 72 Hours 01/29/20 23:55 Urine, Clean Catch Urine Culture - Preliminary Culture exhibits no growth. 01/28/20 12:10 Blood Culture (Wb) - Right Hand Blood Culture - Final Streptococcus agalactiae (B) 01/28/20 20:15 Wound - Left Foot Gram Stain - Final 01/28/20 20:15 Wound - Left Foot Wound Culture - Preliminary Streptococcus agalactiae (B) Staphylococcus aureus 01/28/20 20:15 Wound - Right Foot Gram Stain - Final 01/28/20 20:15 Wound - Right Foot Wound Culture - Preliminary Streptococcus agalactiae (B) Staphylococcus aureus 01/28/20 12:10 Blood Culture (Wb) - Left Hand Bacteria Detection (PCR) - Final Streptococcus agalactiae (B) 01/28/20 12:10 Blood Culture (Wb) - Left Hand Blood Culture - Final Streptococcus agalactiae (B) 01/28/20 14:30 Mucosa - Nose SARS-CoV-2 Antigen (Rapid) - Final Laboratory Results 01/29/20 16:38: POC Glucose 394 H 01/29/20 22:32: POC Glucose 396 H 01/29/20 23:55: Urine Color Yellow, Urine Clarity Clear, Urine pH 5.0, Ur Specific [place] 1.010, Urine Protein 30 H, Urine Glucose (UA) 1000 H, Urine Ketones Negative, Urine Occult Blood 10 H, Urine Nitrite Negative, Urine Bilirubin Negative, Urine Urobilinogen Normal, Ur Leukocyte Esterase Negative, Urine RBC 0-5 SEEN, Urine WBC 0 SEEN, Ur Squamous Epith Cells 0 SEEN, Urine Bacteria 0 SEEN, Urine Mucus 0 SEEN 01/30/20 02:24: Vancomycin Trough 16.2 H 01/30/20 02:24: WBC 15.7 H, RBC 4.21 L, Hgb 13.0, Hct 37.3 L, MCV 88.6, MCH 30.9, MCHC 34.9, RDW Std Deviation 42.5, RDW Coeff of [place] 13.2, Plt Count 198, MPV 9.5, Immature Gran % (Auto) 2.000 H, Neut % (Auto) 85.8 H, Lymph % (Auto) 4.8 L, [place] % (Auto) 7.2, Eos % (Auto) 0.0, Baso % (Auto) 0.2, Absolute Neuts (auto) 13.5 H, Absolute Lymphs (auto) 0.75 L, Nucleated RBC % 0 01/30/20 02:24: Sodium 133 L, Potassium 4.3, Chloride 102, Carbon Dioxide 24.0, Anion Gap 7, BUN 40 H, Creatinine 1.41 H, Estim Creat Clear Calc 52.23, Est GFR (MDRD) Af Amer 65, Est GFR (MDRD) Non-Af 54 L, BUN/Creatinine Ratio 28.4 H, Glucose 348 H, Calcium 8.6, TSH 0.92 01/30/20 02:24: Cortisol 3.70 01/30/20 07:27: POC Glucose 332 H 01/30/20 11:52: POC Glucose 298 H Current Medications Acetaminophen (Acetaminophen 325 Mg Tablet) 650 mg PO Q6H PRN PRN PRN Reason: Pain Score 1-10/Temp > 100.7 F Last Admin: 01/30/20 06:44 Dose: 650 mg Documented by: Carvedilol (Carvedilol 25 Mg Tablet) 25 mg PO BID@0800,2200 [facility] Last Admin: 01/30/20 10:00 Dose: 25 mg Documented by: Dextrose (Dextrose 50%-Water 25 Gm/50 Ml Disp.Syrin) 0 gm IV X1 PRN; Protocol PRN Reason: Hypoglycemia Enoxaparin Sodium (Enoxaparin 40 Mg/0.4 Ml Syringe) 40 mg SC DAILY@0800 [facility] Last Admin: 01/30/20 10:02 Dose: 40 mg Documented by: Glucagon (Glucagon 1 Mg/Ml Syringe) 1 mg IM .X1 PRN PRN Reason: Hypoglycemia Sodium Chloride () 1,000 mls @ 100 mls/hr IV .Q10H [facility] Last Admin: 01/30/20 03:17 Dose: 100 mls/hr Documented by: Ceftriaxone Sodium 2 gm/ (Sodium Chloride) 50 mls @ 100 mls/hr IV Q24 [facility] Insulin Glargine (Insulin Glargine 100 Units/Ml Pen) 45 units SC BREAKFAST [facility] Last Admin: 01/30/20 10:00 Dose: 332 u Documented by: Insulin Glargine (Insulin Glargine 100 Units/Ml Pen) 45 units SC DINNER [facility] Last Admin: 01/29/20 16:40 Dose: 45 u Documented by: Insulin Human Lispro (Insulin Lispro 100 Unit/Ml Insuln.Pen) 0 unit SC ACHS [facility]; Protocol Last Admin: 01/30/20 11:57 Dose: 6 u Documented by: Insulin Human Lispro (Insulin Lispro 100 Unit/Ml Insuln.Pen) 10 unit SC TIDAC [facility] Last Admin: 01/30/20 11:58 Dose: 10 u Documented by: Lisinopril (Lisinopril 20 Mg Tablet) 20 mg PO BID@0800,2200 [facility] Last Admin: 01/30/20 10:02 Dose: 20 mg Documented by: Melatonin (Melatonin 3 Mg Tablet) 3 mg PO QHS PRN PRN PRN Reason: INSOMNIA Metronidazole (Metronidazole 500 Mg Tablet) 500 mg PO TID [facility] Ondansetron HCl (Ondansetron 4 Mg/2 Ml Vial) 4 mg IV Q8H PRN PRN PRN Reason: NAUSEA/VOMITING Sodium Chloride (0.9% Saline Lock 10 Ml Syringe) 10 - 40 ml IV UD PRN PRN Reason: SALINE FLUSH Last Admin: 01/28/20 22:40 Dose: 10 ml Documented by: STROKE Vital Signs/Narrative: Vital Signs Temp Pulse Resp BP Pulse Ox 01/30/20 10:38 97.6 F L 64 16 133/66 H 97 Medical Necessity - Tobacco Use Smoking Status: Never smoker Tobacco Use: Non-smoker Assessment/Plan All Active Problems (Last Updated 08/12/17 @ 11:54 by Lorenza Nguyễn) Delayed wound healing (Acute) COVID-19 (Acute) Sepsis (Acute) Cellulitis of great toe, right (Acute) Cellulitis of second toe, left (Acute) Bacteremia (Acute) Cellulitis (Acute) Open wound of right great toe (Acute) Ulcer of right foot with fat layer exposed (Acute) MSSA (methicillin susceptible Staphylococcus aureus) infection (Acute) 1 . Sepsis / Bacteremia / Osteomyelitis due to nonhealing wounds/cellulitis - Wounds with Strep / Staph, hx MSSA, blood with Strep. MRi with early osteo. Podiatry/ID consulted. -covid antigen and serology neg. -procalc elevated -may need echo 2. Hyponatremia - due to sepsis/hyperglycemia - improving 3. Hx CAD/CABG - coreg, zestril. statin allergic. non on aspirin for unclear reasons. 4. DMt2 with hyperglycemia, peripheral neuropathy, obesity - TID insulin and lantus increased. 5. HTN - stable DVT ppx: Lovenox This patient was seen by Eligio Kelly PA-C under the supervision of Dr. Montes <Best Montes - Last Filed: 01/30/20 14:14> Vitals/I&O's: Vital Signs Temp Pulse Resp BP Pulse Ox 97.6 F L 64 16 133/66 H 97 01/30/20 10:38 01/30/20 10:38 01/30/20 10:38 01/30/20 10:38 01/30/20 10:38 Oxygen Flow Rate (L/min) 1 Oxygen Delivery Method Room Air Weight: 254 lb 15.998 oz Body Mass Index (BMI) 37.6 Intake and Output for Last 24 Hours 01/28/20 01/29/20 01/30/20 23:59 23:59 23:59 Intake Total 752 / 752 3861.67 / 4221.67 1045 / 1045 Output Total 2100 / 2600 950 / 950 Balance 752 / 752 1761.67 / 1621.67 95 / 95 Microbiology Past 72 Hours 01/29/20 23:55 Urine, Clean Catch Urine Culture - Preliminary Culture exhibits no growth. 01/28/20 12:10 Blood Culture (Wb) - Right Hand Blood Culture - Final Streptococcus agalactiae (B) 01/28/20 20:15 Wound - Left Foot Gram Stain - Final 01/28/20 20:15 Wound - Left Foot Wound Culture - Preliminary Streptococcus agalactiae (B) Staphylococcus aureus 01/28/20 20:15 Wound - Right Foot Gram Stain - Final 01/28/20 20:15 Wound - Right Foot Wound Culture - Preliminary Streptococcus agalactiae (B) Staphylococcus aureus 01/28/20 12:10 Blood Culture (Wb) - Left Hand Bacteria Detection (PCR) - Final Streptococcus agalactiae (B) 01/28/20 12:10 Blood Culture (Wb) - Left Hand Blood Culture - Final Streptococcus agalactiae (B) 01/28/20 14:30 Mucosa - Nose SARS-CoV-2 Antigen (Rapid) - Final Laboratory Results 01/29/20 16:38: POC Glucose 394 H 01/29/20 22:32: POC Glucose 396 H 01/29/20 23:55: Urine Color Yellow, Urine Clarity Clear, Urine pH 5.0, Ur Specific [place] 1.010, Urine Protein 30 H, Urine Glucose (UA) 1000 H, Urine Ketones Negative, Urine Occult Blood 10 H, Urine Nitrite Negative, Urine Bilirubin Negative, Urine Urobilinogen Normal, Ur Leukocyte Esterase Negative, Urine RBC 0-5 SEEN, Urine WBC 0 SEEN, Ur Squamous Epith Cells 0 SEEN, Urine Bacteria 0 SEEN, Urine Mucus 0 SEEN 01/30/20 02:24: Vancomycin Trough 16.2 H 01/30/20 02:24: WBC 15.7 H, RBC 4.21 L, Hgb 13.0, Hct 37.3 L, MCV 88.6, MCH 30.9, MCHC 34.9, RDW Std Deviation 42.5, RDW Coeff of [place] 13.2, Plt Count 198, MPV 9.5, Immature Gran % (Auto) 2.000 H, Neut % (Auto) 85.8 H, Lymph % (Auto) 4.8 L, [place] % (Auto) 7.2, Eos % (Auto) 0.0, Baso % (Auto) 0.2, Absolute Neuts (auto) 13.5 H, Absolute Lymphs (auto) 0.75 L, Nucleated RBC % 0 01/30/20 02:24: Sodium 133 L, Potassium 4.3, Chloride 102, Carbon Dioxide 24.0, Anion Gap 7, BUN 40 H, Creatinine 1.41 H, Estim Creat Clear Calc 52.23, Est GFR (MDRD) Af Amer 65, Est GFR (MDRD) Non-Af 54 L, BUN/Creatinine Ratio 28.4 H, Glucose 348 H, Calcium 8.6, TSH 0.92 01/30/20 02:24: Cortisol 3.70 01/30/20 07:27: POC Glucose 332 H 01/30/20 11:52: POC Glucose 298 H Current Medications Acetaminophen (Acetaminophen 325 Mg Tablet) 650 mg PO Q6H PRN PRN PRN Reason: Pain Score 1-10/Temp > 100.7 F Last Admin: 01/30/20 13:23 Dose: 650 mg Documented by: Carvedilol (Carvedilol 25 Mg Tablet) 25 mg PO BID@0800,2200 [facility] Last Admin: 01/30/20 10:00 Dose: 25 mg Documented by: Dextrose (Dextrose 50%-Water 25 Gm/50 Ml Disp.Syrin) 0 gm IV X1 PRN; Protocol PRN Reason: Hypoglycemia Enoxaparin Sodium (Enoxaparin 40 Mg/0.4 Ml Syringe) 40 mg SC DAILY@0800 [facility] Last Admin: 01/30/20 10:02 Dose: 40 mg Documented by: Glucagon (Glucagon 1 Mg/Ml Syringe) 1 mg IM .X1 PRN PRN Reason: Hypoglycemia Sodium Chloride () 1,000 mls @ 100 mls/hr IV .Q10H [facility] Last Admin: 01/30/20 03:17 Dose: 100 mls/hr Documented by: Ceftriaxone Sodium 2 gm/ (Sodium Chloride) 50 mls @ 100 mls/hr IV Q24 [facility] Last Infusion: 01/30/20 13:18 Dose: Infused Documented by: Insulin Glargine (Insulin Glargine 100 Units/Ml Pen) 47 units SC BREAKFAST [facility] Insulin Glargine (Insulin Glargine 100 Units/Ml Pen) 47 units SC DINNER [facility] Insulin Human Lispro (Insulin Lispro 100 Unit/Ml Insuln.Pen) 0 unit SC ACHS [facility]; Protocol Last Admin: 01/30/20 11:57 Dose: 6 u Documented by: Insulin Human Lispro (Insulin Lispro 100 Unit/Ml Insuln.Pen) 12 unit SC TIDAC [facility] Lisinopril (Lisinopril 20 Mg Tablet) 20 mg PO BID@0800,2200 [facility] Last Admin: 01/30/20 10:02 Dose: 20 mg Documented by: Melatonin (Melatonin 3 Mg Tablet) 3 mg PO QHS PRN PRN PRN Reason: INSOMNIA Metronidazole (Metronidazole 500 Mg Tablet) 500 mg PO TID [facility] Last Admin: 01/30/20 13:11 Dose: 500 mg Documented by: Ondansetron HCl (Ondansetron 4 Mg/2 Ml Vial) 4 mg IV Q8H PRN PRN PRN Reason: NAUSEA/VOMITING Sodium Chloride (0.9% Saline Lock 10 Ml Syringe) 10 - 40 ml IV UD PRN PRN Reason: SALINE FLUSH Last Admin: 01/28/20 22:40 Dose: 10 ml Documented by: STROKE Vital Signs/Narrative: Vital Signs Temp Pulse Resp BP Pulse Ox 01/30/20 10:38 97.6 F L 64 16 133/66 H 97 Assessment/Plan This 64-year-old gentleman was admitted with fever, generalized illness and worsening of bilateral feet ulcer. Covid 19 PCR negative. Then patient was transferred to [place] [id number]. . bilateral foot diabetic ulcers with cellulitis: MRI of right forefoot was done and reported mild bone edema of first distal phalanx, either reactive bone edema or early osteomyelitis. Patient seen by receiver stocker. Currently on IV Vanco and Zosyn. Right foot culture shows strep group B, agalactiae and a staph aureus most probably MSSA. MRSA PCR negative. As per Dr. Cruz, he could not probe bone but noted purulence. For the left foot, low likelihood of osteo-. 2. Sepsis, present on admission most probably secondary to diabetic foot ulcer as mentioned above. Isolation discontinued for COVID-19. 3. DM2, uncontrolled: A1c 10.7 on 09/16/2019.on glargine 70 at home, increased to 55 BID. On scheduled prandial insulin 20 units 3 times daily AC. DC gl imepiride and metformin as has not helped and poses risk of hypoglycemia. 4. Hyponatremia, chronic though lower than the baseline. Sodium is better 133 today. * May be due to hyperglycemia. TSH 0.92. Cortisol 3.7. As TSH and cortisol levels are normal, urine sodium, urine osmolarity and serum osmolality ordered to rule out SIADH. Urine protein and random creatinine also ordered as patient Has proteinuria on UA, 30 5. VTE prophylaxis: LMWH. Clinical Impression(s) from Imaging Studies Chest X-Ray 01/28/20 11:40 IMPRESSION: Multilobar groundglass opacities suggesting possibility of pneumonia, including viral causes, although can also be seen in pulmonary edema. Foot X-Ray 01/28/20 11:50 IMPRESSION: No destructive bony process. Degenerative changes. Foot X-Ray 01/28/20 11:50 IMPRESSION: No destructive bony process. Degenerative changes. Lower Extremity MRI 01/30/20 09:00 IMPRESSION: Mild bone edema of the first distal phalanx, either reactive bone edema or early osteomyelitis. Stress fracture of the tibial sesamoid without bone edema, likely chronic. Small intermetatarsal neuroma of the second webspace. Edema in the subcutis adipose space without demonstrated soft tissue abscess. Inpatient E&M: 82285 Subs Hosp L2
--- NOTE | 2020-01-30 13:00 | CASEMGMT ---
[facility] HU[facility]RE[facility] updated by infections disease that patient will have IV ATBs at discharge. [facility] HU[facility] provided list of C agencies to patient. CM will continue to follow this and plan for a safe discharge.
[2020-01-30] MEDS: metroNIDAZOLE 500 MG Tablet PO ×2 (13:11→21:48)
--- NOTE | 2020-01-30 13:57 | PCM.HP.ID ---
Problem List (1) Bacteremia Status: Acute Reason for Consult: bacteremia Consulted by: Dr. Montes History of Present Illness: The patient is a 64 year old M with DM neuropathy, chronic foot ulcers, admitted 08/2019 with MSSA and strep bacteremia due to foot infection. Reports some recent increase in B foot redness, swelling. No pain or drainage. Follows with podiatry. R foot with chronic ulcer. On 01/26, started to have fever, chills, nausea, weakness, not feeling well. Came to ED, covid neg, no sick contacts, started on vanc/zosyn, cxs sent, seen by podiatry, feeling much better today. Full ROS Performed and neg except as noted above. - Medical History Past Medical History (Chronic Problems): Chronic Problems (Last Updated 08/12/17 @ 11:54 by Lorenza Nguyễn) Other specified peripheral vascular diseases (Chronic) Ulcer of right foot with fat layer exposed (Chronic) Ulcer of left foot with fat layer exposed (Chronic) Obesity (BMI 30.0-34.9) (Chronic) Obesity, Class II, BMI 35-39.9, with comorbidity (Chronic) Type 2 diabetes mellitus with diabetic neuropathy (Chronic) CAD (coronary artery disease) (Chronic) Type 2 diabetes mellitus (Chronic) Hypertension (Chronic) Hyperlipidemia (Chronic) Allergies/Adverse Reactions: Allergies atorvastatin [From Lipitor] Adverse Reaction (Verified 01/25/20 13:39) Pain in joints rosuvastatin [From Crestor] Adverse Reaction (Verified 01/25/20 13:39) Pain in joints Home Medications: Ambulatory Orders Medication Instructions Recorded carvedilol 25 mg tablet 25 mg PO BID 08/12/17 glimepiride 4 mg tablet 4 mg PO DAILY 08/12/17 insulin glargine 100 unit/mL (3 70 unit SC QHS 08/12/17 mL) subcutaneous pen metformin 1,000 mg tablet 1,000 mg PO BID 08/12/17 Lisinopril [Zestril] 20 mg PO BID 08/14/17 Multivit-Mins/Iron/Folic/Lycop 1 tab PO BID 09/16/19 [Centrum Ultra Men's Tablet] Oregano Oil [Oil of Oregano] 1,500 mg PO BID 09/16/19 - Social History SMOKING STATUS:: Never smoker Vital Signs Temp Pulse Resp BP Pulse Ox 97.6 F L 64 16 133/66 H 97 01/30/20 10:38 01/30/20 10:38 01/30/20 10:38 01/30/20 10:38 01/30/20 10:38 Oxygen Flow Rate (L/min) 1 Oxygen Delivery Method Room Air Weight: 115.666 kg Body Mass Index (BMI) 37.6 Microbiology Past 72 Hours 01/29/20 23:55 Urine Culture - Preliminary Urine, Clean Catch Culture exhibits no growth. 01/28/20 12:10 Blood Culture - Final Blood Culture (Wb) - Right Hand Streptococcus agalactiae (B) 01/28/20 20:15 Gram Stain - Final Wound - Left Foot Wound Culture - Preliminary Streptococcus agalactiae (B) Staphylococcus aureus 01/28/20 20:15 Gram Stain - Final Wound - Right Foot Wound Culture - Preliminary Streptococcus agalactiae (B) Staphylococcus aureus 01/28/20 12:10 Bacteria Detection (PCR) - Final Blood Culture (Wb) - Left Hand Streptococcus agalactiae (B) Blood Culture - Final Streptococcus agalactiae (B) 01/28/20 14:30 SARS-CoV-2 Antigen (Rapid) - Final Mucosa - Nose Laboratory Tests Past 24 Hrs 01/29/20 01/30/20 01/30/20 23:55 02:24 02:24 WBC 15.7 H RBC 4.21 L Hgb 13.0 Hct 37.3 L MCV 88.6 MCH 30.9 MCHC 34.9 RDW Std Deviation 42.5 RDW Coeff of [place] 13.2 Plt Count 198 MPV 9.5 Immature Gran % (Auto) 2.000 H Neut % (Auto) 85.8 H Lymph % (Auto) 4.8 L [place] % (Auto) 7.2 Eos % (Auto) 0.0 Baso % (Auto) 0.2 Absolute Neuts (auto) 13.5 H Absolute Lymphs (auto) 0.75 L Nucleated RBC % 0 Sodium Potassium Chloride Carbon Dioxide Anion Gap BUN Creatinine Estim Creat Clear Calc Est GFR (MDRD) Af Amer Est GFR (MDRD) Non-Af BUN/Creatinine Ratio Glucose Calcium TSH Cortisol Urine Color Yellow Urine Clarity Clear Urine pH 5.0 Ur Specific [place] 1.010 Urine Protein 30 H Urine Glucose (UA) 1000 H Urine Ketones Negative Urine Occult Blood 10 H Urine Nitrite Negative Urine Bilirubin Negative Urine Urobilinogen Normal Ur Leukocyte Esterase Negative Urine RBC 0-5 SEEN Urine WBC 0 SEEN Ur Squamous Epith Cells 0 SEEN Urine Bacteria 0 SEEN Urine Mucus 0 SEEN Vancomycin Trough 16.2 H 01/30/20 01/30/20 02:24 02:24 WBC RBC Hgb Hct MCV MCH MCHC RDW Std Deviation RDW Coeff of [place] Plt Count MPV Immature Gran % (Auto) Neut % (Auto) Lymph % (Auto) [place] % (Auto) Eos % (Auto) Baso % (Auto) Absolute Neuts (auto) Absolute Lymphs (auto) Nucleated RBC % Sodium 133 L Potassium 4.3 Chloride 102 Carbon Dioxide 24.0 Anion Gap 7 BUN 40 H Creatinine 1.41 H Estim Creat Clear Calc 52.23 Est GFR (MDRD) Af Amer 65 Est GFR (MDRD) Non-Af 54 L BUN/Creatinine Ratio 28.4 H Glucose 348 H Calcium 8.6 TSH 0.92 Cortisol 3.70 Urine Color Urine Clarity Urine pH Ur Specific [place] Urine Protein Urine Glucose (UA) Urine Ketones Urine Occult Blood Urine Nitrite Urine Bilirubin Urine Urobilinogen Ur Leukocyte Esterase Urine RBC Urine WBC Ur Squamous Epith Cells Urine Bacteria Urine Mucus Vancomycin Trough - Other Studies Radiology: [] reviewed Other Studies: [] Route of nutrition/ use of supplements: [] Nutritional Intake: [] IV Site: [] Triplett Catheter: [] - Physical Exam General: Alert, Oriented x3, Cooperative, No apparent distress HEENT: Atraumatic, PERRLA, EOMI Neck: Supple, No Nodes Lungs: Clear to auscultation, Normal air movement Cardiovascular: Regular rate, Regular Rhythm Abdomen: Soft, Non Tender, Non-Distended Extremities: Edema Skin: Ulcer/ Wound - feet wrapped IV Site: Peripheral, without redness Musculoskeletal: No Tenderness to Palpation of Joints or Extremities Neurological: Cranial nerves II-XII grossly intact - Assessment/Plan Antibiotics: [] Assessment/Plan: [] Active and Suspected Problems (Last Updated 08/12/17 @ 11:54 by Lorenza Nguyễn) COVID-19 (Acute) Sepsis (Acute) Cellulitis of great toe, right (Acute) Cellulitis of second toe, left (Acute) Cellulitis (Acute) Low suspicion for covid given negative tests and rapid resolution of symptoms. Bcx x2 with GBS. Bilat foot cxs with staph aureus and GBS. Narrow abx to ceftriaxone and flagyl. Wound cx with mssa. MRI R foot with ? early osteo. Will see what podiatry says. Tentative plan will be 6 weeks of abx, likely with picc for at least first few weeks. Will follow, thank you, d/w casework supervisor
[2020-01-30 14:33] LABS: Osmolality, Serum 303 mOsm/KG (280-301)
[2020-01-30] MEDS: Insulin Lispro 100 UNIT/ML INSULN.PEN 20 UNIT SC (16:54)
[2020-01-30 16:55] LABS: Bedside Glucose 328 mg/dL (70-110)
[2020-01-30 19:41] VITALS: BP 155/73; PULSE 61; RESP 16; TEMP 36.5; O2SAT 97
[2020-01-30 21:46] VITALS: BP 152/77; PULSE 64
[2020-01-30 22:00] LABS: Bedside Glucose 290 mg/dL (70-110)
[2020-01-30 23:15] LABS: Protein, Urine (Random) 38.7 mg/dL (<11.9); Urine Sodium 38 mmol/L (Not Establ.)
[2020-01-30 23:27] LABS: Osmolality, Urine 848 mOsm/KG
[2020-01-31 02:26] VITALS: BP 161/77; PULSE 58; RESP 16; TEMP 36.6; O2SAT 98
[2020-01-31] MEDS: 0.9% Normal Saline 1,000 ML 100 ML IV (02:38)
[2020-01-31 05:43] LABS: Absolute Neutrophil Count 9.7 X10^3/uL (2.0-7.7); Basophil# 0.02 X10^3/uL; Basophil% 0.2 % (0-1); Eosinophil# 0.02 X10^3/uL; Eosinophils% 0.2 % (0-5); Hematocrit 36.2 % (40-54); Hemoglobin 12.1 g/dL (13.0-16.5); Lymphocyte % 13.4 % (19-41); Mean Corp Hgb Conc 33.4 g/dL (32-36); Mean Corpuscular Volume 89.6 fL (80-94); Mean Platelet Vol. 9.1 fl (6.2-12.0); Monocyte# 0.91 X10^3/uL; Monocyte% 7.2 % (0-10); NRBC Flagged by Analyzer 0 % (0-5); Neutrophil # 9.68 X10^3/uL (2.7-7.7); Platelet Count 194 K/mm3 (150-450); RBC Distribution Width CV 13.4 % (11.6-14.6); RBC Distribution Width SD 43.8 fl (35.1-43.9); Red Blood Count 4.04 M/mm3 (4.6-6.2); White Blood Count 12.7 K/mm3 (4.4-11.0)
--- NOTE | 2020-01-31 05:44 | PCM.PROGNOTE ---
Patient Problems: Active and Suspected Problems (Last Updated 08/12/17 @ 11:54 by Lorenza Nguyễn) COVID-19 (Acute) Sepsis (Acute) Cellulitis of great toe, right (Acute) Cellulitis of second toe, left (Acute) Bacteremia (Acute) Cellulitis (Acute) Subjective: This 64-year-old diabetic male was seen bedside for bilateral foot ulcers with cellulitis and sepsis. He denies fever, chills, nausea, vomiting, or fatigue. He denies foot pain. He is eager to return home. - Physical Exam Vitals/I&O's: Vital Signs Temp Pulse Resp BP Pulse Ox 97.8 F 58 L 16 161/77 H 98 01/31/20 02:26 01/31/20 02:26 01/31/20 02:26 01/31/20 02:26 01/31/20 02:26 Oxygen Flow Rate (L/min) 1 Oxygen Delivery Method Room Air Weight: 115.666 kg Body Mass Index (BMI) 37.6 Intake and Output for Last 24 Hours 01/29/20 01/30/20 01/31/20 23:59 23:59 23:59 Intake Total 3861.67 / 4221.67 2545 / 2545 966.67 / 966.67 Output Total 2100 / 2600 1300 / 1300 Balance 1761.67 / 1621.67 1245 / 1245 966.67 / 966.67 General: Alert, Oriented x3, Cooperative HEENT: Atraumatic Extremities: No cyanosis, Capillary Refill Less than 3 Seconds - All digits bilateral, No Calf Tenderness - Negative [place] and Pina bilateral, Diminished Peripheral Pulses, Edema - Decreased bilateral lower extremities Skin: Ulcer/ Wound - No purulence, erythema, streaking, odor, necrosis, deep tissue exposure bilateral. The ulcer bed is granular with fibrous tissue to the right hallux and fully granular and healthy to the plantar left second toe. His skin is thin bilateral. There is no interdigital maceration, bogginess,fluctuance Musculoskeletal: No Tenderness to Palpation of Joints or Extremities, Muscle Wasting, - Neurological: - - Lack of normal epicritic sensation light touch is consistent with neuropathy status Psych/Mental Status: Normal Affect, Appropriate Microbiology Past 72 Hours 01/29/20 23:55 Urine, Clean Catch Urine Culture - Preliminary Culture exhibits no growth. 01/28/20 12:10 Blood Culture (Wb) - Right Hand Blood Culture - Final Streptococcus agalactiae (B) 01/28/20 20:15 Wound - Left Foot Gram Stain - Final 01/28/20 20:15 Wound - Left Foot Wound Culture - Preliminary Streptococcus agalactiae (B) Staphylococcus aureus 01/28/20 20:15 Wound - Right Foot Gram Stain - Final 01/28/20 20:15 Wound - Right Foot Wound Culture - Preliminary Streptococcus agalactiae (B) Staphylococcus aureus 01/28/20 12:10 Blood Culture (Wb) - Left Hand Bacteria Detection (PCR) - Final Streptococcus agalactiae (B) 01/28/20 12:10 Blood Culture (Wb) - Left Hand Blood Culture - Final Streptococcus agalactiae (B) 01/28/20 14:30 Mucosa - Nose SARS-CoV-2 Antigen (Rapid) - Final Laboratory Results 01/30/20 02:24: Cortisol 3.70 01/30/20 07:27: POC Glucose 332 H 01/30/20 11:52: POC Glucose 298 H 01/30/20 14:10: Serum Osmolality 303 H 01/30/20 16:48: POC Glucose 328 H 01/30/20 18:22: Urine Osmolality 848, U Random Total Protein 38.7 H, Ur Random Sodium 38, Urine Creatinine 87.80 01/30/20 21:44: POC Glucose 290 H 01/31/20 05:34: WBC Pending, RBC Pending, Hgb Pending, Hct Pending, MCV Pending, MCH Pending, MCHC Pending, RDW Std Deviation Pending, RDW Coeff of Shelby Pending, Plt Count Pending, Neut % (Auto) Pending, Absolute Neuts (auto) Pending 01/31/20 05:34: Sodium Pending, Potassium Pending, Chloride Pending, Carbon Dioxide Pending, Anion Gap Pending, BUN Pending, Creatinine Pending, Est GFR (MDRD) Af Amer Pending, Est GFR (MDRD) Non-Af Pending, BUN/Creatinine Ratio Pending, Glucose Pending, Calcium Pending Current Medications Acetaminophen (Acetaminophen 325 Mg Tablet) 650 mg PO Q6H PRN PRN PRN Reason: Pain Score 1-10/Temp > 100.7 F Last Admin: 01/30/20 19:59 Dose: 650 mg Documented by: Carvedilol (Carvedilol 25 Mg Tablet) 25 mg PO BID@0800,2200 [facility] Last Admin: 01/30/20 21:47 Dose: 25 mg Documented by: Dextrose (Dextrose 50%-Water 25 Gm/50 Ml Disp.Syrin) 0 gm IV X1 PRN; Protocol PRN Reason: Hypoglycemia Enoxaparin Sodium (Enoxaparin 40 Mg/0.4 Ml Syringe) 40 mg SC DAILY@0800 [facility] Last Admin: 01/30/20 10:02 Dose: 40 mg Documented by: Glucagon (Glucagon 1 Mg/Ml Syringe) 1 mg IM .X1 PRN PRN Reason: Hypoglycemia Sodium Chloride () 1,000 mls @ 100 mls/hr IV .Q10H [facility] Last Admin: 01/31/20 02:38 Dose: 100 mls/hr Documented by: Ceftriaxone Sodium 2 gm/ (Sodium Chloride) 50 mls @ 100 mls/hr IV Q24 [facility] Last Infusion: 01/30/20 13:18 Dose: Infused Documented by: Insulin Glargine (Insulin Glargine 100 Units/Ml Pen) 55 units SC BREAKFAST [facility] Insulin Glargine (Insulin Glargine 100 Units/Ml Pen) 55 units SC DINNER [facility] Last Admin: 01/30/20 16:57 Dose: 55 u Documented by: Insulin Human Lispro (Insulin Lispro 100 Unit/Ml Insuln.Pen) 0 unit SC ACHS [facility]; Protocol Last Admin: 01/30/20 21:48 Dose: 6 u Documented by: Insulin Human Lispro (Insulin Lispro 100 Unit/Ml Insuln.Pen) 20 unit SC TIDAC [facility] Last Admin: 01/30/20 16:54 Dose: 20 u Documented by: Lisinopril (Lisinopril 20 Mg Tablet) 20 mg PO BID@0800,2200 [facility] Last Admin: 01/30/20 21:47 Dose: 20 mg Documented by: Melatonin (Melatonin 3 Mg Tablet) 3 mg PO QHS PRN PRN PRN Reason: INSOMNIA Metronidazole (Metronidazole 500 Mg Tablet) 500 mg PO TID [facility] Last Admin: 01/30/20 21:48 Dose: 500 mg Documented by: Ondansetron HCl (Ondansetron 4 Mg/2 Ml Vial) 4 mg IV Q8H PRN PRN PRN Reason: NAUSEA/VOMITING Sodium Chloride (0.9% Saline Lock 10 Ml Syringe) 10 - 40 ml IV UD PRN PRN Reason: SALINE FLUSH Last Admin: 01/28/20 22:40 Dose: 10 ml Documented by: Medical Necessity - Tobacco Use Smoking Status: Never smoker Tobacco Use: Non-smoker Assessment/Plan All Active Problems (Last Updated 08/12/17 @ 11:54 by Lorenza Nguyễn) Delayed wound healing (Acute) COVID-19 (Acute) Sepsis (Acute) Cellulitis of great toe, right (Acute) Cellulitis of second toe, left (Acute) Bacteremia (Acute) Cellulitis (Acute) Open wound of right great toe (Acute) Ulcer of right foot with fat layer exposed (Acute) MSSA (methicillin susceptible Staphylococcus aureus) infection (Acute) Ulceration down to subcutaneous tissue right 1st toe with cellulitis - improved Work-up osteomyelitis right hallux, potential early osteomyelitis per mri report Ulceration down to subcutaneous tissue left 2nd toe with cellulitis - improved Uncontrolled Diabetes with peripheral neuropathy (A1c decreased from > 10 to 7.8%) COVID 19 test was negative Sepsis resolving Multiple Comorbidities I reviewed his diagnostic data and discussed his case. He is currently afebrile. White blood cell count was decreased to 12.7 and he appears to be stabilizing. ESR and CRP are pending. His MRI suggest potential early osteomyelitis of the distal phalanx dorsal aspect. I reviewed the images and the area of concern on the MRI is the dorsal distal phalanx of the right hallux and his ulcer site does not directly correspond with this however is in near proximity near the plantar medial aspect of the hallux interphalangeal joint. I recommend proceeding with PICC line placement and an extended course of antibiotics as scheduled due to the chronicity of this condition and his recent sepsis. It is noted he is currently on Flagyl and ceftriaxone. Surgical intervention of the foot is not recommended at this time. Infectious disease recommendations are appreciated. Continue with daily dressing changes to wound sites. I changed his dressing this morning and applied Aquacel Ag with overlying gauze, kerlix and leila dressing. Keep ulcerations offloaded at all times. He has a surgical shoe for the left foot and a cam walker for the right. Compliance was discussed again today and he understands this is an imperative part of his healing potential. Medical management per medicine team is appreciated. I recommend nutrition consultation for continued diabetic management. Podiatry will continue to follow. Please do not hesitate to call if you have any questions. To follow-up with the wound healing center after discharge. Sara Kendrick DPM, [facility] [phone]
[2020-01-31] MEDS: metroNIDAZOLE 500 MG Tablet PO ×2 (05:56→15:20)
[2020-01-31 06:13] LABS: Anion Gap 4 (5-15); BUN 43 mg/dL (7-18); Calcium,Total 8.4 mg/dL (8.5-10.1); Chloride 108 mmol/L (98-107); Creatinine, Serum 1.23 mg/dL (0.70-1.30); EST Glomerular Filtration Rate 63 mL/min (>60); Est Glom Filt Rate - Afr Amer 76 mL/min (>60); Estimated Creatinine Clearance 59.87 ml/min; Glucose 177 mg/dL (74-106); Potassium 4.2 mmol/L (3.5-5.1); Sodium Level 137 mmol/L (136-145)
[2020-01-31 06:46] LABS: Bedside Glucose 168 mg/dL (70-110)
[2020-01-31 07:26] LABS: Erythrocyte Sedimentation Rate 49 mm/hr (0-20)
[2020-01-31] MEDS: Carvedilol 25 MG Tablet PO (07:34)
[2020-01-31] MEDS: Enoxaparin 40 MG/0.4 ML Syringe SC (07:34)
[2020-01-31] MEDS: Lisinopril 20 MG Tablet PO (07:35)
[2020-01-31] MEDS: Insulin Lispro 100 UNIT/ML INSULN.PEN SC ×2 (07:39→11:56)
[2020-01-31] MEDS: Insulin Lispro 100 UNIT/ML INSULN.PEN 20 UNIT SC ×2 (07:39→11:56)
[2020-01-31 07:50] VITALS: BP 170/85; PULSE 60; RESP 18; TEMP 36.6; O2SAT 97
[2020-01-31 07:51] VITALS: PULSE 60
[2020-01-31] MEDS: Acetaminophen 325 MG Tablet 650 MG PO (08:13)
--- NOTE | 2020-01-31 10:09 | NURSING ---
Dressings were changed again this am per podiatry.
--- NOTE | 2020-01-31 11:05 | DCINST_ITS ---
- Discharge Diagnoses Current Active Problems: Current Active and Chronic Problems (Last Updated 08/12/17 @ 11:54 by Lorenza Nguyễn) Sepsis (Acute) Cellulitis of great toe, right (Acute) Cellulitis of second toe, left (Acute) Bacteremia (Acute) Cellulitis (Acute) Type 2 diabetes mellitus with diabetic neuropathy (Chronic) CAD (coronary artery disease) (Chronic) Type 2 diabetes mellitus (Chronic) Hypertension (Chronic) Hyperlipidemia (Chronic) You will use the following diet at home:: Calorie/Carbohydrate Controlled (specify 1200, 1400, etc), Cardiac Your food should be the consistency of: Regular Discharge Activity: May Not Drive Weight Bearing Status: Partial weight bearing Call your doctor if you observe: Fever of 101 or Higher, Numbness or Tingling, Change in Color, Inability to urinate, Inability to have a bowel movement, Shortness of breath, Dizziness, Fainting spells, Swelling in the ankles, Chest pain, Prolonged hiccoughing, Increased palpitations (irregular heartbeat), Calf discomfort, Uncontrolled pain Additional Instructions: Follow-up in wound culture every week. Weekly CBC and BMP and fax it to Dr. Bowser. Allergies/Adverse Reactions: Allergies atorvastatin [From Lipitor] Adverse Reaction (Verified 01/25/20 13:39) Pain in joints rosuvastatin [From Crestor] Adverse Reaction (Verified 01/25/20 13:39) Pain in joints Medications to take at Discharge carvedilol 25 mg tablet 25 mg PO BID 08/12/17 RX: Lisinopril [Zestril] 20 mg PO BID 08/14/17 RX: Multivit-Mins/Iron/Folic/Lycop [Centrum Ultra Men's Tablet] 1 tab PO BID 09/16/19 RX: Ceftriaxone 2 gm IV Q24 39 Days #39 vial 01/31/20 RX: Glimepiride [Amaryl] 4 mg PO DAILY #0 01/31/20 RX: Insulin Glargine,Hum.rec.anlog [Basaglar Kwikpen U-100] 70 unit SC QHS #0 01/31/20 RX: metFORMIN HCl [Glucophage] 500 mg PO BID #0 01/31/20 RX: metroNIDAZOLE [Flagyl] 500 mg PO TID #42 tab 01/31/20 The following prescriptions were given: RX: Ceftriaxone 2 gm IV Q24 39 Days #39 vial Prescription Printed RX: metroNIDAZOLE [Flagyl] 500 mg PO TID #42 tab Transmission Status: Received by [id number] Primary Care Physician: Otilio Sahu MD [Primary Care Provider] - Please follow up with your Primary Care Physician in: in 2 weeks Test Results: Test results from this visit will be discussed in further detail at your follow- up appointment, if applicable. Please Follow Up With: Devin Almaguer MD When: For hyponatremia, possible SIADH Please Follow Up With: Sara Kendrick DPM When: In 1-2 weeks Please Follow Up With: Fernando Bowser MD When: As needed. Weekly CBC and BMP as patient is on IV antibiotic
--- NOTE | 2020-01-31 11:07 | CASEMGMT ---
Addendum entered by Marianela Jiménez 01/31/20 11:41: RN PETR received call back from [facility] and they are able to accept the patient. RN CM updated patient. Awaiting call back from [facility]. Original Note: BROOK HUMPHREYS in to discuss discharge planning with patient for C and IV ATBs at discharge. Patient would like [facility] and [facility]. BROOK CM sent referrals to both and awaiting call back. CM will continue to follow this patient and plan for a safe discharge.
--- NOTE | 2020-01-31 11:08 | CASEMGMT ---
Patients supplemental insurance: [employer] [id number] Group: [id number] Plan Code: 329 Plan Name: Plan G Silver Script RXBIN: [id number] RXPCN: [id number] RxGroup: [id number] Report Writer: [id number] ID: [id number]
[2020-01-31 11:36] LABS: Bedside Glucose 169 mg/dL (70-110)
--- NOTE | 2020-01-31 11:38 | NURSING ---
pt aware we are awaiting call back about PICC line placement
--- NOTE | 2020-01-31 12:34 | PN.ID_ITS ---
Patient Problems: Active and Suspected Problems (Last Updated 08/12/17 @ 11:54 by Lorenza Nguyễn) COVID-19 (Acute) Sepsis (Acute) Cellulitis of great toe, right (Acute) Cellulitis of second toe, left (Acute) Bacteremia (Acute) Cellulitis (Acute) Subjective: Feeling much better, no fever, no n/v/d. - Physical Exam Vitals/I&O's: Vital Signs Temp Pulse Resp BP Pulse Ox 97.8 F 60 18 170/85 H 97 01/31/20 07:50 01/31/20 07:51 01/31/20 07:50 01/31/20 07:50 01/31/20 07:50 Oxygen Flow Rate (L/min) 1 Oxygen Delivery Method Room Air Weight: 115.666 kg Body Mass Index (BMI) 37.6 Intake and Output for Last 24 Hours 01/29/20 01/30/20 01/31/20 23:59 23:59 23:59 Intake Total 3861.67 / 4221.67 2545 / 2545 2100.00 / 2100.00 Output Total 2100 / 2600 1300 / 1300 1000 / 1000 Balance 1761.67 / 1621.67 1245 / 1245 1100.00 / 1100.00 General: Alert, Cooperative, No apparent distress Lungs: Clear to auscultation, Normal air movement Cardiovascular: Regular rate, Regular Rhythm Abdomen: Soft, Non Tender, Non-Distended Skin: No rashes Microbiology Past 72 Hours 01/28/20 20:15 Wound - Left Foot Gram Stain - Final 01/28/20 20:15 Wound - Left Foot Wound Culture - Final Streptococcus agalactiae (B) Staphylococcus aureus 01/28/20 20:15 Wound - Left Foot Anaerobic Culture - Preliminary Checking for anaerobes, further studies to follow. 01/28/20 20:15 Wound - Right Foot Gram Stain - Final 01/28/20 20:15 Wound - Right Foot Wound Culture - Final Streptococcus agalactiae (B) Staphylococcus aureus 01/28/20 20:15 Wound - Right Foot Anaerobic Culture - Preliminary Checking for anaerobes, further studies to follow. 01/29/20 23:55 Urine, Clean Catch Urine Culture - Final Culture exhibits no growth. 01/28/20 12:10 Blood Culture (Wb) - Right Hand Blood Culture - Final Streptococcus agalactiae (B) 01/28/20 12:10 Blood Culture (Wb) - Left Hand Bacteria Detection (PCR) - Final Streptococcus agalactiae (B) 01/28/20 12:10 Blood Culture (Wb) - Left Hand Blood Culture - Final Streptococcus agalactiae (B) 01/28/20 14:30 Mucosa - Nose SARS-CoV-2 Antigen (Rapid) - Final Laboratory Results 01/30/20 14:10: Serum Osmolality 303 H 01/30/20 16:48: POC Glucose 328 H 01/30/20 18:22: Urine Osmolality 848, U Random Total Protein 38.7 H, Ur Random Sodium 38, Urine Creatinine 87.80 01/30/20 21:44: POC Glucose 290 H 01/31/20 05:34: WBC 12.7 H, RBC 4.04 L, Hgb 12.1 L, Hct 36.2 L, MCV 89.6, MCH 30.0, MCHC 33.4, RDW Std Deviation 43.8, RDW Coeff of Shelby 13.4, Plt Count 194, MPV 9.1, Immature Gran % (Auto) 3.000 H, Neut % (Auto) 76.0 H, Lymph % (Auto) 13.4 L, [place] % (Auto) 7.2, Eos % (Auto) 0.2, Baso % (Auto) 0.2, Absolute Neuts (auto) 9.7 H, Absolute Lymphs (auto) 1.70, Nucleated RBC % 0 01/31/20 05:34: Sodium 137, Potassium 4.2, Chloride 108 H, Carbon Dioxide 25.0, Anion Gap 4 L, BUN 43 H, Creatinine 1.23, Estim Creat Clear Calc 59.87, Est GFR (MDRD) Af Amer 76, Est GFR (MDRD) Non-Af 63, BUN/Creatinine Ratio 35.0 H, Glucose 177 H, Calcium 8.4 L 01/31/20 05:34: ESR 49 H 01/31/20 05:34: C-React Prot Ext Range 94.80 H 01/31/20 06:35: POC Glucose 168 H 01/31/20 11:31: POC Glucose 169 H Current Medications Acetaminophen (Acetaminophen 325 Mg Tablet) 650 mg PO Q6H PRN PRN PRN Reason: Pain Score 1-10/Temp > 100.7 F Last Admin: 12/01/20 08:13 Dose: 650 mg Documented by: Carvedilol (Carvedilol 25 Mg Tablet) 25 mg PO BID@0800,2200 [facility] Last Admin: 01/31/20 07:34 Dose: 25 mg Documented by: Cyclobenzaprine HCl (Cyclobenzaprine Hcl 10 Mg Tablet) 10 mg PO TID PRN PRN PRN Reason: MUSCLE SPASM Dextrose (Dextrose 50%-Water 25 Gm/50 Ml Disp.Syrin) 0 gm IV X1 PRN; Protocol PRN Reason: Hypoglycemia Enoxaparin Sodium (Enoxaparin 40 Mg/0.4 Ml Syringe) 40 mg SC DAILY@0800 [facility] Last Admin: 01/31/20 07:34 Dose: 40 mg Documented by: Glucagon (Glucagon 1 Mg/Ml Syringe) 1 mg IM .X1 PRN PRN Reason: Hypoglycemia Sodium Chloride () 1,000 mls @ 100 mls/hr IV .Q10H [facility] Last Infusion: 01/31/20 10:28 Dose: 0 mls/hr Documented by: Ceftriaxone Sodium 2 gm/ (Sodium Chloride) 50 mls @ 100 mls/hr IV Q24 [facility] Last Infusion: 01/31/20 10:56 Dose: Infused Documented by: Insulin Glargine (Insulin Glargine 100 Units/Ml Pen) 55 units SC BREAKFAST [facility] Last Admin: 01/31/20 07:35 Dose: 55 u Documented by: Insulin Glargine (Insulin Glargine 100 Units/Ml Pen) 55 units SC DINNER [facility] Last Admin: 01/30/20 16:57 Dose: 55 u Documented by: Insulin Human Lispro (Insulin Lispro 100 Unit/Ml Insuln.Pen) 0 unit SC ACHS [facility]; Protocol Last Admin: 01/31/20 11:56 Dose: 2 u Documented by: Insulin Human Lispro (Insulin Lispro 100 Unit/Ml Insuln.Pen) 20 unit SC TIDAC [facility] Last Admin: 01/31/20 11:56 Dose: 20 u Documented by: Lisinopril (Lisinopril 20 Mg Tablet) 20 mg PO BID@0800,2200 [facility] Last Admin: 01/31/20 07:35 Dose: 20 mg Documented by: Melatonin (Melatonin 3 Mg Tablet) 3 mg PO QHS PRN PRN PRN Reason: INSOMNIA Metronidazole (Metronidazole 500 Mg Tablet) 500 mg PO TID [facility] Last Admin: 01/31/20 05:56 Dose: 500 mg Documented by: Ondansetron HCl (Ondansetron 4 Mg/2 Ml Vial) 4 mg IV Q8H PRN PRN PRN Reason: NAUSEA/VOMITING Sodium Chloride (0.9% Saline Lock 10 Ml Syringe) 10 - 40 ml IV UD PRN PRN Reason: SALINE FLUSH Last Admin: 01/28/20 22:40 Dose: 10 ml Documented by: Medical Necessity - Tobacco Use Smoking Status: Never smoker Tobacco Use: Non-smoker Route of nutrition/ use of supplements: [] Nutritional Intake: [] IV Site: [] Triplett Catheter: [] - Assessment/Plan Antibiotics: [] Assessment/Plan: [] Active and Suspected Problems (Last Updated 08/12/17 @ 11:54 by Lorenza Nguyễn) COVID-19 (Acute) Sepsis (Acute) Cellulitis of great toe, right (Acute) Cellulitis of second toe, left (Acute) Cellulitis (Acute) Low suspicion for covid given negative tests and rapid resolution of symptoms. Bcx x2 with GBS. Bilat foot cxs with MSSA and GBS. Narrowed abx to ceftriaxone and flagyl. Wound cx with mssa. MRI R foot with ? early osteo. Will order picc, ok for d/c home with iv ceftriaxone, stop date 03/10/20, weekly bmp, cbc, and esr. Also give 2 weeks po flagyl, he does not drink etoh. ID followup in 2 weeks. Will follow, d/w immigration case manager and Dr. Kendrick
[2020-01-31] MEDS: cycloBENZAPRine HCl 10 MG Tablet PO (12:47)
--- NOTE | 2020-01-31 14:12 | CASEMGMT ---
RN CM received call back from [facility], cost for antibiotic is 349.29 for antibiotic and supplies. RN CM will updated patient when out of procedure. CM will continue to follow this patient and plan for a safe discharge.
--- NOTE | 2020-01-31 14:17 | PHA.DC.MC ---
Pharmacy Service has performed discharge medication reconciliation and counseling for this patient. 1. CEFTRIAXONE 2GM IV Q24 THRU 03/10/2020 2. METRONIDAZOLE 500MG PO TID X 2 WEEKS The patient's discharge medication list was reviewed for discrepancies and discrepancies were resolved. Home Medications carvedilol 25 mg tablet 25 mg PO BID 08/12/17 Lisinopril [Zestril] 20 mg PO BID 08/14/17 Multivit-Mins/Iron/Folic/Lycop [Centrum Ultra Men's Tablet] 1 tab PO BID 09/16/19 Ceftriaxone 2 gm IV Q24 39 Days #39 vial 01/31/20 Glimepiride [Amaryl] 4 mg PO DAILY #0 01/31/20 Insulin Glargine,Hum.rec.anlog [Basaglar Kwikpen U-100] 70 unit SC QHS #0 01/31/20 metFORMIN HCl [Glucophage] 500 mg PO BID #0 01/31/20 metroNIDAZOLE [Flagyl] 500 mg PO TID #42 tab 01/31/20 The patient was counseled on the following discharge medications and changes in medications for homegoing were reviewed. The Reason for Use, instructions for use, and potential side effects were reviewed for all new medications. The patient's questions regarding all of their medications were answered. The patient was able to verbally demonstrate an understanding of their discharge medications.
--- NOTE | 2020-01-31 14:36 | NURSING ---
roasterman here, consent signed
--- NOTE | 2020-01-31 15:03 | PCM.DC.SUM ---
<Eligio Kelly - Last Filed: 01/31/20 15:03> Discharge Date and Diagnosis - Problem List Patient Problems: Active and Suspected Problems (Last Updated 08/12/17 @ 11:54 by Lorenza Nguyễn) Sepsis (Acute) Cellulitis of great toe, right (Acute) Cellulitis of second toe, left (Acute) Bacteremia (Acute) Cellulitis (Acute) Date of Admission: 01/28/20 Date of Discharge: 01/31/20 - Primary Discharge Diagnosis Acute Problems: Active Problems (Last Updated 08/12/17 @ 11:54 by Lorenza Nguyễn) Sepsis, bacteremia, osteomyelitis, Strep agalactiae (blood cx, wound cx), Staph aureus (wound cx only) Nonhealing diabetic wounds Covid19 ruled out Hyponatremia 2/2 sepsis/hyperglycemia Poorly controlled DMt2 - Secondary Discharge Diagnosis Chronic Problems: Chronic Problems (Last Updated 08/12/17 @ 11:54 by Lorenza Nguyễn) Other specified peripheral vascular diseases (Chronic) Ulcer of right foot with fat layer exposed (Chronic) Ulcer of left foot with fat layer exposed (Chronic) Obesity (BMI 30.0-34.9) (Chronic) Obesity, Class II, BMI 35-39.9, with comorbidity (Chronic) Type 2 diabetes mellitus with diabetic neuropathy (Chronic) CAD (coronary artery disease) (Chronic) Type 2 diabetes mellitus (Chronic) Hypertension (Chronic) Hyperlipidemia (Chronic) Hospital Course and Treatment Imaging Results: RAD/Chest 1 View (Portable) IMPRESSION: Multilobar groundglass opacities suggesting possibility of pneumonia, including viral causes, although can also be seen in pulmonary edema. RAD/Foot min 3 Views IMPRESSION: No destructive bony process. Degenerative changes. RAD/Foot min 3 Views IMPRESSION: No destructive bony process. Degenerative changes. MRI/Lower Ext/No Jt/w/o IMPRESSION: Mild bone edema of the first distal phalanx, either reactive bone edema or early osteomyelitis. Stress fracture of the tibial sesamoid without bone edema, likely chronic. Small intermetatarsal neuroma of the second webspace. Edema in the subcutis adipose space without demonstrated soft tissue abscess. Consultations Podiatry - Aroldo Bowser 01/28/20 17:48 Consult: Onc/Wound/photo equipment technician Routine Comment: Reason for Consult:: diabetic foot wounds Operations: None Procedures: None Summary of Care Provided: Hospital course: The patient is a 64 year old M past medical history of nonhealing wounds to his feet right great toe, left second toe, type 2 diabetes, CAD, hypertension, hyperlipidemia who presented to the emergency room with generalized illness, fevers, chills, fatigue, cough, shortness of breath, but also with concern for worsening toe wounds. He had been following the cissp at the wound care center and had noted that over the past 2 days he had an increased amount of discharge and more redness in his feet. In the emergency room he appeared to be septic with fever, leukocytosis, and his toes as a source of infection. He was placed on vancomycin and Zosyn. He was admitted to the medical surgical floor. Podiatry and infectious disease were consulted. His blood cultures were positive for strep agalactiae. His wound culture was positive for MSSA and strep. X-rays were negative for osteo, however a follow-up MRI did reveal early osteomyelitis. CRP was 94.8, ESR was 49. He was placed in a surgical boot. Will need to continue daily dressing changes with Aquacel Aquacel silver, gauze, Kerlix, Derek dressing. Activity restrictions as per podiatry. A PICC line was placed. He was transitioned to IV ceftriaxone and oral Flagyl. He is to complete 6 weeks of this therapy as an outpatient. He will need follow-up with podiatry this week in the wound care center, follow-up with infectious disease as needed, follow-up with PCP in 1 to 2 weeks. Patient was discharged home in stable condition. This patient was seen by Eligio Kelly PA-C under the supervision of Doctor Montes. [] Patient Problems: Active and Suspected Problems (Last Updated 08/12/17 @ 11:54 by Lorenza Nguyễn) Sepsis (Acute) Cellulitis of great toe, right (Acute) Cellulitis of second toe, left (Acute) Bacteremia (Acute) Cellulitis (Acute) - Physical Exam Vitals/I&O's: Vital Signs Temp Pulse Resp BP Pulse Ox 97.8 F 60 18 170/85 H 97 01/31/20 07:50 01/31/20 07:51 01/31/20 07:50 01/31/20 07:50 01/31/20 07:50 Oxygen Flow Rate (L/min) 1 Oxygen Delivery Method Room Air Weight: 254 lb 15.998 oz Body Mass Index (BMI) 37.6 Intake and Output for Last 24 Hours 01/29/20 01/30/20 01/31/20 23:59 23:59 23:59 Intake Total 3861.67 / 4221.67 2545 / 2545 2100.00 / 2100.00 Output Total 2100 / 2600 1300 / 1300 1000 / 1000 Balance 1761.67 / 1621.67 1245 / 1245 1100.00 / 1100.00 General: Alert, Oriented x3, Cooperative HEENT: Atraumatic, PERRLA, EOMI, Normocephalic Neck: Supple, No JVD, Negative Carotid Bruits Lungs: Clear to auscultation, Normal air movement Cardiovascular: Regular rate, No murmurs Abdomen: Bowel Sounds Present, Soft, Non Tender Extremities: No edema, Capillary Refill Less than 3 Seconds Skin: No rashes, No breakdown Musculoskeletal: No Tenderness to Palpation of Joints or Extremities Neurological: Cranial nerves II-XII grossly intact Psych/Mental Status: Normal Affect, Appropriate, Alert and oriented to time, place, person, mood and affect Microbiology Past 72 Hours 01/28/20 20:15 Wound - Left Foot Gram Stain - Final 01/28/20 20:15 Wound - Left Foot Wound Culture - Final Streptococcus agalactiae (B) Staphylococcus aureus 01/28/20 20:15 Wound - Left Foot Anaerobic Culture - Preliminary Checking for anaerobes, further studies to follow. 01/28/20 20:15 Wound - Right Foot Gram Stain - Final 01/28/20 20:15 Wound - Right Foot Wound Culture - Final Streptococcus agalactiae (B) Staphylococcus aureus 01/28/20 20:15 Wound - Right Foot Anaerobic Culture - Preliminary Checking for anaerobes, further studies to follow. 01/29/20 23:55 Urine, Clean Catch Urine Culture - Final Culture exhibits no growth. 01/28/20 12:10 Blood Culture (Wb) - Right Hand Blood Culture - Final Streptococcus agalactiae (B) 01/28/20 12:10 Blood Culture (Wb) - Left Hand Bacteria Detection (PCR) - Final Streptococcus agalactiae (B) 01/28/20 12:10 Blood Culture (Wb) - Left Hand Blood Culture - Final Streptococcus agalactiae (B) 01/28/20 14:30 Mucosa - Nose SARS-CoV-2 Antigen (Rapid) - Final Laboratory Results 01/30/20 16:48: POC Glucose 328 H 01/30/20 18:22: Urine Osmolality 848, U Random Total Protein 38.7 H, Ur Random Sodium 38, Urine Creatinine 87.80 01/30/20 21:44: POC Glucose 290 H 01/31/20 05:34: WBC 12.7 H, RBC 4.04 L, Hgb 12.1 L, Hct 36.2 L, MCV 89.6, MCH 30.0, MCHC 33.4, RDW Std Deviation 43.8, RDW Coeff of Shelby 13.4, Plt Count 194, MPV 9.1, Immature Gran % (Auto) 3.000 H, Neut % (Auto) 76.0 H, Lymph % (Auto) 13.4 L, [place] % (Auto) 7.2, Eos % (Auto) 0.2, Baso % (Auto) 0.2, Absolute Neuts (auto) 9.7 H, Absolute Lymphs (auto) 1.70, Nucleated RBC % 0 01/31/20 05:34: Sodium 137, Potassium 4.2, Chloride 108 H, Carbon Dioxide 25.0, Anion Gap 4 L, BUN 43 H, Creatinine 1.23, Estim Creat Clear Calc 59.87, Est GFR (MDRD) Af Amer 76, Est GFR (MDRD) Non-Af 63, BUN/Creatinine Ratio 35.0 H, Glucose 177 H, Calcium 8.4 L 01/31/20 05:34: ESR 49 H 01/31/20 05:34: C-React Prot Ext Range 94.80 H 01/31/20 06:35: POC Glucose 168 H 01/31/20 11:31: POC Glucose 169 H Current Medications Acetaminophen (Acetaminophen 325 Mg Tablet) 650 mg PO Q6H PRN PRN PRN Reason: Pain Score 1-10/Temp > 100.7 F Last Admin: 01/31/20 08:13 Dose: 650 mg Documented by: Carvedilol (Carvedilol 25 Mg Tablet) 25 mg PO BID@0800,2200 CYN Last Admin: 01/31/20 07:34 Dose: 25 mg Documented by: Cyclobenzaprine HCl (Cyclobenzaprine Hcl 10 Mg Tablet) 10 mg PO TID PRN PRN PRN Reason: MUSCLE SPASM Last Admin: 01/31/20 12:47 Dose: 10 mg Documented by: Dextrose (Dextrose 50%-Water 25 Gm/50 Ml Disp.Syrin) 0 gm IV X1 PRN; Protocol PRN Reason: Hypoglycemia Enoxaparin Sodium (Enoxaparin 40 Mg/0.4 Ml Syringe) 40 mg SC DAILY@0800 [facility] Last Admin: 01/31/20 07:34 Dose: 40 mg Documented by: Glucagon (Glucagon 1 Mg/Ml Syringe) 1 mg IM .X1 PRN PRN Reason: Hypoglycemia Sodium Chloride () 1,000 mls @ 100 mls/hr IV .Q10H [facility] Last Infusion: 01/31/20 10:28 Dose: 0 mls/hr Documented by: Ceftriaxone Sodium 2 gm/ (Sodium Chloride) 50 mls @ 100 mls/hr IV Q24 [facility] Last Infusion: 01/31/20 10:56 Dose: Infused Documented by: Insulin Glargine (Insulin Glargine 100 Units/Ml Pen) 55 units SC BREAKFAST [facility] Last Admin: 01/31/20 07:35 Dose: 55 u Documented by: Insulin Glargine (Insulin Glargine 100 Units/Ml Pen) 55 units SC DINNER [facility] Last Admin: 01/30/20 16:57 Dose: 55 u Documented by: Insulin Human Lispro (Insulin Lispro 100 Unit/Ml Insuln.Pen) 0 unit SC ACHS [facility]; Protocol Last Admin: 01/31/20 11:56 Dose: 2 u Documented by: Insulin Human Lispro (Insulin Lispro 100 Unit/Ml Insuln.Pen) 20 unit SC TIDAC [facility] Last Admin: 01/31/20 11:56 Dose: 20 u Documented by: Lisinopril (Lisinopril 20 Mg Tablet) 20 mg PO BID@0800,2200 [facility] Last Admin: 01/31/20 07:35 Dose: 20 mg Documented by: Melatonin (Melatonin 3 Mg Tablet) 3 mg PO QHS PRN PRN PRN Reason: INSOMNIA Metronidazole (Metronidazole 500 Mg Tablet) 500 mg PO TID [facility] Last Admin: 01/31/20 05:56 Dose: 500 mg Documented by: Ondansetron HCl (Ondansetron 4 Mg/2 Ml Vial) 4 mg IV Q8H PRN PRN PRN Reason: NAUSEA/VOMITING Sodium Chloride (0.9% Saline Lock 10 Ml Syringe) 10 - 40 ml IV UD PRN PRN Reason: SALINE FLUSH Last Admin: 01/28/20 22:40 Dose: 10 ml Documented by: Discharge Diet: Low fat/ Low Cholesterol, 1800 Calorie Control Diet, 2000 mg Sodium Diet Discharge Activity: May Not Drive Weight Bearing Status: Partial weight bearing Call your doctor if you observe: Fever of 101 or Higher, Numbness or Tingling, Change in Color, Inability to urinate, Inability to have a bowel movement, Shortness of breath, Dizziness, Fainting spells, Swelling in the ankles, Chest pain, Prolonged hiccoughing, Increased palpitations (irregular heartbeat), Calf discomfort, Uncontrolled pain Home Medications: Medications to take at Discharge carvedilol 25 mg tablet 25 mg PO BID 08/12/17 Lisinopril [Zestril] 20 mg PO BID 08/14/17 Multivit-Mins/Iron/Folic/Lycop [Centrum Ultra Men's Tablet] 1 tab PO BID 09/16/19 Ceftriaxone 2 gm IV Q24 39 Days #39 vial 01/31/20 Glimepiride [Amaryl] 4 mg PO DAILY #0 01/31/20 Insulin Glargine,Hum.rec.anlog [Basaglar Kwikpen U-100] 70 unit SC QHS #0 01/31/20 metFORMIN HCl [Glucophage] 500 mg PO BID #0 01/31/20 metroNIDAZOLE [Flagyl] 500 mg PO TID #42 tab 01/31/20 Following Prescriptions Were Given to Patient: Ceftriaxone 2 gm IV Q24 39 Days #39 vial Prescription Printed metroNIDAZOLE [Flagyl] 500 mg PO TID #42 tab Transmission Status: Received by [facility]/pharmacy #[id number] Primary Care Physician: Otilio Sahu MD [Primary Care Provider] - Please follow up with your Primary Care Physician in: in 2 weeks Please Follow Up With: Devin Almaguer MD When: For hyponatremia, possible SIADH Please Follow Up With: Sara Kendrick DPM When: In 1-2 weeks Please Follow Up With: Fernando Bowser MD When: As needed. Weekly CBC and BMP as patient is on IV antibiotic Disposition: Home Minutes spent on discharge:: 35 Patient Condition:: Stable Medical Necessity - Tobacco Use Smoking Status: Never smoker Tobacco Use: Non-smoker Meaningful Use Info Meaningful Use Diagnoses (Choose all that apply): None applicable <Best Montes - Last Filed: 01/31/20 16:42> Discharge Date and Diagnosis - Primary Discharge Diagnosis Acute Problems: Active Problems (Last Updated 08/12/17 @ 11:54 by Lorenza Nguyễn) Sepsis (Acute) Cellulitis of great toe, right (Acute) Cellulitis of second toe, left (Acute) Bacteremia (Acute) Cellulitis (Acute) - Secondary Discharge Diagnosis Chronic Problems: Chronic Problems (Last Updated 08/12/17 @ 11:54 by Lorenza Nguyễn) Other specified peripheral vascular diseases (Chronic) Ulcer of right foot with fat layer exposed (Chronic) Ulcer of left foot with fat layer exposed (Chronic) Obesity (BMI 30.0-34.9) (Chronic) Obesity, Class II, BMI 35-39.9, with comorbidity (Chronic) Type 2 diabetes mellitus with diabetic neuropathy (Chronic) CAD (coronary artery disease) (Chronic) Type 2 diabetes mellitus (Chronic) Hypertension (Chronic) Hyperlipidemia (Chronic) Hospital Course and Treatment Imaging Results: 01/31/20 15:15 CXR for Line Placement [RAD] Urgent Consultations 01/28/20 17:48 Consult: Onc/Wound/photo equipment technician Routine Comment: Reason for Consult:: diabetic foot wounds Summary of Care Provided: This patient was seen in conjunction with Eligio CRAMER. I have independently interviewed and examined the patient and reviewed pertinent history, examination findings, laboratory and plan of management. I have reviewed the note and agree with the documented findings with the few additional points. This 64-year-old gentleman was admitted with fever, generalized illness and worsening of bilateral feet ulcer. Covid 19 PCR negative. Then patient was transferred to [facility] 3. 1. bilateral foot diabetic ulcers with cellulitis: MRI of right forefoot was done and reported mild bone edema of first distal phalanx, either reactive bone edema or early osteomyelitis. Patient seen by cissp. Currently on IV Vanco and Zosyn. Right foot culture shows strep group B, agalactiae and a staph aureus most probably MSSA. MRSA PCR negative. As per Dr. Cruz, he could not probe bone but noted purulence. Patient had bedside debridement by the cissp. As per Dr. Cruz for the left foot, low likelihood of osteo. Patient elected for IV antibiotics. Seen by ID and total duration of antibiotic about 6 weeks. Prescription for ceftriaxone 2 g IV daily, stop date 03/10/2020 and Flagyl given by ID. 2. Sepsis, present on admission most probably secondary to diabetic foot ulcer as mentioned above. Isolation discontinued for COVID-19. 3. DM2, uncontrolled CKD stage III diabetic nephropathy: A1c 10.7 on 09/16/2019.on glargine 70 at home, increased to 55 BID. On scheduled prandial insulin 20 units 3 times daily AC. DC glimepiride and metformin as has not helped and poses risk of hypoglycemia. Urine is positive for proteinuria. 4. Hyponatremia, chronic though lower than the baseline. Sodium is better 133 today. May be due to hyperglycemia. TSH 0.92. Cortisol 3.7. As TSH and cortisol levels are normal, urine sodium, urine osmolarity and serum osmolality ordered to rule out SIADH. Urine protein and random creatinine also ordered as patient Has proteinuria on UA, 30 Repeat sodium is normal 137. Advised to follow-up with ground defence officer. Urine osmolality 848 more than serum osmolality and urine sodium 38. Also urine random protein is 38 elevated. 5. VTE prophylaxis: LMWH. I have discussed my assessment with Eligio CRAMER and orders have been reviewed. [] Discharge medication reconciliation done. Discharge follow-up instructions completed. Discharge process discussed with the patient and all questions were answered to patient's satisfaction. Total time spent, exact 35 minutes on discharge meds reconciliation, examination, coordination of care with nurses and ancillary staff, review of imaging and blood test and discussion with the patient on follow-up instructions Objective: Patient does not have any fever or chills. Blood pressure was elevated 170/85 electrodes controlled 121/71. No hypoxia. Patient states he is ready for discharge Physical exam General: Alert, Oriented x3, Cooperative HEENT: Atraumatic, PERRLA, EOMI, Normocephalic Oral: No Gingival or Mucosal Lesions/ Ulcerations Neck: Supple, No JVD, Negative Carotid Bruits Lungs: Air entry diminished in bilateral lung bases. No crepitation/rhonchi Cardiovascular: Regular rate, Regular Rhythm, Normal S1, Normal S2, No murmurs Abdomen: Bowel Sounds Present, Soft, Non Tender, Non-Distended : No renal angle tenderness. No suprapubic tenderness. Extremities: No edema, Capillary Refill Less than 3 Seconds Skin: Ulcer on the ball of right great toe and second ulcer on left foot along second toe. No purulence, erythema or necrotic tissue. Ulcer bed granular tissue with fibrosis on right hallux and granular tissue on the left second toe. Musculoskeletal: No Tenderness to Palpation of Joints or Extremities Neurological: Cranial nerves II-XII grossly intact, Deep Tendon Reflexes 2+/4 and Symmetrical, Neuro grossly intact Psych/Mental Status: Normal Affect, Appropriate. - Physical Exam Vitals/I&O's: Vital Signs Temp Pulse Resp BP Pulse Ox 98.0 F 80 18 121/71 H 94 01/31/20 15:24 01/31/20 15:24 01/31/20 15:24 01/31/20 15:24 01/31/20 15:24 Oxygen Flow Rate (L/min) 1 Oxygen Delivery Method Room Air Weight: 254 lb 15.998 oz Body Mass Index (BMI) 37.6 Intake and Output for Last 24 Hours 01/29/20 01/30/20 01/31/20 23:59 23:59 23:59 Intake Total 3861.67 / 4221.67 2545 / 2545 2100.00 / 2100.00 Output Total 2100 / 2600 1300 / 1300 1000 / 1000 Balance 1761.67 / 1621.67 1245 / 1245 1100.00 / 1100.00 Microbiology Past 72 Hours 01/28/20 20:15 Wound - Left Foot Gram Stain - Final 01/28/20 20:15 Wound - Left Foot Wound Culture - Final Streptococcus agalactiae (B) Staphylococcus aureus 01/28/20 20:15 Wound - Left Foot Anaerobic Culture - Preliminary Checking for anaerobes, further studies to follow. 01/28/20 20:15 Wound - Right Foot Gram Stain - Final 01/28/20 20:15 Wound - Right Foot Wound Culture - Final Streptococcus agalactiae (B) Staphylococcus aureus 01/28/20 20:15 Wound - Right Foot Anaerobic Culture - Preliminary Checking for anaerobes, further studies to follow. 01/29/20 23:55 Urine, Clean Catch Urine Culture - Final Culture exhibits no growth. 01/28/20 12:10 Blood Culture (Wb) - Right Hand Blood Culture - Final Streptococcus agalactiae (B) 01/28/20 12:10 Blood Culture (Wb) - Left Hand Bacteria Detection (PCR) - Final Streptococcus agalactiae (B) 01/28/20 12:10 Blood Culture (Wb) - Left Hand Blood Culture - Final Streptococcus agalactiae (B) 01/28/20 14:30 Mucosa - Nose SARS-CoV-2 Antigen (Rapid) - Final Laboratory Results 01/30/20 16:48: POC Glucose 328 H 01/30/20 18:22: Urine Osmolality 848, U Random Total Protein 38.7 H, Ur Random Sodium 38, Urine Creatinine 87.80 01/30/20 21:44: POC Glucose 290 H 01/31/20 05:34: WBC 12.7 H, RBC 4.04 L, Hgb 12.1 L, Hct 36.2 L, MCV 89.6, MCH 30.0, MCHC 33.4, RDW Std Deviation 43.8, RDW Coeff of Shelby 13.4, Plt Count 194, MPV 9.1, Immature Gran % (Auto) 3.000 H, Neut % (Auto) 76.0 H, Lymph % (Auto) 13.4 L, [place] % (Auto) 7.2, Eos % (Auto) 0.2, Baso % (Auto) 0.2, Absolute Neuts (auto) 9.7 H, Absolute Lymphs (auto) 1.70, Nucleated RBC % 0 01/31/20 05:34: Sodium 137, Potassium 4.2, Chloride 108 H, Carbon Dioxide 25.0, Anion Gap 4 L, BUN 43 H, Creatinine 1.23, Estim Creat Clear Calc 59.87, Est GFR (MDRD) Af Amer 76, Est GFR (MDRD) Non-Af 63, BUN/Creatinine Ratio 35.0 H, Glucose 177 H, Calcium 8.4 L 01/31/20 05:34: ESR 49 H 01/31/20 05:34: C-React Prot Ext Range 94.80 H 01/31/20 06:35: POC Glucose 168 H 01/31/20 11:31: POC Glucose 169 H Inpatient E&M: [id number] Disch Hosp
--- NOTE | 2020-01-31 15:15 | RAD_ITS ---
STUDY: X-RAY CHEST REASON FOR EXAM: Male, 64 years old. PICC line placement TECHNIQUE: Single AP portable view of the chest. COMPARISON: 01/28/2020. FINDINGS: Left PICC line terminates in the superior vena cava. The lungs are clear and expanded. There is no demonstrated pleural abnormality. Normal size heart. Sternotomy wires. Surgical clips are noted along the right cardiac border. Normal mediastinum and sharmila. Normal visualized pulmonary arteries. Normal visualized aortic arch and descending thoracic aorta. Normal visualized thoracic spine. Normal visualized ribs, clavicles, and shoulders. There is no demonstrated abnormality of the visualized soft tissue structures of the upper abdomen. RAD/CXR for Line Placement IMPRESSION: 1. PICC line terminates in the SVC. 2. No acute findings. Electronically Signed: Fani Samuels MD at 16:30 EST Tel , Service support ,
[2020-01-31 15:24] VITALS: BP 121/71; PULSE 80; RESP 18; TEMP 36.7; O2SAT 94
--- NOTE | 2020-02-01 14:54 | CASEMGMT ---
BROOK HUMPHREYS Discharge Follow-Up Phone Call. Amanda: Loida Strata: 3 Discharge Date: 01/31/20 Adm Dx: Toe infection w/sepsis. Call to pt to inquire about how he has been doing since being discharged from the hospital. Pt states, I'm doing well. Thanks. 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 He denies having any questions about that or any of his other prescriptions. He states [facility] was out to see him today and states, They did an excellent job. He states they set up all the appts today. He denies having any questions about the discharge instructions and denies needs/concerns. BROOK HUMPHREYS thanked pt for choosing [facility]. Karin YOUNGER RN, CM
== END 2020-01-31 15:37 | disposition home health service (06) | DRG 854 ==
LOC: ED 16:11 → MS2 16:13 → MS3 01-29 14:51
PROVIDERS: Physician Assistant; Podiatrist; Admitting Provider Family Medicine; Emergency Provider Emergency Medicine; PCP Family Medicine; Visit Provider Internal Medicine
DX: A41.01 Sepsis due to Methicillin susceptible Staphylococcus aureus (principal); E87.1 Hypo-osmolality and hyponatremia; M86.9 Osteomyelitis, unspecified; L03.031 Cellulitis of right toe; L03.032 Cellulitis of left toe; E11.621 Type 2 diabetes mellitus with foot ulcer; E11.51 Type 2 diabetes mellitus with diabetic peripheral angiopathy without gangrene; L97.512 Non-pressure chronic ulcer of other part of right foot with fat layer exposed; L97.522 Non-pressure chronic ulcer of other part of left foot with fat layer exposed; I25.10 Atherosclerotic heart disease of native coronary artery without angina pectoris; E66.9 Obesity, unspecified; E78.5 Hyperlipidemia, unspecified; E11.42 Type 2 diabetes mellitus with diabetic polyneuropathy; I12.9 Hypertensive chronic kidney disease with stage 1 through stage 4 chronic kidney disease, or unspecified chronic kidney disease; N18.30 Chronic kidney disease, stage 3 unspecified; Z68.37 Body mass index [BMI] 37.0-37.9, adult; E11.65 Type 2 diabetes mellitus with hyperglycemia; B95.1 Streptococcus, group B, as the cause of diseases classified elsewhere; E11.69 Type 2 diabetes mellitus with other specified complication
CPT/HCPCS: 11042; 36415; 36569; 71045; 73630; 73718; 80048; 80053; 80202; 81001; 82533; 82570; 82962; 83036; 83605; 83930; 83935; 84145; 84156; 84300; 84443; 85025; 85379; 85610; 85652; 85730; 86140; 87040; 87070; 87075; 87077; 87086; 87149; 87186; 87205; 87426; 87635; 87640; 93005; 97110; 97116; 97162; 97165; 97530; 97802; 99213; 99285; J7030; J7040; A4216; G0463; J0295; J0696; J2405; U0002

== ENCOUNTER → 2020-02-20 17:59 | Outpatient (CLI) | payer MEDICARE, SELFPAY ==
[2020-02-15 09:40] VITALS: BMI 37.6
== END ==
PROVIDERS: PCP Family Medicine; Visit Provider Internal Medicine Infectious Disease
DX: Z00.00 Encounter for general adult medical examination without abnormal findings (principal)
CPT/HCPCS: 80048; 85027; 85652

== ENCOUNTER 2020-02-27 15:46 | Outpatient (RCR) | payer MEDICARE, SELFPAY ==
[2020-01-28 17:16] VITALS: BMI 37.6
[2020-02-06 15:23] LABS: Hematocrit 40.9 % (40-54); Hemoglobin 13.5 g/dL (13.0-16.5); Mean Corpuscular Hgb 30.3 pg (27.0-32.0); Mean Corpuscular Volume 91.9 fL (80-94); Mean Platelet Vol. 9.6 fl (6.2-12.0); Platelet Count 351 K/mm3 (150-450); RBC Distribution Width CV 13.4 % (11.6-14.6); RBC Distribution Width SD 44.8 fl (35.1-43.9); Red Blood Count 4.45 M/mm3 (4.6-6.2); White Blood Count 9.8 K/mm3 (4.4-11.0)
[2020-02-06 15:27] LABS: Anion Gap 3 (5-15); BUN 24 mg/dL (7-18); BUN/Creat Ratio 21.8 RATIO (10-20); Calcium,Total 9.2 mg/dL (8.5-10.1); Chloride 100 mmol/L (98-107); EST Glomerular Filtration Rate 71 mL/min (>60); Est Glom Filt Rate - Afr Amer 86 mL/min (>60); Glucose 168 mg/dL (74-106); Potassium 4.3 mmol/L (3.5-5.1); Sodium Level 133 mmol/L (136-145)
[2020-02-06 15:34] LABS: Erythrocyte Sedimentation Rate 36 mm/hr (0-20)
[2020-02-13 15:44] LABS: Hematocrit 39.8 % (40-54); Mean Corp Hgb Conc 32.7 g/dL (32-36); Mean Corpuscular Volume 91.7 fL (80-94); Mean Platelet Vol. 9.6 fl (6.2-12.0); Platelet Count 409 K/mm3 (150-450); RBC Distribution Width CV 13.1 % (11.6-14.6); RBC Distribution Width SD 43.9 fl (35.1-43.9); Red Blood Count 4.34 M/mm3 (4.6-6.2); White Blood Count 7.4 K/mm3 (4.4-11.0)
[2020-02-13 15:51] LABS: Anion Gap 8 (5-15); BUN 31 mg/dL (7-18); Calcium,Total 9.3 mg/dL (8.5-10.1); Chloride 98 mmol/L (98-107); Creatinine, Serum 1.24 mg/dL (0.70-1.30); EST Glomerular Filtration Rate 62 mL/min (>60); Est Glom Filt Rate - Afr Amer 75 mL/min (>60); Glucose 242 mg/dL (74-106); Potassium 4.5 mmol/L (3.5-5.1); Sodium Level 132 mmol/L (136-145)
[2020-02-13 16:15] LABS: Erythrocyte Sedimentation Rate 46 mm/hr (0-20)
[2020-02-20 18:16] LABS: Hematocrit 37.8 % (40-54); Hemoglobin 13.4 g/dL (13.0-16.5); Mean Corp Hgb Conc 35.4 g/dL (32-36); Mean Corpuscular Hgb 32.1 pg (27.0-32.0); Mean Corpuscular Volume 90.6 fL (80-94); Mean Platelet Vol. 9.1 fl (6.2-12.0); Platelet Count 359 K/mm3 (150-450); RBC Distribution Width CV 13.7 % (11.6-14.6); RBC Distribution Width SD 43.6 fl (35.1-43.9); Red Blood Count 4.17 M/mm3 (4.6-6.2); White Blood Count 8.7 K/mm3 (4.4-11.0)
[2020-02-20 18:25] LABS: Erythrocyte Sedimentation Rate 40 mm/hr (0-20)
[2020-02-20 18:47] LABS: Anion Gap 7 (5-15); BUN 28 mg/dL (7-18); BUN/Creat Ratio 23.9 RATIO (10-20); Calcium,Total 9.7 mg/dL (8.5-10.1); Chloride 101 mmol/L (98-107); Creatinine, Serum 1.17 mg/dL (0.70-1.30); EST Glomerular Filtration Rate 66 mL/min (>60); Est Glom Filt Rate - Afr Amer 80 mL/min (>60); Glucose 86 mg/dL (74-106); Potassium 4.2 mmol/L (3.5-5.1); Sodium Level 134 mmol/L (136-145)
[2020-02-27 16:17] LABS: Hematocrit 37.3 % (40-54); Hemoglobin 12.9 g/dL (13.0-16.5); Mean Corp Hgb Conc 34.6 g/dL (32-36); Mean Corpuscular Hgb 30.4 pg (27.0-32.0); Mean Corpuscular Volume 87.8 fL (80-94); Mean Platelet Vol. 9.4 fl (6.2-12.0); Platelet Count 239 K/mm3 (150-450); RBC Distribution Width CV 13.3 % (11.6-14.6); Red Blood Count 4.25 M/mm3 (4.6-6.2); White Blood Count 6.3 K/mm3 (4.4-11.0)
[2020-02-27 16:24] LABS: Anion Gap 8 (5-15); BUN 19 mg/dL (7-18); BUN/Creat Ratio 17.8 RATIO (10-20); Calcium,Total 8.8 mg/dL (8.5-10.1); Chloride 96 mmol/L (98-107); Creatinine, Serum 1.07 mg/dL (0.70-1.30); EST Glomerular Filtration Rate 74 mL/min (>60); Est Glom Filt Rate - Afr Amer 89 mL/min (>60); Glucose 200 mg/dL (74-106); Potassium 4.5 mmol/L (3.5-5.1); Sodium Level 131 mmol/L (136-145)
[2020-02-27 16:36] LABS: Erythrocyte Sedimentation Rate 52 mm/hr (0-20)
== END 2020-02-27 18:00 | disposition home or self-care (01) ==
LOC: HHLAB 15:46
PROVIDERS: PCP Family Medicine; Visit Provider Internal Medicine Infectious Disease
DX: E11.621 Type 2 diabetes mellitus with foot ulcer (principal); L97.512 Non-pressure chronic ulcer of other part of right foot with fat layer exposed
CPT/HCPCS: 80048; 85027; 85652

== ENCOUNTER 2020-02-29 09:45 | Outpatient (RCR) | payer MEDICARE, BC, SELFPAY ==
[2020-01-28 17:16] VITALS: BMI 37.6
[2020-01-31 00:04] VITALS: BP 151/76; PULSE 79; RESP 18; TEMP 36.6
[2020-02-08 14:23] VITALS: BP 162/84; PULSE 71; RESP 16; TEMP 36.7; BMI 37.6
[2020-02-08 15:04] VITALS: BP 162/84
--- NOTE | 2020-02-08 21:26 | PCM.WC.PN ---
(1) Ulcer of right foot with fat layer exposed Status: Chronic Code(s): L97.512 - Non-pressure chronic ulcer of other part of right foot with fat layer exposed (2) Ulcer of left foot with fat layer exposed Status: Resolved Code(s): L97.522 - Non-pressure chronic ulcer of other part of left foot with fat layer exposed (3) Delayed wound healing Status: Chronic Code(s): T14.8XXD - Other injury of unspecified body region, subsequent encounter (4) Type 2 diabetes mellitus with diabetic neuropathy Status: Chronic Qualifiers: Code(s): E11.40 - Type 2 diabetes mellitus with diabetic neuropathy, unspecified (5) Osteomyelitis of right foot Status: Acute Code(s): M86.9 - Osteomyelitis, unspecified Type of Wound Date of Service: 02/08/20 Chief Complaint: Right great toe ulcer. Left second toe ulcer History of Wound: This 64-year-old diabetic male has chronic recurrent foot ulcers. He was initially seen for right hallux infected ulcer in the hospital and the ulcer has been present for over 4 months. He has had ongoing delayed healing. He has recently been offloading the right foot with a cam walker boot and continues to offload the left ulcer with a surgical shoe. He reports improved compliance with offloading at home. He denies a PICC line now and is completing a 6-week course of IV and oral antibiotics for osteomyelitis of the right hallux. Progress of Wound: Improving compared to last hospital admission - Physical Exam Vital Signs Temp Pulse Resp BP 98.1 F 71 16 162/84 H 02/08/20 14:23 02/08/20 14:23 02/08/20 14:23 02/08/20 15:04 General: Alert, Oriented x3, Cooperative, No apparent distress HEENT: Atraumatic Extremities: No cyanosis, Capillary Refill Less than 3 Seconds, No Calf Tenderness, Diminished Peripheral Pulses, Edema, - - Decreased left first metatarsophalangeal joint range of motion Skin: Ulcer/ Wound - Full epithelialization noted the plantar left second toe; the site is healed. Skin discontinuity plantar medial right hallux with granular base and without exposed capsule joint or bone. No purulence, erythema or streaking. Adjacent skin is atrophic Wound Measurements and Assessment WC - Nurse 1 - General Ulcer Measurement Start: 12/09/20 14:23 Freq: Status: Active Protocol: Activity Type Activity Date Activity User E-Sign Co-Sign Detail Recorded Client Recorded Date Recorded By Document 02/08/20 14:23 [facility] [id number] 02/08/20 14:29 [facility] 02/08/20 14:23 Wound Center Nurse 1 [Ulcer Assessment] #2 L 2nd toe -Combined with other wound No -Current Size (cm) - Length 0.1 -Current Size (cm) - Width 0.1 -Current Size (cm) - Depth 0.1 -Total Square Cm 0.01 -Photo Taken No -Epithelialization Large 67-100% -Tunneling No -Undermining/Tunneling No -Circular Undermining No -Exudate Amt None Present -Granulation Amt None Present (0 %) -Slough/Fibrin Yes -Necrosis Amt Small (1-33%) -Necrotic Tissue Type Adherent Slough -Texture (Lizz-wound Skin Appearance) Assessed, Scarring -Moisture (Lizz-wound Skin Appearance Assessed,Dry/ ) Scaly -Color (Lizz-wound Skin Appearance) Assessed -Temperature (Lizz-wound Skin No Abnormality Appearance) (Pt Warm) -Tenderness on Palpation (Lizz-wound No Skin Appearance) -Ulcer Cleansing Rinsed/ Irrigated with Saline -Foul Odor after Cleansing No -Anesthetic Used 5% Lidocaine Gel #1 R Grt Toe -Combined with other wound No -Current Size (cm) - Length 0.7 -Current Size (cm) - Width 0.9 -Current Size (cm) - Depth 0.1 -Total Square Cm 0.63 -Photo Taken No -Epithelialization None Present -Tunneling No -Undermining/Tunneling No -Circular Undermining No -Exudate Amt Small -Exudate Type Serosanguineous -Wound Margin Distinct, Outline Attached -Granulation Amt Large (67-100%) -Granulation Quality Red -Slough/Fibrin Yes -Necrosis Amt Small (1-33%) -Necrotic Tissue Type Adherent Slough -Texture (Lizz-wound Skin Appearance) Assessed, Scarring -Moisture (Lizz-wound Skin Appearance Assessed ) -Color (Lizz-wound Skin Appearance) Assessed -Temperature (Lizz-wound Skin No Abnormality Appearance) (Pt Warm) -Tenderness on Palpation (Lizz-wound No Skin Appearance) -Ulcer Cleansing Rinsed/ Irrigated with Saline -Foul Odor after Cleansing No -Anesthetic Used 5% Lidocaine Gel WC - Nurse 2 - General Ulcer CM Notes Start: 02/08/20 14:23 Freq: Status: Active Protocol: Activity Type Activity Date Activity User E-Sign Co-Sign Detail Recorded Client Recorded Date Recorded By Document 02/08/20 14:57 [facility] [id number] 02/08/20 14:59 [facility] 02/08/20 14:57 Wound Center Nurse 2 [Procedure/Treatment] #2 L 2nd toe -Time 14:57 -Correct Patient No -Correct Side, Site, Position No -Correct Procedure No -Procedure Performed No -Post Debridement (cm) - Length 0 -Post Debridement (cm) - Width 0 -Post Debridement (cm) - Depth 0 -Total Square (Post) (cm) 0 -Area of Debridement (cm) - Length 0 -Area of Debridement (cm) - Width 0 -Total Square (Area) (cm) 0 -Tunneling No -Undermining/Tunneling No -Circular Undermining No -Wound/Ulcer Outcome Healed- Epithelialized -Ulcer Cleansing Rinsed/ Irrigated with Saline -Foul Odor after Cleansing No -Bioengineered Tissue No -Bleeding Controlled with Pressure -Offloading Yes -Type of Offloading Surgical Shoe -Treatment Response Procedure Tolerated Well -Debridement - Subq, 1st 20sq cm No #1 R Grt Toe -Time 14:58 -Correct Patient Yes -Correct Side, Site, Position Yes -Correct Procedure Yes -Procedure Performed Yes -Type of Procedure Debridement -Clinical Debridement Subcutaneous -Tissue Removed Subcutaneous -Post Debridement (cm) - Length 1.0 -Post Debridement (cm) - Width 1.7 -Post Debridement (cm) - Depth 0.1 -Total Square (Post) (cm) 1.70 -Area of Debridement (cm) - Length 1.0 -Area of Debridement (cm) - Width 1.7 -Total Square (Area) (cm) 1.70 -Tunneling No -Undermining/Tunneling No -Circular Undermining No -Wound/Ulcer Outcome Not Healed -Ulcer Cleansing Rinsed/ Irrigated with Saline -Foul Odor after Cleansing No -Bioengineered Tissue No -Bleeding Controlled with Pressure -Offloading Yes -Type of Offloading Camwalker -Treatment Response Procedure Tolerated Well -Debridement - Subq, 1st 20sq cm Yes [See Physician Procedure note for Specifics] Pain Scale: 0-10 Numeric [Pain] -Is Patient Pain Free? Yes - Nurse 3 - General Ulcer D/C NN Start: 02/08/20 14:23 Freq: Status: Active Protocol: Activity Type Activity Date Activity User E-Sign Co-Sign Detail Recorded Client Recorded Date Recorded By Document 02/08/20 15:04 RB [id number] 02/08/20 15:05 RADHA 02/08/20 15:04 Wound Care Nurse 3 [Wound Dressing] #1 R Grt Toe -Ulcer Cleansing Rinsed/ Irrigated with Saline -Primary Dressing Applied Aquacel AG 4x4 -Primary Dressing Covered/Secured Dry Gauze,Dry with Gauze & Roll Gauze,Secured with Tape -Aquacel AG 4x4 1 [Post Procedure Tolerated] -Treatment Response Procedure Tolerated Well Vital Signs [Blood Pressure] -Blood Pressure (90/60-120/80) 162/84 H -Blood Pressure Mean (mm Hg) 110 -Source Monitor -Position Semi-Fowlers -Blood Pressure Location Left Arm Pain Scale: 0-10 Numeric [Pain] -Is Patient Pain Free? Yes - Visit Discharge [Visit Discharge Information] -Discharge Condition Stable -Ambulatory Status Ambulatory -Transportation Private Auto -Medication Reconcilliation completed No & provided to patient/care provider -Clinical Summary of Care Provided Yes Musculoskeletal: No Tenderness to Palpation of Joints or Extremities, Muscle Wasting Neurological: - - Lack of normal epicritic sensation light touch is consistent with neuropathy status Psych/Mental Status: Normal Affect, Appropriate Debridement Note Post-Debridement Measurements/Treatment WC - Nurse 2 - General Ulcer CM Notes Start: 02/08/20 14:23 Freq: Status: Active Protocol: Activity Type Activity Date Activity User E-Sign Co-Sign Detail Recorded Client Recorded Date Recorded By Document 02/08/20 14:57 [id number] 02/08/20 14:59 02/08/20 14:57 Wound Center Nurse 2 #2 L 2nd toe -Time 14:57 -Correct Patient No -Correct Side, Site, Position No -Correct Procedure No -Procedure Performed No -Post Debridement (cm) - Length 0 -Post Debridement (cm) - Width 0 -Post Debridement (cm) - Depth 0 -Total Square (Post) (cm) 0 -Area of Debridement (cm) - Length 0 -Area of Debridement (cm) - Width 0 -Total Square (Area) (cm) 0 -Tunneling No -Undermining/Tunneling No -Circular Undermining No -Wound/Ulcer Outcome Healed- Epithelialized -Ulcer Cleansing Rinsed/ Irrigated with Saline -Foul Odor after Cleansing No -Bioengineered Tissue No -Bleeding Controlled with Pressure -Offloading Yes -Type of Offloading Surgical Shoe -Treatment Response Procedure Tolerated Well -Debridement - Subq, 1st 20sq cm No #1 R Grt Toe -Time 14:58 -Correct Patient Yes -Correct Side, Site, Position Yes -Correct Procedure Yes -Procedure Performed Yes -Type of Procedure Debridement -Clinical Debridement Subcutaneous -Tissue Removed Subcutaneous -Post Debridement (cm) - Length 1.0 -Post Debridement (cm) - Width 1.7 -Post Debridement (cm) - Depth 0.1 -Total Square (Post) (cm) 1.70 -Area of Debridement (cm) - Length 1.0 -Area of Debridement (cm) - Width 1.7 -Total Square (Area) (cm) 1.70 -Tunneling No -Undermining/Tunneling No -Circular Undermining No -Wound/Ulcer Outcome Not Healed -Ulcer Cleansing Rinsed/ Irrigated with Saline -Foul Odor after Cleansing No -Bioengineered Tissue No -Bleeding Controlled with Pressure -Offloading Yes -Type of Offloading Camwalker -Treatment Response Procedure Tolerated Well -Debridement - Subq, 1st 20sq cm Yes Pain Scale: 0-10 Numeric Is Patient Pain Free? Yes - Nurse 3 - General Ulcer D/C NN Start: 02/08/20 14:23 Freq: Status: Active Protocol: Activity Type Activity Date Activity User E-Sign Co-Sign Detail Recorded Client Recorded Date Recorded By Document 02/08/20 15:04 [id number] 02/08/20 15:05 02/08/20 15:04 Wound Care Nurse 3 #1 R Grt Toe -Ulcer Cleansing Rinsed/ Irrigated with Saline -Primary Dressing Applied Aquacel AG 4x4 -Primary Dressing Covered/Secured with Dry Gauze,Dry Gauze & Roll Gauze,Secured with Tape -Aquacel AG 4x4 1 Treatment Response Procedure Tolerated Well Vital Signs Blood Pressure (90/60-120/80) 162/84 H Blood Pressure Mean (mm Hg) 110 Source Monitor Position Semi-Fowlers Blood Pressure Location Left Arm Pain Scale: 0-10 Numeric Is Patient Pain Free? Yes - Visit Discharge Discharge Condition Stable Ambulatory Status Ambulatory Transportation Private Auto Medication Reconcilliation completed & No provided to patient/care provider Clinical Summary of Care Provided Yes Wound debrided: hallux Laterality: Right Wound Grade/Stage: grade 3 Type of Debridement: Excisional debridement Anesthesia Used: 5% Lidocaine Gel Depth: in the subcutaneous layer Percentage of wound debrided: 100 Instrument Used: #15 blade Tissue Removed: fibrous, devitalized subcutaneous, biofilm, slough Severity: Fat Layer Exposed Amount of bleeding with debridement: Mild Bleeding Controlled with: Pressure Patient tolerated procedure well Assessment/Plan Active Problems (Last Updated 08/12/17 @ 11:54 by Lorenza Nguyễn) Osteomyelitis of right foot (Acute) Ulcer of right foot with fat layer exposed (Chronic) Delayed wound healing (Chronic) Type 2 diabetes mellitus with diabetic neuropathy (Chronic) Assessment: Right foot ulcer hallux with fat layer exposed, no infection. Osteomyelitis treated with antibiotics, right hallux. Left second toe ulcer healed. Uncontrolled diabetes (hemoglobin A1c 10.7). Delayed healing. Peripheral vascular disease work-up in process. Malnutrition suspected Plan: I reviewed and discussed his case and reviewed his medical records. Ulcer debridement was performed as noted in the clinical panel in a subcutaneous excisional manner. The left second toe ulcer is healed and this is noted. To continue to change dressing daily with silver cell. I recommend he washes his feet daily with antibacterial soap and water such as Dial soap. He was reassured no local signs of infection or deep tissue exposure was noted. To continue strict offloading with right cam walker boot and left surgical shoe with dual density offloading Plastizote liners to allow continued skin remodeling on the left . I also recommend he maintains proper glycemic control and improve diet. I recommended a previous nutrition referral and endocrinology referral. I reviewed his previous labs without gross abnormalities. His hemoglobin A1c was 10.7 on 09-16-2019. His recent hospital admission is noted and he is now on IV and oral antibiotics for treatment of right hallux osteomyelitis. He has a PICC line. He is under the management of infectious disease also. I recommend application of advanced wound healing product and the indications and benefits and anticipated management were reviewed. Prior authorization for epifix, placental derived tissue will be initiated. I answered all his questions. He was advised to return to the wound center in 1 week.
--- NOTE | 2020-02-14 09:55 | ART_ITS ---
Reason For Study: PVD Procedure A bilateral lower extremity continuous wave Doppler with analog waveform analysis,segmental pressures,and ankle brachial indexes without exercise. Left Segmental Pressures Left digit = 165 mmHg. The left dorsalis pedis waveforms are triphasic. The left posterior tibial artery waveforms are triphasic. [employer] and DPA are noncompressible. Right Segmental Pressures Right brachial= 157mmHg. Right dorsalis pedis artery = 199mmHg. Right digit = 105 mmHg. The right dorsalis pedis waveforms are triphasic. The right posterior tibial artery waveforms are triphasic. [employer] is noncompressible. Indices The right ankle brachial index by the dorsalis pedis is 1.27. The right digital-brachial index is .67. [employer] is noncompressible. The left digital-brachial index is 1.05. [employer] and DPA are noncompressible. Interpretation Summary Triphasic Doppler waveforms are noted at ankle level bilaterally. Pulse-volume recordings appear satisfactory at all levels bilaterally, including low-thigh, calf, ankle, and digital levels. The resting right ankle-brachial index is normal. The resting left ankle-brachial index could not be determined due to the non-compressibility of the vasculature at ankle level. The right digital- brachial index is mildly diminished. The left digital-brachial index is normal. There is evidence of arterial calcification at ankle level on the left. Arterial flow appears normal at ankle level bilaterally. There appears to be mild, distal, small-vessel arterial occlusive disease at digital level on the right. Arterial flow appears to be normal at digital level on the left. Ordering Physician: Sara Kendrick Performed By: CATRACHO KIM T
[2020-02-15 09:40] VITALS: BP 150/68; PULSE 71; RESP 18; TEMP 36.6; BMI 37.6
--- NOTE | 2020-02-15 13:16 | PCM.WC.PN ---
(1) Ulcer of right foot with fat layer exposed Status: Chronic Code(s): L97.512 - Non-pressure chronic ulcer of other part of right foot with fat layer exposed (2) Delayed wound healing Status: Chronic Code(s): T14.8XXD - Other injury of unspecified body region, subsequent encounter (3) Type 2 diabetes mellitus with diabetic neuropathy Status: Chronic Qualifiers: Code(s): E11.40 - Type 2 diabetes mellitus with diabetic neuropathy, unspecified (4) Osteomyelitis of right foot Status: Chronic Code(s): M86.9 - Osteomyelitis, unspecified (5) Ulcer of left foot, limited to breakdown of skin Status: Acute Code(s): L97.521 - Non-pressure chronic ulcer of other part of left foot limited to breakdown of skin Type of Wound Date of Service: 02/15/20 Chief Complaint: Right great toe ulcer. Left second toe ulcer History of Wound: This 64-year-old diabetic male has chronic recurrent foot ulcers. He was initially seen for right hallux infected ulcer in the hospital and the ulcer has been present for over 4 months. He has had ongoing delayed healing. He has recently been offloading the right foot with a cam walker boot and continues to offload the left ulcer with a surgical shoe. He reports improved compliance with offloading at home. He denies a PICC line now and is completing a 6-week course of IV and oral antibiotics for osteomyelitis of the right hallux. He now has returned drainage to the left second toe after trying to wear a regular shoe. He would like to over his noninvasive vascular studies. Progress of Wound: Improving compared to last hospital admission - Physical Exam Vital Signs Temp Pulse Resp BP 97.8 F 71 18 150/68 H 02/15/20 09:40 02/15/20 09:40 02/15/20 09:40 02/15/20 09:40 General: Alert, Oriented x3, Cooperative, No apparent distress HEENT: Atraumatic Extremities: No cyanosis, Capillary Refill Less than 3 Seconds, No Calf Tenderness, Diminished Peripheral Pulses, Edema Skin: Ulcer/ Wound - No purulence, erythema, string, odor, infection. Return skin discontinuity plantar left second toe without deep tissue exposed. There is improvement in right hallux ulcer bed quality with granulation tissue no deep exposure Wound Measurements and Assessment WC - Nurse 1 - General Ulcer Measurement Start: 02/08/20 14:23 Freq: Status: Active Protocol: Activity Type Activity Date Activity User E-Sign Co-Sign Detail Recorded Client Recorded Date Recorded By Document 02/15/20 09:40 MT [id number] 02/15/20 09:48 MT 02/15/20 09:40 Wound Center Nurse 1 [Ulcer Assessment] #2 L 2nd toe -Current Size (cm) - Length 0.1 -Current Size (cm) - Width 0.1 -Current Size (cm) - Depth 0.1 -Total Square Cm 0.01 -Exudate Amt Small -Exudate Type Serous -Wound Margin Flat & Intact -Granulation Amt Large (67-100%) -Granulation Quality Pale,[place] -Slough/Fibrin Yes -Necrosis Amt Small (1-33%) -Texture (Lizz-wound Skin Appearance) Assessed,Callus -Moisture (Lizz-wound Skin Appearance Assessed, ) Maceration -Color (Lizz-wound Skin Appearance) Assessed -Temperature (Lizz-wound Skin No Abnormality Appearance) (Pt Warm) -Tenderness on Palpation (Lizz-wound No Skin Appearance) -Ulcer Cleansing Rinsed/ Irrigated with Saline -Foul Odor after Cleansing No -Anesthetic Used 4% Lidocaine Solution #3 R GREAT TOE -Current Size (cm) - Length 0.5 -Current Size (cm) - Width 1.5 -Current Size (cm) - Depth 0.1 -Total Square Cm 0.75 -Exudate Amt Small -Exudate Type Serosanguineous -Wound Margin Flat & Intact -Granulation Amt Large (67-100%) -Granulation Quality Pale,[place] -Slough/Fibrin Yes -Necrosis Amt Small (1-33%) -Texture (Lizz-wound Skin Appearance) Assessed,Callus -Moisture (Lizz-wound Skin Appearance Assessed ) -Color (Lizz-wound Skin Appearance) Assessed -Temperature (Lizz-wound Skin No Abnormality Appearance) (Pt Warm) -Tenderness on Palpation (Lizz-wound No Skin Appearance) -Ulcer Cleansing Rinsed/ Irrigated with Saline -Foul Odor after Cleansing Yes -Anesthetic Used 4% Lidocaine Solution [Edema Assessment] -Lower Limb Edema Present NA WC - Nurse 2 - General Ulcer CM Notes Start: 02/08/20 14:23 Freq: Status: Active Protocol: Activity Type Activity Date Activity User E-Sign Co-Sign Detail Recorded Client Recorded Date Recorded By Document 02/15/20 10:00 [email or web address] [id number] 02/15/20 10:07 [email or web address] 02/15/20 10:00 Wound Center Nurse 2 [Procedure/Treatment] #2 L 2nd toe -Time 10:01 -Correct Patient Yes -Correct Side, Site, Position Yes -Correct Procedure Yes -Procedure Performed Yes -Type of Procedure Debridement -Clinical Debridement Epidermis / Dermis -Tissue Removed Epidermis, Dermis -Post Debridement (cm) - Length 0.2 -Post Debridement (cm) - Width 0.2 -Post Debridement (cm) - Depth 0.1 -Total Square (Post) (cm) 0.04 -Area of Debridement (cm) - Length 0.2 -Area of Debridement (cm) - Width 0.2 -Total Square (Area) (cm) 0.04 -Tunneling No -Undermining/Tunneling No -Circular Undermining No -Wound/Ulcer Outcome Not Healed -Ulcer Cleansing Rinsed/ Irrigated with Saline -Foul Odor after Cleansing No -Bioengineered Tissue No -Bleeding Controlled with Pressure -Offloading No -Type of Offloading Surgical Shoe -Treatment Response Procedure Tolerated Well -Debridement - Open, 1st 20sq cm Yes #3 R GREAT TOE -Correct Patient Yes -Correct Side, Site, Position Yes -Correct Procedure Yes -Procedure Performed Yes -Type of Procedure Debridement -Clinical Debridement Subcutaneous -Tissue Removed Subcutaneous -Post Debridement (cm) - Length 0.9 -Post Debridement (cm) - Width 1.5 -Post Debridement (cm) - Depth 0.1 -Total Square (Post) (cm) 1.35 -Area of Debridement (cm) - Length 0.9 -Area of Debridement (cm) - Width 1.5 -Total Square (Area) (cm) 1.35 -Tunneling No -Undermining/Tunneling No -Circular Undermining No -Wound/Ulcer Outcome Not Healed -Ulcer Cleansing Rinsed/ Irrigated with Saline -Foul Odor after Cleansing No -Bioengineered Tissue Yes -Type of Bioengineered Tissue Epifix 18mm Disc -Expiration Date 10/31/24 -Product Lot Number [id number] -Percent Used 100 -Bleeding Controlled with Pressure -Other saline [id number] -Offloading Yes -Type of Offloading Camwalker -Treatment Response Procedure Tolerated Well -Debridement - Subq, 1st 20sq cm No -Apply Skin Sub - 1st 25 sq cm - Feet 1 -Epifix 18mm Disc 3 Query Text:18mm = 3 [See Physician Procedure note for Specifics] Pain Scale: 0-10 Numeric [Pain] -Is Patient Pain Free? Yes - Nurse 3 - General Ulcer D/C NN Start: 02/08/20 14:23 Freq: Status: Active Protocol: Activity Type Activity Date Activity User E-Sign Co-Sign Detail Recorded Client Recorded Date Recorded By Document 02/15/20 10:12 DL [id number] 02/15/20 10:13 DL 02/15/20 10:12 Wound Care Nurse 3 [Wound Dressing] #2 L 2nd toe -Foul Odor after Cleansing No -Other Dressing epifix -Primary Dressing Covered/Secured Dry Gauze,Dry with Gauze & Roll Gauze,Secured with Tape #3 R GREAT TOE -Foul Odor after Cleansing No -Other Dressing epifix -Primary Dressing Covered/Secured Dry Gauze & with Roll Gauze, Secured with Tape [Post Procedure Tolerated] -Treatment Response Procedure Tolerated Well - Visit Discharge [Visit Discharge Information] -Discharge Condition Stable -Ambulatory Status Ambulatory -Transportation Private Auto Musculoskeletal: No Tenderness to Palpation of Joints or Extremities, Muscle Wasting Neurological: - - Lack of normal epicritic sensation light touch is consistent with neuropathy status Psych/Mental Status: Normal Affect, Appropriate Debridement Note Post-Debridement Measurements/Treatment - Nurse 2 - General Ulcer CM Notes Start: 02/08/20 14:23 Freq: Status: Active Protocol: Activity Type Activity Date Activity User E-Sign Co-Sign Detail Recorded Client Recorded Date Recorded By Document 02/08/20 14:57 [id number] 02/08/20 14:59 Document 02/15/20 10:00 [id number] 02/15/20 10:07 02/08/20 02/15/20 14:57 10:00 Wound Center Nurse 2 #2 L 2nd toe -Time 14:57 10:01 -Correct Patient No Yes -Correct Side, Site, Position No Yes -Correct Procedure No Yes -Procedure Performed No Yes -Type of Procedure Debridement -Clinical Debridement Epidermis / Dermis -Tissue Removed Epidermis, Dermis -Post Debridement (cm) - Length 0 0.2 -Post Debridement (cm) - Width 0 0.2 -Post Debridement (cm) - Depth 0 0.1 -Total Square (Post) (cm) 0 0.04 -Area of Debridement (cm) - Length 0 0.2 -Area of Debridement (cm) - Width 0 0.2 -Total Square (Area) (cm) 0 0.04 -Tunneling No No -Undermining/Tunneling No No -Circular Undermining No No -Wound/Ulcer Outcome Healed- Not Healed Epithelialized -Ulcer Cleansing Rinsed/ Rinsed/ Irrigated with Irrigated with Saline Saline -Foul Odor after Cleansing No No -Bioengineered Tissue No No -Bleeding Controlled with Pressure Pressure -Offloading Yes No -Type of Offloading Surgical Shoe Surgical Shoe -Treatment Response Procedure Procedure Tolerated Well Tolerated Well -Debridement - Open, 1st 20sq cm Yes -Debridement - Subq, 1st 20sq cm No #3 R GREAT TOE -Time 14:58 -Correct Patient Yes Yes -Correct Side, Site, Position Yes Yes -Correct Procedure Yes Yes -Procedure Performed Yes Yes -Type of Procedure Debridement Debridement -Clinical Debridement Subcutaneous Subcutaneous -Tissue Removed Subcutaneous Subcutaneous -Post Debridement (cm) - Length 1.0 0.9 -Post Debridement (cm) - Width 1.7 1.5 -Post Debridement (cm) - Depth 0.1 0.1 -Total Square (Post) (cm) 1.70 1.35 -Area of Debridement (cm) - Length 1.0 0.9 -Area of Debridement (cm) - Width 1.7 1.5 -Total Square (Area) (cm) 1.70 1.35 -Tunneling No No -Undermining/Tunneling No No -Circular Undermining No No -Wound/Ulcer Outcome Not Healed Not Healed -Ulcer Cleansing Rinsed/ Rinsed/ Irrigated with Irrigated with Saline Saline -Foul Odor after Cleansing No No -Bioengineered Tissue No Yes -Type of Bioengineered Tissue Epifix 18mm Disc -Expiration Date 10/31/24 -Product Lot Number [id number] -Percent Used 100 -Bleeding Controlled with Pressure Pressure -Other saline [id number] -Offloading Yes Yes -Type of Offloading Camwalker Camwalker -Treatment Response Procedure Procedure Tolerated Well Tolerated Well -Debridement - Subq, 1st 20sq cm Yes No -Apply Skin Sub - 1st 25 sq cm - Feet 1 -Epifix 18mm Disc 3 Query Text:18mm = 3 Pain Scale: 0-10 Numeric Is Patient Pain Free? Yes Yes WC - Nurse 3 - General Ulcer D/C NN Start: 02/08/20 14:23 Freq: Status: Active Protocol: Activity Type Activity Date Activity User E-Sign Co-Sign Detail Recorded Client Recorded Date Recorded By Document 02/08/20 15:04 RB [id number] 02/08/20 15:05 RB Document 02/15/20 10:12 DL [id number] 02/15/20 10:13 DL 02/08/20 02/15/20 15:04 10:12 Wound Care Nurse 3 #2 L 2nd toe -Foul Odor after Cleansing No -Other Dressing epifix -Primary Dressing Covered/Secured with Dry Gauze,Dry Gauze & Roll Gauze,Secured with Tape #3 R GREAT TOE -Ulcer Cleansing Rinsed/ Irrigated with Saline -Foul Odor after Cleansing No -Primary Dressing Applied Aquacel AG 4x4 -Other Dressing epifix -Primary Dressing Covered/Secured with Dry Gauze,Dry Dry Gauze & Gauze & Roll Roll Gauze, Gauze,Secured Secured with with Tape Tape -Aquacel AG 4x4 1 Treatment Response Procedure Procedure Tolerated Well Tolerated Well Vital Signs Blood Pressure (90/60-120/80) 162/84 H Blood Pressure Mean (mm Hg) 110 Source Monitor Position Semi-Fowlers Blood Pressure Location Left Arm Pain Scale: 0-10 Numeric Is Patient Pain Free? Yes WC - Visit Discharge Discharge Condition Stable Stable Ambulatory Status Ambulatory Ambulatory Transportation Private Auto Private Auto Medication Reconcilliation completed & No provided to patient/care provider Clinical Summary of Care Provided Yes Wound debrided: plantar second toe Laterality: Left Wound Grade/Stage: grade 1 Type of Debridement: Selective debridement Anesthesia Used: 5% Lidocaine Gel Depth: in the subcutaneous layer Percentage of wound debrided: 100 Instrument Used: #15 blade Tissue Removed: fibrous, devitalized tissue, biofilm, slough Severity: Limited To Skin Breakdown Amount of bleeding with debridement: Mild Bleeding Controlled with: Pressure Patient tolerated procedure well - Additional Wound Wound debrided: plantar medial hallux Laterality: Right Wound Grade/Stage: grade 1 (with underlying osteomyelitis) Type of Debridement: Excisional debridement Anesthesia Used: 5% Lidocaine Gel Depth: in the subcutaneous layer Percentage of wound debrided: 100 Instrument Used: #15 blade Tissue Removed: fibrous, devitalized subcutaneous, biofilm, slough Severity: Fat Layer Exposed Amount of bleeding with debridement: Mild Bleeding Controlled with: Pressure Patient tolerated procedure: Patient tolerated procedure well Assessment/Plan Active Problems (Last Updated 08/12/17 @ 11:54 by Lorenza Nguyễn) Ulcer of left foot, limited to breakdown of skin (Acute) Osteomyelitis of right foot (Chronic) Ulcer of right foot with fat layer exposed (Chronic) Ulcer of left foot with fat layer exposed (Acute) Delayed wound healing (Chronic) Type 2 diabetes mellitus with diabetic neuropathy (Chronic) Assessment: Right foot ulcer hallux with fat layer exposed, no infection. Osteomyelitis treated with antibiotics, right hallux. Left second toe ulcer returned with skin layer exposed. Uncontrolled diabetes (hemoglobin A1c 10.7). Delayed healing. Peripheral vascular disease work-up in process. Malnutrition suspected Plan: I reviewed and discussed his case and reviewed his medical records. Ulcer debridement was performed as noted in the clinical panel in a subcutaneous excisional manner. The left second toe ulcer has reopened. To continue to change dressing daily with silver cell. I recommend he washes his feet daily with antibacterial soap and water such as Dial soap. He was reassured no local signs of infection or deep tissue exposure was noted. He provided verbal consent for application of advanced wound healing product, epifix to the right hallux. Insurance authorization was confirmed. This was applied according standard protocol and was secured with a wound veil and Steri-Strips. The benefits, anticipated healing time and management applications were reviewed. He demonstrates understanding. He advised keep this clean, dry, and intact until follow-up next week. To continue strict offloading with right cam walker boot and left surgical shoe with dual density offloading Plastizote liners to allow continued skin remodeling on the left . I also recommend he maintains proper glycemic control and improve diet. I recommended a previous nutrition referral and endocrinology referral. I reviewed his previous labs without gross abnormalities. His hemoglobin A1c was 10.7 on 09-16-2019. His recent hospital admission is noted and he is now on IV and oral antibiotics for treatment of right hallux osteomyelitis. He has a PICC line. He is under the management of infectious disease also. I answered all his questions. He was advised to return to the wound center in 1 week.
[2020-02-22 09:53] VITALS: BP 130/52; PULSE 73; RESP 18; TEMP 36.5; BMI 37.6
--- NOTE | 2020-02-22 22:08 | PCM.WC.PN ---
(1) Ulcer of right foot with fat layer exposed Status: Chronic Code(s): L97.512 - Non-pressure chronic ulcer of other part of right foot with fat layer exposed (2) Delayed wound healing Status: Chronic Code(s): T14.8XXD - Other injury of unspecified body region, subsequent encounter (3) Type 2 diabetes mellitus with diabetic neuropathy Status: Chronic Qualifiers: Code(s): E11.40 - Type 2 diabetes mellitus with diabetic neuropathy, unspecified (4) Osteomyelitis of right foot Status: Chronic Code(s): M86.9 - Osteomyelitis, unspecified (5) Ulcer of left foot, limited to breakdown of skin Status: Resolved Code(s): L97.521 - Non-pressure chronic ulcer of other part of left foot limited to breakdown of skin Type of Wound Date of Service: 02/22/20 Chief Complaint: Right great toe ulcer. Left second toe ulcer History of Wound: This 64-year-old diabetic male has chronic recurrent foot ulcers. He was initially seen for right hallux infected ulcer in the hospital and the ulcer has been present for over 4 months. He has had ongoing delayed healing. He has recently been offloading the right foot with a cam walker boot and continues to offload the left ulcer with a surgical shoe. He reports improved compliance with offloading at home. He denies a PICC line now and is completing a 6-week course of IV and oral antibiotics for osteomyelitis of the right hallux. He now has resolved left foot drainage. Progress of Wound: Healed left and improved right - Physical Exam Vital Signs Temp Pulse Resp BP 97.7 F L 73 18 130/52 H 02/22/20 09:53 02/22/20 09:53 02/22/20 09:53 02/22/20 09:53 General: Alert, Oriented x3, Cooperative HEENT: Atraumatic Extremities: No cyanosis, Capillary Refill Less than 3 Seconds, No Calf Tenderness, Diminished Peripheral Pulses, Edema - Mild Skin: Ulcer/ Wound - Full epithelialization left foot. Peripheral epithelialization to right hallux. No erythema, streaking, odor, infection. Wound Measurements and Assessment WC - Nurse 1 - General Ulcer Measurement Start: 02/08/20 14:23 Freq: Status: Active Protocol: Activity Type Activity Date Activity User E-Sign Co-Sign Detail Recorded Client Recorded Date Recorded By Document 02/22/20 09:53 [id number] 02/22/20 10:01 DL 02/22/20 09:53 Wound Center Nurse 1 [Ulcer Assessment] #2 L 2nd toe -Current Size (cm) - Length 0.1 -Current Size (cm) - Width 0.1 -Current Size (cm) - Depth 0.1 -Total Square Cm 0.01 -Photo Taken No -Exudate Amt None Present -Wound Margin Flat & Intact -Granulation Amt Large (67-100%) -Granulation Quality [place] -Necrosis Amt Small (1-33%) -Necrotic Tissue Type Adherent Slough -Structure Exposed N/A -Texture (Lizz-wound Skin Appearance) Scarring -Moisture (Lizz-wound Skin Appearance Dry/Scaly ) -Color (Lizz-wound Skin Appearance) No Abnormality -Temperature (Lizz-wound Skin No Abnormality Appearance) (Pt Warm) -Tenderness on Palpation (Lizz-wound No Skin Appearance) -Ulcer Cleansing Wound Cleanser -Foul Odor after Cleansing No -Anesthetic Used 4% Lidocaine Solution #3 R GREAT TOE -Current Size (cm) - Length 0.8 -Current Size (cm) - Width 1.7 -Current Size (cm) - Depth 0.1 -Total Square Cm 1.36 -Photo Taken No -Exudate Amt Small -Exudate Type Serosanguineous -Wound Margin Thickened -Granulation Amt None Present (0 %) -Necrosis Amt Large (67-100%) -Necrotic Tissue Type Eschar -Structure Exposed N/A -Texture (Lizz-wound Skin Appearance) Scarring -Moisture (Lizz-wound Skin Appearance Dry/Scaly ) -Color (Lizz-wound Skin Appearance) No Abnormality -Temperature (Lizz-wound Skin No Abnormality Appearance) (Pt Warm) -Tenderness on Palpation (Lizz-wound No Skin Appearance) -Ulcer Cleansing Wound Cleanser -Foul Odor after Cleansing No -Anesthetic Used 4% Lidocaine Solution WC - Nurse 2 - General Ulcer CM Notes Start: 02/08/20 14:23 Freq: Status: Active Protocol: Activity Type Activity Date Activity User E-Sign Co-Sign Detail Recorded Client Recorded Date Recorded By Document 02/22/20 10:15 [email or web address] [id number] 02/22/20 10:22 [email or web address] 02/22/20 10:15 Wound Center Nurse 2 [Procedure/Treatment] #2 L 2nd toe -Correct Patient No -Correct Side, Site, Position No -Correct Procedure No -Procedure Performed No -Post Debridement (cm) - Length 0 -Post Debridement (cm) - Width 0 -Post Debridement (cm) - Depth 0 -Total Square (Post) (cm) 0 -Area of Debridement (cm) - Length 0 -Area of Debridement (cm) - Width 0 -Total Square (Area) (cm) 0 -Wound/Ulcer Outcome Healed- Epithelialized #3 R GREAT TOE -Time 10:19 -Correct Patient Yes -Correct Side, Site, Position Yes -Correct Procedure Yes -Procedure Performed Yes -Type of Procedure Debridement -Clinical Debridement Subcutaneous -Tissue Removed Subcutaneous -Post Debridement (cm) - Length 0.7 -Post Debridement (cm) - Width 1.1 -Post Debridement (cm) - Depth 0.1 -Total Square (Post) (cm) 0.77 -Area of Debridement (cm) - Length 0.7 -Area of Debridement (cm) - Width 1.1 -Total Square (Area) (cm) 0.77 -Tunneling No -Undermining/Tunneling No -Circular Undermining No -Wound/Ulcer Outcome Not Healed -Ulcer Cleansing Rinsed/ Irrigated with Saline -Foul Odor after Cleansing No -Bioengineered Tissue Yes -Type of Bioengineered Tissue Epifix 18mm Disc -Expiration Date 10/31/24 -Product Lot Number [id number] -Percent Used 100 -Lot number of Saline Used [id number] -Bleeding Controlled with Pressure -Offloading Yes -Type of Offloading Surgical Shoe -Treatment Response Procedure Tolerated Well -Debridement - Subq, 1st 20sq cm No -Apply Skin Sub - 1st 25 sq cm - Legs 1 -Epifix 18mm Disc 3 Query Text:18mm = 3 [See Physician Procedure note for Specifics] Pain Scale: 0-10 Numeric [Pain] -Is Patient Pain Free? Yes WC - Nurse 3 - General Ulcer D/C NN Start: 02/08/20 14:23 Freq: Status: Active Protocol: Activity Type Activity Date Activity User E-Sign Co-Sign Detail Recorded Client Recorded Date Recorded By Document 02/22/20 10:32 KR [id number] 02/22/20 10:33 KR 02/22/20 10:32 Wound Care Nurse 3 [Wound Dressing] #3 R GREAT TOE -Ulcer Cleansing Rinsed/ Irrigated with Saline -Foul Odor after Cleansing No -Primary Dressing Covered/Secured Dry Gauze, with Secured with Tape Pain Scale: 0-10 Numeric [Pain] -Is Patient Pain Free? Yes WC - Visit Discharge [Visit Discharge Information] -Discharge Condition Stable -Ambulatory Status Ambulatory -Transportation Private Auto Musculoskeletal: No Tenderness to Palpation of Joints or Extremities, Muscle Wasting, - - Patient was loaded first metatarsophalangeal joint range of motion, right Neurological: - - lack of epicritic sensation Psych/Mental Status: Normal Affect, Appropriate Debridement Note Post-Debridement Measurements/Treatment - Nurse 2 - General Ulcer CM Notes Start: 02/08/20 14:23 Freq: Status: Active Protocol: Activity Type Activity Date Activity User E-Sign Co-Sign Detail Recorded Client Recorded Date Recorded By Document 02/08/20 14:57 [id number] 02/08/20 14:59 Document 02/15/20 10:00 [id number] 02/15/20 10:07 Document 02/22/20 10:15 [id number] 02/22/20 10:22 02/08/20 02/15/20 02/22/20 14:57 10:00 10:15 Wound Center Nurse 2 #2 L 2nd toe -Time 14:57 10:01 -Correct Patient No Yes No -Correct Side, Site, Position No Yes No -Correct Procedure No Yes No -Procedure Performed No Yes No -Type of Procedure Debridement -Clinical Debridement Epidermis / Dermis -Tissue Removed Epidermis, Dermis -Post Debridement (cm) - Length 0 0.2 0 -Post Debridement (cm) - Width 0 0.2 0 -Post Debridement (cm) - Depth 0 0.1 0 -Total Square (Post) (cm) 0 0.04 0 -Area of Debridement (cm) - Length 0 0.2 0 -Area of Debridement (cm) - Width 0 0.2 0 -Total Square (Area) (cm) 0 0.04 0 -Tunneling No No -Undermining/Tunneling No No -Circular Undermining No No -Wound/Ulcer Outcome Healed- Not Healed Healed- Epithelialized Epithelialized -Ulcer Cleansing Rinsed/ Rinsed/ Irrigated with Irrigated with Saline Saline -Foul Odor after Cleansing No No -Bioengineered Tissue No No -Bleeding Controlled with Pressure Pressure -Offloading Yes No -Type of Offloading Surgical Shoe Surgical Shoe -Treatment Response Procedure Procedure Tolerated Well Tolerated Well -Debridement - Open, 1st 20sq cm Yes -Debridement - Subq, 1st 20sq cm No #3 R GREAT TOE -Time 14:58 10:19 -Correct Patient Yes Yes Yes -Correct Side, Site, Position Yes Yes Yes -Correct Procedure Yes Yes Yes -Procedure Performed Yes Yes Yes -Type of Procedure Debridement Debridement Debridement -Clinical Debridement Subcutaneous Subcutaneous Subcutaneous -Tissue Removed Subcutaneous Subcutaneous Subcutaneous -Post Debridement (cm) - Length 1.0 0.9 0.7 -Post Debridement (cm) - Width 1.7 1.5 1.1 -Post Debridement (cm) - Depth 0.1 0.1 0.1 -Total Square (Post) (cm) 1.70 1.35 0.77 -Area of Debridement (cm) - Length 1.0 0.9 0.7 -Area of Debridement (cm) - Width 1.7 1.5 1.1 -Total Square (Area) (cm) 1.70 1.35 0.77 -Tunneling No No No -Undermining/Tunneling No No No -Circular Undermining No No No -Wound/Ulcer Outcome Not Healed Not Healed Not Healed -Ulcer Cleansing Rinsed/ Rinsed/ Rinsed/ Irrigated with Irrigated with Irrigated with Saline Saline Saline -Foul Odor after Cleansing No No No -Bioengineered Tissue No Yes Yes -Type of Bioengineered Tissue Epifix 18mm Epifix 18mm Disc Disc -Expiration Date 10/31/24 10/31/24 -Product Lot Number [id number] -Percent Used 100 100 -Lot number of Saline Used [id number] -Bleeding Controlled with Pressure Pressure Pressure -Other saline [id number] -Offloading Yes Yes Yes -Type of Offloading Camwalker Camwalker Surgical Shoe -Treatment Response Procedure Procedure Procedure Tolerated Well Tolerated Well Tolerated Well -Debridement - Subq, 1st 20sq cm Yes No No -Apply Skin Sub - 1st 25 sq cm - Legs 1 -Apply Skin Sub - 1st 25 sq cm - Feet 1 -Epifix 18mm Disc 3 3 Query Text:18mm = 3 Pain Scale: 0-10 Numeric Is Patient Pain Free? Yes Yes Yes - Nurse 3 - General Ulcer D/C NN Start: 02/08/20 14:23 Freq: Status: Active Protocol: Activity Type Activity Date Activity User E-Sign Co-Sign Detail Recorded Client Recorded Date Recorded By Document 02/08/20 15:04 RB [id number] 02/08/20 15:05 RB Document 02/15/20 10:12 DL [id number] 02/15/20 10:13 DL Document 02/22/20 10:32 KR [id number] 02/22/20 10:33 KR 02/08/20 02/15/20 02/22/20 15:04 10:12 10:32 Wound Care Nurse 3 #2 L 2nd toe -Foul Odor after Cleansing No -Other Dressing epifix -Primary Dressing Covered/Secured with Dry Gauze,Dry Gauze & Roll Gauze,Secured with Tape #3 R GREAT TOE -Ulcer Cleansing Rinsed/ Rinsed/ Irrigated with Irrigated with Saline Saline -Foul Odor after Cleansing No No -Primary Dressing Applied Aquacel AG 4x4 -Other Dressing epifix -Primary Dressing Covered/Secured with Dry Gauze,Dry Dry Gauze & Dry Gauze, Gauze & Roll Roll Gauze, Secured with Gauze,Secured Secured with Tape with Tape Tape -Aquacel AG 4x4 1 Treatment Response Procedure Procedure Tolerated Well Tolerated Well Vital Signs Blood Pressure (90/60-120/80) 162/84 H Blood Pressure Mean (mm Hg) 110 Source Monitor Position Semi-Fowlers Blood Pressure Location Left Arm Pain Scale: 0-10 Numeric Is Patient Pain Free? Yes Yes WC - Visit Discharge Discharge Condition Stable Stable Stable Ambulatory Status Ambulatory Ambulatory Ambulatory Transportation Private Auto Private Auto Private Auto Medication Reconcilliation completed & No provided to patient/care provider Clinical Summary of Care Provided Yes Wound debrided: plantar hallux Laterality: Right Wound Grade/Stage: grade 3 Type of Debridement: Excisional debridement Anesthesia Used: 5% Lidocaine Gel Depth: in the subcutaneous layer Percentage of wound debrided: 100 Instrument Used: #15 blade Tissue Removed: fibrous, devitalized subcutaneous, biofilm, slough Severity: Fat Layer Exposed Amount of bleeding with debridement: Mild Bleeding Controlled with: Pressure Patient tolerated procedure well Assessment/Plan Active Problems (Last Updated 08/12/17 @ 11:54 by Lorenza Nguyễn) Osteomyelitis of right foot (Chronic) Ulcer of right foot with fat layer exposed (Chronic) Ulcer of left foot with fat layer exposed (Acute) Delayed wound healing (Chronic) Type 2 diabetes mellitus with diabetic neuropathy (Chronic) Assessment: Right foot ulcer hallux with fat layer exposed, no infection. Osteomyelitis treated with antibiotics, right hallux. Left second toe ulcer healed. Uncontrolled diabetes (hemoglobin A1c 10.7). Delayed healing. Peripheral vascular disease work-up in process. Malnutrition suspected Plan: I reviewed and discussed his case and reviewed his medical records. Ulcer debridement was performed as noted in the clinical panel in a subcutaneous excisional manner. The left foot is healed. He was reassured no local signs of infection or deep tissue exposure was noted. He provided verbal consent for application of advanced wound healing product, epifix to the right hallux. Insurance authorization was confirmed. This was applied according standard protocol and was secured with a wound veil and Steri-Strips. The benefits, anticipated healing time and management applications were reviewed. He demonstrates understanding. He advised keep this clean, dry, and intact until follow-up next week. To continue strict offloading with right cam walker boot and left surgical shoe with dual density offloading Plastizote liners to allow continued skin remodeling on the left . I also recommend he maintains proper glycemic control and improve diet. I recommended a previous nutrition referral and endocrinology referral. I reviewed his previous labs without gross abnormalities. His hemoglobin A1c was 10.7 on 09-16-2019. His recent hospital admission is noted and he is now on IV and oral antibiotics for treatment of right hallux osteomyelitis. He has a PICC line. He is under the management of infectious disease also. I answered all his questions. He was advised to return to the wound center in 1 week.
[2020-02-29 09:56] VITALS: BP 109/54; PULSE 73; TEMP 36.3; BMI 37.6
--- NOTE | 2020-02-29 12:42 | PN.PCM_ITS ---
(1) Ulcer of right foot with fat layer exposed Status: Chronic Code(s): L97.512 - Non-pressure chronic ulcer of other part of right foot with fat layer exposed (2) Delayed wound healing Status: Chronic Code(s): T14.8XXD - Other injury of unspecified body region, subsequent encounter (3) Type 2 diabetes mellitus with diabetic neuropathy Status: Chronic Qualifiers: Code(s): E11.40 - Type 2 diabetes mellitus with diabetic neuropathy, unspecified (4) Osteomyelitis of right foot Status: Chronic Code(s): M86.9 - Osteomyelitis, unspecified Type of Wound Date of Service: 02/29/20 Chief Complaint: Right great toe ulcer History of Wound: This 64-year-old diabetic male has chronic recurrent foot ulcers. He was initially seen for right hallux infected ulcer in the hospital and the ulcer has been present for over 4 months. He has had ongoing delayed healing. He has recently been offloading the right foot with a cam walker boot and continues to offload the left ulcer with a surgical shoe. He reports improved compliance with offloading at home. He denies a PICC line now and is completing a 6-week course of IV and oral antibiotics for osteomyelitis of the right hallux. Progress of Wound: improved right - Physical Exam Vital Signs Temp Pulse Resp BP 97.4 F L 73 18 109/54 L 02/29/20 09:56 02/29/20 09:56 02/22/20 09:53 02/29/20 09:56 General: Alert, Oriented x3, Cooperative, No apparent distress Extremities: No cyanosis, Capillary Refill Less than 3 Seconds, No Calf Tendern ess, Diminished Peripheral Pulses, Edema Skin: Ulcer/ Wound - No purulence, erythema, streaking, odor, infection. Adjacent skin is hairless and atrophic. Reduce ulcer site and peripheral epithelialization noted to the plantar right hallux. Wound Measurements and Assessment WC - Nurse 1 - General Ulcer Measurement Start: 02/08/20 14:23 Freq: Status: Active Protocol: Activity Type Activity Date Activity User E-Sign Co-Sign Detail Recorded Client Recorded Date Recorded By Document 02/29/20 09:56 [email or web address] [id number] 02/29/20 10:06 KR 02/29/20 09:56 Wound Center Nurse 1 [Ulcer Assessment] #3 R GREAT TOE -Current Size (cm) - Length 1.1 -Current Size (cm) - Width 1.5 -Current Size (cm) - Depth 0.1 -Total Square Cm 1.65 -Exudate Amt None Present -Granulation Amt Small (1-33%) -Granulation Quality Red -Necrosis Amt Small (1-33%) -Necrotic Tissue Type Adherent Slough -Texture (Lizz-wound Skin Appearance) Assessed, Scarring -Moisture (Lizz-wound Skin Appearance No Abnormality, ) Assessed -Color (Lizz-wound Skin Appearance) No Abnormality, Assessed -Temperature (Lizz-wound Skin No Abnormality Appearance) (Pt Warm) -Tenderness on Palpation (Lizz-wound No Skin Appearance) -Ulcer Cleansing Rinsed/ Irrigated with Saline -Foul Odor after Cleansing No -Anesthetic Used 4% Lidocaine Solution WC - Nurse 2 - General Ulcer CM Notes Start: 02/08/20 14:23 Freq: Status: Active Protocol: Activity Type Activity Date Activity User E-Sign Co-Sign Detail Recorded Client Recorded Date Recorded By Document 02/29/20 10:44 [email or web address] [id number] 02/29/20 10:49 KWESI 02/29/20 10:44 Wound Center Nurse 2 [Procedure/Treatment] -Time 10:45 -Correct Patient Yes -Correct Side, Site, Position Yes -Correct Procedure Yes -Procedure Performed Yes -Type of Procedure Debridement -Clinical Debridement Subcutaneous -Tissue Removed Subcutaneous -Post Debridement (cm) - Length 0.2 -Post Debridement (cm) - Width 0.8 -Post Debridement (cm) - Depth 0.1 -Total Square (Post) (cm) 0.16 -Area of Debridement (cm) - Length 0.2 -Area of Debridement (cm) - Width 0.8 -Total Square (Area) (cm) 0.16 -Tunneling No -Undermining/Tunneling No -Circular Undermining No -Wound/Ulcer Outcome Not Healed -Ulcer Cleansing Rinsed/ Irrigated with Saline -Foul Odor after Cleansing No -Bioengineered Tissue Yes -Type of Bioengineered Tissue Epifix -Expiration Date 10/31/24 -Product Lot Number [id number] -Percent Used 100 -Lot number of Saline Used [id number] -Bleeding Controlled with Pressure -Offloading Yes -Type of Offloading Camwalker -Treatment Response Procedure Tolerated Well -Debridement - Subq, 1st 20sq cm No -Apply Skin Sub - 1st 25 sq cm - Feet 1 -Epifix (per sq cm) 0 -Epifix 18mm Disc 3 Query Text:18mm = 3 [See Physician Procedure note for Specifics] Pain Scale: 0-10 Numeric [Pain] -Is Patient Pain Free? Yes - Nurse 3 - General Ulcer D/C NN Start: 02/08/20 14:23 Freq: Status: Active Protocol: Activity Type Activity Date Activity User E-Sign Co-Sign Detail Recorded Client Recorded Date Recorded By Document 02/29/20 11:05 [id number] 02/29/20 11:05 02/29/20 11:05 Wound Care Nurse 3 [Wound Dressing] #3 R GREAT TOE -Ulcer Cleansing Not Cleansed -Primary Dressing Covered/Secured Dry Gauze, with Secured with Tape Pain Scale: 0-10 Numeric [Pain] -Is Patient Pain Free? Yes - Visit Discharge [Visit Discharge Information] -Discharge Condition Stable -Ambulatory Status Ambulatory -Transportation Private Auto Musculoskeletal: No Tenderness to Palpation of Joints or Extremities, Muscle Wasting Neurological: - - Lack of normal epicritic sensation light touch is consistent with neuropathy status Psych/Mental Status: Normal Affect, Appropriate Debridement Note Post-Debridement Measurements/Treatment - Nurse 2 - General Ulcer CM Notes Start: 02/08/20 14:23 Freq: Status: Active Protocol: Activity Type Activity Date Activity User E-Sign Co-Sign Detail Recorded Client Recorded Date Recorded By Document 02/08/20 14:57 [id number] 02/08/20 14:59 Document 02/15/20 10:00 [id number] 02/15/20 10:07 Document 02/22/20 10:15 [id number] 02/22/20 10:22 Document 02/29/20 10:44 [id number] 02/29/20 10:49 02/08/20 02/15/20 02/22/20 14:57 10:00 10:15 Wound Center Nurse 2 #2 L 2nd toe -Time 14:57 10:01 -Correct Patient No Yes No -Correct Side, Site, Position No Yes No -Correct Procedure No Yes No -Procedure Performed No Yes No -Type of Procedure Debridement -Clinical Debridement Epidermis / Dermis -Tissue Removed Epidermis, Dermis -Post Debridement (cm) - Length 0 0.2 0 -Post Debridement (cm) - Width 0 0.2 0 -Post Debridement (cm) - Depth 0 0.1 0 -Total Square (Post) (cm) 0 0.04 0 -Area of Debridement (cm) - Length 0 0.2 0 -Area of Debridement (cm) - Width 0 0.2 0 -Total Square (Area) (cm) 0 0.04 0 -Tunneling No No -Undermining/Tunneling No No -Circular Undermining No No -Wound/Ulcer Outcome Healed- Not Healed Healed- Epithelialized Epithelialized -Ulcer Cleansing Rinsed/ Rinsed/ Irrigated with Irrigated with Saline Saline -Foul Odor after Cleansing No No -Bioengineered Tissue No No -Bleeding Controlled with Pressure Pressure -Offloading Yes No -Type of Offloading Surgical Shoe Surgical Shoe -Treatment Response Procedure Procedure Tolerated Well Tolerated Well -Debridement - Open, 1st 20sq cm Yes -Debridement - Subq, 1st 20sq cm No #3 R GREAT TOE -Time 14:58 10:19 -Correct Patient Yes Yes Yes -Correct Side, Site, Position Yes Yes Yes -Correct Procedure Yes Yes Yes -Procedure Performed Yes Yes Yes -Type of Procedure Debridement Debridement Debridement -Clinical Debridement Subcutaneous Subcutaneous Subcutaneous -Tissue Removed Subcutaneous Subcutaneous Subcutaneous -Post Debridement (cm) - Length 1.0 0.9 0.7 -Post Debridement (cm) - Width 1.7 1.5 1.1 -Post Debridement (cm) - Depth 0.1 0.1 0.1 -Total Square (Post) (cm) 1.70 1.35 0.77 -Area of Debridement (cm) - Length 1.0 0.9 0.7 -Area of Debridement (cm) - Width 1.7 1.5 1.1 -Total Square (Area) (cm) 1.70 1.35 0.77 -Tunneling No No No -Undermining/Tunneling No No No -Circular Undermining No No No -Wound/Ulcer Outcome Not Healed Not Healed Not Healed -Ulcer Cleansing Rinsed/ Rinsed/ Rinsed/ Irrigated with Irrigated with Irrigated with Saline Saline Saline -Foul Odor after Cleansing No No No -Bioengineered Tissue No Yes Yes -Type of Bioengineered Tissue Epifix 18mm Epifix 18mm Disc Disc -Expiration Date 10/31/24 10/31/24 -Product [facility] [id number] -Percent Used 100 100 -Lot number of Saline Used [id number] -Bleeding Controlled with Pressure Pressure Pressure -Other saline [id number] -Offloading Yes Yes Yes -Type of Offloading Camwalker Camwalker Surgical Shoe -Treatment Response Procedure Procedure Procedure Tolerated Well Tolerated Well Tolerated Well -Debridement - Subq, 1st 20sq cm Yes No No -Apply Skin Sub - 1st 25 sq cm - Legs 1 -Apply Skin Sub - 1st 25 sq cm - Feet 1 -Epifix (per sq cm) -Epifix 18mm Disc 3 3 Query Text:18mm = 3 Pain Scale: 0-10 Numeric Is Patient Pain Free? Yes Yes Yes 02/29/20 10:44 Wound Center Nurse 2 #2 L 2nd toe -Time -Correct Patient -Correct Side, Site, Position -Correct Procedure -Procedure Performed -Type of Procedure -Clinical Debridement -Tissue Removed -Post Debridement (cm) - Length -Post Debridement (cm) - Width -Post Debridement (cm) - Depth -Total Square (Post) (cm) -Area of Debridement (cm) - Length -Area of Debridement (cm) - Width -Total Square (Area) (cm) -Tunneling -Undermining/Tunneling -Circular Undermining -Wound/Ulcer Outcome -Ulcer Cleansing -Foul Odor after Cleansing -Bioengineered Tissue -Bleeding Controlled with -Offloading -Type of Offloading -Treatment Response -Debridement - Open, 1st 20sq cm -Debridement - Subq, 1st 20sq cm #3 R GREAT TOE -Time 10:45 -Correct Patient Yes -Correct Side, Site, Position Yes -Correct Procedure Yes -Procedure Performed Yes -Type of Procedure Debridement -Clinical Debridement Subcutaneous -Tissue Removed Subcutaneous -Post Debridement (cm) - Length 0.2 -Post Debridement (cm) - Width 0.8 -Post Debridement (cm) - Depth 0.1 -Total Square (Post) (cm) 0.16 -Area of Debridement (cm) - Length 0.2 -Area of Debridement (cm) - Width 0.8 -Total Square (Area) (cm) 0.16 -Tunneling No -Undermining/Tunneling No -Circular Undermining No -Wound/Ulcer Outcome Not Healed -Ulcer Cleansing Rinsed/ Irrigated with Saline -Foul Odor after Cleansing No -Bioengineered Tissue Yes -Type of Bioengineered Tissue Epifix -Expiration Date 10/31/24 -Product Lot Number [id number] -Percent Used 100 -Lot number of Saline Used [id number] -Bleeding Controlled with Pressure -Other -Offloading Yes -Type of Offloading Camwalker -Treatment Response Procedure Tolerated Well -Debridement - Subq, 1st 20sq cm No -Apply Skin Sub - 1st 25 sq cm - Legs -Apply Skin Sub - 1st 25 sq cm - Feet 1 -Epifix (per sq cm) 0 -Epifix 18mm Disc 3 Query Text:18mm = 3 Pain Scale: 0-10 Numeric Is Patient Pain Free? Yes WC - Nurse 3 - General Ulcer D/C NN Start: 02/08/20 14:23 Freq: Status: Active Protocol: Activity Type Activity Date Activity User E-Sign Co-Sign Detail Recorded Client Recorded Date Recorded By Document 02/08/20 15:04 RB [id number] 02/08/20 15:05 RB Document 02/15/20 10:12 DL [id number] 02/15/20 10:13 DL Document 02/22/20 10:32 KR [id number] 02/22/20 10:33 KR Document 02/29/20 11:05 KR [id number] 02/29/20 11:05 KR 02/08/20 02/15/20 02/22/20 15:04 10:12 10:32 Wound Care Nurse 3 #2 L 2nd toe -Foul Odor after Cleansing No -Other Dressing epifix -Primary Dressing Covered/Secured with Dry Gauze,Dry Gauze & Roll Gauze,Secured with Tape #3 R GREAT TOE -Ulcer Cleansing Rinsed/ Rinsed/ Irrigated with Irrigated with Saline Saline -Foul Odor after Cleansing No No -Primary Dressing Applied Aquacel AG 4x4 -Other Dressing epifix -Primary Dressing Covered/Secured with Dry Gauze,Dry Dry Gauze & Dry Gauze, Gauze & Roll Roll Gauze, Secured with Gauze,Secured Secured with Tape with Tape Tape -Aquacel AG 4x4 1 Treatment Response Procedure Procedure Tolerated Well Tolerated Well Vital Signs Blood Pressure (90/60-120/80) 162/84 H Blood Pressure Mean (mm Hg) 110 Source Monitor Position Semi-Fowlers Blood Pressure Location Left Arm Pain Scale: 0-10 Numeric Is Patient Pain Free? Yes Yes WC - Visit Discharge Discharge Condition Stable Stable Stable Ambulatory Status Ambulatory Ambulatory Ambulatory Transportation Private Auto Private Auto Private Auto Medication Reconcilliation completed & No provided to patient/care provider Clinical Summary of Care Provided Yes 02/29/20 11:05 Wound Care Nurse 3 #2 L 2nd toe -Foul Odor after Cleansing -Other Dressing -Primary Dressing Covered/Secured with #3 R GREAT TOE -Ulcer Cleansing Not Cleansed -Foul Odor after Cleansing -Primary Dressing Applied -Other Dressing -Primary Dressing Covered/Secured with Dry Gauze, Secured with Tape -Aquacel AG 4x4 Treatment Response Vital Signs Blood Pressure (90/60-120/80) Blood Pressure Mean (mm Hg) Source Position Blood Pressure Location Pain Scale: 0-10 Numeric Is Patient Pain Free? Yes WC - Visit Discharge Discharge Condition Stable Ambulatory Status Ambulatory Transportation Private Auto Medication Reconcilliation completed & provided to patient/care provider Clinical Summary of Care Provided Wound debrided: plantar medial hallux Laterality: Right Wound Grade/Stage: grade 3 Type of Debridement: Excisional debridement Anesthesia Used: 5% Lidocaine Gel Depth: in the subcutaneous layer Percentage of wound debrided: 100 Instrument Used: #15 blade Tissue Removed: fibrous, devitalized subcutaneous, biofilm, slough Severity: Fat Layer Exposed Amount of bleeding with debridement: Mild Bleeding Controlled with: Pressure Patient tolerated procedure well Assessment/Plan Active Problems (Last Updated 08/12/17 @ 11:54 by Lorenza Nguyễn) Osteomyelitis of right foot (Chronic) Ulcer of right foot with fat layer exposed (Chronic) Ulcer of left foot with fat layer exposed (Acute) Delayed wound healing (Chronic) Type 2 diabetes mellitus with diabetic neuropathy (Chronic) Assessment: Right foot ulcer hallux with fat layer exposed, no infection. Osteomyelitis treated with antibiotics, right hallux. Left second toe ulcer healed. Uncontrolled diabetes (hemoglobin A1c 10.7). Delayed healing. Peripheral vascular disease work-up in process. Malnutrition suspected Plan: I reviewed and discussed his case and reviewed his medical records. Ulcer debridement was performed as noted in the clinical panel in a subcutaneous excisional manner. He was reassured no local signs of infection or deep tissue exposure was noted. He provided verbal consent for application of advanced wound healing product, epifix to the right hallux. Insurance authorization was confirmed. This was applied according standard protocol and was secured with a wound veil and Steri-Strips. The benefits, anticipated healing time and management applications were reviewed. He demonstrates understanding. He advised keep this clean, dry, and intact until follow-up next week. To continue strict offloading with right cam walker boot and left surgical shoe with dual density offloading Plastizote liners to allow continued skin remodeling on the left . I also recommend he maintains proper glycemic control and improve diet. I recommended a previous nutrition referral and endocrinology referral. I reviewed his previous labs without gross abnormalities. His hemoglobin A1c was 10.7 on 09-16-2019. His recent hospital admission is noted and he is now on IV and oral antibiotics for treatment of right hallux osteomyelitis. He has a PICC line. He is under the management of infectious disease also. I answered all his questions. He was advised to return to the wound center in 1 week.
--- NOTE | 2020-04-09 16:15 | WC ---
02/08/20 2nd Toe Healed
== END 2020-03-01 23:59 ==
LOC: WC 09:45
PROVIDERS: PCP Family Medicine; Referring Provider Podiatrist; Visit Provider Podiatrist
DX: E11.621 Type 2 diabetes mellitus with foot ulcer (principal); E11.51 Type 2 diabetes mellitus with diabetic peripheral angiopathy without gangrene; L97.512 Non-pressure chronic ulcer of other part of right foot with fat layer exposed; E11.40 Type 2 diabetes mellitus with diabetic neuropathy, unspecified; L97.521 Non-pressure chronic ulcer of other part of left foot limited to breakdown of skin; M86.671 Other chronic osteomyelitis, right ankle and foot
CPT/HCPCS: 11042; 15271; 15275; 93923; 97597; Q4186

== ENCOUNTER 2020-03-05 15:19 | Outpatient (RCR) | payer MEDICARE, SELFPAY ==
[2020-03-05 15:56] LABS: Hematocrit 35.5 % (40-54); Hemoglobin 11.9 g/dL (13.0-16.5); Mean Corp Hgb Conc 33.5 g/dL (32-36); Mean Corpuscular Hgb 29.3 pg (27.0-32.0); Mean Corpuscular Volume 87.4 fL (80-94); Mean Platelet Vol. 9.6 fl (6.2-12.0); Platelet Count 351 K/mm3 (150-450); RBC Distribution Width SD 42.4 fl (35.1-43.9); Red Blood Count 4.06 M/mm3 (4.6-6.2); White Blood Count 6.9 K/mm3 (4.4-11.0)
[2020-03-05 16:09] LABS: Anion Gap 6 (5-15); BUN 24 mg/dL (7-18); BUN/Creat Ratio 18.8 RATIO (10-20); Calcium,Total 9.1 mg/dL (8.5-10.1); Chloride 97 mmol/L (98-107); Creatinine, Serum 1.28 mg/dL (0.70-1.30); EST Glomerular Filtration Rate 60 mL/min (>60); Est Glom Filt Rate - Afr Amer 73 mL/min (>60); Glucose 135 mg/dL (74-106); Sodium Level 131 mmol/L (136-145)
[2020-03-05 16:28] LABS: Erythrocyte Sedimentation Rate 38 mm/hr (0-20)
== END 2020-03-05 18:00 | disposition home or self-care (01) ==
LOC: HHLAB 15:19
PROVIDERS: PCP Family Medicine; Visit Provider Internal Medicine Infectious Disease
DX: E11.621 Type 2 diabetes mellitus with foot ulcer (principal); L97.512 Non-pressure chronic ulcer of other part of right foot with fat layer exposed
CPT/HCPCS: 80048; 85027; 85652

== ENCOUNTER 2020-03-07 09:15 | Outpatient (RCR) | payer MEDICARE, BC, SELFPAY ==
[2020-03-02 00:09] VITALS: BP 109/54; PULSE 73; RESP 18; TEMP 36.3
[2020-03-07 09:15] VITALS: BP 147/62; PULSE 62; RESP 16; TEMP 36.1; BMI 37.6
--- NOTE | 2020-03-07 10:55 | PN.PCM_ITS ---
(1) Hallux limitus of right foot Status: Chronic Code(s): M20.5X1 - Other deformities of toe(s) (acquired), right foot (2) Ulcer of right foot with fat layer exposed Status: Resolved Code(s): L97.512 - Non-pressure chronic ulcer of other part of right foot with fat layer exposed (3) Ulcer of left foot, limited to breakdown of skin Status: Resolved Code(s): L97.521 - Non-pressure chronic ulcer of other part of left foot limited to breakdown of skin (4) Delayed wound healing Status: Resolved Code(s): T14.8XXD - Other injury of unspecified body region, subsequent encounter (5) Type 2 diabetes mellitus with diabetic neuropathy Status: Chronic Qualifiers: Code(s): E11.40 - Type 2 diabetes mellitus with diabetic neuropathy, unspecified (6) Other specified peripheral vascular diseases Status: Chronic Code(s): I73.89 - Other specified peripheral vascular diseases Comment: non compressible vessels (7) Osteomyelitis of right foot Status: Chronic Code(s): M86.9 - Osteomyelitis, unspecified Type of Wound Date of Service: 03/07/20 Chief Complaint: Right great toe ulcer History of Wound: This 64-year-old diabetic male has chronic recurrent foot ulcers. He was initially seen for right hallux infected ulcer in the hospital and the ulcer has been present for over 4 months. He has had ongoing delayed healing. He has recently been offloading the right foot with a cam walker boot and continues to offload the left ulcer with a surgical shoe. He reports improved compliance with offloading at home. He denies a PICC line now and is completing a 6-week course of IV and oral antibiotics for osteomyelitis of the right hallux. He had prior advanced wound healing product, epifix applied and is done well. He plans to leave the state next week. Progress of Wound: Healed - Physical Exam Vital Signs Temp Pulse Resp BP 97 F L 62 16 147/62 H 03/07/20 09:15 03/07/20 09:15 03/07/20 09:15 03/07/20 09:15 General: Alert, Oriented x3, Cooperative, No apparent distress HEENT: Atraumatic Extremities: No cyanosis, Capillary Refill Less than 3 Seconds, No Calf Tenderness, Diminished Peripheral Pulses, Edema - Decreased, - - Decreased noted first metatarsophalangeal joint range of motion consistent with hallux limitus right foot Skin: Ulcer/ Wound - Full epithelialization is noted and the ulcer is healed to the plantar right hallux. Full epithelialization is maintained to the plantar left second toe. His skin is atrophic. There is no maceration, necrosis or other skin discontinuities Wound Measurements and Assessment - Nurse 1 - General Ulcer Measurement Start: 03/07/20 09:15 Freq: Status: Active Protocol: Activity Type Activity Date Activity User E-Sign Co-Sign Detail Recorded Client Recorded Date Recorded By Document 03/07/20 09:15 [facility] [id number] 03/07/20 09:21 [facility] 03/07/20 09:15 Wound Center Nurse 1 [Ulcer Assessment] #3 R GREAT TOE -Combined with other wound No -Current Size (cm) - Length 0.8 -Current Size (cm) - Width 1.3 -Current Size (cm) - Depth 0.1 -Total Square Cm 1.04 -Photo Taken No -Epithelialization None Present -Tunneling No -Undermining/Tunneling No -Circular Undermining No -Exudate Amt Small -Exudate Type Serosanguineous -Wound Margin Distinct, Outline Attached -Granulation Amt None Present (0 %) -Slough/Fibrin Yes -Necrosis Amt Large (67-100%) -Necrotic Tissue Type Adherent Slough -Texture (Lizz-wound Skin Appearance) Assessed,Callus ,Scarring -Moisture (Lizz-wound Skin Appearance Assessed,Dry/ ) Scaly -Color (Lizz-wound Skin Appearance) Assessed -Temperature (Lizz-wound Skin No Abnormality Appearance) (Pt Warm) -Tenderness on Palpation (Lizz-wound No Skin Appearance) -Ulcer Cleansing soapy water -Foul Odor after Cleansing No -Anesthetic Used 5% Lidocaine Gel - Nurse 3 - General Ulcer D/C NN Start: 03/07/20 09:15 Freq: Status: Active Protocol: Activity Type Activity Date Activity User E-Sign Co-Sign Detail Recorded Client Recorded Date Recorded By Document 03/07/20 09:40 AL [id number] 03/07/20 09:42 AL 03/07/20 09:40 - Visit Discharge [Visit Discharge Information] -Discharge Condition Stable -Ambulatory Status Ambulatory -Transportation Private Auto -Medication Reconcilliation completed No & provided to patient/care provider -Clinical Summary of Care Provided Yes -Notes: d/c from wound center with boot. Musculoskeletal: No Tenderness to Palpation of Joints or Extremities, Muscle Wasting Neurological: - - Lack of normal epicritic sensation light touch is consistent with neuropathy status Psych/Mental Status: Normal Affect, Appropriate Debridement Note Post-Debridement Measurements/Treatment WC - Nurse 3 - General Ulcer D/C NN Start: 03/07/20 09:15 Freq: Status: Active Protocol: Activity Type Activity Date Activity User E-Sign Co-Sign Detail Recorded Client Recorded Date Recorded By Document 03/07/20 09:40 AL [id number] 03/07/20 09:42 AL 03/07/20 09:40 WC - Visit Discharge Discharge Condition Stable Ambulatory Status Ambulatory Transportation Private Auto Medication Reconcilliation completed & No provided to patient/care provider Clinical Summary of Care Provided Yes Notes: d/c from wound center with boot. Wound debrided: hallux Laterality: Right No debridement was completed today - healed today Assessment/Plan Active Problems (Last Updated 08/12/17 @ 11:54 by Lorenza Nguyễn) Hallux limitus of right foot (Chronic) Type 2 diabetes mellitus with diabetic neuropathy (Chronic) Assessment: Right foot ulcer hallux healed. Osteomyelitis treated with antibiotics, right hallux. Left second toe ulcer healed. Uncontrolled diabetes (hemoglobin A1c 10.7). Delayed healing history. Peripheral vascular disease; non compressible. Malnutrition suspected Plan: I reviewed and discussed his case and reviewed his medical records. It is noted his right foot ulcer has recently healed and his left foot ulcer remains healed. He was reassured no local signs of infection are noted. To continue strict offloading with right cam walker boot with dual density offloading Plastizote liners to allow continued skin remodeling for 2 additional weeks. After that time if it remains healed he can transition into an extra-depth properly fitted shoe as tolerated. It is noted he is going to [place] and if his ulcer reopens advised him to follow-up at a local wound center. He can call the wound healing center here for referral if needed. I also recommend he maintains proper glycemic control and improve diet. I recommended a previous nutrition referral and endocrinology referral even though the ulcer is healed to optimize his health and prevent recurrence. This was previously addressed. I reviewed his previous labs without gross abnormalities. His hemoglobin A1c was 10.7 on 09-16-2019. His recent hospital admission is noted and he is now on IV and oral antibiotics for treatment of right hallux osteomyelitis. He was on oral flagyl and IV ceftriaxone (stop date 03/10/2020) and has responded well. He was under the management of infectious disease also. His noninvasive vascular studies were reviewed from 02-14-2020 and he does not have any obvious occlusive locations but he has noncompressible vessels. Right VERONICA is 1.27 and right digital brachial index is 0.67. His left digital brachial index is 1.05. If also recurrence is noted a vascular referral will be encouraged. I answered all his questions. He is discharged from the wound healing center at this time. He will follow-up at least on a biannual basis at the foot and ankle center for risk assessment or for other lower extremity conditions. Note: [employer] speech recognition flask cleaner software was used to create portions of this document. Sound-alike and misspelled words, as well as other flask cleaner errors may be contained in the documentation. The problems addressed require a moderate decision making level which includes one or more chronic illnesses (w/ exacerbation, progression, or side effects), two or more stable chronic illnesses, one undiagnosed new problem w/ uncertain prognosis, one acute illness with systemic symptoms, or one acute complicated injury. The medical decision making level is moderate. There is noted moderate risk of morbidity after considering this treatment plan and diagnostic data. Considerations were given to prescription management, decisions regarding surgical options, or social determinants of health. . Macra 2020: Reviewed today: Medications and allergies were reviewed and reconciled. Reviewed 03-07-2020: BMI 76.5. Blood pressure 147/62. This is elevated (systolic over 120) he was advised to follow-up with his primary care physician. He was educated on diet and activity recommendations to optimize the prevention of ulcer recurrence and overall health. Tobacco status is noted as negative use. It is noted he does not have a living will on file.
== END 2020-03-08 07:59 | disposition home or self-care (01) ==
LOC: WC 09:15
PROVIDERS: PCP Family Medicine; Referring Provider Podiatrist; Visit Provider Podiatrist
DX: Z09 Encounter for follow-up examination after completed treatment for conditions other than malignant neoplasm (principal); M20.5X1 Other deformities of toe(s) (acquired), right foot; E11.40 Type 2 diabetes mellitus with diabetic neuropathy, unspecified; E11.51 Type 2 diabetes mellitus with diabetic peripheral angiopathy without gangrene
CPT/HCPCS: 99212; G0463

== ENCOUNTER → 2020-05-02 16:55 | Outpatient (CLI) | payer MEDICARE, SELFPAY ==
[2020-05-02 20:35] LABS: M R Staph aureus DNA By PCR Negative (Negative); Probe Check PASS; Specimen Processing Control PASS; Staph aureus DNA By PCR POSITIVE (Negative)
== END ==
PROVIDERS: PCP Family Medicine; Referring Provider Podiatrist; Visit Provider Podiatrist
DX: L97.519 Non-pressure chronic ulcer of other part of right foot with unspecified severity (principal)
CPT/HCPCS: 87070; 87075; 87077; 87186; 87205; 87640

== ENCOUNTER → 2020-05-08 09:37 | Outpatient (CLI) | payer MEDICARE, BC, SELFPAY ==
--- NOTE | 2020-05-08 09:40 | RAD_ITS ---
STUDY: X-RAY - RIGHT FOOT CLINICAL: Male, 64 years old. ULCER RIGHT 1ST TOE TECHNIQUE: 3 view(s) of the foot. COMPARISON: 01/28/2020 FINDINGS: Normal talus, calcaneus, and tarsal bones. Os perineum. Small posterior calcaneal enthesophyte. Normal visualized subtalar, talonavicular, calcaneocuboid, tarsal and tarsometatarsal articulations. Suspect pes planus deformity. Normal metatarsi. Normal metatarsophalangeal joint of the great toe. Normal tibial and fibular sesamoid bones. Normal interphalangeal joint of the great toe. Normal phalanges of the great toe. Normal second through fifth metatarsophalangeal joints. Normal interphalangeal joints and phalanges of the lesser toes. The soft tissue structures are unremarkable. RAD/Foot min 3 Views IMPRESSION: Normal x-ray examination of the foot. No radiographic evidence of osteomyelitis. Electronically Signed: Rober Law MD at 10:02 EST Tel , Service support ,
[2020-05-08 12:20] LABS: Absolute Lymphocyte Count 2.58 X10^3/uL (0.83-4.51); Absolute Neutrophil Count 4.6 X10^3/uL (2.0-7.7); Basophil# 0.07 X10^3/uL; Basophil% 0.8 % (0-1); Eosinophil# 0.28 X10^3/uL; Eosinophils% 3.3 % (0-5); Hematocrit 40.8 % (40-54); Hemoglobin 13.6 g/dL (13.0-16.5); Lymphocyte # 2.58 X10^3/ul (4.0); Lymphocyte % 30.9 % (19-41); Mean Corp Hgb Conc 33.3 g/dL (32-36); Mean Corpuscular Hgb 29.4 pg (27.0-32.0); Mean Corpuscular Volume 88.1 fL (80-94); Mean Platelet Vol. 9.2 fl (6.2-12.0); Monocyte# 0.75 X10^3/uL; NRBC Flagged by Analyzer 0 % (0-5); Neutrophil # 4.63 X10^3/uL (2.7-7.7); Neutrophil % 55.4 % (47-70); Platelet Count 323 K/mm3 (150-450); RBC Distribution Width CV 13.2 % (11.6-14.6); RBC Distribution Width SD 42.6 fl (35.1-43.9); Red Blood Count 4.63 M/mm3 (4.6-6.2); White Blood Count 8.4 K/mm3 (4.4-11.0)
[2020-05-08 12:28] LABS: Erythrocyte Sedimentation Rate 9 mm/hr (0-20)
[2020-05-08 12:41] LABS: ALB/GLOB Ratio 0.8 RATIO (0.9-2.4); AST(SGOT) 19 U/L (15-37); Alanine Aminotransfer ALT/SGPT 25 U/L (16-61); Albumin, Serum 3.8 g/dL (3.2-5.0); Alkaline Phosphatase 74 U/L (45-117); Anion Gap 7 (5-15); BUN 28 mg/dL (7-18); Calcium,Total 9.5 mg/dL (8.5-10.1); Chloride 103 mmol/L (98-107); EST Glomerular Filtration Rate 54 mL/min (>60); Est Glom Filt Rate - Afr Amer 65 mL/min (>60); Globulin 4.5 g/dL (2.2-4.2); Glucose 105 mg/dL (74-106); Potassium 4.5 mmol/L (3.5-5.1); Protein, Total 8.3 g/dL (6.4-8.2); Sodium Level 137 mmol/L (136-145)
[2020-05-08 12:45] LABS: Hemoglobin A1c 6.9 % (3.8-5.6)
== END ==
PROVIDERS: PCP Family Medicine; Referring Provider Podiatrist; Visit Provider Podiatrist
DX: L97.519 Non-pressure chronic ulcer of other part of right foot with unspecified severity (principal); E11.9 Type 2 diabetes mellitus without complications
CPT/HCPCS: 36415; 73630; 80053; 83036; 85025; 85652

== ENCOUNTER → 2020-05-23 17:39 | Outpatient (CLI) | payer MEDICARE, BC, SELFPAY ==
[2020-05-21 15:38] VITALS: BMI 35.4
[2020-05-23 19:39] LABS: M R Staph aureus DNA By PCR Negative (Negative); Probe Check PASS; Staph aureus DNA By PCR POSITIVE (Negative)
== END ==
PROVIDERS: PCP Family Medicine; Referring Provider Podiatrist; Visit Provider Podiatrist
DX: L03.031 Cellulitis of right toe (principal)
CPT/HCPCS: 87070; 87075; 87077; 87186; 87205; 87640

== ENCOUNTER 2020-05-30 13:24 | Outpatient (RCR) | payer MEDICARE, BC, SELFPAY ==
[2020-05-21 15:38] VITALS: BMI 35.4
[2020-05-30 13:26] VITALS: BP 124/71; PULSE 71; TEMP 36.7; BMI 35.4
--- NOTE | 2020-05-30 17:47 | PCM.WC.PN ---
(1) Ulcer of right foot with fat layer exposed Status: Chronic Code(s): L97.512 - Non-pressure chronic ulcer of other part of right foot with fat layer exposed (2) Hallux limitus of right foot Status: Chronic Code(s): M20.5X1 - Other deformities of toe(s) (acquired), right foot (3) Type 2 diabetes mellitus with diabetic neuropathy Status: Chronic Qualifiers: Code(s): E11.40 - Type 2 diabetes mellitus with diabetic neuropathy, unspecified (4) Delayed wound healing Status: Resolved Code(s): T14.8XXD - Other injury of unspecified body region, subsequent encounter (5) Other specified peripheral vascular diseases Status: Suspected Code(s): I73.89 - Other specified peripheral vascular diseases (6) Cellulitis of great toe, right Status: Resolved Code(s): L03.031 - Cellulitis of right toe Type of Wound Date of Service: 05/30/20 Chief Complaint: Right great toe ulcer History of Wound: This 64-year-old diabetic male has chronic recurrent foot ulcers. He was initially seen for right [facility] ulcer [facility] that had an onset in April 22, 2020. He has recently been offloading the right foot with a cam walker boot. He reports improved compliance with offloading at home. He had cellulitis and he was given a 7-day course of Augmentin in which he has completed this. He denies redness, odor, fever, chill, nausea, vomiting. He is apprehensive about proceeding with a previously recommended Garay arthroplasty because he is in his busy season at this time at work. He denies claudication or other ulcers. Progress of Wound: Stable - Physical Exam Vital Signs Temp Pulse BP 98.1 F 71 124/71 H 05/30/20 13:26 05/30/20 13:26 05/30/20 13:26 General: Alert, Oriented x3, Cooperative, No apparent distress Extremities: No cyanosis, Capillary Refill Less than 3 Seconds, No Calf Tenderness, Diminished Peripheral Pulses, Edema - Mild Skin: Ulcer/ Wound - No purulence, erythema, streaking, odor, infection. Adjacent skin is hairless and atrophic Wound Measurements and Assessment WC - Nurse 1 - General Ulcer Measurement Start: 05/30/20 13:26 Freq: Status: Active Protocol: Activity Type Activity Date Activity User E-Sign Co-Sign Detail Recorded Client Recorded Date Recorded By Document 05/30/20 13:26 [email or web address] [id number] 05/30/20 13:33 KR 05/30/20 13:26 Wound Center Nurse 1 [Ulcer Assessment] #4 Right Great Toe -Current Size (cm) - Length 0.8 -Current Size (cm) - Width 0.3 -Current Size (cm) - Depth 0.1 -Total Square Cm 0.24 -Exudate Amt Medium -Exudate Type Serosanguineous -Wound Margin Distinct, Outline Attached -Granulation Amt Medium (34-66%) -Granulation Quality Red -Necrosis Amt Medium (34-66%) -Necrotic Tissue Type Adherent Slough -Texture (Lizz-wound Skin Appearance) Assessed, Scarring -Moisture (Lizz-wound Skin Appearance Assessed ) -Color (Lizz-wound Skin Appearance) No Abnormality, Assessed -Temperature (Lizz-wound Skin No Abnormality Appearance) (Pt Warm) -Tenderness on Palpation (Lizz-wound No Skin Appearance) -Ulcer Cleansing Rinsed/ Irrigated with Saline -Foul Odor after Cleansing No -Anesthetic Used 4% Lidocaine Solution WC - Nurse 2 - General Ulcer CM Notes Start: 05/30/20 13:26 Freq: Status: Active Protocol: Activity Type Activity Date Activity User E-Sign Co-Sign Detail Recorded Client Recorded Date Recorded By Document 05/30/20 13:52 [email or web address] [id number] 05/30/20 13:55 [email or web address] 05/30/20 13:52 Wound Center Nurse 2 [Procedure/Treatment] -Time 13:53 -Correct Patient Yes -Correct Side, Site, Position Yes -Correct Procedure Yes -Procedure Performed Yes -Type of Procedure Debridement -Clinical Debridement Subcutaneous -Tissue Removed Subcutaneous -Post Debridement (cm) - Length 0.9 -Post Debridement (cm) - Width 0.2 -Post Debridement (cm) - Depth 0.2 -Total Square (Post) (cm) 0.18 -Area of Debridement (cm) - Length 0.9 -Area of Debridement (cm) - Width 0.2 -Total Square (Area) (cm) 0.18 -Tunneling No -Undermining/Tunneling No -Circular Undermining No -Wound/Ulcer Outcome Not Healed -Ulcer Cleansing Rinsed/ Irrigated with Saline -Foul Odor after Cleansing No -Bioengineered Tissue No -Bleeding Controlled with Pressure -Offloading Yes -Type of Offloading Camwalker -Treatment Response Procedure Tolerated Well -Debridement - Subq, 1st 20sq cm Yes [See Physician Procedure note for Specifics] Pain Scale: 0-10 Numeric [Pain] -Is Patient Pain Free? Yes - Nurse 3 - General Ulcer D/C NN Start: 05/30/20 13:26 Freq: Status: Active Protocol: Activity Type Activity Date Activity User E-Sign Co-Sign Detail Recorded Client Recorded Date Recorded By Document 05/30/20 14:02 [facility] [id number] 05/30/20 14:03 [facility] 05/30/20 14:02 Wound Care Nurse 3 [Wound Dressing] #4 Right Great Toe -Ulcer Cleansing Rinsed/ Irrigated with Saline -Foul Odor after Cleansing No -Primary Dressing Applied Aquacel AG 4x4 -Primary Dressing Covered/Secured Dry Gauze, with Secured with Tape -Aquacel AG 4x4 1 [Post Procedure Tolerated] -Treatment Response Procedure Tolerated Well Pain Scale: 0-10 Numeric [Pain] -Is Patient Pain Free? Yes - Visit Discharge [Visit Discharge Information] -Discharge Condition Stable -Ambulatory Status Ambulatory -Transportation Private Auto Musculoskeletal: No Tenderness to Palpation of Joints or Extremities, Muscle Wasting, - - Decreased loaded first metatarsophalangeal joint range of motion loaded and unloaded Neurological: - - Decreased sensation to light touch is consistent with neuropathic status Psych/Mental Status: Normal Affect, Appropriate Debridement Note Post-Debridement Measurements/Treatment WC - Nurse 2 - General Ulcer CM Notes Start: 05/30/20 13:26 Freq: Status: Active Protocol: Activity Type Activity Date Activity User E-Sign Co-Sign Detail Recorded Client Recorded Date Recorded By Document 05/30/20 13:52 [id number] 05/30/20 13:55 [email or web address] 05/30/20 13:52 Wound Center Nurse 2 #4 Right Great Toe -Time 13:53 -Correct Patient Yes -Correct Side, Site, Position Yes -Correct Procedure Yes -Procedure Performed Yes -Type of Procedure Debridement -Clinical Debridement Subcutaneous -Tissue Removed Subcutaneous -Post Debridement (cm) - Length 0.9 -Post Debridement (cm) - Width 0.2 -Post Debridement (cm) - Depth 0.2 -Total Square (Post) (cm) 0.18 -Area of Debridement (cm) - Length 0.9 -Area of Debridement (cm) - Width 0.2 -Total Square (Area) (cm) 0.18 -Tunneling No -Undermining/Tunneling No -Circular Undermining No -Wound/Ulcer Outcome Not Healed -Ulcer Cleansing Rinsed/ Irrigated with Saline -Foul Odor after Cleansing No -Bioengineered Tissue No -Bleeding Controlled with Pressure -Offloading Yes -Type of Offloading Camwalker -Treatment Response Procedure Tolerated Well -Debridement - Subq, 1st 20sq cm Yes Pain Scale: 0-10 Numeric Is Patient Pain Free? Yes - Nurse 3 - General Ulcer D/C NN Start: 05/30/20 13:26 Freq: Status: Active Protocol: Activity Type Activity Date Activity User E-Sign Co-Sign Detail Recorded Client Recorded Date Recorded By Document 05/30/20 14:02 [facility] [id number] 05/30/20 14:03 [facility] 05/30/20 14:02 Wound Care Nurse 3 #4 Right Great Toe -Ulcer Cleansing Rinsed/ Irrigated with Saline -Foul Odor after Cleansing No -Primary Dressing Applied Aquacel AG 4x4 -Primary Dressing Covered/Secured with Dry Gauze, Secured with Tape -Aquacel AG 4x4 1 Treatment Response Procedure Tolerated Well Pain Scale: 0-10 Numeric Is Patient Pain Free? Yes - Visit Discharge Discharge Condition Stable Ambulatory Status Ambulatory Transportation Private Auto Wound debrided: plantar hallux Laterality: Right Wound Grade/Stage: grade 1 Type of Debridement: Excisional debridement Anesthesia Used: 5% Lidocaine Gel Depth: in the subcutaneous layer Percentage of wound debrided: 100 Instrument Used: #15 blade Tissue Removed: fibrous, devitalized subcutaneous, biofilm, slough Severity: Fat Layer Exposed Amount of bleeding with debridement: Mild Bleeding Controlled with: Pressure Patient tolerated procedure well Assessment/Plan Active Problems (Last Reviewed 05/21/20 @ 17:[address] Charles Bill MD) Hallux limitus of right foot (Chronic) Ulcer of right foot with fat layer exposed (Chronic) Type 2 diabetes mellitus with diabetic neuropathy (Chronic) Assessment: Right foot ulcer hallux returned (prior medically treated osteomyelitis). Recent cellulitis resolved (treated with Augmentin). Uncontrolled diabetes (hemoglobin A1c decreased to 6.9%). Delayed healing history. Peripheral vascular disease; non compressible. Malnutrition suspected Plan: I reviewed and discussed his case and reviewed his medical records. It is noted his right foot ulcer has recently returned. He was reassured no local signs of infection are noted. To continue strict offloading with right cam walker boot with dual density offloading Plastizote liners. I also recommend he maintains proper glycemic control and improve diet. Efren nutritional supplement recommended. I recommended a previous nutrition referral and endocrinology referral even though the ulcer is healed to optimize his health and prevent recurrence. This was previously addressed. I reviewed his previous labs without gross abnormalities from 05-08-20 with no leukocytosis, ESR 9, hemoglobin A1c 6.9%, creatinine 1.4. He also had prior culture obtained at the foot and ankle center which demonstrated MSSA growth; he completed Augmentin and has no local or systemic signs of illness. He also had prior noninvasive vascular studies performed February 17, 2020 with triphasic blood flow and diminished flow to the right digital level with the digital brachial right index of 0.67 and VERONICA of 1.27. He had noncompressible vessels and a vascular referral can be considered due to the recurrent nature of his ulcers. We also discussed curative type surgical intervention such as a Garay arthroplasty which is recommended at this time. We discussed the indication, benefits, risk, complications, surgical details anticipated management. He understands and anticipated protective for his of 6 to 8 weeks is likely. He did not want to proceed for this because he is at the middle of his busy time at work. He would like to give this some more thought. I answered all his questions. Note: [employer] speech recognition verification specialist software was used to create portions of this document. Sound-alike and misspelled words, as well as other verification specialist errors may be contained in the documentation. The problems addressed require a moderate decision making level which includes one or more chronic illnesses (w/ exacerbation, progression, or side effects), two or more stable chronic illnesses, one undiagnosed new problem w/ uncertain prognosis, one acute illness with systemic symptoms, or one acute complicated injury. The medical decision making level is moderate. There is noted moderate risk of morbidity after considering this treatment plan and diagnostic data. Considerations were given to prescription management, decisions regarding surgical options, or social determinants of health. MACRA 2020: He denies falling. His medications and allergies were reviewed and reconciled. He is a current nonsmoker. He does not have a living will on file. His BMI is 35.4. His blood pressure was 124/71 which is elevated. To follow-up with primary care physician. Activity and nutrition were discussed for wound healing and hypertension and BMI.
== END 2020-05-30 23:59 ==
LOC: WC 13:24
PROVIDERS: PCP Family Medicine; Referring Provider Podiatrist; Visit Provider Podiatrist
DX: E11.621 Type 2 diabetes mellitus with foot ulcer (principal); L97.512 Non-pressure chronic ulcer of other part of right foot with fat layer exposed; M20.5X1 Other deformities of toe(s) (acquired), right foot; E11.40 Type 2 diabetes mellitus with diabetic neuropathy, unspecified; T14.8XXD Other injury of unspecified body region, subsequent encounter; L03.031 Cellulitis of right toe; E11.65 Type 2 diabetes mellitus with hyperglycemia; E11.51 Type 2 diabetes mellitus with diabetic peripheral angiopathy without gangrene; I10 Essential (primary) hypertension
CPT/HCPCS: 11042; 99213; G0463

== ENCOUNTER 2020-06-27 09:15 | Outpatient (RCR) | payer MEDICARE, BC, SELFPAY ==
[2020-05-31 00:48] VITALS: BP 124/71; PULSE 71; TEMP 36.7
[2020-06-06 15:13] VITALS: BP 144/68; PULSE 72; RESP 18; TEMP 36.3; BMI 35.4
--- NOTE | 2020-06-06 16:58 | PCM.WC.PN ---
(1) Ulcer of right foot with fat layer exposed Status: Chronic Code(s): L97.512 - Non-pressure chronic ulcer of other part of right foot with fat layer exposed (2) Hallux limitus of right foot Status: Chronic Code(s): M20.5X1 - Other deformities of toe(s) (acquired), right foot (3) Other specified peripheral vascular diseases Status: Suspected Code(s): I73.89 - Other specified peripheral vascular diseases (4) Delayed wound healing Status: Acute Code(s): T14.8XXD - Other injury of unspecified body region, subsequent encounter (5) Type 2 diabetes mellitus with diabetic neuropathy Status: Chronic Qualifiers: Code(s): E11.40 - Type 2 diabetes mellitus with diabetic neuropathy, unspecified Type of Wound Date of Service: 06/06/20 Chief Complaint: Right great toe ulcer History of Wound: This 64-year-old diabetic male has chronic recurrent foot ulcers. He was initially seen for right hallux ulcer at the [facility] center that had an onset in April 22, 2020. He has recently been offloading the right foot with a cam walker boot. He reports improved compliance with offloading at home. He had cellulitis and he was given a 7-day course of Augmentin in which he has completed this. He denies redness, odor, fever, chill, nausea, vomiting. Progress of Wound: Improving - Physical Exam Vital Signs Temp Pulse Resp BP 97.3 F L 72 18 144/68 H 06/06/20 15:13 06/06/20 15:13 06/06/20 15:13 06/06/20 15:13 General: Alert, Oriented x3, Cooperative, No apparent distress HEENT: Atraumatic Extremities: No cyanosis, Capillary Refill Less than 3 Seconds, No Calf Tenderness, Diminished Peripheral Pulses, Edema Skin: Ulcer/ Wound - No purulence, erythema, streaking, odor, infection. Granular base. Adjacent skin is hairless and atrophic. No deep probing or skin exposure noted Wound Measurements and Assessment WC - Nurse 1 - General Ulcer Measurement Start: 06/06/20 15:13 Freq: Status: Active Protocol: Activity Type Activity Date Activity User E-Sign Co-Sign Detail Recorded Client Recorded Date Recorded By Document 06/06/20 15:13 RB [id number] 06/06/20 15:20 RB 06/06/20 15:13 Wound Center Nurse 1 [Ulcer Assessment] #4 Right Great Toe -Combined with other wound No -Current Size (cm) - Length 0.1 -Current Size (cm) - Width 0.1 -Current Size (cm) - Depth 0.1 -Total Square Cm 0.01 -Tunneling No -Undermining/Tunneling No -Circular Undermining No -Exudate Amt Small -Exudate Type Serosanguineous -Wound Margin Thickened -Granulation Amt Medium (34-66%) -Granulation Quality [place] -Slough/Fibrin Yes -Necrosis Amt Medium (34-66%) -Necrotic Tissue Type Adherent Slough -Structure Exposed N/A -Texture (Lizz-wound Skin Appearance) Assessed,Callus -Moisture (Lizz-wound Skin Appearance Assessed ) -Color (Lizz-wound Skin Appearance) Assessed -Temperature (Lizz-wound Skin No Abnormality Appearance) (Pt Warm) -Tenderness on Palpation (Lizz-wound No Skin Appearance) -Ulcer Cleansing Wound Cleanser -Foul Odor after Cleansing No -Anesthetic Used 4% Lidocaine Solution WC - Nurse 2 - General Ulcer CM Notes Start: 06/06/20 15:13 Freq: Status: Active Protocol: Activity Type Activity Date Activity User E-Sign Co-Sign Detail Recorded Client Recorded Date Recorded By Document 06/06/20 15:27 [id number] 06/06/20 15:29 06/06/20 15:27 Wound Center Nurse 2 [Procedure/Treatment] -Time 15:27 -Correct Patient Yes -Correct Side, Site, Position Yes -Correct Procedure Yes -Procedure Performed Yes -Type of Procedure Debridement -Clinical Debridement Subcutaneous -Tissue Removed Subcutaneous -Post Debridement (cm) - Length 1 -Post Debridement (cm) - Width 0.2 -Post Debridement (cm) - Depth 0.1 -Total Square (Post) (cm) 0.2 -Area of Debridement (cm) - Length 1 -Area of Debridement (cm) - Width 0.2 -Total Square (Area) (cm) 0.2 -Tunneling No -Undermining/Tunneling No -Circular Undermining No -Wound/Ulcer Outcome Not Healed -Ulcer Cleansing Rinsed/ Irrigated with Saline -Foul Odor after Cleansing No -Bioengineered Tissue No -Bleeding Controlled with Pressure -Offloading Yes -Type of Offloading Camwalker -Treatment Response Procedure Tolerated Well -Debridement - Subq, 1st 20sq cm Yes [See Physician Procedure note for Specifics] Pain Scale: 0-10 Numeric [Pain] -Is Patient Pain Free? Yes - Nurse 3 - General Ulcer D/C NN Start: 06/06/20 15:13 Freq: Status: Active Protocol: Activity Type Activity Date Activity User E-Sign Co-Sign Detail Recorded Client Recorded Date Recorded By Document 06/06/20 15:44 [facility] [id number] 06/06/20 15:44 [facility] 06/06/20 15:44 Wound Care Nurse 3 [Wound Dressing] #4 Right Great Toe -Ulcer Cleansing Rinsed/ Irrigated with Saline -Foul Odor after Cleansing No -Primary Dressing Applied Aquacel AG 4x4 -Primary Dressing Covered/Secured Dry Gauze, with Secured with Tape -Aquacel AG 4x4 1 [Post Procedure Tolerated] -Treatment Response Procedure Tolerated Well Pain Scale: 0-10 Numeric [Pain] -Is Patient Pain Free? Yes - Visit Discharge [Visit Discharge Information] -Discharge Condition Stable -Ambulatory Status Ambulatory -Transportation Private Auto Musculoskeletal: No Tenderness to Palpation of Joints or Extremities, Muscle Wasting, - - Decreased flow to first metatarsophalangeal joint range of motion consistent with hallux limitus Neurological: - - Lack of epicritic sensation light touch is consistent with neuropathic status Psych/Mental Status: Normal Affect, Appropriate Debridement Note Post-Debridement Measurements/Treatment - Nurse 2 - General Ulcer CM Notes Start: 06/06/20 15:13 Freq: Status: Active Protocol: Activity Type Activity Date Activity User E-Sign Co-Sign Detail Recorded Client Recorded Date Recorded By Document 06/06/20 15:27 [id number] 06/06/20 15:29 06/06/20 15:27 Wound Center Nurse 2 #4 Right Great Toe -Time 15:27 -Correct Patient Yes -Correct Side, Site, Position Yes -Correct Procedure Yes -Procedure Performed Yes -Type of Procedure Debridement -Clinical Debridement Subcutaneous -Tissue Removed Subcutaneous -Post Debridement (cm) - Length 1 -Post Debridement (cm) - Width 0.2 -Post Debridement (cm) - Depth 0.1 -Total Square (Post) (cm) 0.2 -Area of Debridement (cm) - Length 1 -Area of Debridement (cm) - Width 0.2 -Total Square (Area) (cm) 0.2 -Tunneling No -Undermining/Tunneling No -Circular Undermining No -Wound/Ulcer Outcome Not Healed -Ulcer Cleansing Rinsed/ Irrigated with Saline -Foul Odor after Cleansing No -Bioengineered Tissue No -Bleeding Controlled with Pressure -Offloading Yes -Type of Offloading Camwalker -Treatment Response Procedure Tolerated Well -Debridement - Subq, 1st 20sq cm Yes Pain Scale: 0-10 Numeric Is Patient Pain Free? Yes - Nurse 3 - General Ulcer D/C NN Start: 06/06/20 15:13 Freq: Status: Active Protocol: Activity Type Activity Date Activity User E-Sign Co-Sign Detail Recorded Client Recorded Date Recorded By Document 06/06/20 15:44 [facility] [id number] 06/06/20 15:44 [facility] 06/06/20 15:44 Wound Care Nurse 3 #4 Right Great Toe -Ulcer Cleansing Rinsed/ Irrigated with Saline -Foul Odor after Cleansing No -Primary Dressing Applied Aquacel AG 4x4 -Primary Dressing Covered/Secured with Dry Gauze, Secured with Tape -Aquacel AG 4x4 1 Treatment Response Procedure Tolerated Well Pain Scale: 0-10 Numeric Is Patient Pain Free? Yes WC - Visit Discharge Discharge Condition Stable Ambulatory Status Ambulatory Transportation Private Auto Wound debrided: plantar hallux Laterality: Right - g Wound Grade/Stage: grade 1 Type of Debridement: Excisional debridement Anesthesia Used: 5% Lidocaine Gel Depth: in the subcutaneous layer Percentage of wound debrided: 100 Instrument Used: #15 blade Tissue Removed: fibrous, devitalized subcutaneous, biofilm, slough Severity: Fat Layer Exposed Amount of bleeding with debridement: Mild Bleeding Controlled with: Pressure Patient tolerated procedure well Assessment/Plan Active Problems (Last Reviewed 05/21/20 @ 17:[address] Charles Bill MD) Hallux limitus of right foot (Chronic) Ulcer of right foot with fat layer exposed (Chronic) Delayed wound healing (Acute) Type 2 diabetes mellitus with diabetic neuropathy (Chronic) Assessment: Right foot ulcer hallux returned (prior medically treated osteomyelitis). Recent cellulitis resolved (treated with Augmentin). Uncontrolled diabetes (hemoglobin A1c decreased to 6.9%). Delayed healing history. Peripheral vascular disease; non compressible. Malnutrition suspected Plan: I reviewed and discussed his case and reviewed his medical records. It is noted his right foot ulcer has recently returned. He was reassured no local signs of infection are noted. To continue strict offloading with right cam walker boot with dual density offloading Plastizote liners. I also recommend he maintains proper glycemic control and improve diet. Efren nutritional supplement recommended. I recommended a previous nutrition referral and endocrinology referral even though the ulcer is healed to optimize his health and prevent recurrence. This was previously addressed. I reviewed his previous labs without gross abnormalities from 05-08-20 with no leukocytosis, ESR 9, hemoglobin A1c 6.9%, creatinine 1.4. He also had prior culture obtained at the foot and ankle center which demonstrated MSSA growth; he completed Augmentin and has no local or systemic signs of illness. He also had prior noninvasive vascular studies performed February 17, 2020 with triphasic blood flow and diminished flow to the right digital level with the digital brachial right index of 0.67 and VERONICA of 1.27. He had noncompressible vessels and a vascular referral was provided at this time. We also discussed curative type surgical intervention such as a Garay arthroplasty which is recommended at this time. We discussed the indication, benefits, risk, complications, surgical details anticipated management. He understands and anticipated protective for his of 6 to 8 weeks is likely. He did not want to proceed for this because he is at the middle of his busy time at work. He would like to give this some more thought. I answered all his questions. Note: [employer] speech recognition copy reader software was used to create portions of this document. Sound-alike and misspelled words, as well as other copy reader errors may be contained in the documentation. The medical decision making level is low. There is noted low risk of morbidity after considering this treatment plan and diagnostic data. The problems addressed require a low medical decision making level which includes two or more minor problems, a stable chronic illness, or an acute uncomplicated illness or injury. MACRA 2020: He denies falling. His medications and allergies were reviewed and reconciled. He is a current nonsmoker. He does not have a living will on file. His BMI is 35.4. His blood pressure was 144/68 which is elevated. To follow-up with primary care physician. Activity and nutrition were discussed for wound healing and hypertension and BMI.
[2020-06-13 15:16] VITALS: BP 126/75; PULSE 79; RESP 18; TEMP 37; BMI 35.4
--- NOTE | 2020-06-13 17:18 | PN.PCM_ITS ---
(1) Ulcer of right foot with fat layer exposed Status: Chronic Code(s): L97.512 - Non-pressure chronic ulcer of other part of right foot with fat layer exposed (2) Hallux limitus of right foot Status: Chronic Code(s): M20.5X1 - Other deformities of toe(s) (acquired), right foot (3) Other specified peripheral vascular diseases Status: Suspected Code(s): I73.89 - Other specified peripheral vascular diseases (4) Delayed wound healing Status: Acute Code(s): T14.8XXD - Other injury of unspecified body region, subsequent encounter (5) Type 2 diabetes mellitus with diabetic neuropathy Status: Chronic Qualifiers: Code(s): E11.40 - Type 2 diabetes mellitus with diabetic neuropathy, unspecified Type of Wound Date of Service: 06/13/20 Chief Complaint: Right great toe ulcer History of Wound: This 64-year-old diabetic male has chronic recurrent foot ulcers. He was initially seen for [facility] that had an onset in April 22, 2020. He has recently been offloading the right foot with a cam walker boot. He reports improved compliance with offloading at home. He denies redness, odor, fever, chill, nausea, vomiting. Progress of Wound: Improving - Physical Exam Vital Signs Temp Pulse Resp BP 98.6 F 79 18 126/75 H 06/13/20 15:16 06/13/20 15:16 06/13/20 15:16 06/13/20 15:16 General: Alert, Oriented x3, Cooperative, No apparent distress HEENT: Atraumatic Extremities: No cyanosis, Capillary Refill Less than 3 Seconds, No Calf Tenderness, Diminished Peripheral Pulses, Edema Skin: Ulcer/ Wound - No purulence, erythema, streaking, odor, infection. Adjacent skin atrophic Wound Measurements and Assessment WC - Nurse 1 - General Ulcer Measurement Start: 06/06/20 15:13 Freq: Status: Active Protocol: Activity Type Activity Date Activity User E-Sign Co-Sign Detail Recorded Client Recorded Date Recorded By Document 06/13/20 15:16 RB [id number] 06/13/20 15:17 RB 06/13/20 15:16 Wound Center Nurse 1 [Ulcer Assessment] #4 Right Great Toe -Combined with other wound No -Current Size (cm) - Length 0.1 -Current Size (cm) - Width 0.1 -Current Size (cm) - Depth 0.1 -Total Square Cm 0.01 -Tunneling No -Undermining/Tunneling No -Circular Undermining No -Exudate Amt Small -Exudate Type Serosanguineous -Wound Margin Flat & Intact -Granulation Amt Small (1-33%) -Granulation Quality [place] -Slough/Fibrin Yes -Necrosis Amt Large (67-100%) -Necrotic Tissue Type Adherent Slough -Structure Exposed N/A -Texture (Lizz-wound Skin Appearance) Assessed -Moisture (Lizz-wound Skin Appearance Assessed ) -Color (Lizz-wound Skin Appearance) Assessed -Temperature (Lizz-wound Skin No Abnormality Appearance) (Pt Warm) -Tenderness on Palpation (Lizz-wound No Skin Appearance) -Ulcer Cleansing Rinsed/ Irrigated with Saline -Foul Odor after Cleansing No -Anesthetic Used 4% Lidocaine Solution WC - Nurse 2 - General Ulcer CM Notes Start: 06/06/20 15:13 Freq: Status: Active Protocol: Activity Type Activity Date Activity User E-Sign Co-Sign Detail Recorded Client Recorded Date Recorded By Document 06/13/20 15:15 KWESI [id number] 06/13/20 15:23 KWESI 06/13/20 15:15 Wound Center Nurse 2 [Procedure/Treatment] -Time 15:18 -Correct Patient Yes -Correct Side, Site, Position Yes -Correct Procedure Yes -Procedure Performed Yes -Type of Procedure Debridement -Clinical Debridement Subcutaneous -Tissue Removed Subcutaneous -Post Debridement (cm) - Length 1.1 -Post Debridement (cm) - Width 0.4 -Post Debridement (cm) - Depth 0.2 -Total Square (Post) (cm) 0.44 -Area of Debridement (cm) - Length 1.1 -Area of Debridement (cm) - Width 0.4 -Total Square (Area) (cm) 0.44 -Tunneling No -Undermining/Tunneling No -Circular Undermining No -Wound/Ulcer Outcome Not Healed -Ulcer Cleansing Rinsed/ Irrigated with Saline -Foul Odor after Cleansing No -Bioengineered Tissue No -Bleeding Controlled with Pressure -Offloading Yes -Type of Offloading Camwalker -Treatment Response Procedure Tolerated Well -Debridement - Subq, 1st 20sq cm Yes [See Physician Procedure note for Specifics] Pain Scale: 0-10 Numeric [Pain] -Is Patient Pain Free? Yes - Nurse 3 - General Ulcer D/C NN Start: 06/06/20 15:13 Freq: Status: Active Protocol: Activity Type Activity Date Activity User E-Sign Co-Sign Detail Recorded Client Recorded Date Recorded By Document 06/13/20 15:47 [facility] [id number] 06/13/20 15:47 [facility] 06/13/20 15:47 Wound Care Nurse 3 [Wound Dressing] #4 Right Great Toe -Ulcer Cleansing Rinsed/ Irrigated with Saline -Foul Odor after Cleansing No -Primary Dressing Applied Aquacel AG 4x4 -Primary Dressing Covered/Secured Dry Gauze, with Secured with Tape -Aquacel AG 4x4 1 [Post Procedure Tolerated] -Treatment Response Procedure Tolerated Well Pain Scale: 0-10 Numeric [Pain] -Is Patient Pain Free? Yes - Visit Discharge [Visit Discharge Information] -Discharge Condition Stable -Ambulatory Status Ambulatory -Transportation Private Auto Musculoskeletal: Muscle Wasting, - - Decreased light of first metatarsophalangeal joint range of motion consistent with hallux limitus Neurological: - - Lack of epicritic sensation to light touch is consistent with neuropathy Psych/Mental Status: Normal Affect, Appropriate Debridement Note Post-Debridement Measurements/Treatment - Nurse 2 - General Ulcer CM Notes Start: 06/06/20 15:13 Freq: Status: Active Protocol: Activity Type Activity Date Activity User E-Sign Co-Sign Detail Recorded Client Recorded Date Recorded By Document 06/06/20 15:27 [id number] 06/06/20 15:29 Document 06/13/20 15:15 [id number] 06/13/20 15:23 06/06/20 06/13/20 15:27 15:15 Wound Center Nurse 2 #4 Right Great Toe -Time 15:27 15:18 -Correct Patient Yes Yes -Correct Side, Site, Position Yes Yes -Correct Procedure Yes Yes -Procedure Performed Yes Yes -Type of Procedure Debridement Debridement -Clinical Debridement Subcutaneous Subcutaneous -Tissue Removed Subcutaneous Subcutaneous -Post Debridement (cm) - Length 1 1.1 -Post Debridement (cm) - Width 0.2 0.4 -Post Debridement (cm) - Depth 0.1 0.2 -Total Square (Post) (cm) 0.2 0.44 -Area of Debridement (cm) - Length 1 1.1 -Area of Debridement (cm) - Width 0.2 0.4 -Total Square (Area) (cm) 0.2 0.44 -Tunneling No No -Undermining/Tunneling No No -Circular Undermining No No -Wound/Ulcer Outcome Not Healed Not Healed -Ulcer Cleansing Rinsed/ Rinsed/ Irrigated with Irrigated with Saline Saline -Foul Odor after Cleansing No No -Bioengineered Tissue No No -Bleeding Controlled with Pressure Pressure -Offloading Yes Yes -Type of Offloading Camwalker Camwalker -Treatment Response Procedure Procedure Tolerated Well Tolerated Well -Debridement - Subq, 1st 20sq cm Yes Yes Pain Scale: 0-10 Numeric Is Patient Pain Free? Yes Yes - Nurse 3 - General Ulcer D/C NN Start: 06/06/20 15:13 Freq: Status: Active Protocol: Activity Type Activity Date Activity User E-Sign Co-Sign Detail Recorded Client Recorded Date Recorded By Document 06/06/20 15:44 [facility] [id number] 06/06/20 15:44 [facility] Document 06/13/20 15:47 [facility] [id number] 06/13/20 15:47 [facility] 06/06/20 06/13/20 15:44 15:47 Wound Care Nurse 3 #4 Right Great Toe -Ulcer Cleansing Rinsed/ Rinsed/ Irrigated with Irrigated with Saline Saline -Foul Odor after Cleansing No No -Primary Dressing Applied Aquacel AG 4x4 Aquacel AG 4x4 -Primary Dressing Covered/Secured with Dry Gauze, Dry Gauze, Secured with Secured with Tape Tape -Aquacel AG 4x4 1 1 Treatment Response Procedure Procedure Tolerated Well Tolerated Well Pain Scale: 0-10 Numeric Is Patient Pain Free? Yes Yes - Visit Discharge Discharge Condition Stable Stable Ambulatory Status Ambulatory Ambulatory Transportation Private Auto Private Auto Wound debrided: plantar hallux Laterality: Right Wound Grade/Stage: grade 1 Type of Debridement: Excisional debridement Anesthesia Used: 5% Lidocaine Gel Depth: in the subcutaneous layer Percentage of wound debrided: 100 Instrument Used: #15 blade Tissue Removed: fibrous, devitalized subcutaneous, biofilm, slough Severity: Fat Layer Exposed Amount of bleeding with debridement: Mild Bleeding Controlled with: Pressure Patient tolerated procedure well Assessment/Plan Active Problems (Last Reviewed 05/21/20 @ 17:[address] Charles Bill MD) Hallux limitus of right foot (Chronic) Ulcer of right foot with fat layer exposed (Chronic) Delayed wound healing (Acute) Type 2 diabetes mellitus with diabetic neuropathy (Chronic) Assessment: Right foot ulcer hallux returned (prior medically treated osteomyelitis). Recent cellulitis resolved (treated with Augmentin). Uncontrolled diabetes (hemoglobin A1c decreased to 6.9%). Delayed healing history. Peripheral vascular disease; non compressible. Malnutrition suspected Plan: I reviewed and discussed his case and reviewed his medical records. It is noted his right foot ulcer has recently returned and is stable. He was reassured no local signs of infection are noted today. To continue strict offloading with right cam walker boot with dual density offloading Plastizote liners. I also recommend he maintains proper glycemic control and improve diet. Efren nutritional supplement recommended. I recommended a previous nutrition referral and endocrinology referral even though the ulcer is healed to optimize his health and prevent recurrence. This was previously addressed. I reviewed his previous labs without gross abnormalities from 05-08-20 with no leukocytosis, ESR 9, hemoglobin A1c 6.9%, creatinine 1.4. He also had prior culture obtained at the foot and ankle center which demonstrated MSSA growth; he completed Augmentin and has no local or systemic signs of illness. He also had prior noninvasive vascular studies performed February 17, 2020 with triphasic blood flow and diminished flow to the right digital level with the digital brachial right index of 0.67 and VERONICA of 1.27. He had noncompressible vessels a nd a vascular referral was provided. Still not scheduled yet and will call again this week. We also discussed curative type surgical intervention such as a Garay arthroplasty which is recommended at this time. We discussed the indication, benefits, risk, complications, surgical details anticipated management. He understands and anticipated protective for his of 6 to 8 weeks is likely. He did not want to proceed for this because he is at the middle of his busy time at work. He would like to give this some more thought. I answered all his questions. Note: [employer] speech recognition bath steward/stewardess software was used to create portions of this document. Sound-alike and misspelled words, as well as other bath steward/stewardess errors may be contained in the documentation. . -----. MACRA 2020: He denies falling. His medications and allergies were reviewed and reconciled. He is a current nonsmoker. He does not have a living will on file. His BMI is 35.4. His blood pressure was 144/68 whi ch is elevated. To follow-up with primary care physician. Activity and nutrition were discussed for wound healing and hypertension and BMI.
[2020-06-20 09:06] VITALS: BP 129/71; PULSE 77; RESP 18; TEMP 36.6; BMI 35.4
--- NOTE | 2020-06-20 09:44 | PN.PCM_ITS ---
(1) Ulcer of right foot with fat layer exposed Status: Chronic Code(s): L97.512 - Non-pressure chronic ulcer of other part of right foot with fat layer exposed (2) Hallux limitus of right foot Status: Chronic Code(s): M20.5X1 - Other deformities of toe(s) (acquired), right foot (3) Other specified peripheral vascular diseases Status: Suspected Code(s): I73.89 - Other specified peripheral vascular diseases (4) Delayed wound healing Status: Acute Code(s): T14.8XXD - Other injury of unspecified body region, subsequent encounter (5) Type 2 diabetes mellitus with diabetic neuropathy Status: Chronic Qualifiers: Code(s): E11.40 - Type 2 diabetes mellitus with diabetic neuropathy, unspecified Type of Wound Date of Service: 06/20/20 Chief Complaint: Right great toe ulcer History of Wound: This 64-year-old diabetic male has chronic recurrent foot ulcers. He was initially seen for right hallux ulcer at the [facility] center that had an onset in April 22, 2020. He has recently been offloading the right foot with a cam walker boot. He reports improved compliance with offloading at home. He denies redness, odor, fever, chill, nausea, vomiting. He has a vascular referral scheduled. Progress of Wound: Improving - Physical Exam Vital Signs Temp Pulse Resp BP 97.8 F 77 18 129/71 H 06/20/20 09:06 06/20/20 09:06 06/20/20 09:06 06/20/20 09:06 General: Alert, Oriented x3, Cooperative, No apparent distress HEENT: Atraumatic Extremities: No cyanosis, No edema, Capillary Refill Less than 3 Seconds, No Calf Tenderness, Diminished Peripheral Pulses Skin: Ulcer/ Wound - No purulence, erythema, string, odor, infection. Adjacent skin is atrophic Wound Measurements and Assessment WC - Nurse 1 - General Ulcer Measurement Start: 06/06/20 15:13 Freq: Status: Active Protocol: Activity Type Activity Date Activity User E-Sign Co-Sign Detail Recorded Client Recorded Date Recorded By Document 06/20/20 09:06 RB [id number] 06/20/20 09:15 RB 06/20/20 09:06 Wound Center Nurse 1 [Ulcer Assessment] #4 Right Great Toe -Combined with other wound No -Current Size (cm) - Length 0.8 -Current Size (cm) - Width 0.9 -Current Size (cm) - Depth 0.1 -Total Square Cm 0.72 -Tunneling No -Undermining/Tunneling No -Circular Undermining No -Exudate Amt Small -Exudate Type Serosanguineous -Wound Margin Flat & Intact -Granulation Amt Medium (34-66%) -Granulation Quality [place],Red -Slough/Fibrin Yes -Necrosis Amt Small (1-33%) -Necrotic Tissue Type Adherent Slough -Structure Exposed N/A -Texture (Lizz-wound Skin Appearance) Assessed, Scarring -Moisture (Lizz-wound Skin Appearance Assessed ) -Color (Lizz-wound Skin Appearance) Assessed -Temperature (Lizz-wound Skin No Abnormality Appearance) (Pt Warm) -Tenderness on Palpation (Lizz-wound No Skin Appearance) -Ulcer Cleansing Wound Cleanser -Foul Odor after Cleansing No -Anesthetic Used 4% Lidocaine Solution WC - Nurse 2 - General Ulcer CM Notes Start: 06/06/20 15:13 Freq: Status: Active Protocol: Activity Type Activity Date Activity User E-Sign Co-Sign Detail Recorded Client Recorded Date Recorded By Document 06/20/20 09:25 KWESI [id number] 06/20/20 09:28 KWESI 06/20/20 09:25 Wound Center Nurse 2 [Procedure/Treatment] -Time 09:25 -Correct Patient Yes -Correct Side, Site, Position Yes -Correct Procedure Yes -Procedure Performed Yes -Type of Procedure Debridement -Clinical Debridement Subcutaneous -Tissue Removed Subcutaneous -Post Debridement (cm) - Length 1.1 -Post Debridement (cm) - Width 0.6 -Post Debridement (cm) - Depth 0.2 -Total Square (Post) (cm) 0.66 -Area of Debridement (cm) - Length 1.1 -Area of Debridement (cm) - Width 0.6 -Total Square (Area) (cm) 0.66 -Tunneling No -Undermining/Tunneling No -Circular Undermining No -Wound/Ulcer Outcome Not Healed -Ulcer Cleansing Rinsed/ Irrigated with Saline -Foul Odor after Cleansing No -Bioengineered Tissue No -Bleeding Controlled with NA,Pressure -Offloading Yes -Type of Offloading Camwalker -Treatment Response Procedure Tolerated Well -Debridement - Subq, 1st 20sq cm Yes [See Physician Procedure note for Specifics] Pain Scale: 0-10 Numeric [Pain] -Is Patient Pain Free? Yes - Nurse 3 - General Ulcer D/C NN Start: 06/06/20 15:13 Freq: Status: Active Protocol: Activity Type Activity Date Activity User E-Sign Co-Sign Detail Recorded Client Recorded Date Recorded By Document 06/20/20 09:42 RB [id number] 06/20/20 09:43 RB 06/20/20 09:42 Wound Care Nurse 3 [Wound Dressing] #4 Right Great Toe -Ulcer Cleansing Rinsed/ Irrigated with Saline -Primary Dressing Applied Aquacel AG 4x4 -Primary Dressing Covered/Secured Dry Gauze,Dry with Gauze & Roll Gauze,Secured with Tape -Aquacel AG 4x4 1 [Post Procedure Tolerated] -Treatment Response Procedure Tolerated Well Pain Scale: 0-10 Numeric [Pain] -Is Patient Pain Free? Yes - Visit Discharge [Visit Discharge Information] -Discharge Condition Stable -Ambulatory Status Ambulatory -Transportation Private Auto -Medication Reconcilliation completed No & provided to patient/care provider -Clinical Summary of Care Provided Yes Musculoskeletal: Muscle Wasting, - - Reduce first metatarsophalangeal joint loaded, right and this is consistent with hallux limitus/rigidus Neurological: - - Neuropathic induced lack of epicritic sensation Psych/Mental Status: Normal Affect, Appropriate Debridement Note Post-Debridement Measurements/Treatment - Nurse 2 - General Ulcer CM Notes Start: 06/06/20 15:13 Freq: Status: Active Protocol: Activity Type Activity Date Activity User E-Sign Co-Sign Detail Recorded Client Recorded Date Recorded By Document 06/06/20 15:27 [id number] 06/06/20 15:29 Document 06/13/20 15:15 [id number] 06/13/20 15:23 Document 06/20/20 09:25 [id number] 06/20/20 09:28 06/06/20 06/13/20 06/20/20 15:27 15:15 09:25 Wound Center Nurse 2 #4 Right Great Toe -Time 15:27 15:18 09:25 -Correct Patient Yes Yes Yes -Correct Side, Site, Position Yes Yes Yes -Correct Procedure Yes Yes Yes -Procedure Performed Yes Yes Yes -Type of Procedure Debridement Debridement Debridement -Clinical Debridement Subcutaneous Subcutaneous Subcutaneous -Tissue Removed Subcutaneous Subcutaneous Subcutaneous -Post Debridement (cm) - Length 1 1.1 1.1 -Post Debridement (cm) - Width 0.2 0.4 0.6 -Post Debridement (cm) - Depth 0.1 0.2 0.2 -Total Square (Post) (cm) 0.2 0.44 0.66 -Area of Debridement (cm) - Length 1 1.1 1.1 -Area of Debridement (cm) - Width 0.2 0.4 0.6 -Total Square (Area) (cm) 0.2 0.44 0.66 -Tunneling No No No -Undermining/Tunneling No No No -Circular Undermining No No No -Wound/Ulcer Outcome Not Healed Not Healed Not Healed -Ulcer Cleansing Rinsed/ Rinsed/ Rinsed/ Irrigated with Irrigated with Irrigated with Saline Saline Saline -Foul Odor after Cleansing No No No -Bioengineered Tissue No No No -Bleeding Controlled with Pressure Pressure NA,Pressure -Offloading Yes Yes Yes -Type of Offloading Camwalker Camwalker Camwalker -Treatment Response Procedure Procedure Procedure Tolerated Well Tolerated Well Tolerated Well -Debridement - Subq, 1st 20sq cm Yes Yes Yes Pain Scale: 0-10 Numeric Is Patient Pain Free? Yes Yes Yes WC - Nurse 3 - General Ulcer D/C NN Start: 06/06/20 15:13 Freq: Status: Active Protocol: Activity Type Activity Date Activity User E-Sign Co-Sign Detail Recorded Client Recorded Date Recorded By Document 06/06/20 15:44 [facility] [id number] 06/06/20 15:44 [facility] Document 06/13/20 15:47 [facility] [id number] 06/13/20 15:47 [facility] Document 06/20/20 09:42 RB [id number] 06/20/20 09:43 RB 06/06/20 06/13/20 06/20/20 15:44 15:47 09:42 Wound Care Nurse 3 #4 Right Great Toe -Ulcer Cleansing Rinsed/ Rinsed/ Rinsed/ Irrigated with Irrigated with Irrigated with Saline Saline Saline -Foul Odor after Cleansing No No -Primary Dressing Applied Aquacel AG 4x4 Aquacel AG 4x4 Aquacel AG 4x4 -Primary Dressing Covered/Secured with Dry Gauze, Dry Gauze, Dry Gauze,Dry Secured with Secured with Gauze & Roll Tape Tape Gauze,Secured with Tape -Aquacel AG 4x4 1 1 1 Treatment Response Procedure Procedure Procedure Tolerated Well Tolerated Well Tolerated Well Pain Scale: 0-10 Numeric Is Patient Pain Free? Yes Yes Yes WC - Visit Discharge Discharge Condition Stable Stable Stable Ambulatory Status Ambulatory Ambulatory Ambulatory Transportation Private Auto Private Auto Private Auto Medication Reconcilliation completed & No provided to patient/care provider Clinical Summary of Care Provided Yes Wound debrided: plantar hallux Laterality: Right Wound Grade/Stage: grade 1 Type of Debridement: Excisional debridement Anesthesia Used: 5% Lidocaine Gel Depth: in the subcutaneous layer Percentage of wound debrided: 100 Instrument Used: #15 blade Tissue Removed: fibrous, devitalized subcutaneous, biofilm, slough Severity: Fat Layer Exposed Amount of bleeding with debridement: Mild Bleeding Controlled with: Pressure Patient tolerated procedure well Assessment/Plan Active Problems (Last Reviewed 05/21/20 @ 17:[address] Charles Bill MD) Hallux limitus of right foot (Chronic) Ulcer of right foot with fat layer exposed (Chronic) Delayed wound healing (Acute) Type 2 diabetes mellitus with diabetic neuropathy (Chronic) Assessment: Right foot ulcer hallux returned (prior medically treated osteomyelitis). Recent cellulitis resolved (treated with Augmentin). Uncontrolled diabetes (hemoglobin A1c decreased to 6.9%). Delayed healing history. Peripheral vascular disease; non compressible. Malnutrition suspected Plan: I reviewed and discussed his case and reviewed his medical records. It is noted his right foot ulcer has recently returned and is stable. He was reassured no local signs of infection are noted today. To continue strict offloading with right cam walker boot with dual density offloading Plastizote liners. I also recommend he maintains proper glycemic control and improve diet. Efren nutritional supplement recommended. Yamil to get this from the cafeteria today. I recommended a previous nutrition referral and endocrinology referral even though the ulcer is healed to optimize his health and prevent recurrence. This was previously addressed. I reviewed his previous labs without gross abnormalities from 05-08-20 with no leukocytosis, ESR 9, hemoglobin A1c 6.9%, creatinine 1.4. He also had prior culture obtained at the foot and ankle center which demonstrated MSSA growth; he completed Augmentin and has no local or systemic signs of illness. He also had prior noninvasive vascular studies performed February 17, 2020 with triphasic blood flow and diminished flow to the right digital level with the digital brachial right index of 0.67 and VERONICA of 1.27. He had noncompressible vessels and a vascular referral was provided. This is scheduled within the next 2 weeks. We also discussed curative type surgical intervention such as a Garay arthroplasty which is recommended at this time. We discussed the indication, benefits, risk, complications, surgical details anticipated management. He understands and anticipated protective for his of 6 to 8 weeks is likely. He did not want to proceed for this because he is at the middle of his busy time at work. He would like to give this some more thought. I answered all his questions. Note: [employer] speech recognition heavy lift rigger software was used to create portions of this document. Sound-alike and misspelled words, as well as other heavy lift rigger errors may be contained in the documentation. . -----. MACRA 2020: He denies falling. His medications and allergies were reviewed and reconciled. He is a current nonsmoker. He does not have a living will on file. His BMI is 35.4. His blood pressure was 144/68 which is elevated. To follow-up with primary care physician. Activity and nutrition were discussed for wound healing and hypertension and BMI.
[2020-06-27 09:22] VITALS: BP 149/83; PULSE 83; RESP 18; TEMP 36.8; BMI 35.4
--- NOTE | 2020-06-27 10:21 | PCM.WC.PN ---
History of Present Illness Date of Service: 07/02/20 Chief Complaint: Right great toe ulcer History of Wound: 64 year old returns to clinic for right hallux ulcer follow up. He denies fever, chills, nausea, vomiting. He is not able to use a knee roller because he is seated a lot during the day and is otherwise on gravel. He is scheduled to see vascular surgery consultation next week. He started taking nutritional supplement Efren. Objective Data Objective Data Vital Signs: Vital Signs Temp Pulse Resp BP 98.3 F 83 18 149/83 H 06/27/20 09:22 06/27/20 09:22 06/27/20 09:22 06/27/20 09:22 Body Mass Index (BMI) 35.4 Assessment & Plan Assessment/Plan (1) Hallux limitus of right foot: Status: Chronic Code(s): M20.5X1 - Other deformities of toe(s) (acquired), right foot (2) Ulcer of right foot with fat layer exposed: Status: Chronic Code(s): L97.512 - Non-pressure chronic ulcer of other part of right foot with fat layer exposed (3) Delayed wound healing: Status: Acute Code(s): T14.8XXD - Other injury of unspecified body region, subsequent encounter (4) Other specified peripheral vascular diseases: Status: Chronic Code(s): I73.89 - Other specified peripheral vascular diseases (5) Type 2 diabetes mellitus with diabetic neuropathy: Status: Chronic Code(s): E11.40 - Type 2 diabetes mellitus with diabetic neuropathy, unspecified Qualifiers: Qualified Code(s): Z79.4 - halfway (current) use of insulin Plan: Location: right plantar hallux Excisional debridement performed Anesthesia: 5% lidocaine plain Debridement layer: subcutaneous Amount of debridement: 100% Instrumentation used: 15 blade Tissue debrided: fibrous, devitalized subcutaneous, biofilm, slough Exposed tissue: fat layer Bleeding: mild Hemostasis controlled: pressure The patient tolerated the procedure well I reviewed and discussed his case and reviewed his medical records. To continue strict offloading with right cam walker boot with dual density offloading Plastizote liners. I recommend knee roller use. I also recommend he maintains proper glycemic control and improve diet. Efren nutritional supplement recommended; he started use. I recommended a previous nutrition referral and endocrinology referral even though the ulcer is healed to optimize his health and prevent recurrence. This was previously addressed. I reviewed his previous labs without gross abnormalities from 05-08-20 with no leukocytosis, ESR 9, hemoglobin A1c 6.9%, creatinine 1.4. He also had prior culture obtained [facility] which demonstrated MSSA growth; he completed Augmentin and has no local or systemic signs of illness. He also had prior noninvasive vascular studies performed February 17, 2020 with triphasic blood flow and diminished flow to the right digital level with the digital brachial right index of 0.67 and VERONICA of 1.27. He had noncompressible vessels and a vascular referral was provided. This is scheduled within the next 1 weeks. We also discussed curative type surgical intervention such as a Garay arthroplasty which is recommended at this time. We discussed the indication, benefits, risk, complications, surgical details anticipated management. He understands and anticipated protective for his of 6 to 8 weeks is likely. He did not want to proceed for this because he is at the middle of his busy time at work. He would like to give this some more thought. I answered all his questions. Note: [employer] speech recognition radiology interventional physician software was used to create portions of this document. Sound-alike and misspelled words, as well as other radiology interventional physician errors may be contained in the documentation. MAC2020: He denies falling. His medications and allergies were reviewed and reconciled. He is a current nonsmoker. He does not have a living will on file. His BMI is 35.4. His blood pressure was 144/68 which is elevated. To follow-up with primary care physician. Activity and nutrition were discussed for wound healing and hypertension and BMI. Physical Exam Const alert and oriented x3 General Appearance: cooperative HEENT normocephalic Extremity Extremity Narrative: No calf tenderness Diminished pulses Muscle wasting noted decreased loaded first metatarsal phalangeal joint range of motion noted, right General Extremity: edema and no tenderness to palpation of joints or extremities; Negative for cyanosis Skin Skin Narrative: no purulence, no streaking, no odor, no infection General Skin Exam: Negative for erythema Neuro Neuro Narrative: lack of normal epicritic sensation via light touch is consistent with neuropathy status Psych cooperative and affect normal
== END 2020-06-29 23:59 ==
LOC: WC 09:15
PROVIDERS: PCP Family Medicine; Referring Provider Podiatrist; Visit Provider Podiatrist
DX: E11.621 Type 2 diabetes mellitus with foot ulcer (principal); L97.512 Non-pressure chronic ulcer of other part of right foot with fat layer exposed; M20.5X1 Other deformities of toe(s) (acquired), right foot; E11.51 Type 2 diabetes mellitus with diabetic peripheral angiopathy without gangrene; E11.40 Type 2 diabetes mellitus with diabetic neuropathy, unspecified; I10 Essential (primary) hypertension; Z79.4 Long term (current) use of insulin
CPT/HCPCS: 11042

== ENCOUNTER 2020-07-17 09:57 | Day surgery (SDC) | payer MEDICARE, BC, SELFPAY ==
[2020-07-11 11:29] VITALS: BMI 35.4
[2020-07-16 08:31] VITALS: BMI 34.0
[2020-07-17 10:21] LABS: Hematocrit 37.8 % (40-54); Hemoglobin 13.2 g/dL (13.0-16.5); Mean Corp Hgb Conc 34.9 g/dL (32-36); Mean Corpuscular Hgb 30.4 pg (27.0-32.0); Mean Corpuscular Volume 87.1 fL (80-94); Mean Platelet Vol. 8.6 fl (6.2-12.0); Platelet Count 254 K/mm3 (150-450); RBC Distribution Width CV 12.7 % (11.6-14.6); RBC Distribution Width SD 40.2 fl (35.1-43.9); Red Blood Count 4.34 M/mm3 (4.6-6.2); White Blood Count 8.6 K/mm3 (4.4-11.0)
[2020-07-17 10:34] LABS: Albumin, Serum 3.5 g/dL (3.2-5.0); BUN 33 mg/dL (7-18); BUN/Creat Ratio 28.2 RATIO (10-20); Calcium,Total 9.2 mg/dL (8.5-10.1); Chloride 103 mmol/L (98-107); Creatinine, Serum 1.17 mg/dL (0.70-1.30); EST Glomerular Filtration Rate 66 mL/min (>60); Est Glom Filt Rate - Afr Amer 80 mL/min (>60); Estimated Creatinine Clearance 62.95 ml/min; Glucose 133 mg/dL (74-106); Phosphorus 3.3 mg/dL (2.5-4.9); Potassium 4.8 mmol/L (3.5-5.1); Sodium Level 135 mmol/L (136-145)
--- NOTE | 2020-07-17 12:00 | OP.PCM_ITS ---
Problems Associated Problem List Diagnoses (1) Ulcer of right foot with fat layer exposed: (2) PAD (peripheral artery disease): Report of Operation Date of Procedure: 07/17/20 Pre-Operative Diagnosis: PAD with nonhealing toe ulcer on the right great toe Post-Operative Diagnosis: Same Surgery/Procedure Performed:: 1. Ultrasound-guided access retrograde left common femoral artery. 2. Right lower extremity angiogram catheter placed into the distal popliteal artery. 3. Balloon angioplasty the popliteal through the tibioperoneal trunk with a 4 and then a 5 drug-coated balloon. 4. Closure with Star close Surgeon: Luis Alfredo Lopez Type of Anesthesia: IV Sedation Description of Procedure: Patient brought to the Professor Of Communication And Writing. Underwent appropriate timeout consent. Underwent sedation. Prepped and draped in a sterile fashion. We did ultrasound-guided access retrograde left femoral artery. Put a Glidewire up in a 5 Bel[place]ian sheath. Get up and over the bifurcation. A 5000 units of heparin. An angiogram from the right distal iliac artery. This showed the common femoral artery, the profunda, and the femoral were widely patent. We then imaged further down the leg and it showed the entire popliteal was patent. Imaging below the knee showed the anterior tibial artery occluded in segments was very diminutive distally. Peroneal artery is adequate caliber with some mild narrowing distally but was patent to it branched anterior and posterior. Posterior tibial artery was patent throughout its entirety and was very large in the main runoff into the foot. Tibial peroneal trunk had a moderate to severe mid segment stenosis. We then brought in a long 6 [place]ian sheath. We ballooned from the tibioperoneal trunk back with a first of 4 x 100 drug-coated balloon. Look like this was slightly undersized we then ballooned with a 5 x 60 drug-coated balloon for over 2-1/2 minutes. This was markedly improved with much better flow through this area. We then removed out the sheath deployed a Star close with good hemostasis. He was brought to recovery stable condition. Sedation: This 64-year-old gentleman underwent moderate sedation given by Dr. Luis Alfredo Lopez. He was monitored EKG blood pressure and pulse ox for over the 30 minutes of the procedure. See the EMR for the complete record. Complications None
== END 2020-07-17 16:04 | disposition home or self-care (01) ==
PROVIDERS: PCP Family Medicine; Referring Provider Surgery Vascular Surgery; Visit Provider Surgery Vascular Surgery
DX: E11.621 Type 2 diabetes mellitus with foot ulcer (principal); E11.51 Type 2 diabetes mellitus with diabetic peripheral angiopathy without gangrene; L97.512 Non-pressure chronic ulcer of other part of right foot with fat layer exposed; I25.2 Old myocardial infarction; I10 Essential (primary) hypertension; I51.9 Heart disease, unspecified; I70.213 Atherosclerosis of native arteries of extremities with intermittent claudication, bilateral legs; I77.1 Stricture of artery; Z95.1 Presence of aortocoronary bypass graft; Z79.899 Other long term (current) drug therapy; Z79.84 Long term (current) use of oral hypoglycemic drugs
CPT/HCPCS: 36245; 36415; 37228; 75710; 76937; 80069; 85027; 99152; 99153; J7040; Q9967; C1725; C1760; C1769; C1887; C1894

== ENCOUNTER 2020-07-18 11:15 | Outpatient (RCR) | payer MEDICARE, BC, SELFPAY ==
[2020-06-30 00:45] VITALS: BP 149/83; PULSE 83; RESP 18; TEMP 36.8
[2020-07-04 09:20] VITALS: BP 129/68; PULSE 84; RESP 18; TEMP 36.8; BMI 35.4
--- NOTE | 2020-07-04 10:45 | PCM.WC.PN ---
History of Present Illness Date of Service: 07/04/20 Chief Complaint: Right great toe ulcer History of Wound: 64 year old returns to clinic for right hallux ulcer follow up. He denies fever, chills, nausea, vomiting. He is not able to use a knee roller because he is seated a lot during the day and is otherwise on gravel. He is scheduled to see vascular surgery consultation next week. He started taking nutritional supplement Efren. He is concerned he is so sedentary and would like to exercise. Progress of Wound: Stable Objective Data Objective Data Vital Signs: Vital Signs Temp Pulse Resp BP 98.2 F 84 18 129/68 H 07/04/20 09:20 07/04/20 09:20 07/04/20 09:20 07/04/20 09:20 Oxygen Delivery Method Ambu-Bag Body Mass Index (BMI) 35.4 Assessment & Plan Assessment/Plan (1) Ulcer of right foot with fat layer exposed: Status: Chronic Code(s): L97.512 - Non-pressure chronic ulcer of other part of right foot with fat layer exposed (2) Hallux limitus of right foot: Status: Chronic Code(s): M20.5X1 - Other deformities of toe(s) (acquired), right foot (3) Other specified peripheral vascular diseases: Status: Chronic Code(s): I73.89 - Other specified peripheral vascular diseases (4) Delayed wound healing: Status: Acute Code(s): T14.8XXD - Other injury of unspecified body region, subsequent encounter Plan: I reviewed and discussed his case and reviewed his medical records. To continue strict offloading with right cam walker boot with dual density offloading Plastizote liners. I recommend knee roller use. He was advised that improvement in compliance is necessary for ulcer healing even at home which means using a walker. He inquires about exercising today and I recommended riding a stationary bike or doing upper body activity is okay. I also recommend he maintains proper glycemic control and improve diet. Efren nutritional supplement recommended; he started use. I recommended a previous nutrition referral and endocrinology referral even though the ulcer is healed to optimize his health and prevent recurrence. This was previously addressed. I reviewed his previous labs without gross abnormalities from 05-08-20 with no leukocytosis, ESR 9, hemoglobin A1c 6.9%, creatinine 1.4. He also had prior culture obtained at the [facility] center which demonstrated MSSA growth; he completed Augmentin and has no local or systemic signs of illness today. He also had prior noninvasive vascular studies performed February 17, 2020 with triphasic blood flow and diminished flow to the right digital level with the digital brachial right index of 0.67 and VERONICA of 1.27. He had noncompressible vessels and a vascular referral was provided. This is scheduled next week. We also discussed curative type surgical intervention such as a Garay arthroplasty which is recommended at this time. We discussed the indication, benefits, risk, complications, surgical details anticipated management. He understands and anticipated protective for his of 6 to 8 weeks is likely. He did not want to proceed for this because he is at the middle of his busy time at work. He would like to give this some more thought. I answered all his questions. Note: [employer] speech recognition box toe flanger stitchdowns software was used to create portions of this document. Sound-alike and misspelled words, as well as other box toe flanger stitchdowns errors may be contained in the documentation. MACRA 2020: His medications and allergies were reviewed and reconciled. Physical Exam Const alert and oriented x3 General Appearance: cooperative HEENT normocephalic Extremity Extremity Narrative: No calf tenderness Diminished pulses Muscle wasting noted General Extremity: edema and no tenderness to palpation of joints or extremities; Negative for cyanosis Skin Skin Narrative: no purulence, no streaking, no odor, no infection Ulcer with granular base and decreased size General Skin Exam: Negative for erythema Neuro Neuro Narrative: lack of normal epicritic sensation via light touch is consistent with neuropathy status Psych cooperative and affect normal Debridement Note Debridement Note Post-Debridement Measurements and Additional Note: Post-Debridement Measurements/Treatment [predebridement 4 x 3 x 1 mm plantar right great toe] WC - Nurse 2 - General Ulcer CM Notes Start: 07/04/20 09:20 Freq: Status: Active Protocol: Activity Type Activity Date Activity User E-Sign Co-Sign Detail Recorded Client Recorded Date Recorded By Document 07/04/20 09:41 [email or web address] [id number] 07/04/20 09:45 KWESI 07/04/20 09:41 Wound Center Nurse 2 #4 Right Great Toe -Time 09:43 -Correct Patient Yes -Correct Side, Site, Position Yes -Correct Procedure Yes -Procedure Performed Yes -Type of Procedure Debridement -Clinical Debridement Subcutaneous -Tissue Removed Subcutaneous -Post Debridement (cm) - Length 0.5 -Post Debridement (cm) - Width 0.4 -Post Debridement (cm) - Depth 0.1 -Total Square (Post) (cm) 0.20 -Area of Debridement (cm) - Length 0.5 -Area of Debridement (cm) - Width 0.4 -Total Square (Area) (cm) 0.20 -Tunneling No -Undermining/Tunneling No -Circular Undermining No -Wound/Ulcer Outcome Not Healed -Ulcer Cleansing Rinsed/ Irrigated with Saline -Foul Odor after Cleansing No -Bioengineered Tissue No -Bleeding Controlled with Pressure -Offloading Yes -Type of Offloading Camwalker -Treatment Response Procedure Tolerated Well -Debridement - Subq, 1st 20sq cm Yes Pain Scale: 0-10 Numeric Is Patient Pain Free? Yes - Nurse 3 - General Ulcer D/C NN Start: 07/04/20 09:20 Freq: Status: Active Protocol: Activity Type Activity Date Activity User E-Sign Co-Sign Detail Recorded Client Recorded Date Recorded By Document 07/04/20 09:59 BRYNN [id number] 07/04/20 09:59 DL 07/04/20 09:59 Wound Care Nurse 3 #4 Right Great Toe -Ulcer Cleansing Rinsed/ Irrigated with Saline -Foul Odor after Cleansing No -Other Dressing hydrogel today -Primary Dressing Covered/Secured with Dry Gauze, Secured with Tape Pain Scale: 0-10 Numeric Is Patient Pain Free? Yes - Visit Discharge Discharge Condition Stable Ambulatory Status Ambulatory Transportation Private Auto Notes: resume AG tomorrow at home Wound debrided: plantar hallux Laterality: Right Wound Grade/Stage: 1 Type of Debridement: Excisional debridement Anesthesia Used: 4% Lidocaine Solution Depth: in the subcutaneous layer Percentage of wound debrided: 100 Instrument Used: #15 blade Tissue Removed: fibrous, devitalized subcutaneous, biofilm, slough Severity: Fat Layer Exposed Amount of bleeding with debridement: Mild Bleeding Controlled with: Pressure Patient tolerated procedure: Patient tolerated procedure well
[2020-07-11 11:29] VITALS: BP 140/65; PULSE 70; RESP 18; TEMP 36.8; BMI 35.4
--- NOTE | 2020-07-11 11:51 | PCM.WC.PN ---
History of Present Illness Date of Service: 07/11/20 Chief Complaint: Right great toe ulcer History of Wound: 64 year old returns to clinic for right hallux ulcer follow up. He denies fever, chills, nausea, vomiting. He continues taking nutritional supplement Efren. He was seen by vascular specialist, Dr. Lopez this morning who recommends a stent. He change the dressing daily with Aquacel Ag and denies redness or odor. Progress of Wound: Stable Objective Data Objective Data Vital Signs: Vital Signs Temp Pulse Resp BP 98.3 F 70 18 140/65 H 07/11/20 11:29 07/11/20 11:29 07/11/20 11:29 07/11/20 11:29 Oxygen Delivery Method Ambu-Bag Body Mass Index (BMI) 35.4 Assessment & Plan Assessment/Plan (1) Ulcer of right foot with fat layer exposed: (2) Hallux limitus of right foot: (3) Other specified peripheral vascular diseases: (4) Delayed wound healing: (5) Type 2 diabetes mellitus with diabetic neuropathy: QUALIFIERS: Qualified Code(s): Z79.4 - manager long term care (current) use of insulin PLAN: I reviewed and discussed his case and reviewed his medical records. Debridement was performed as noted. He tolerated this well. To continue strict offloading with right cam walker boot with dual density offloading Plastizote liners. I recommend knee roller use. He was advised that improvement in compliance is necessary for ulcer healing even at home which means using a walker. I also recommend he maintains proper glycemic control and improve diet. Efren nutritional supplement recommended; he started use. I recommended a previous nutrition referral and endocrinology referral even though the ulcer is healed to optimize his health and prevent recurrence. This was previously addressed. I reviewed his previous labs without gross abnormalities from 05-08-20 with no leukocytosis, ESR 9, hemoglobin A1c 6.9%, creatinine 1.4. He also had prior culture obtained at the foot [facility] ankle center which demonstrated MSSA growth; he completed Augmentin and has no local or systemic signs of illness today. He also had prior noninvasive vascular studies performed February 17, 2020 with triphasic blood flow and diminished flow to the right digital level with the digital brachial right index of 0.67 and VERONICA of 1.27. He had noncompressible vessels and a vascular referral was provided. He was seen by vascular specialist this morning and reports a stent was recommended. I advised him to follow-up on this procedure due to the benefits of venous ulcer to heal and preventing recurrence. We also discussed curative type surgical intervention such as a Garay arthroplasty which is recommended at this time. We discussed the indication, benefits, risk, complications, surgical details anticipated management. He understands and anticipated protective for his of 6 to 8 weeks is likely. He did not want to proceed with this option at this time. I answered all his questions. To return to the wound healing center in 1 week. Note: [employer] speech recognition quarter backer software was used to create portions of this document. Sound-alike and misspelled words, as well as other quarter backer errors may be contained in the documentation. MACRA 2020: His medications and allergies were reviewed and reconciled. Physical Exam Const alert and oriented x3 General Appearance: cooperative HEENT normocephalic Extremity Extremity Narrative: No calf tenderness Diminished pulses Muscle wasting noted General Extremity: edema and no tenderness to palpation of joints or extremities; Negative for cyanosis Skin Skin Narrative: no purulence, no streaking, no odor, no infection Ulcer with granular base and decreased size Peripheral skin is hairless and atrophic General Skin Exam: Negative for erythema Neuro Neuro Narrative: lack of normal epicritic sensation via light touch is consistent with neuropathy status Psych cooperative and affect normal Debridement Note Debridement Note Post-Debridement Measurements and Additional Note: Post-Debridement Measurements/Treatment WC - Nurse 1 - General Ulcer Assessment Start: 07/04/20 09:20 Freq: Status: Active Protocol: WC.LOWEXT Activity Type Activity Date Activity User E-Sign Co-Sign Detail Recorded Client Recorded Date Recorded By Document 07/04/20 09:20 DL [id number] 07/04/20 09:24 DL Document 07/11/20 11:29 RB [id number] 07/11/20 11:33 RB 07/04/20 07/11/20 09:20 11:29 WC - Today's Visit Information Type of service Follow-up Visit Follow-up Visit (Physician/EDUCATION REPORTER (Physician/EDUCATION REPORTER ) ) Arrival Mode Ambulatory Ambulatory Transfer Assistance None None Patient Identification Verified (Name & Yes ) Patient Requires Transmission-Based No No Precautions Finger Stick Blood Sugar(mg/dl) (if 110 indicated): Blood Sugar Stated by Patient Height and Weight Body Mass Index (BMI) 35.4 35.4 BMI Classification Obese Obese Vital Signs Temperature (97.8 F-99.1 F) 98.2 F 98.3 F Temperature Source Temporal Temporal Pulse Rate (60-100) 84 70 Pulse Location Monitor Monitor Respiratory Rate (12-18) 18 18 Respiratory rate source Observation Observation Oxygen Delivery Method Ambu-Bag Blood Pressure (90/60-120/80) 129/68 H 140/65 H Blood Pressure Mean (mm Hg) 88 90 Source Monitor Monitor Position Semi-Fowlers Blood Pressure Location Left Arm History Since Last Visit- (Skip if this is Patient's initial visit) Have you changed medications since your No No last visit? Any new allergies or adverse reactions No No Had a fall/change in ADL's that may No No increase risk of falls Signs or symptoms of abuse and/or No No neglect since last visit Have you been in the hospital since your No No last visit? Has dressing in place as prescribed Yes Yes Has compression in place as prescribed N/A No Has offloadiing in place as prescribed Yes Yes Experienced any changes in pain level or No No management Left Footwear Regular Shoe Right Footwear Surgical Shoe Surgical Shoe with pressure with pressure relief insole relief insole Pain Scale: 0-10 Numeric Is Patient Pain Free? Yes Yes WC - Nurse 1 - General Ulcer Measurement Start: 07/04/20 09:20 Freq: Status: Active Protocol: Activity Type Activity Date Activity User E-Sign Co-Sign Detail Recorded Client Recorded Date Recorded By Document 07/04/20 09:20 DL [id number] 07/04/20 09:24 DL Document 07/11/20 11:29 RB [id number] 07/11/20 11:33 RB 07/04/20 07/11/20 09:20 11:29 Wound Center Nurse 1 #4 Right Great Toe -Combined with other wound No -Current Size (cm) - Length 0.2 0.1 -Current Size (cm) - Width 0.2 0.1 -Current Size (cm) - Depth 0.2 0.1 -Total Square Cm 0.04 0.01 -Photo Taken No No -Tunneling No -Undermining/Tunneling No -Maximum Distance #2 (cm) 0.2 -Circular Undermining Yes No -Exudate Amt Small Small -Exudate Type Serosanguineous Serosanguineous -Wound Margin Thickened Thickened -Granulation Amt Medium (34-66%) -Granulation Quality Hyper- [place] granulation,Red -Slough/Fibrin Yes -Necrosis Amt Small (1-33%) Small (1-33%) -Necrotic Tissue Type Adherent Slough Adherent Slough -Structure Exposed N/A N/A -Texture (Lizz-wound Skin Appearance) Callus Callus -Moisture (Lizz-wound Skin Appearance) Dry/Scaly Assessed -Color (Lizz-wound Skin Appearance) No Abnormality Assessed -Temperature (Lizz-wound Skin No Abnormality No Abnormality Appearance) (Pt Warm) (Pt Warm) -Tenderness on Palpation (Lizz-wound No No Skin Appearance) -Ulcer Cleansing Rinsed/ Wound Cleanser Irrigated with Saline -Foul Odor after Cleansing No No -Anesthetic Used 4% Lidocaine 4% Lidocaine Solution Solution WC - Nurse 2 - General Ulcer CM Notes Start: 07/04/20 09:20 Freq: Status: Active Protocol: Activity Type Activity Date Activity User E-Sign Co-Sign Detail Recorded Client Recorded Date Recorded By Document 07/04/20 09:41 [id number] 07/04/20 09:45 Document 07/11/20 11:38 [id number] 07/11/20 11:41 07/04/20 07/11/20 09:41 11:38 Wound Center Nurse 2 #4 Right Great Toe -Time 09:43 11:40 -Correct Patient Yes Yes -Correct Side, Site, Position Yes Yes -Correct Procedure Yes Yes -Procedure Performed Yes Yes -Type of Procedure Debridement Debridement -Clinical Debridement Subcutaneous Subcutaneous -Tissue Removed Subcutaneous Subcutaneous -Post Debridement (cm) - Length 0.5 0.2 -Post Debridement (cm) - Width 0.4 0.1 -Post Debridement (cm) - Depth 0.1 0.1 -Total Square (Post) (cm) 0.20 0.02 -Area of Debridement (cm) - Length 0.5 0.2 -Area of Debridement (cm) - Width 0.4 0.1 -Total Square (Area) (cm) 0.20 0.02 -Tunneling No No -Undermining/Tunneling No No -Circular Undermining No No -Wound/Ulcer Outcome Not Healed Not Healed -Ulcer Cleansing Rinsed/ Rinsed/ Irrigated with Irrigated with Saline Saline -Foul Odor after Cleansing No No -Bioengineered Tissue No No -Bleeding Controlled with Pressure Pressure -Offloading Yes Yes -Type of Offloading Camwalker Camwalker -Treatment Response Procedure Procedure Tolerated Well Tolerated Well -Debridement - Subq, 1st 20sq cm Yes Yes Pain Scale: 0-10 Numeric Is Patient Pain Free? Yes Yes - Nurse 3 - General Ulcer D/C NN Start: 07/04/20 09:20 Freq: Status: Active Protocol: Activity Type Activity Date Activity User E-Sign Co-Sign Detail Recorded Client Recorded Date Recorded By Document 07/04/20 09:59 DL [id number] 07/04/20 09:59 DL Document 07/11/20 11:42 [id number] 07/11/20 11:43 JF 07/04/20 07/11/20 09:59 11:42 Wound Care Nurse 3 #4 Right Great Toe -Ulcer Cleansing Rinsed/ Rinsed/ Irrigated with Irrigated with Saline Saline -Foul Odor after Cleansing No No -Primary Dressing Applied C Hydrogel ($) -Other Dressing hydrogel today -Primary Dressing Covered/Secured with Dry Gauze, Dry Gauze, Secured with Secured with Tape Tape Pain Scale: 0-10 Numeric Is Patient Pain Free? Yes Yes - Visit Discharge Discharge Condition Stable Stable Ambulatory Status Ambulatory Ambulatory Transportation Private Auto Private Auto Medication Reconcilliation completed & Yes provided to patient/care provider Clinical Summary of Care Provided Yes Notes: resume AG tomorrow at home Wound debrided: plantar right hallux Wound Grade/Stage: 1 Type of Debridement: Excisional debridement Anesthesia Used: 4% Lidocaine Solution Depth: in the subcutaneous layer Percentage of wound debrided: 100 Instrument Used: #15 blade Tissue Removed: fibrous, devitalized subcutaneous, biofilm, slough Severity: Fat Layer Exposed Amount of bleeding with debridement: Mild Bleeding Controlled with: Pressure Patient tolerated procedure: Patient tolerated procedure well
[2020-07-18 11:37] VITALS: BP 159/87; PULSE 72; RESP 18; TEMP 36.8; BMI 35.4
--- NOTE | 2020-07-18 13:17 | PCM.WC.PN ---
History of Present Illness Date of Service: 07/21/20 Chief Complaint: Right great toe ulcer History of Wound: 64 year old returns to clinic for right hallux ulcer follow up. He denies fever, chills, nausea, vomiting. He continues taking nutritional supplement Efren. He was seen by vascular specialist, Dr. Lopez for procedure in which successful intervention was performed to improve perfusion to the right lower extremity. He change the dressing daily with Aquacel Ag and denies redness or odor. He denies drainage and thinks the ulcer site has healed Progress of Wound: Healed Objective Data Objective Data Vital Signs: Vital Signs Temp Pulse Resp BP 98.2 F 72 18 159/87 H 07/18/20 11:37 07/18/20 11:37 07/18/20 11:37 07/18/20 11:37 Oxygen Delivery Method Ambu-Bag Body Mass Index (BMI) 35.4 Physical Exam Const alert and oriented x3 General Appearance: cooperative HEENT normocephalic Extremity Extremity Narrative: No calf tenderness Diminished pulses Muscle wasting noted General Extremity: edema and no tenderness to palpation of joints or extremities; Negative for cyanosis Skin Skin Narrative: no purulence, no streaking, no odor, no infection Ulcer has full epithelialization and is healed today Peripheral skin is hairless and atrophic General Skin Exam: Negative for erythema Neuro Neuro Narrative: lack of normal epicritic sensation via light touch is consistent with neuropathy status Psych cooperative and affect normal Assessment/Plan Assessment/Plan (1) Ulcer of right foot with fat layer exposed: CODE(S): Code(s): L97.512 - Non-pressure chronic ulcer of other part of right foot with fat layer exposed (2) Hallux limitus of right foot: CODE(S): Code(s): M20.5X1 - Other deformities of toe(s) (acquired), right foot (3) Other specified peripheral vascular diseases: CODE(S): Code(s): I73.89 - Other specified peripheral vascular diseases (4) Delayed wound healing: CODE(S): Code(s): T14.8XXD - Other injury of unspecified body region, subsequent encounter (5) Type 2 diabetes mellitus with diabetic neuropathy: CODE(S): Code(s): E11.40 - Type 2 diabetes mellitus with diabetic neuropathy, unspecified QUALIFIERS: Qualified Code(s): Z79.4 - long-term (current) use of insulin PLAN: I reviewed and discussed his case and reviewed his medical records. Debridement was not performed because this healed. To continue strict offloading with right cam walker boot with dual density offloading Plastizote liners. I recommend knee roller use. He was advised that improvement in compliance is necessary for ulcer healing even at home which means using a walker. I also recommend he maintains proper glycemic control and improve diet. Efren nutritional supplement recommended; he started use. I recommended a previous nutrition referral and endocrinology referral even though the ulcer is healed to optimize his health and prevent recurrence. This was previously addressed. I reviewed his previous labs without gross abnormalities from -11-20 with no leukocytosis, ESR 9, hemoglobin A1c 6.9%, creatinine 1.4. He also had prior culture obtained at the [facility] center which demonstrated MSSA growth; he completed Augmentin and has no local or systemic signs of illness today. He also had prior noninvasive vascular studies performed February 17, 2020 with triphasic blood flow and diminished flow to the right digital level with the digital brachial right index of 0.67 and VERONICA of 1.27. procedure performed 07/17 with improved perfusion. I answered all his questions. d/c wound center. follow up at foot and ankle center for extra depth shoe fitting and to transition to appropriate shoes in 1-2 weeks. To check feet daily and wash with soap and water. Note: Health: Elt speech recognition consulting property manager software was used to create portions of this document. Sound-alike and misspelled words, as well as other consulting property manager errors may be contained in the documentation The problems addressed require a low medical decision making level which includes two or more minor problems, a stable chronic illness, or an acute uncomplicated illness or injury. The medical decision making level is low. There is noted low risk of morbidity after considering this treatment plan and diagnostic data.
== END 2020-07-18 12:07 | disposition home or self-care (01) ==
LOC: WC 11:15
PROVIDERS: PCP Family Medicine; Referring Provider Podiatrist; Visit Provider Podiatrist
DX: E11.621 Type 2 diabetes mellitus with foot ulcer (principal); L97.512 Non-pressure chronic ulcer of other part of right foot with fat layer exposed; M20.5X1 Other deformities of toe(s) (acquired), right foot; I73.89 Other specified peripheral vascular diseases; T14.8XXD Other injury of unspecified body region, subsequent encounter; E11.40 Type 2 diabetes mellitus with diabetic neuropathy, unspecified; Z79.4 Long term (current) use of insulin
CPT/HCPCS: 11042; 99213; G0463

== ENCOUNTER 2020-10-08 05:59 | Day surgery (SDC) | payer MEDICARE, BC, SELFPAY ==
[2020-09-13 11:12] VITALS: BMI 34.0
[2020-10-08 06:35] VITALS: BP 107/64; PULSE 69; RESP 16; TEMP 36.7; O2SAT 100; BMI 37.3
[2020-10-08 07:00] LABS: Bedside Glucose 125 mg/dL (70-110)
[2020-10-08] MEDS: Cefazolin 2 GM in 0.9% Normal Saline 100 ML IV (07:00)
[2020-10-08 07:19] LABS: Absolute Lymphocyte Count 1.96 X10^3/uL (0.83-4.51); Absolute Neutrophil Count 6.2 X10^3/uL (2.0-7.7); Basophil# 0.05 X10^3/uL; Basophil% 0.5 % (0-1); Eosinophil# 0.25 X10^3/uL; Eosinophils% 2.6 % (0-5); Hematocrit 39.2 % (40-54); Hemoglobin 13.5 g/dL (13.0-16.5); Lymphocyte # 1.96 X10^3/ul (0.83-4.51); Lymphocyte % 20.5 % (19-41); Mean Corp Hgb Conc 34.4 g/dL (32-36); Mean Corpuscular Hgb 30.5 pg (27.0-32.0); Mean Corpuscular Volume 88.5 fL (80-94); Mean Platelet Vol. 8.9 fl (6.2-12.0); Monocyte# 0.99 X10^3/uL; Monocyte% 10.3 % (0-10); NRBC Flagged by Analyzer 0 % (0-5); Neutrophil # 6.24 X10^3/uL (2.7-7.7); Neutrophil % 65.3 % (47-70); Platelet Count 240 K/mm3 (150-450); RBC Distribution Width CV 12.7 % (11.6-14.6); RBC Distribution Width SD 41.2 fl (35.1-43.9); Red Blood Count 4.43 M/mm3 (4.6-6.2); White Blood Count 9.6 K/mm3 (4.4-11.0)
--- NOTE | 2020-10-08 08:22 | SUR.PREOP ---
SURGERY CANCELLED D/T BURSITITS TO [facility]. PT TALKED WITH DR DOYLE AND DR AGUILA- ANTBX IV ORDERED TO BE GIVEN PRIOR TO DISCHARGE AND SCRIPT FOR ANTBX- SENT TO PHARMACY. PT AWARE TO FOLLOW UP WITH DR DOYLE'S OFFICE AND DR CALLE OFFICE ON THURSDAY. QUESTIONS ANSWERED. GIVEN SNACK
== END 2020-10-08 08:26 | disposition home or self-care (01) ==
LOC: SDC 05:59 → AC 05:59
PROVIDERS: Anesthesiology; PCP Family Medicine; Referring Provider Podiatrist; Visit Provider Podiatrist
DX: M70.30 Other bursitis of elbow, unspecified elbow (principal); Z53.09 Procedure and treatment not carried out because of other contraindication; E78.5 Hyperlipidemia, unspecified; E66.01 Morbid (severe) obesity due to excess calories; I12.9 Hypertensive chronic kidney disease with stage 1 through stage 4 chronic kidney disease, or unspecified chronic kidney disease; I25.10 Atherosclerotic heart disease of native coronary artery without angina pectoris; E11.22 Type 2 diabetes mellitus with diabetic chronic kidney disease; E11.51 Type 2 diabetes mellitus with diabetic peripheral angiopathy without gangrene; Z95.1 Presence of aortocoronary bypass graft; Z79.899 Other long term (current) drug therapy; Z79.4 Long term (current) use of insulin; I49.3 Ventricular premature depolarization
CPT/HCPCS: 28899; 82962; 85025; 87426; C9803; J7120

== ENCOUNTER 2020-10-29 11:25 | Day surgery (SDC) | payer MEDICARE, BC, SELFPAY ==
[2020-10-29 12:11] VITALS: BP 165/78; PULSE 72; RESP 16; TEMP 36.1; O2SAT 100; BMI 37.3
[2020-10-29] MEDS: Lactated Ringers 1,000 ML 100 ML IV (12:29)
[2020-10-29 12:36] LABS: Bedside Glucose 132 mg/dL (70-110)
--- NOTE | 2020-10-29 12:48 | PCM.DC ---
Discharge Instructions Diet Discharge Diet: Light diet - advance as tolerated Activity Discharge Activity: May Not Drive, Use Walker and Use Crutches Weight Bearing Status: No weight bearing (No weightbearing right foot) Keep extremity elevated above heart level: Right Leg (Keep right foot elevated with pillows for at least 50 minutes of every hour.) Dressing / Incision Call your doctor if your incision/area has: Continuous Slow Oozing, Sudden Increased Bleeding, Increased Pain/ Swelling and Foul Smelling Discharge Call your doctor if you observe: Fever of 101 or Higher, Shortness of breath, Chest pain, Calf discomfort and Uncontrolled pain Change Dressing in: leave in place till F/U Remove Dressing in: leave until fall off Cleanse incision/area with: Do not get Incision Wet and Keep Dressing Clean & Dry Follow Up Care Please Follow Up With: Dennys Cruz DPM When: 11/01/2020 as scheduled, sooner if needed. Test Results: Test results from this visit will be discussed in further detail at your follow-up appointment, if applicable. Discharge Plan Admission Attending Provider: Dennys Cruz Primary Care Provider: Otilio Sahu Discharge Orders/Prescriptions Prescriptions: New hydrocodone-acetaminophen 5-325 mg tablet 1 tab PO Q6H 3 Days Qty: 12 RF: 0 No Action carvedilol 25 mg tablet 25 mg PO BID RF: 0 oregeno oil 1 tab PO DAILY RF: 0 lisinopril 20 MG tablet 20 mg PO BID RF: 0 mv,Ca,izl-tgdz-WQ-lycopene 1 EACH tablet 1 tab PO DAILY RF: 0 glimepiride 4 mg tablet 4 mg PO DAILY Qty: 0 RF: 0 clopidogrel [Plavix] 75 mg Tablet 75 mg PO DAILY RF: 0 metformin 1,000 mg tablet 1,000 mg PO BID RF: 0 Basaglar KwikPen U-100 Insulin 100 unit/mL (3 mL) insulin pen 60 unit SC QHS RF: 0 (DME) pen needle, diabetic [BD Ultra-Fine [place]ton Pen Needle] 32 gauge x 5/32 needle See Rx Instructions .ROUTE .MEDSUPPLY Qty: 100 RF: 3 Ozempic 1 mg/dose (4 mg/3 mL) pen injector 1 mg SC QWEEK Qty: 3 RF: 6 Referrals / Follow Up: Otilio Sahu MD [Primary Care Provider] - Disposition Disposition (needs filled in before D/C Order can be placed): Home, Self Care
--- NOTE | 2020-10-29 13:00 | BON_PTH ---
PATIENT: KIM KIM LOC: [facility] – [place] U#:[id number] AGE/SX: 64/M ROOM: RE10/29/[address]: Dr. eDnnys Cruz DPM : 1955 BED: DIS: 10/29/2020 SPEC #: [id number] RECD: 10/29/20 14:48 STATUS: LEONIDAS BLOUNTManohar #: [id number] ADONIS: 10/29/20 13:[address]: Dennys Cruz DEPT: SURGICAL PATHOLOGY RECD BY: Priya Ware ENTERED: 10/30/20 07:20 SP TYPE: Bone OTHR DR: Dr. Otilio Sahu MD Tissues: Toe, NOS Procedures: Decalcification bone/plaque Surgery Specimen Level IV HEADER OPERATION: Garay arthroplasty first toe, placement of pin, debridement PRE-OP DIAGNOSIS: Ulcer of right first toe TISSUE SUBMITTED: Right first toe bone MICROSCOPIC DIAGNOSIS Bone of right toe, excision: Bone, cartilage and soft tissue with focal reparative and reactive changes. No evidence of acute osteomyelitis. AM:baljinder 11/01/2020 MICROSCOPIC DESCRIPTION Slides are reviewed. GROSS DESCRIPTION Received in fixative is one container labeled with the patient's name and designated right first toe bone. The specimen consists of multiple pieces of bone measuring in aggregate 5 x 4 x 1.5 cm. The entire specimen is submitted in five cassettes after decalcification. / SHERICE:baljinder 10/31/20 TC:5 CPT: 48516, 42662
--- NOTE | 2020-10-29 13:00 | RAD_ITS ---
INDICATION: PAIN EXAMINATION/TECHNIQUE: X-RAY - RIGHT FOOT XR Toes Min 2 Views 8 VIEWS COMPARISON: 05/08/2020. Fluoroscopy time: 0.08 minutes/seconds Fluoroscopy dose: 0.8126 cGycm. 0.0484 mGy FINDINGS: 7 spot fluoroscopic images were obtained intraoperatively demonstrating internal fixation into the first digit of the right foot No radiologist was present for the procedure, please refer to operative report for details. RAD/Toe(s) Min 2 Views IMPRESSION: Please refer to operative report for details. Electronically Signed: Jesus Underwood MD at 15:45 EDT Tel , Service support ,
[2020-10-29] MEDS: Cefazolin 2 GM in 0.9% Normal Saline 100 ML IV (13:10)
[2020-10-29] MEDS: Lidocaine 1% /Epi 1:100 (50ml) 50 ML VIAL (13:15)
--- NOTE | 2020-10-29 14:25 | RAD_ITS ---
INDICATION: post op EXAMINATION/TECHNIQUE: X-RAY - RIGHT XR Foot Min 3 Views 3 VIEWS COMPARISON: 05/08/2020. FINDINGS: 3 views of the right foot demonstrate internal fixation of the first digit of the right foot, no evidence of lucency surrounding the prosthesis. RAD/Foot min 3 Views IMPRESSION: Internal fixation of the first digit of the right foot. Electronically Signed: Jesus Underwood MD at 15:46 EDT Tel , Service support ,
--- NOTE | 2020-10-29 14:27 | OP.PCM_ITS ---
Report of Operation Date of Procedure: 10/29/20 Pre-Operative Diagnosis: Diabetes with neuropathy with chronic recurrent plantar right 1st toe ulcer Post-Operative Diagnosis: Same Surgery/Procedure Performed:: 1st metatarsal phalangeal joint arthroplasty/Garay, right Surgeon: Dennys Cruz electric meter installer helper: Dr Castañeda Type of Anesthesia: General and Local Specimen's removed: Resected bone from 1st metatarsal phalangeal joint, right Estimated Blood Loss (mL): 10mL Description of Procedure: Indications: This is a 64 year old gentleman with recurrent plantar right 1st toe ulcerations with recurrent infection. Due to this he has elected to undergo surgical intervention. This was discussed with him in detail, reviewed the possible benefits vs risks, goals, expectations, alternative options, and typical healing/post op recovery. The consent forms were reviewed with him, and he freely signed them. He would like to proceed forward. All of questions were answered. No guarantees were given nor implied. Operative Procedure: The patient was brought back into the operating room and was placed on the operating room table in the supine position. Patient was carefully secured to the operating room table with a safety belt around the waist. A time out was performed and the patient was properly identified and the surgical plan was confirmed. The patient received 2g of IV cefazolin for antibiotic prophylaxis. A well padded pneumatic tourniquet was applied around the patient's right ankle. The patient received anesthesia per the anesthesiologist. The right foot was scrubbed, prepped, draped in the usual aseptic fashion. Further attention was directed to the right foot and there again was noted to be significant limitation of 1st metatarsal phalangeal joint dorsiflexion, the plantar ulceration was healed at this time and there were no cardinal signs of infection. A total of 10 mL of 1% Lidocaine with 1:100,000 epi was given as a 1st ray block on the right foot. There was again noted to be significant limited range of motion in the dorsal direction to the 1st metatarsal phalangeal joint. A linear longitudinal skin incision was made overlying the dorsal medial aspect of the 1st metatarsal phalangeal joint, located medial to the extensor hallucis longus tendon. The incision was carefully deepened to the dorsal 1st metatarsal phalangeal joint capsule, which was incised and partially reflected exposing the 1st metatarsal head as well as the base of the hallux proximal phalanx. The 1st MTPJ was visualized and there was significant degenerative changes present consistent with osteoarthritis. There were dorsal osteophytes to the 1st metatarsal head and base of the proximal phalanx of the 1st toe. The base of the hallux proximal phalanx was excised but the very distal insertion point of the flexor digitorum brevis was left intact. It was ensured the flexor hallucis longus tendon remaine d in tact. There was still some limited range of motion, therefore the dorsal aspect of the 1st metatarsal head was resected via a powered sagittal saw, resecting the dorsal osteophytes in the process. The toe was in good position and this allowed for good smooth range of motion of the hallux. The resected bone was sent to pathology for further evaluation. The toe was in good alignment. The site was stabilized with a Dayna pin through the 1st toe into the 1st metatarsal with the 1st toe in good position and out to appropriate length. The site was flushed out with copious amounts of normal saline solution. The capsule was reapproximated using 3-0 Vicryl, the subcutaneous tissue was reapproximated using 3-0 Vicryl, and the skin was reapproximated using 4-0 Nylon. The pin was trimmed outside of the toe at the distal aspect. There was normal warmth and perfusion to the foot and to all toes on the foot with normal temperature gradient and CFT < 2 seconds to all toes. Hemostasis was controlled via local control. Also of note all vital structures including all vital neurovascular and soft tissue structures were properly identified, retracted, and protected as necessary during the procedures. A dressing was applied which consisted of Betadine soaked adaptic, 4x4 gauze, Kerlix, and leila bandage were applied being sure to apply it not too tight. The patient tolerated the above operative procedure well at the anesthesia well with no complication. The patient was transported to the recovery room with vital signs stable and in good condition. Post operative orders were placed. Post operative instructions were reviewed and dispensed verbal and written - this was reviewed with patient and pre op and again with patient's post op. No weightbearing right, keep foot elevated for at least 50 minutes of every hour, keep dressing clean, dry and intact. Prescription for [place] 5mg/325mg tabs - 1 tabs PO q 6 hours prn pain was prescribed. Patient is to follow up with me in 3 days, sooner if needed. Also post op foot xrays (right) were obtained and reviewed in the PACU. Findings show 1st MTPJ arthroplasty with 1st toe in rectus position and pin intact. Otherwise no other acute findings and no complications seen. Grafts/Implants Used: 1 Dayna pin Complications None
[2020-10-29 14:33] VITALS: BP 159/84; BP 165/78; PULSE 70; RESP 16; TEMP 36.3; O2SAT 94
[2020-10-29 14:45] VITALS: BP 161/88; BP 165/78; PULSE 74; RESP 16; O2SAT 95
[2020-10-29 15:07] VITALS: BP 165/78; BP 178/86; PULSE 72; RESP 16
[2020-10-29 15:08] VITALS: BP 165/78; BP 178/89; PULSE 72; RESP 16; TEMP 36.5; O2SAT 96
--- NOTE | 2020-10-29 16:39 | SUR.PHASEII ---
pt having difficulty with crutches, order obtained for Physical Therapy for crutch training per Dr Cruz. Pt now feels has knee scooter at home and does not feel need to have physical therapy. Reports has lots of medical people in family around to help with transfers and getting into house when gets home to maintain NWB status. agrees.
[2020-10-29 16:43] VITALS: BP 165/78; BP 182/83; PULSE 71; RESP 16; TEMP 36.8; O2SAT 98
== END 2020-10-29 16:51 | disposition home or self-care (01) ==
LOC: SDC 11:25 → AC 11:27
PROVIDERS: PCP Family Medicine; Referring Provider Podiatrist; Visit Provider Podiatrist
PROC: (CPT 28292; principal; 2020-10-29 12:45)
DX: E11.621 Type 2 diabetes mellitus with foot ulcer (principal); E11.40 Type 2 diabetes mellitus with diabetic neuropathy, unspecified; L97.519 Non-pressure chronic ulcer of other part of right foot with unspecified severity; E66.9 Obesity, unspecified; I25.2 Old myocardial infarction; I10 Essential (primary) hypertension; E78.5 Hyperlipidemia, unspecified; I25.10 Atherosclerotic heart disease of native coronary artery without angina pectoris; E11.51 Type 2 diabetes mellitus with diabetic peripheral angiopathy without gangrene; Z79.899 Other long term (current) drug therapy; Z79.02 Long term (current) use of antithrombotics/antiplatelets; Z79.84 Long term (current) use of oral hypoglycemic drugs
CPT/HCPCS: 01480; 28292; 73630; 73660; 76000; 82962; 87426; 88305; 88311; C1713; C9803; J7120; J2405

== ENCOUNTER 2021-03-13 15:47 | Outpatient (CLI) | payer MEDICARE, SELFPAY ==
[2021-03-13 16:06] VITALS: BP 171/81; PULSE 73; RESP 16; TEMP 36.9; O2SAT 99; BMI 36.9
[2021-03-13] MEDS: 0.9% Saline Lock 10 ML Syringe IV (16:08)
[2021-03-13 16:51] VITALS: BP 161/85; PULSE 72; RESP 16; TEMP 36.9; O2SAT 98
[2021-03-13 17:51] VITALS: BP 145/83; PULSE 69; RESP 16; TEMP 36.9; O2SAT 100
== END 2021-03-13 23:59 | disposition home or self-care (01) ==
LOC: MS3OUT 15:47 → MS3 15:48
PROVIDERS: PCP Family Medicine; Referring Provider Nurse Practitioner Adult Health; Visit Provider Nurse Practitioner Adult Health
DX: U07.1 COVID-19 (principal)
CPT/HCPCS: J7050; M0245; Q0245; A4216

== ENCOUNTER → 2022-08-11 | Outpatient (CLI) | payer MEDICARE, BC, SELFPAY ==
--- NOTE | 2022-08-11 13:06 | ADUL_ITS ---
Reason For Study: Atherosclerosis Right Velocities Ext. Iliac Artery, dist = 120.4 cm./sec. Common Femoral Artery, mid = 114.9 cm./sec. Supf Femoral Artery, prox = 80.9 cm./sec. Supf Femoral Artery, mid = 94.8 cm./sec. Supf Femoral Artery, dist. = 103.9 cm./sec. Profunda Femoral Artery = 57.6 cm./sec. Popliteal Artery, mid = 94.8 cm./sec. Post. Tibial Artery, prox = 87.5 cm./sec. Post. Tibial Artery, mid = 173.2 cm./sec. Post. Tibial Artery, dist = 142.5 cm./sec. Peroneal Artery, prox = 67.8 cm./sec. Peroneal Artery, mid = 53.9 cm./sec. Peroneal Artery,dist = 33 cm./sec. Ant. Tibial Artery, prox = 19.7 cm./sec. Ant. Tibial Artery, mid = 17 cm./sec. Ant. Tibial Artery, dist = 17 cm./sec. Procedure Exam performed in department. /US Art Duplex Unilat Lower Ext Interpretation Summary Right leg with no stenosis. Ordering Physician: Luis Alfredo Lopez Referring Physician: Otilio Sahu Performed By: Marianela Cook RVT
--- NOTE | 2022-08-11 13:07 | ART_ITS ---
Reason For Study: Atherosclerosis Procedure A bilateral lower extremity continuous wave Doppler with analog waveform analysis,segmental pressures,and ankle brachial indexes without exercise. Left Segmental Pressures Left brachial= 163mmHg. Left posterior tibial artery = >254mmHg. Left dorsalis pedis artery = 246mmHg. Left digit = 144 mmHg. The left dorsalis pedis waveforms are triphasic. The left posterior tibial artery waveforms are triphasic. Right Segmental Pressures Right brachial= 157mmHg. Right posterior tibial artery = 240mmHg. Right dorsalis pedis artery = 216mmHg. Right digit = 156 mmHg. The right dorsalis pedis waveforms are triphasic. The right posterior tibial artery waveforms are triphasic. Indices The right ankle brachial index by the dorsalis pedis is 1.33. The right ankle brachial index by the posterior tibial artery is 1.47. The right digital-brachial index is 0.96. The left ankle brachial index by the dorsalis pedis is 1.51. The left ankle brachial index by the posterior tibial artery is NC. The left digital-brachial index is 0.88. VL/Ankle Brachial Index Interpretation Summary No occlussive disease at rest with VERONICA 1.47 and 1.51 and may be falsely elevate d. DBI 0.96 and 0.88. Ordering Physician: Luis Alfredo Lopez Referring Physician: Otilio Sahu Performed By: Marianela Cook RVT
== END | disposition home or self-care (01) ==
LOC: CVS 13:04
PROVIDERS: PCP Family Medicine; Referring Provider Surgery Vascular Surgery; Visit Provider Surgery Vascular Surgery
DX: Z48.812 Encounter for surgical aftercare following surgery on the circulatory system (principal); I70.213 Atherosclerosis of native arteries of extremities with intermittent claudication, bilateral legs; I77.1 Stricture of artery
CPT/HCPCS: 93922; 93926

== ENCOUNTER → 2023-09-11 | Outpatient (CLI) | payer MEDICARE, BC, SELFPAY ==
--- NOTE | 2023-09-11 09:03 | ADUL_ITS ---
Reason For Study: s/p Angioplasty RLE Right Velocities Ext. Iliac Artery, mid = 121 cm./sec. Common Femoral Artery, mid = 107 cm./sec. Supf Femoral Artery, prox = 98 cm./sec. Supf Femoral Artery, mid = 93 cm./sec. Supf Femoral Artery, dist. = 97 cm./sec. Profunda Femoral Artery = 61 cm./sec. Popliteal Artery, mid = 97 cm./sec. Ant. Tibial Artery, prox = 40 cm./sec. Ant. Tibial Artery, mid = 59 cm./sec. Ant. Tibial Artery, dist = 41 cm./sec. Post. Tibial Artery, prox = 87 cm./sec. Post. Tibial Artery, mid = 140 cm./sec. Post. Tibial Artery, dist = 149 cm./sec. Peroneal Artery, prox = 65 cm./sec. Peroneal Artery, mid = 102 cm./sec. Peroneal Artery,dist = 115 cm./sec. Procedure Exam performed in department. /US Art Duplex Unilat Lower Ext Interpretation Summary The right lower extremity arterial duplex is essentially normal. Ordering Physician: Luis Alfredo Lopez Referring Physician: Otilio Sahu Performed By: Adilia Serrano, FRANDY, RVT
--- NOTE | 2023-09-11 09:04 | ART_ITS ---
Reason For Study: s/p Angioplasty RLE Procedure A bilateral lower extremity continuous wave Doppler with analog waveform analysis and ankle brachial indexes. Left Segmental Pressures Left brachial= 141mmHg. Left posterior tibial artery = >254mmHg. Left dorsalis pedis artery = >254mmHg. Left digit = 86 mmHg. Right Segmental Pressures Right brachial= 131mmHg. Right posterior tibial artery = 188mmHg. Right dorsalis pedis artery = 186mmHg. Right digit = 111 mmHg. Indices The right ankle brachial index by the posterior tibial artery is 1.33. The right ankle brachial index by the dorsalis pedis is 1.32. The right digital-brachial index is 0.79. The left ankle brachial index by the posterior tibial artery is NC. The left ankle brachial index by the dorsalis pedis is NC. The left digital-brachial index is 0.61. VL/Ankle Brachial Index Interpretation Summary Resting ankle-brachial indices appear bilaterally normal. Left noncompressible but normal flow. Ordering Physician: Luis Alfredo Lopez Referring Physician: Otilio Sahu Performed By: Adilia Serrano RDCS/RVT
== END | disposition home or self-care (01) ==
LOC: CVS 08:58
PROVIDERS: PCP Family Medicine; Visit Provider Surgery Vascular Surgery
DX: Z48.812 Encounter for surgical aftercare following surgery on the circulatory system (principal); I70.213 Atherosclerosis of native arteries of extremities with intermittent claudication, bilateral legs; I77.1 Stricture of artery
CPT/HCPCS: 93922; 93926

== ENCOUNTER 2024-02-09 11:05 | Inpatient (IN) | payer MEDICARE, BC, SELFPAY ==
[2024-02-09] VITALS (22 sets, daily range): BP systolic 108–164; BP diastolic 61–81; PULSE 73–100; RESP 15–26; TEMP 36.6–38.3; O2SAT 93–100; BMI 37.4; BMI 36.3
--- NOTE | 2024-02-09 11:29 | EKG12_ITS ---
Test Reason : RO SEPSIS Blood Pressure : */* mmHG Vent. Rate : 96 BPM Atrial Rate : 96 BPM P-R Int : 184 ms QRS Dur : 160 ms QT Int : 392 ms P-R-T Axes : 52 27 -5 degrees QTcB Int : 495 ms Atrial-sensed ventricular-paced rhythm Abnormal ECG Confirmed by TAHIR BERMUDEZ, REYNALDO ([id number]), subeditor NICKY CASTRO ([id number]) on 02/10/2024 11:40:18 AM Referred By: AILEEN Confirmed By: REYNALDO HARO MD
[2024-02-09 11:53] LABS: Absolute Lymphocyte Count 1.06 X10^3/uL (0.83-4.51); Absolute Neutrophil Count 13.9 X10^3/uL (2.0-7.7); Basophil% 0.6 % (0-1); Eosinophil# 0.16 X10^3/uL; Hematocrit 43.7 % (40-54); Hemoglobin 15.4 g/dL (13.0-16.5); Lymphocyte # 1.06 X10^3/ul (0.83-4.51); Lymphocyte % 6.4 % (19-41); Mean Corp Hgb Conc 35.2 g/dL (32-36); Mean Corpuscular Hgb 30.9 pg (27.0-32.0); Mean Corpuscular Volume 87.8 fL (80-94); Monocyte% 6.7 % (0-10); NRBC Flagged by Analyzer 0 % (0-5); Neutrophil % 84.6 % (47-70); Platelet Count 250 K/mm3 (150-450); RBC Distribution Width CV 12.8 % (11.6-14.6); RBC Distribution Width SD 41.2 fl (35.1-43.9); Red Blood Count 4.98 M/mm3 (4.6-6.2); White Blood Count 16.4 K/mm3 (4.4-11.0)
[2024-02-09] MEDS: 0.9% Normal Saline (1000mL) 1,000 ML 999 ML IV ×4 (11:54→16:40)
[2024-02-09] MEDS: Piperacil/Tazobactam 4.5 GM in 0.9% Normal Saline (100mL MB+) 100 ML IV (11:55)
[2024-02-09 12:02] LABS: Partial Thromboplast Time 27.1 Seconds (24.1-36.2); Prothrombin Time (Protime)PT. 13.5 SECONDS (11.7-14.9)
[2024-02-09 12:09] LABS: AST(SGOT) 18 U/L (15-37); Alanine Aminotransfer ALT/SGPT 25 U/L (16-61); Albumin, Serum 3.8 g/dL (3.2-5.0); Alkaline Phosphatase 81 U/L (45-117); Anion Gap 8 (5-15); BUN 30 mg/dL (7-18); BUN/Creat Ratio 15.8 RATIO (10-20); Calcium,Total 9.7 mg/dL (8.5-10.1); Chloride 100 mmol/L (98-107); EST Glomerular Filtration Rate 38 mL/min (>60); Est Glom Filt Rate - Afr Amer 45 mL/min (>60); Estimated Creatinine Clearance 44.49 ml/min; Glucose 209 mg/dL (74-106); Potassium 4.5 mmol/L (3.5-5.1); Protein, Total 7.8 g/dL (6.4-8.2); Sodium Level 134 mmol/L (136-145)
--- NOTE | 2024-02-09 12:10 | EDS_ITS ---
HPI History of Present Illness Chief Complaint: Wound Detail of Chief Complaint: Wound left great toe with fever and chills Informant: patient and spouse/S.O. Occured/Mechanism Comment: Noted left great toe wound yesterday. Onset/Context/Timing Onset: Today (Fever and chills today) and Yesterday (Noticed wound for the first time) Context: Sudden Onset Timing: Intermittent Quality of Pain: - (No complaint of pain) Location: Left great toe Current Severity: Mild Maximum Severity: Mild Worsened by: Diabetes and vascular disease Relieved by: Nothing Associated Symptoms Associated Symptoms: Negative for Parasthesia, Weakness or Loss of Funtion Narrative Narrative: Patient is a 68-year-old male with history of coronary disease status post four- vessel CABG and placement of 2 stents in 1998 and 1999 respectively. 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 Patient states Dr. Cristobal cared for his foot infection in the past. There is no history of valvular heart disease. Patient is not on an anticoagulant. Prior similar symptoms: Yes Recent Illness/Hospitalization: No PFSH PFSH Medical History Obesity History of echocardiogram Insulin dependent diabetes mellitus High cholesterol Back pain Syncope Dietary restriction Non-smoker History of stress test Cardiology follow-up encounter History of heart attack Liver disease Diabetes Heart disease Hypertension Home Medications ?Medication ?Instructions ?Recorded ?Last Taken ?Type multivit,Ca,min-iron 8 mg-folic 1 tab PO DAILY supplement 09/16/19 10/07/20 History acid 200 mcg-lycopene 600 mcg tablet amlodipine 5 mg tablet 5 mg PO DAILY 12/08/22 Unknown History aspirin 81 mg tablet,delayed 81 mg PO DAILY 03/23/23 Unknown History release cholecalciferol (vitamin D3) 25 25 mcg PO DAILY 03/23/23 Unknown History mcg (1,000 unit) tablet lisinopril 20 mg tablet 20 mg PO BID 03/23/23 Unknown History furosemide 20 mg tablet 20 mg PO DAILY PRN 06/25/23 Unknown History pen needle, diabetic 32 gauge x #100 ea 06/25/23 Unknown Rx (BD Ultra-Fine [place] Pen Needle) blood-glucose sensor (FreeStyle #2 ea 01/07/24 Unknown Rx Rosalina 3 Sensor device) blood-glucose sensor (FreeStyle #6 ea 01/18/24 Unknown Rx Rosalina 3 Plus Sensor device) empagliflozin 25 mg tablet 25 mg PO DAILY #90 tabs 01/18/24 Unknown Rx (Jardiance) glimepiride 4 mg tablet 4 mg PO BID dm #180 tabs 01/18/24 Unknown Rx insulin glargine 100 unit/mL (3 50 unit (0.5 mL) subcut DAILY #15 01/18/24 Unknown Rx mL) subcutaneous pen (Basaglar mL KwikPen U-100 Insulin) metformin 1,000 mg tablet 1,000 mg PO BID dm #180 tabs 01/18/24 Unknown Rx omega-3 acid ethyl esters 1 gram 1 cap PO BID #180 caps 01/18/24 Unknown Rx capsule semaglutide 0.25 mg or 0.5 mg (2 0.5 mg (0.736 mL) subcut QWEEK #3 01/18/24 Unknown Rx mg/3 mL) subcutaneous pen injector mL (Ozempic) Allergy/AdvReac Type Severity Reaction Status Date / Time atorvastatin (From Lipitor) AdvReac Pain in Verified 02/09/24 11:43 joints rosuvastatin (From Crestor) AdvReac Pain in Verified 02/09/24 11:43 joints Family History Other CAD (coronary artery disease) Diabetes Surgical History History of cardiac catheterization Hx of colonoscopy Hx of right cataract extraction Hx of left cataract extraction Hx of angioplasty History of coronary artery stent placement Hx of angioplasty Hx of CABG History of back surgery Hx of appendectomy Social History Smoking Status: Never smoker ROS ROS ED Constitutional Constitutional ED: Reports chills, fever(s) and subjective; Denies sweats Eyes Eyes: Denies blurry vision or change in vision ENT ENT ED: Denies rhinorrhea or sore throat Cardiovascular Cardiovascular: Denies chest pain, orthopnea or palpitations Respiratory/Chest Respiratory/Chest: Denies cough, dyspnea, dyspnea on exertion or orthopnea Gastrointestinal Gastrointestinal: Reports nausea and vomiting; Denies abdominal pain or diarrhea Genitourinary Genitourinary ED: Denies dysuria, hematuria or urinary frequency Musculoskeletal Musculoskeletal: Denies arthralgias or myalgias Integumentary Reports rash and other Details: Rash left great toe. Neurologic Neurologic: Reports paresthesias Psychiatric Psychiatric: Denies anxiety or depression Endocrine Endocrinology: Denies polydipsia, polyphagia or polyuria Hematologic/Lymphatic Hematologic/Lymphatic: Denies easy bleeding or easy bruising EXAM Physical Exam Const Vital Signs: 02/09/24 11:05 02/09/24 11:09 02/09/24 11:29 Temperature 100.5 F H 100.9 F H Temperature Source Oral Oral Pulse Rate 100 99 Respiratory Rate 22 H 17 Blood Pressure 124/70 H 108/74 Blood Pressure Mean 88 85 Pulse Ox 100 93 93 Oxygen Delivery Method Room Air Room Air Room Air 02/09/24 12:09 Temperature 97.9 F Temperature Source Oral Pulse Rate 94 Respiratory Rate 19 H Blood Pressure 114/77 Blood Pressure Mean 89 Pulse Ox 93 Oxygen Delivery Method Room Air Positive well nourished and well developed Constitutional Narrative: Patient appears ill and flushed. Temperature 100.5. General Appearance ED: well developed; Negative for NAD HEENT HEENT Narrative: Mucosas slightly dry. normocephalic and atraumatic Eyes PERRL Eyes Narrative: Extract muscle intact. Sclera is anicteric. Conjunctive is normal. Neck full ROM and supple Chest Wall inspection of chest normal and palpation of chest normal Resp normal respiratory effort, no retractions and clear to auscultation bilaterally Cardio regular rate, regular rhythm, S1 normal heart sound, S2 normal heart sound and no murmurs GI non-tender, non-distended and no masses Palpation: soft Back/Spine no CVA tenderness Extremity Negative for normal to inspection Extremity Narrative: Patient has a wound plantar surface of the left great toe. There is evidence of cellulitis to the left great toe with lymphangitis to the proximal foot on the medial dorsal side. There is no popliteal or inguinal lymphadenopathy. DP pulses palpable and symmetric. Neuro oriented x3 and CN's II-XII intact bilaterally Sensorium / Orientation: alert Plantar Reflex: Downgoing: bilateral Skin Skin Narrative: Area of desquamation plantar surface of the great toe. There is erythema of the great toe with lymphangitis as previously described under the extremity portion of the EMR. Sepsis Attestation Sepsis Alert: Yes Date exam was performed: 02/09/24 Time exam was performed: 11:35 Possible Source of Sepsis: Wound Fluid Resuscitation Fluid resuscitation indicated?: Yes Amount of fluid ordered: 1,000 Reason for lesser fluid bolus:: Other (Since patient meets sepsis criteria since he has Medicare the hospitalist will administer the additional fluids.) MDM MDM MDM Narrative Medical decision making narrative: Patient has a foot infection with lymphangitis. With him having shaking chills suspect he is bacteremic at the minimum. Sepsis order set was initiated and sepsis treatment for diabetic foot infection. Patient had similar presentation and was ill for quite some time and had osteo at that time. History & Record Review Additional record(s) reviewed:: Prior inpatient record, Prior ED visit and Prior labs Lab Data Attestation: I reviewed the patient's lab results. Lab results narrative: White count is elevated at 16.4 thousand with shift. There is no bandemia. H&H is normal. Coags are normal. Electrolyte panel shows mild hyponatremia. Creatinine is elevated 1.9 with an estimated GFR of 38. BUN is 30. Transaminases are elevated. Most recent creatinine was 1.17 with an estimated GFR of 66. Lactate is elevated 2.2. Patient is on metformin. This could be due to infection as well as medication. Glucose is elevated at 209 with normal CO2 and anion gap. Labs: Laboratory Results - last 24 hr 02/09/24 02/09/24 11:44 12:50 WBC 16.4 H RBC 4.98 Hgb 15.4 Hct 43.7 MCV 87.8 MCH 30.9 MCHC 35.2 RDW Std Deviation 41.2 RDW Coeff of [place] 12.8 Plt Count 250 MPV 9.0 Immature Gran % (Auto) 0.700 Neut % (Auto) 84.6 H Lymph % (Auto) 6.4 L [place] % (Auto) 6.7 Eos % (Auto) 1.0 Baso % (Auto) 0.6 Absolute Neuts (auto) 13.9 H Absolute Lymphs (auto) 1.06 Nucleated RBC % 0 PT 13.5 INR 1.0 APTT 27.1 Sodium 134 L Potassium 4.5 Chloride 100 Carbon Dioxide 26.0 Anion Gap 8 BUN 30 H Creatinine 1.90 H Estim Creat Clear Calc 44.49 Est GFR (MDRD) Af Amer 45 L Est GFR (MDRD) Non-Af 38 L BUN/Creatinine Ratio 15.8 Glucose 209 H Lactic Acid 2.2 H* Calcium 9.7 Total Bilirubin 1.00 AST 18 ALT 25 Alkaline Phosphatase 81 Total Protein 7.8 Albumin 3.8 Globulin 4.0 Albumin/Globulin Ratio 1.0 Urine Color Yellow Urine Clarity Clear Urine pH 6.0 Ur Specific [place] 1.010 Urine Protein 15 H Urine Glucose (UA) 1000 H Urine Ketones 5 H Urine Occult Blood Negative Urine Nitrite Negative Urine Bilirubin Negative Urine Urobilinogen Normal Ur Leukocyte Esterase Negative Urine RBC 0 SEEN Urine WBC 0 SEEN Ur Squamous Epith Cells 0 SEEN Urine Bacteria 0 SEEN Urine Mucus 0 SEEN Management Discussion w/another healthcare provider: Hospitalist (Spoke with Dr. Solo. Patient meets criteria for sepsis. She will administer the additional fluids to achieve 30 cc/kg. Comparing prior blood pressures to today's patient's pressure is considered low.) Treatment and Re-Evaluation Narrative: Family and patient were made aware of results. Pages been placed to the hospitalist for admission. Critical Care Time Critical Care Time: Yes Critical care time (excluding procedures): 30-74 minutes (31), Including time spent: (History, physical, documentation, independent rotation laboratory results, initiation of treatment for sepsis.), Discussing w/Patient &/or Family/Car Repairer Helper, Discussing w/Consultants and Arranging Admission or Transfer (Admit to ICU for sepsis) Discharge Plan Dx/Rx/DC Orders Clinical Impression: Sepsis, Cellulitis of great toe of left foot, PAD (peripheral artery disease), Cardiovascular disease, Lymphangitis of lower extremity, Acidosis, lactic, Type 2 diabetes mellitus with hyperglycemia, Acute kidney injury Disposition Disposition: Acute Care [facility]
[2024-02-09] MEDS: Vancomycin HCl 2,000 MG in 0.9% Normal Saline (500mL Bag) 500 ML 250 MG IV (12:23)
[2024-02-09 12:37] LABS: Lactic Acid 2.2 mmol/L (0.4-1.9)
[2024-02-09 12:56] LABS: Bacteria 0 SEEN /hpf (None Seen); Mucous, Urine 0 SEEN /hpf (<or=2+); Red Blood Cells-Urine 0 SEEN /hpf (0-5); Squamous Epithelial Cells - UA 0 SEEN /hpf (0-5); White Blood Cells 0 SEEN /hpf (0-5)
[2024-02-09 12:58] LABS: Color, Urine Yellow (Yellow); Glucose, Dipstick 1000 mg/dl (Normal); Ketone-Dipstick 5 mg/dl (Negative); Leukocyte Esterase-Dipstick Negative /ul (Negative); Nitrite-Dipstick Negative (Negative); Occult Blood-Urine Negative /ul (Negative); Protein-Dipstick 15 mg/dl (Negative); Urine Bilirubin Dipstick Negative (Negative); Urine Clarity Clear (Clear); Urine Urobilinogen Normal (Normal)
--- NOTE | 2024-02-09 13:24 | HP.PCM.HOS_ITS ---
HPI - General General Date of Admission: 02/09/24 Date of Service: 02/09/24 Chief Complaint: Left foot wound HPI Narrative KIM KIM, is a 68 M who presented to the emergency department [facility] on 02/09/2024 with a chief complaint of left great toe wound with fever and chills. The patient has a history of sepsis related to a right foot infection related to osteomyelitis previously and has followed with Dr. Cruz in the past. Previous infection was with MSSA. He also has known peripheral vascular disease with previous angioplasty done by Dr. Lopez. Most recent ABIs were normal in August 2023. Patient indicated he had a temperature at home of 100.9. Patient does not check his feet on a regular basis and his wound was just noticed yesterday. Fever and chills started today. He denies any chest pain or shortness of breath and has been feeling well otherwise. Vital signs on presentation showed a temperature of 100.5 with a Tmax of 100.9, heart rate was 100, respiratory 22, blood pressure was 124/70 with a repeat at 108/74 and pulse ox was 100% on room air. CBC shows a significant leukocytosis with a white count of 16.4 and a left shift with an 84.6% neutrophilia. Coags are normal. Chemistry panel shows AGUSTIN with a BUN of 30 and a serum creatinine of 1.90. Glucose was 209. Patient did have a recent hemoglobin A1c on 12/16/2023 which was 7.7. Lactic acid was 2.2. CRP was 69.2 and ESR was 18. UA is not consistent with infection. Blood culture was obtained in the emergency department and request for admission was made. He was given IV antibiotics after cultures were obtained. Patient was treated with 30 cc bolus of IV fluids. [facility] Medical History Obesity History of echocardiogram Insulin dependent diabetes mellitus High cholesterol Back pain Syncope Dietary restriction Non-smoker History of stress test Cardiology follow-up encounter History of heart attack Liver disease Diabetes Heart disease Hypertension Home Medications ?Medication ?Instructions ?Recorded ?Last Taken ?Type multivit,Ca,min-iron 8 mg-folic 1 tab PO DAILY supplement 09/16/19 02/08/24 History acid 200 mcg-lycopene 600 mcg tablet amlodipine 5 mg tablet 5 mg PO DAILY 12/08/22 02/09/24 History aspirin 81 mg tablet,delayed 81 mg PO DAILY 03/23/23 02/09/24 History release cholecalciferol (vitamin D3) 25 25 mcg PO DAILY 03/23/23 02/09/24 History mcg (1,000 unit) tablet lisinopril 20 mg tablet 20 mg PO BID 03/23/23 02/09/24 History furosemide 20 mg tablet 20 mg PO DAILY PRN edema 06/25/23 02/09/24 History pen needle, diabetic 32 gauge x #100 ea 06/25/23 Unknown Rx (BD Ultra-Fine [place] Pen Needle) blood-glucose sensor (FreeStyle #2 ea 01/07/24 Unknown Rx Rosalina 3 Sensor device) blood-glucose sensor (FreeStyle #6 ea 01/18/24 Unknown Rx Rosalina 3 Plus Sensor device) empagliflozin 25 mg tablet 25 mg PO DAILY #90 tabs 01/18/24 02/09/24 Rx (Jardiance) glimepiride 4 mg tablet 4 mg PO BID dm #180 tabs 01/18/24 Unknown Rx insulin glargine 100 unit/mL (3 50 unit (0.5 mL) subcut DAILY #15 01/18/24 Unknown Rx mL) subcutaneous pen (Basaglar mL KwikPen U-100 Insulin) metformin 1,000 mg tablet 1,000 mg PO BID dm #180 tabs 01/18/24 02/09/24 Rx semaglutide 0.25 mg or 0.5 mg (2 0.5 mg (0.736 mL) subcut QWEEK #3 01/18/24 02/06/24 Rx mg/3 mL) subcutaneous pen injector mL (Ozempic) Allergy/AdvReac Type Severity Reaction Status Date / Time atorvastatin (From Lipitor) AdvReac Pain in Verified 02/09/24 13:27 joints rosuvastatin (From Crestor) AdvReac Pain in Verified 02/09/24 13:27 joints Family History Other CAD (coronary artery disease) Diabetes Surgical History History of cardiac catheterization Hx of colonoscopy Hx of right cataract extraction Hx of left cataract extraction Hx of angioplasty History of coronary artery stent placement Hx of angioplasty Hx of CABG History of back surgery Hx of appendectomy Social History (Updated 02/09/24 @ 19:[address] Charu Solo DO) household members: spouse housing: house Smoking Status: Never smoker alcohol intake: never substance use type: does not use ROS Constitutional Constitutional: Reports chills, fever(s) and malaise; Denies anorexia, change in weight, fatigue, night sweats, weakness or other Eyes Eyes: Denies blurry vision, change in eye color, change in vision, discharge from eye(s), double vision, erythema, eye pain, loss of vision or other ENT HEENT: Denies abnormal hearing, dysphagia, ear pain, epistaxis, headache(s), hearing loss, nasal congestion, nasal discharge, post nasal drip, sinus pressure, sore throat or other Cardiovascular Cardiovascular: Denies chest pain, claudication, dyspnea on exertion, edema, lightheadedness, orthopnea, palpitations, paroxysmal nocturnal dyspnea, rapid heart rate, syncope or other Respiratory/Chest Respiratory/Chest: Denies cough, dyspnea, excessive phlegm production, hemoptysis, productive cough, shortness of breath at rest, shortness of breath with exertion, wheezing or other Gastrointestinal Gastrointestinal: Denies abdominal pain, coffee ground emesis, constipation, diarrhea, dyspepsia, hematemesis, hematochezia, loose stools, melena, nausea, vomiting or other Genitourinary Genitourinary: Denies burning urination, difficulty urinating, dysuria, hematuria, nocturia, urinary frequency, urinary hesitancy, urinary incontinence, urinary urgency or other Musculoskeletal Musculoskeletal: Denies arthralgias, back pain, joint pain, joint stiffness, joint swelling, myalgias, neck pain or other Neurologic Neurologic: Denies abnormal gait, abnormal speech, confusion, disequilibrium, dizziness, focal weakness, headache(s), numbness, paresthesias, seizure-like activity, seizures, syncope, tingling, tremor(s) or other Psychiatric Psychiatric: Denies anxiety, depression, homicidal ideation, suicidal ideation or other Endocrine Endocrinology: Denies change in body appearance, cold intolerance, excessive sweating, heat intolerance, polydipsia, polyuria or other Hematologic/Lymphatic Hematologic/Lymphatic: Denies anemia, easy bleeding, easy bruising, lymphadenopathy or other Allergic/Immunologic Allergic/Immunologic: Denies rhinitis, hives, eczemia, asthma or other Vital Signs Vital Signs Vital Signs: 02/09/24 11:05 02/09/24 11:09 02/09/24 11:29 Temperature 100.5 F H 100.9 F H Temperature Source Oral Oral Pulse Rate 100 99 Respiratory Rate 22 H 17 Blood Pressure 124/70 H 108/74 Blood Pressure Mean 88 85 Pulse Ox 100 93 93 Oxygen Delivery Method Room Air Room Air Room Air 02/09/24 12:09 Temperature 97.9 F Temperature Source Oral Pulse Rate 94 Respiratory Rate 19 H Blood Pressure 114/77 Blood Pressure Mean 89 Pulse Ox 93 Oxygen Delivery Method Room Air Weight Weight: 111.7 kg Body Mass Index (BMI) 37.4 Physical Exam Const alert, oriented x3, no apparent distress, healthy appearing and well nourished; Negative for average body habitus Constitutional Narrative: Obese, pleasant, upper middle-aged, white male, sitting up in bed, family at bedside, appears comfortable, nontoxic appearing General Appearance: cooperative HEENT normocephalic, head/scalp atraumatic, hearing grossly normal bilaterally and moist oral mucous membranes HEENT Narrative: Mallampati 3, no thrush Eyes PERRL and conjunctivae normal Eyes Narrative: No scleral icterus Neck no lymphadenopathy and supple Neck Narrative: Trachea midline, no thyroid enlargement Resp normal respiratory effort, no retractions, no use of accessory muscles and clear to auscultation bilaterally Auscultation: Negative for rales, rhonchi or wheezes Cardio regular rate, regular rhythm, S1 normal heart sound, S2 normal heart sound, no murmurs, no rub, no gallops and no clicks GI normal to inspection, nondistended, normoactive bowel sounds, soft to palpation and non-tender Extremity Extremity Narrative: No clubbing or cyanosis, mild edema left foot related to infection Skin Skin Narrative: Left foot on the plantar surface of his hallux and into the midfoot with erythema and what appears to be some blistering underneath the joint at the DIP of the hallux, no significant drainage noted at this time Neuro oriented x3, moves all extremities and no focal motor deficits Neuro Narrative: Patient with decreased sensation bilateral distal lower extremities from neuropathy Speech: speech normal Psych affect normal Psych Narrative: Very pleasant, interacts appropriately Results Lab / Micro Data 02/09/24 11:44 02/09/24 11:44 Labs: Laboratory Results - last 24 hr 02/09/24 11:44: WBC 16.4 H, RBC 4.98, Hgb 15.4, Hct 43.7, MCV 87.8, MCH 30.9, MCHC 35.2, RDW Std Deviation 41.2, RDW Coeff of [place] 12.8, Plt Count 250, MPV 9.0, Immature Gran % (Auto) 0.700, Neut % (Auto) 84.6 H, Lymph % (Auto) 6.4 L, [place] % (Auto) 6.7, Eos % (Auto) 1.0, Baso % (Auto) 0.6, Absolute Neuts (auto) 13.9 H, Absolute Lymphs (auto) 1.06, Nucleated RBC % 0, PT 13.5, INR 1.0, APTT 27.1, Sodium 134 L, Potassium 4.5, Chloride 100, Carbon Dioxide 26.0, Anion Gap 8, BUN 30 H, Creatinine 1.90 H, Estim Creat Clear Calc 44.49, Est GFR (MDRD) Af Amer 45 L, Est GFR (MDRD) Non-Af 38 L, BUN/Creatinine Ratio 15.8, Glucose 209 H, Lactic Acid 2.2 H*, Calcium 9.7, Total Bilirubin 1.00, AST 18, ALT 25, Alkaline Phosphatase 81, Total Protein 7.8, Albumin 3.8, Globulin 4.0, Albumin/Globulin Ratio 1.0 02/09/24 12:50: Urine Color Yellow, Urine Clarity Clear, Urine pH 6.0, Ur Specific [place] 1.010, Urine Protein 15 H, Urine Glucose (UA) 1000 H, Urine Ketones 5 H, Urine Occult Blood Negative, Urine Nitrite Negative, Urine Bilirubin Negative, Urine Urobilinogen Normal, Ur Leukocyte Esterase Negative, Urine RBC 0 SEEN, Urine WBC 0 SEEN, Ur Squamous Epith Cells 0 SEEN, Urine Bacteria 0 SEEN, Urine Mucus 0 SEEN Assessment & Plan Assessment/Plan (1) Sepsis: (2) Acute kidney injury: (3) Acidosis, lactic: (4) Lymphangitis of lower extremity: (5) Cellulitis of great toe of left foot: (6) Leukocytosis: PLAN: Plan Sepsis secondary to cellulitis of the left foot -Patient met sepsis criteria with endorgan damage showing a lactic acidosis and AGUSTIN, leukocytosis, and a source of infection -Treated with 30 cc/kg body weight bolus and had fluid responsive symptoms -Patient with previous bacteremia with MSSA in 2020 due to right lower extremity diabetic foot wound -Wound and blood cultures are pending -Continue vancomycin and Zosyn -Will monitor overnight in the ICU and if remains stable may be able to transfer out tomorrow -ESR is normal and sed rate is elevated but not markedly elevated -Podiatry consultation for assistance with management -Critical care medicine is consulted-appreciate input Elevated serum creatinine with suspected AGUSTIN -Current baseline serum creatinine is unknown however last known is 1.17 in 2020 -Serum creatinine on presentation is 1.9 -Fluid boluses as noted above -Avoid nephrotoxins as able -Repeat lab in a.m. Lactic acidosis -Related to the above -Cycle per sepsis protocol Leukocytosis -Likely related to the above -Will trend with treatment should improve DM-2 -Most recent A1c in November was 7.7 -Patient follows with endocrinology as an outpatient -Will continue Jardiance -Hold home glimepiride -Will continue basal insulin at lower dose due to AGUSTIN and reevaluate tomorrow -Hold home metformin -SSI -Hold home semaglutide -Cardiac/carb controlled diet Peripheral vascular disease -Previous angioplasty -Most recent ABIs done in August 2023 were normal -Continue home aspirin HTN/HPL -Hold home lisinopril now with acute kidney injury -Continue home amlodipine -Hold home diuretic -Patient not on statin therapy due to allergy Obesity -BMI 36.6 -recommend weight loss -Complicates treatment, prognosis, outcomes DVT prophylaxis -Subcu heparin 3 times daily CODE STATUS -DNR CCA with no intubation as discussed with family at the bedside at the time of admission Sepsis Attestation Sepsis Alert: Yes Sepsis Attestation: Agree w/Sepsis Date exam was performed: 02/09/24 Time exam was performed: 13:24 Possible Source of Sepsis: Skin/soft tissue Sepsis Organ Dysfunction Criteria Present: SBP decrease of more than 40 mmHg and Lactic Acid > 2 mmol/L Supportive Findings: New AGUSTIN Fluid Resuscitation Fluid Resuscitation ordered: 30 ml/kg fluid bolus ordered Amount of fluid ordered: 3,500 Sepsis Note Date exam was performed: 02/09/24 Time exam was performed: 17:14 Sepsis Attestation: Sepsis re-evaluation was performed (pt was fluid responsive) Charges/Coding Visit Charges Inpatient E&M: 60939 Init Hosp L2
[2024-02-09 13:31] LABS: Erythrocyte Sedimentation Rate 18 mm/hr (0-20)
--- NOTE | 2024-02-09 13:46 | CON.PCM.CC_ITS ---
Assessment & Plan Assessment/Plan (1) Sepsis: (2) Acute kidney injury: PLAN: Plan RECOMMENDATIONS: 1. Okay with discontinuation of fluid boluses, given hemodynamic stability. 2. Follow-up lactate per protocol. 3. Empiric antibiotics as ordered. 4. Podiatry consultation is pending. 5. Local wound care. IMPRESSIONS: 1. Sepsis The patient presented with sepsis due to lower extremity wound with cellulitis, with acute sepsis related organ dysfunction as evidenced by lactic acidemia. However, the patient is on metformin at his baseline, which could have contributed to his lactic acidosis. The patient is otherwise hemodynamically stable. He has been initiated on appropriate broad-spectrum antimicrobials. Consultation to podiatry is currently pending. 2. Acute versus chronic kidney disease Unclear baseline. The patient had an elevated creatinine at 1.4 last reported in our system in April 2020. It is certainly plausible that the patient may have progressive medical renal disease related to his comorbidities. 3. History of peripheral vascular disease status post angioplasty/hypertension/diabetes mellitus/coronary artery disease Complicates care, management, recovery and prognosis. Continue to hold metformin for now. Remainder of supportive care as noted above. This note was generated with [employer] dictation software. It may contain incorrect words, spelling, and punctuation that were not noted in checking the note before signing. HPI Consult Data Date of Consult: 02/10/24 HPI Narrative Reason for Consultation: Sepsis HPI Narrative: The patient is a 68-year-old male, with a history as outlined below, who presented to the emergency department on February 08 with fevers and a wound to his left great toe. The patient has a known history of poorly controlled diabetes mellitus, hypertension, hyperlipidemia and coronary artery disease. The patient does have a history of lower extremity wounds, which have demonstrated growth of MSSA in 2020. In addition, the patient has a known history of peripheral vascular disease status post angioplasty of the right lower extremity. He has been followed by Dr. Lopez in the past. Resting ankle-brachial indices completed in August 2023 were normal bilaterally. On presentation to the emergency department, the patient was documented to be febrile with a temperature of 100.9 ?F. The patient was otherwise hemodynamically stable and maintaining appropriate oxygen saturations on room air. Laboratory evaluation revealed an elevated white blood cell count of 16,000. Coagulation profile was unremarkable. Chemistry profile was notable for an elevated creatinine at 1.9. Lactate was mildly elevated at 2.2. Total bilirubin was within normal limits. CRP was elevated at 69. Urine analysis was unremarkable. The patient received supplemental IV fluid hydration and was initiated on antimicrobials. He was subsequently admitted to the medical intensive care unit for further management. On arrival to the ICU, the patient was nontoxic in appearance and hemodynamically stable with a presenting blood pressure of 150 mm systolic. His family is present at the bedside. FORMERLY [facility], 1928–1983 Medical History Obesity History of echocardiogram Insulin dependent diabetes mellitus High cholesterol Back pain Syncope Dietary restriction Non-smoker History of stress test Cardiology follow-up encounter History of heart attack Liver disease Diabetes Heart disease Hypertension Home Medications ?Medication ?Instructions ?Recorded ?Last Taken ?Type multivit,Ca,min-iron 8 mg-folic 1 tab PO DAILY supplement 09/16/19 02/08/24 History acid 200 mcg-lycopene 600 mcg tablet amlodipine 5 mg tablet 5 mg PO BID HTN 12/08/22 02/09/24 History aspirin 81 mg tablet,delayed 81 mg PO DAILY 03/23/23 02/09/24 History release cholecalciferol (vitamin D3) 25 25 mcg PO DAILY 03/23/23 02/09/24 History mcg (1,000 unit) tablet lisinopril 20 mg tablet 20 mg PO BID 03/23/23 02/09/24 History furosemide 20 mg tablet 20 mg PO DAILY PRN edema 06/25/23 02/09/24 History pen needle, diabetic 32 gauge x #100 ea 06/25/23 Unknown Rx 32 (BD Ultra-Fine [place] Pen Needle) blood-glucose sensor (FreeStyle #2 ea 01/07/24 Unknown Rx Rosalina 3 Sensor device) blood-glucose sensor (FreeStyle #6 ea 01/18/24 Unknown Rx Rosalina 3 Plus Sensor device) empagliflozin 25 mg tablet 25 mg PO DAILY #90 tabs 01/18/24 02/09/24 Rx (Jardiance) glimepiride 4 mg tablet 4 mg PO BID dm #180 tabs 01/18/24 Unknown Rx insulin glargine 100 unit/mL (3 50 unit (0.5 mL) subcut DAILY #15 01/18/24 Unknown Rx mL) subcutaneous pen (Basaglar mL KwikPen U-100 Insulin) metformin 1,000 mg tablet 1,000 mg PO BID dm #180 tabs 01/18/24 02/09/24 Rx semaglutide 0.25 mg or 0.5 mg (2 0.5 mg (0.736 mL) subcut QWEEK #3 01/18/24 02/06/24 Rx mg/3 mL) subcutaneous pen injector mL (Ozempic) Allergy/AdvReac Type Severity Reaction Status Date / Time atorvastatin (From Lipitor) AdvReac Pain in Verified 02/09/24 13:27 joints rosuvastatin (From Crestor) AdvReac Pain in Verified 02/09/24 13:27 joints Family History Other CAD (coronary artery disease) Diabetes Surgical History History of cardiac catheterization Hx of colonoscopy Hx of right cataract extraction Hx of left cataract extraction Hx of angioplasty History of coronary artery stent placement Hx of angioplasty Hx of CABG History of back surgery Hx of appendectomy Social History (Updated 02/09/24 @ 19:[address] Charu Solo DO) household members: spouse housing: house Smoking Status: Never smoker alcohol intake: never substance use type: does not use ROS ROS Narrative 10 systems were reviewed with pertinent positives as noted in the HPI above. Physical Exam Const alert, oriented x3 and no apparent distress General Appearance: cooperative HEENT normocephalic, head/scalp atraumatic and moist oral mucous membranes Eyes PERRL, EOMs intact bilaterally and conjunctivae normal Neck supple General: trachea midline Chest inspection of chest normal Resp normal respiratory effort Auscultation: Negative for rales, rhonchi or wheezes Cardio regular rate and regular rhythm GI normal to inspection, nondistended, normoactive bowel sounds Extremity no clubbing, cyanosis or edema Skin Skin Narrative: There is a superficial wound on the plantar aspect of the left great toe with mild surrounding erythema. Pedal pulses are palpable. Neuro oriented x3, CN's II-XII intact bilaterally, moves all extremities and no focal motor deficits Psych cooperative and affect normal Lab / Micro Data 02/09/24 11:44 02/09/24 11:44 Labs: Laboratory Results - last 24 hr 02/09/24 11:44: WBC 16.4 H, RBC 4.98, Hgb 15.4, Hct 43.7, MCV 87.8, MCH 30.9, MCHC 35.2, RDW Std Deviation 41.2, RDW Coeff of [place] 12.8, Plt Count 250, MPV 9.0, Immature Gran % (Auto) 0.700, Neut % (Auto) 84.6 H, Lymph % (Auto) 6.4 L, [place] % (Auto) 6.7, Eos % (Auto) 1.0, Baso % (Auto) 0.6, Absolute Neuts (auto) 13.9 H, Absolute Lymphs (auto) 1.06, Nucleated RBC % 0, PT 13.5, INR 1.0, APTT 27.1, Sodium 134 L, Potassium 4.5, Chloride 100, Carbon Dioxide 26.0, Anion Gap 8, BUN 30 H, Creatinine 1.90 H, Estim Creat Clear Calc 44.49, Est GFR (MDRD) Af Amer 45 L, Est GFR (MDRD) Non-Af 38 L, BUN/Creatinine Ratio 15.8, Glucose 209 H, Lactic Acid 2.2 H*, Calcium 9.7, Total Bilirubin 1.00, AST 18, ALT 25, Alkaline Phosphatase 81, Total Protein 7.8, Albumin 3.8, Globulin 4.0, Albumin/Globulin Ratio 1.0 02/09/24 11:46: ESR 18, C-React Prot Ext Range 69.20 H 02/09/24 12:50: Urine Color Yellow, Urine Clarity Clear, Urine pH 6.0, Ur Specific [place] 1.010, Urine Protein 15 H, Urine Glucose (UA) 1000 H, Urine Ketones 5 H, Urine Occult Blood Negative, Urine Nitrite Negative, Urine Bilirubin Negative, Urine Urobilinogen Normal, Ur Leukocyte Esterase Negative, Urine RBC 0 SEEN, Urine WBC 0 SEEN, Ur Squamous Epith Cells 0 SEEN, Urine Bacteria 0 SEEN, Urine Mucus 0 SEEN Sepsis Attestation Sepsis Attestation: Agree w/Sepsis Date exam was performed: 02/09/24 Time exam was performed: 14:21 Possible Source of Sepsis: Skin/soft tissue Sepsis Organ Dysfunction Criteria Present: Lactic Acid > 2 mmol/L Fluid Resuscitation Fluid resuscitation indicated?: Yes Fluid Resuscitation ordered: 30 ml/kg fluid bolus ordered Charges/Coding Visit Charges Inpatient E&M: 28207 Init Hosp L3
[2024-02-09 14:19] LABS: Bedside Glucose 226 mg/dL (74-106)
--- NOTE | 2024-02-09 15:03 | PCM.RX.CS ---
Consult Antibiotic Management Pharmacy has been consulted to manage selected antibiotic: Vancomycin Type of Intervention Type of Consult: New start Suspected Infection Suspected Infection: Sepsis and Other (diabetic foot infection) Labs Labs: Sodium 134 mmol/L (136-145) L 02/09/24 11:44 Potassium 4.5 mmol/L (3.5-5.1) 02/09/24 11:44 Chloride 100 mmol/L (98-107) 02/09/24 11:44 Carbon Dioxide 26.0 mmol/L (21.0-32.0) 02/09/24 11:44 Anion Gap 8 (5-15) 02/09/24 11:44 BUN 30 mg/dL (7-18) H 02/09/24 11:44 Creatinine 1.90 mg/dL (0.70-1.30) H 02/09/24 11:44 Est GFR (MDRD) Af Amer 45 mL/min (>60) L 02/09/24 11:44 Est GFR (MDRD) Non-Af 38 mL/min (>60) L 02/09/24 11:44 BUN/Creatinine Ratio 15.8 RATIO (10-20) 02/09/24 11:44 Glucose 209 mg/dL (74-106) H 02/09/24 11:44 Pharmacy Plan for Drug Dosing Pharmacy Plan for Drug Dosing: NEW START IV VANCOMYCIN Consulting Physician: Cindy VILLANUEVA Indication: Sepsis/Diabetic foot infection Goal Trough: 15-20 mg/dL SrCr: 1.9 mg/dL CrCl: 44 mL/min Comments: loading dose of 2000mg given 02/09/24 @ 1223 Vancomycin Dose: Will start 1000mg Q12 and get a level prior to the 4th total dose per policy. Pending Level: 02/11/24 @ 0000 Pharmacy Service will continue to monitor and adjust dosing as required.
[2024-02-09] MEDS: Heparin Injection (Vial) 5,000 UNIT/ML VIAL 5000 UNIT SC ×2 (15:10→21:49)
[2024-02-09 15:48] LABS: Reflex Lactate? Y
[2024-02-09 16:20] LABS: Bedside Glucose 79 mg/dL (74-106)
[2024-02-09 17:31] LABS: Lactic Acid 1.2 mmol/L (0.4-1.9)
[2024-02-09] MEDS: Piperacil/Tazobactam 3.375 GM in 0.9% Normal Saline (50mL MB+) 50 ML IV (21:49)
[2024-02-09] MEDS: Acetaminophen 325 MG Tablet 650 MG PO (22:03)
[2024-02-09 22:13] LABS: Bedside Glucose 107 mg/dL (74-106)
[2024-02-10] VITALS (12 sets, daily range): BP systolic 123–164; BP diastolic 64–80; PULSE 67–75; RESP 14–17; TEMP 36.5–36.7; O2SAT 94–99; BMI 36.3
[2024-02-10] MEDS: Vancomycin IV 1,000 MG/200 ML BAG 200 MG IV ×2 (02:11→12:19)
[2024-02-10] MEDS: Piperacil/Tazobactam 3.375 GM in 0.9% Normal Saline (50mL MB+) 50 ML IV ×3 (05:30→20:59)
[2024-02-10] MEDS: Heparin Injection (Vial) 5,000 UNIT/ML VIAL 5000 UNIT SC ×3 (05:30→21:00)
--- NOTE | 2024-02-10 05:52 | PCM.PN.INT ---
Assessment & Plan Assessment/Plan (1) Sepsis: (2) Acute kidney injury: PLAN: Plan RECOMMENDATIONS: 1. Empiric antibiotics as ordered. 2. Continue local wound care. 3. Encourage incentive spirometer use and mobilize patient as tolerated. 4. The patient is medically stable for transfer out of the intensive care unit. Will sign off at this time. IMPRESSIONS: 1. Sepsis The patient presented with sepsis due to lower extremity wound with cellulitis, with acute sepsis related organ dysfunction as evidenced by lactic acidemia. However, the patient is on metformin at his baseline, which could have contributed to his lactic acidosis. The patient is otherwise hemodynamically stable. He has been initiated on appropriate broad-spectrum antimicrobials. Podiatry is following without any urgent plans for surgical intervention. Continue local wound care. 2. History of peripheral vascular disease status post angioplasty/hypertension/diabetes mellitus/coronary artery disease Complicates care, management, recovery and prognosis. Continue to hold metformin for now. Remainder of supportive care as noted above. This note was generated with [employer] dictation software. It may contain incorrect words, spelling, and punctuation that were not noted in checking the note before signing. Subjective Subjective The patient was seen and examined at the bedside this morning. Events from the last 24 hours have been reviewed. The patient is currently afebrile, hemodynamically stable and maintaining appropriate oxygen saturations on room air. White blood cell count is normal. Creatinine has improved to 1.4. The patient has no specific complaints. Podiatry is not planning any form of surgical intervention. Objective Data Objective Data The patient's most recent lab work, culture data and imaging studies have all been personally reviewed. Blood, urine and wound cultures are pending. Vital Signs: Vital Signs Temp Pulse Resp BP Pulse Ox O2 Del Method 97.9 F 73 16 132/70 H 97 Room Air 02/10/24 00:00 02/10/24 05:00 02/10/24 05:00 02/10/24 05:00 02/10/24 05:00 02/10/24 05:00 Oxygen Delivery Method Room Air Weight: 246 lb 0.574 oz Body Mass Index (BMI) 36.3 Intake & Output: Intake and Output for Last 24 Hours 02/08/24 02/09/24 02/10/24 23:59 23:59 23:59 Intake Total 4398.5 / 4758.5 610 / 610 Output Total 300 / 300 450 / 450 Balance 4098.5 / 4458.5 160 / 160 Lab / Micro Data Attestation: I reviewed the patient's lab results. 02/10/24 05:50 02/10/24 05:50 Labs: Laboratory Results - last 24 hr 02/09/24 11:37: POC Glucose 226 H 02/09/24 11:44: WBC 16.4 H, RBC 4.98, Hgb 15.4, Hct 43.7, MCV 87.8, MCH 30.9, MCHC 35.2, RDW Std Deviation 41.2, RDW Coeff of [place] 12.8, Plt Count 250, MPV 9.0, Immature Gran % (Auto) 0.700, Neut % (Auto) 84.6 H, Lymph % (Auto) 6.4 L, [place] % (Auto) 6.7, Eos % (Auto) 1.0, Baso % (Auto) 0.6, Absolute Neuts (auto) 13.9 H, Absolute Lymphs (auto) 1.06, Nucleated RBC % 0, PT 13.5, INR 1.0, APTT 27.1, Sodium 134 L, Potassium 4.5, Chloride 100, Carbon Dioxide 26.0, Anion Gap 8, BUN 30 H, Creatinine 1.90 H, Estim Creat Clear Calc 44.49, Est GFR (MDRD) Af Amer 45 L, Est GFR (MDRD) Non-Af 38 L, BUN/Creatinine Ratio 15.8, Glucose 209 H, Lactic Acid 2.2 H*, Calcium 9.7, Total Bilirubin 1.00, AST 18, ALT 25, Alkaline Phosphatase 81, Total Protein 7.8, Albumin 3.8, Globulin 4.0, Albumin/Globulin Ratio 1.0 02/09/24 11:46: ESR 18, C-React Prot Ext Range 69.20 H 02/09/24 12:50: Urine Color Yellow, Urine Clarity Clear, Urine pH 6.0, Ur Specific [place] 1.010, Urine Protein 15 H, Urine Glucose (UA) 1000 H, Urine Ketones 5 H, Urine Occult Blood Negative, Urine Nitrite Negative, Urine Bilirubin Negative, Urine Urobilinogen Normal, Ur Leukocyte Esterase Negative, Urine RBC 0 SEEN, Urine WBC 0 SEEN, Ur Squamous Epith Cells 0 SEEN, Urine Bacteria 0 SEEN, Urine Mucus 0 SEEN 12/10/24 15:57: POC Glucose 79 02/09/24 16:00: Lactic Acid 1.2 02/09/24 21:51: POC Glucose 107 H Micro: Microbiology 02/09/24 13:23 Wound - Left Foot Skin and Soft Tissue MRSA/MSSA (PCR - Final 02/09/24 14:10 Wound Abcess - Left Foot Gram Stain - Final Physical Exam Const alert, oriented x3 and no apparent distress Constitutional Narrative: Sitting in bedside recliner. General Appearance: cooperative HEENT normocephalic, head/scalp atraumatic and moist oral mucous membranes Eyes PERRL, EOMs intact bilaterally and conjunctivae normal Neck supple General: trachea midline Chest inspection of chest normal Resp normal respiratory effort Auscultation: Negative for rales, rhonchi or wheezes Cardio regular rate and regular rhythm GI normal to inspection, nondistended, normoactive bowel sounds Extremity no clubbing, cyanosis or edema Skin Skin Narrative: There is a superficial wound on the plantar aspect of the left great toe with mild surrounding erythema. Neuro oriented x3, CN's II-XII intact bilaterally, moves all extremities and no focal motor deficits Psych cooperative and affect normal Charges/Coding Visit Charges Inpatient E&M: 03502 Subs Hosp L2
[2024-02-10 06:09] LABS: Absolute Lymphocyte Count 1.54 X10^3/uL (0.83-4.51); Absolute Neutrophil Count 6.2 X10^3/uL (2.0-7.7); Basophil# 0.07 X10^3/uL; Basophil% 0.8 % (0-1); Eosinophil# 0.14 X10^3/uL; Eosinophils% 1.6 % (0-5); Hematocrit 40.4 % (40-54); Hemoglobin 14.2 g/dL (13.0-16.5); Lymphocyte # 1.54 X10^3/ul (0.83-4.51); Lymphocyte % 17.7 % (19-41); Mean Corp Hgb Conc 35.1 g/dL (32-36); Mean Corpuscular Hgb 31.1 pg (27.0-32.0); Mean Corpuscular Volume 88.4 fL (80-94); Mean Platelet Vol. 8.7 fl (6.2-12.0); Monocyte# 0.72 X10^3/uL; Monocyte% 8.3 % (0-10); NRBC Flagged by Analyzer 0 % (0-5); Neutrophil # 6.17 X10^3/uL (2.7-7.7); Neutrophil % 70.8 % (47-70); Platelet Count 222 K/mm3 (150-450); Red Blood Count 4.57 M/mm3 (4.6-6.2); White Blood Count 8.7 K/mm3 (4.4-11.0)
--- NOTE | 2024-02-10 06:23 | RAD_ITS ---
EXAM: XR LEFT FOOT COMPLETE, 3 OR MORE VIEWS CLINICAL INDICATION: ulcer left foot TECHNIQUE: Frontal, lateral and oblique views of the left foot. COMPARISON: Left foot from 01/28/2020 FINDINGS: BONES/JOINTS: Degenerative changes in the midfoot. Degenerative changes of the first MTP joint. No acute fracture. No subluxation. Normal alignment. No sclerotic or destructive changes observed. SOFT TISSUES: Soft tissue swelling adjacent to the fifth metatarsal head and fifth MTP joint. No radiopaque foreign body. VASCULATURE: Small vessel arterial calcifications. RAD/Foot min 3 Views IMPRESSION: Soft tissue swelling adjacent to the fifth metatarsal head and fifth MTP joint. No acute osseous findings. Follow up with additional imaging if clinically indicated. Electronically Signed: Brendan Rubin MD at 7:53 EST ,
[2024-02-10 06:31] LABS: ALB/GLOB Ratio 0.9 RATIO (0.9-2.4); AST(SGOT) 16 U/L (15-37); Alanine Aminotransfer ALT/SGPT 20 U/L (16-61); Albumin, Serum 3.3 g/dL (3.2-5.0); Alkaline Phosphatase 87 U/L (45-117); Anion Gap 5 (5-15); BUN 23 mg/dL (7-18); Calcium,Total 9.1 mg/dL (8.5-10.1); Chloride 106 mmol/L (98-107); Creatinine, Serum 1.44 mg/dL (0.70-1.30); EST Glomerular Filtration Rate 52 mL/min (>60); Est Glom Filt Rate - Afr Amer 63 mL/min (>60); Estimated Creatinine Clearance 59.62 ml/min; Globulin 3.6 g/dL (2.2-4.2); Glucose 91 mg/dL (74-106); Magnesium 2.3 mg/dL (1.6-2.6); Phosphorus 2.9 mg/dL (2.5-4.9); Protein, Total 6.9 g/dL (6.4-8.2); Sodium Level 136 mmol/L (136-145)
--- NOTE | 2024-02-10 06:32 | PCM.CONS.GEN ---
Assessment & Plan Assessment/Plan (1) Leukocytosis: PLAN: White blood cell count trending downward., Most noted ESR is 18, CRP was 69 but it is showing signs of infection sed rate being low is a low chance of osteomyelitis. MRI pending to see if there is abscess. (2) Sepsis: PLAN: Resolving (3) Type 2 diabetes mellitus with hyperglycemia: PLAN: Controlled for now. May order new A1c (4) Cellulitis of great toe of left foot: PLAN: Cellulitis is also resolving and seems to be localized in improving recommend for dressing changes such as Betadine also get a surgical shoe he needs to offload this is much as possible the patient may need surgery down the road this is going to turn into an ulceration at some point and a shell may need correction with either a Garay or a IPJ arthroplasty. 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 I recommend the patient to try his best he can follow-up with us in the office or he can see Dr. Cruz as needed. HPI Consult Data Date of Consult: 02/10/24 HPI Narrative Reason for Consultation: Cellulitis left lower leg, toe ulcer HPI Narrative: KIM KIM, is a 68 M who presents patient relates that he was scheduled to see his oracle database developer on Thursday he noted that he had a redness and blister forming a few days before this as he was riding his stationary bike just in slippers not wearing his regular shoes or diabetic shoes. Patient is been a diabetic for years with A1c of 7.7 that he can remember. Presents today with possible acute sepsis is in the ICU today with ulceration of the left foot has been getting IV antibiotics. No complaints today. Denies nausea vomiting chills or fever [facility] Medical History Obesity History of echocardiogram Insulin dependent diabetes mellitus High cholesterol Back pain Syncope Dietary restriction Non-smoker History of stress test Cardiology follow-up encounter History of heart attack Liver disease Diabetes Heart disease Hypertension Home Medications ?Medication ?Instructions ?Recorded ?Last Taken ?Type multivit,Ca,min-iron 8 mg-folic 1 tab PO DAILY supplement 09/16/19 02/08/24 History acid 200 mcg-lycopene 600 mcg tablet amlodipine 5 mg tablet 5 mg PO BID HTN 12/08/22 02/09/24 History aspirin 81 mg tablet,delayed 81 mg PO DAILY 03/23/23 02/09/24 History release cholecalciferol (vitamin D3) 25 25 mcg PO DAILY 03/23/23 02/09/24 History mcg (1,000 unit) tablet lisinopril 20 mg tablet 20 mg PO BID 03/23/23 02/09/24 History furosemide 20 mg tablet 20 mg PO DAILY PRN edema 06/25/23 02/09/24 History pen needle, diabetic 32 gauge x #100 ea 06/25/23 Unknown Rx (BD Ultra-Fine Payton Pen Needle) blood-glucose sensor (FreeStyle #2 ea 01/07/24 Unknown Rx Rosalina 3 Sensor device) blood-glucose sensor (FreeStyle #6 ea 01/18/24 Unknown Rx Rosalina 3 Plus Sensor device) empagliflozin 25 mg tablet 25 mg PO DAILY #90 tabs 01/18/24 02/09/24 Rx (Jardiance) glimepiride 4 mg tablet 4 mg PO BID dm #180 tabs 01/18/24 Unknown Rx insulin glargine 100 unit/mL (3 50 unit (0.5 mL) subcut DAILY #15 01/18/24 Unknown Rx mL) subcutaneous pen (Basaglar mL KwikPen U-100 Insulin) metformin 1,000 mg tablet 1,000 mg PO BID dm #180 tabs 01/18/24 02/09/24 Rx semaglutide 0.25 mg or 0.5 mg (2 0.5 mg (0.736 mL) subcut QWEEK #3 01/18/24 02/06/24 Rx mg/3 mL) subcutaneous pen injector mL (Ozempic) Allergy/AdvReac Type Severity Reaction Status Date / Time atorvastatin (From Lipitor) AdvReac Pain in Verified 02/09/24 13:27 joints rosuvastatin (From Crestor) AdvReac Pain in Verified 02/09/24 13:27 joints Family History Other CAD (coronary artery disease) Diabetes Surgical History History of cardiac catheterization Hx of colonoscopy Hx of right cataract extraction Hx of left cataract extraction Hx of angioplasty History of coronary artery stent placement Hx of angioplasty Hx of CABG History of back surgery Hx of appendectomy Social History (Updated 02/09/24 @ 19:[address] Charu Solo DO) household members: spouse housing: house Smoking Status: Never smoker alcohol intake: never substance use type: does not use ROS ROS Narrative Patient is alert active and oriented no acute distress, minimal pain left foot due to neuropathy Lungs are clear to auscultation Abdomen is soft nontender bowel sounds present Heart regular rate and rhythm S1 and S2 heard Normal eyes Physical Exam Const alert, oriented x3, no apparent distress, average body habitus, no limitations, healthy appearing and well nourished General Appearance: cooperative and comfortable HEENT normocephalic, head/scalp atraumatic, hearing grossly normal bilaterally, external ears normal, EAC's normal, TM's normal bilaterally, external nose normal, nasal mucous membranes and turbinates normal, moist oral mucous membranes, oropharynx normal, dentition normal and gingiva normal Eyes PERRL, EOMs intact bilaterally, conjunctivae normal, no scleral icterus, no papilledema, normal visual palm by confrontation and fundi normal bilaterally Neck full ROM, nuchal rigidity, no lymphadenopathy, supple, no meningeal signs, no JVD, thyroid normal, nodes and no carotid bruits Lymph Lymphatic: no lymphadenopathy noted, no lymphedema noted, lymphedema, lymphadenopathy and other Chest inspection of chest normal, palpation of chest normal, inspection of breasts normal and palpation of breasts normal Resp normal respiratory effort, normal air movement, no retractions, no use of accessory muscles, clear to auscultation bilaterally and percussion normal Cardio regular rate, regular rhythm, S1 normal heart sound, S2 normal heart sound, no murmurs, no rub, no gallops, no clicks, no JVD, peripheral pulses 2+ throughout and diaphoretic Back/Spine no CVA tenderness, normal ROM, normal to inspection, thoracic and lumbar spine normal to inspection, no thoracic nor lumbar tenderness, thoraco-lumbar ROM normal and straight leg raise negative bilaterally Extremity Extremity Narrative: Patient has palpable pedal pulses DP and PT bilateral. Right foot has surgery that was performed 4 years ago in which the patient had to have surgery on his right great toe secondary to a chronic ulceration sepsis and further possible osteomyelitis. Patient underwent surgery has been doing great ever since then. This was performed by Dr. Cruz. Left foot today shows palpable pedal pulses there was a line showing cellulitis which is almost completely resolved at this time normal tone and turgor. Left great toe has open ulceration measuring 1-1/2 cm x 1 cm with also large blistering at this point he does need local wound care the blister does not show any signs of abscess I do not really feel any signs of acute deep abscess or waiting on MRI. No x-rays were taken. Will order x-rays. The left foot does have a hallux extensors with moderate bunion deformity, hammertoes and significant peripheral neuropathy with minimal feeling to the right foot or the left foot. Overall the patient does have acute diabetic ulceration with new blister, due to noncompliance and wearing wrong shoes during workout. Patient currently feeling fine he was sick before he came in. Skin Skin Narrative: Ulcer left foot Neuro oriented x3 Motor Exam: strength 5/5 throughout and muscle tone normal throughout Lab / Micro Data 02/10/24 05:50 02/10/24 05:50 Labs: Laboratory Results - last 24 hr 02/09/24 11:37: POC Glucose 226 H 02/09/24 11:44: WBC 16.4 H, RBC 4.98, Hgb 15.4, Hct 43.7, MCV 87.8, MCH 30.9, MCHC 35.2, RDW Std Deviation 41.2, RDW Coeff of Shelby 12.8, Plt Count 250, MPV 9.0, Immature Gran % (Auto) 0.700, Neut % (Auto) 84.6 H, Lymph % (Auto) 6.4 L, [place] % (Auto) 6.7, Eos % (Auto) 1.0, Baso % (Auto) 0.6, Absolute Neuts (auto) 13.9 H, Absolute Lymphs (auto) 1.06, Nucleated RBC % 0, PT 13.5, INR 1.0, APTT 27.1, Sodium 134 L, Potassium 4.5, Chloride 100, Carbon Dioxide 26.0, Anion Gap 8, BUN 30 H, Creatinine 1.90 H, Estim Creat Clear Calc 44.49, Est GFR (MDRD) Af Amer 45 L, Est GFR (MDRD) Non-Af 38 L, BUN/Creatinine Ratio 15.8, Glucose 209 H, Lactic Acid 2.2 H*, Calcium 9.7, Total Bilirubin 1.00, AST 18, ALT 25, Alkaline Phosphatase 81, Total Protein 7.8, Albumin 3.8, Globulin 4.0, Albumin/Globulin Ratio 1.0 02/09/24 11:46: ESR 18, C-React Prot Ext Range 69.20 H 02/09/24 12:50: Urine Color Yellow, Urine Clarity Clear, Urine pH 6.0, Ur Specific Baggs 1.010, Urine Protein 15 H, Urine Glucose (UA) 1000 H, Urine Ketones 5 H, Urine Occult Blood Negative, Urine Nitrite Negative, Urine Bilirubin Negative, Urine Urobilinogen Normal, Ur Leukocyte Esterase Negative, Urine RBC 0 SEEN, Urine WBC 0 SEEN, Ur Squamous Epith Cells 0 SEEN, Urine Bacteria 0 SEEN, Urine Mucus 0 SEEN 02/09/24 15:57: POC Glucose 79 02/09/24 16:00: Lactic Acid 1.2 02/09/24 21:51: POC Glucose 107 H 02/10/24 05:50: WBC 8.7, RBC 4.57 L, Hgb 14.2, Hct 40.4, MCV 88.4, MCH 31.1, MCHC 35.1, RDW Std Deviation 42.0, RDW Coeff of Shelby 13.0, Plt Count 222, MPV 8.7, Immature Gran % (Auto) 0.800, Neut % (Auto) 70.8 H, Lymph % (Auto) 17.7 L, [place] % (Auto) 8.3, Eos % (Auto) 1.6, Baso % (Auto) 0.8, Absolute Neuts (auto) 6.2, Absolute Lymphs (auto) 1.54, Nucleated RBC % 0, Sodium 136, Potassium 4.0, Chloride 106, Carbon Dioxide 25.0, Anion Gap 5, BUN 23 H, Creatinine 1.44 H, Estim Creat Clear Calc 59.62, Est GFR (MDRD) Af Amer 63, Est GFR (MDRD) Non-Af 52 L, BUN/Creatinine Ratio 16.0, Glucose 91, Calcium 9.1, Phosphorus 2.9, Magnesium 2.3, Total Bilirubin 0.60, AST 16, ALT 20, Alkaline Phosphatase 87, Total Protein 6.9, Albumin 3.3, Globulin 3.6, Albumin/Globulin Ratio 0.9 Micro: Microbiology 02/09/24 13:23 Wound - Left Foot Skin and Soft Tissue MRSA/MSSA (PCR - Final 02/09/24 14:10 Wound Abcess - Left Foot Gram Stain - Final
--- NOTE | 2024-02-10 09:00 | MRI_ITS ---
STUDY: MRI LEFT FOREFOOT WITHOUT CONTRAST REASON FOR EXAM: Male, 68 years old. L diabetic foot infection TECHNIQUE: Standardized fat and water weighted pulse sequences were obtained in all 3 orthogonal planes. COMPARISON: X-ray earlier today FINDINGS: Normal metatarsophalangeal joint of the hallux. Normal tibial and fibular sesamoids, with normal sesamoids-first metatarsal articulations. Normal interphalangeal joint of the hallux. Normal proximal and distal phalanges of the great toe. Normal medial and lateral heads of the flexor hallucis brevis tendons. Normal flexor and extensor hallucis longus tendons. Normal second through fifth metatarsophalangeal (MTP) joints. Normal interphalangeal joints of the second through fifth toes. Normal proximal, middle and distal phalanges of the second through fifth toes. Normal first through fourth intermetatarsal spaces. Normal flexor and extensor tendons of the second through fifth toes. Normal visualized metatarsi. Normal intrinsic muscles of the forefoot. There is no demonstrated soft tissue abnormality. MRI/Lower Ext/No Jt/w/o IMPRESSION: Normal unenhanced MRI of the forefoot. Electronically Signed: Rober Law MD at 12:23 EST ,
--- NOTE | 2024-02-10 09:03 | PN.HOSP_ITS ---
Reason for Visit Reason for Visit: Left foot wound Subjective Subjective Patient has no complaints today. States he is feeling well. Blood pressures remained stable through the night. Blood pressure dropped so we will start home antihypertensives. Renal function is stabilizing. Surgical plan is outpatient follow-up with no immediate surgical need. Objective Data Objective Data Vital Signs: Vital Signs Temp Pulse Resp BP Pulse Ox O2 Del Method 97.9 F 68 15 164/80 H 98 Room Air 02/10/24 00:00 02/10/24 07:00 02/10/24 07:00 02/10/24 07:00 02/10/24 07:00 02/10/24 07:00 Oxygen Delivery Method Room Air Weight: 111.6 kg Body Mass Index (BMI) 36.3 Intake & Output: Intake and Output for Last 24 Hours 02/08/24 02/09/24 02/10/24 23:59 23:59 23:59 Intake Total 4398.5 / 4758.5 610 / 610 Output Total 300 / 300 450 / 450 Balance 4098.5 / 4458.5 160 / 160 Lab / Micro Data 02/10/24 05:50 02/10/24 05:50 Labs: Laboratory Results - last 24 hr 02/09/24 11:37: POC Glucose 226 H 02/09/24 11:44: WBC 16.4 H, RBC 4.98, Hgb 15.4, Hct 43.7, MCV 87.8, MCH 30.9, MCHC 35.2, RDW Std Deviation 41.2, RDW Coeff of Shelby 12.8, Plt Count 250, MPV 9.0, Immature Gran % (Auto) 0.700, Neut % (Auto) 84.6 H, Lymph % (Auto) 6.4 L, [place] % (Auto) 6.7, Eos % (Auto) 1.0, Baso % (Auto) 0.6, Absolute Neuts (auto) 13.9 H, Absolute Lymphs (auto) 1.06, Nucleated RBC % 0, PT 13.5, INR 1.0, APTT 27.1, Sodium 134 L, Potassium 4.5, Chloride 100, Carbon Dioxide 26.0, Anion Gap 8, BUN 30 H, Creatinine 1.90 H, Estim Creat Clear Calc 44.49, Est GFR (MDRD) Af Amer 45 L, Est GFR (MDRD) Non-Af 38 L, BUN/Creatinine Ratio 15.8, Glucose 209 H, Lactic Acid 2.2 H*, Calcium 9.7, Total Bilirubin 1.00, AST 18, ALT 25, Alkaline Phosphatase 81, Total Protein 7.8, Albumin 3.8, Globulin 4.0, Albumin/Globulin Ratio 1.0 02/09/24 11:46: ESR 18, C-React Prot Ext Range 69.20 H 02/09/24 12:50: Urine Color Yellow, Urine Clarity Clear, Urine pH 6.0, Ur Specific Edson 1.010, Urine Protein 15 H, Urine Glucose (UA) 1000 H, Urine Ketones 5 H, Urine Occult Blood Negative, Urine Nitrite Negative, Urine Bilirubin Negative, Urine Urobilinogen Normal, Ur Leukocyte Esterase Negative, Urine RBC 0 SEEN, Urine WBC 0 SEEN, Ur Squamous Epith Cells 0 SEEN, Urine Bacteria 0 SEEN, Urine Mucus 0 SEEN 02/09/24 15:57: POC Glucose 79 02/09/24 16:00: Lactic Acid 1.2 02/09/24 21:51: POC Glucose 107 H 02/10/24 05:50: WBC 8.7, RBC 4.57 L, Hgb 14.2, Hct 40.4, MCV 88.4, MCH 31.1, MCHC 35.1, RDW Std Deviation 42.0, RDW Coeff of Shelby 13.0, Plt Count 222, MPV 8.7, Immature Gran % (Auto) 0.800, Neut % (Auto) 70.8 H, Lymph % (Auto) 17.7 L, [place] % (Auto) 8.3, Eos % (Auto) 1.6, Baso % (Auto) 0.8, Absolute Neuts (auto) 6.2, Absolute Lymphs (auto) 1.54, Nucleated RBC % 0, Sodium 136, Potassium 4.0, Chloride 106, Carbon Dioxide 25.0, Anion Gap 5, BUN 23 H, Creatinine 1.44 H, Estim Creat Clear Calc 59.62, Est GFR (MDRD) Af Amer 63, Est GFR (MDRD) Non-Af 52 L, BUN/Creatinine Ratio 16.0, Glucose 91, Calcium 9.1, Phosphorus 2.9, Magnesium 2.3, Total Bilirubin 0.60, AST 16, ALT 20, Alkaline Phosphatase 87, Total Protein 6.9, Albumin 3.3, Globulin 3.6, Albumin/Globulin Ratio 0.9 Micro: Microbiology 02/09/24 13:23 Wound - Left Foot Skin and Soft Tissue MRSA/MSSA (PCR - Final 02/09/24 14:10 Wound Abcess - Left Foot Gram Stain - Final Radiography Diagnostic Testing: Radiology Impression Foot X-Ray 02/10/24 06:23 IMPRESSION: Soft tissue swelling adjacent to the fifth metatarsal head and fifth MTP joint. No acute osseous findings. Follow up with additional imaging if clinically indicated. Electronically Signed: Brendan Rubin MD at 7:53 EST , Physical Exam Const alert, oriented x3, no apparent distress, healthy appearing and well nourished; Negative for average body habitus Constitutional Narrative: Obese, pleasant, upper middle-aged, white male, sitting up in bed watching television, appears comfortable, nontoxic General Appearance: cooperative HEENT normocephalic, head/scalp atraumatic, hearing grossly normal bilaterally and moist oral mucous membranes Resp normal respiratory effort, no retractions, no use of accessory muscles and clear to auscultation bilaterally Auscultation: Negative for rales, rhonchi or wheezes Cardio regular rate, regular rhythm, S1 normal heart sound, S2 normal heart sound, no murmurs, no rub, no gallops and no clicks GI normal to inspection, nondistended, normoactive bowel sounds, soft to palpation and non-tender Extremity no clubbing, cyanosis or edema Skin Skin Narrative: Dressing in place on left foot wound-no pictures to follow as dressing was changed by podiatry Neuro oriented x3, moves all extremities and no focal motor deficits Neuro Narrative: Patient with decreased sensation bilateral distal lower extremities from neuropathy Speech: speech normal Psych affect normal Psych Narrative: Very pleasant, interacts appropriately Assessment & Plan Assessment/Plan (1) Sepsis: (2) Acute kidney injury: (3) Acidosis, lactic: (4) Lymphangitis of lower extremity: (5) Cellulitis of great toe of left foot: (6) Leukocytosis: PLAN: Plan Sepsis secondary to cellulitis of the left foot -MRI done today negative for any signs of osteomyelitis -Staph PCR is positive for the wound -Urine cultures negative -Blood cultures are pending -Preliminary wound culture currently showing mixed gram-positive organisms and beta Streptococcus -Continue current antibiotics until cultures are more finalized d -Podiatry following-appreciate input -No surgical intervention recommended at this time -Okay for transfer out of ICU Elevated serum creatinine with suspected AGUSTIN -Current baseline serum creatinine is unknown however last known is 1.17 in 2020 -Serum creatinine on presentation is 1.9 with serum creatinine now down to 1.44 -Suspect this may be closer to his baseline We will start home lisinopril -Repeat lab in a.m. Lactic acidosis -Resolved Leukocytosis -Resolved DM-2 -Most recent A1c in November was 7.7 and was ordered for this morning and currently 7.8 -Patient follows with endocrinology as an outpatient -Will continue Jardiance -Hold home glimepiride -Will continue basal insulin at lower dose as fasting blood sugar this morning was only 91 -Hold home metformin -SSI -Hold home semaglutide -Cardiac/carb controlled diet Peripheral vascular disease -Previous angioplasty -Most recent ABIs done in August 2023 were normal -Continue home aspirin HTN/HPL -Restart home lisinopril -Continue home amlodipine -Continue to hold home diuretic for today -Patient not on statin therapy due to allergy Obesity -BMI 36.4 -recommend weight loss -Complicates treatment, prognosis, outcomes DVT prophylaxis -Subcu heparin 3 times daily CODE STATUS -DNR CCA with no intubation as discussed with family at the bedside Charges/Coding Visit Charges Inpatient E&M: 96750 Subs Hosp L2
[2024-02-10 09:04] LABS: Bedside Glucose 96 mg/dL (74-106)
[2024-02-10] MEDS: Empagliflozin 25 MG Tablet PO (09:30)
[2024-02-10] MEDS: Insulin Glargine-YFGN 100 UNIT/ML Pen 30 UNIT SC (09:30)
[2024-02-10] MEDS: Aspirin E.C. 81 MG Tablet PO (09:30)
[2024-02-10] MEDS: Lisinopril 20 MG Tablet PO ×2 (09:33→21:00)
[2024-02-10] MEDS: amLODIPine 5 MG Tablet PO ×2 (09:33→21:00)
--- NOTE | 2024-02-10 09:52 | CASEMGMT ---
BROOK HUMPHREYS Assessment Face to Face with patient for initial transition planning/care coordination assessment. BROOK HUMPHREYS introduced self and role at [facility], pt voices understanding. Pt is A&Ox4 and is resting comfortably in the chair and is calm. Pt at bedside. Care providers, pharmacy, and demographics verified. Admitting dx: Diabetic Foot Infection LACE Strata: 2 PCP: Roney Fong Specialists: Nancy (Podiatry), Slime Schwartz (Endocrinology), Shannan Main (Cardio), Retina Specialist in [place] (Unsure of name) Preferred Pharmacy: [facility] Insurance: [employer] A/B, [place] Prescription Benefit: Yes LNOK: Emily (W), [place] (Garret) Living Arrangements: Pt lives with his in a single story home with 2 steps to enter ADLs/IADLs: Ind Transportation: Self, DME: Pt takes PO meds and insulin shots for his DM. Pt reports that he has a functioning CBGM with sufficient supplies. Pt also has a cane and BP Monitor. Denies further needs at this time. HHC/SNF: Hx with [facility] HH and [facility] in 2020. If pt were to need home IV ATBs, pt declines wanting to review a list and states that he would want to go through these companies again. Wound: Pt states that he is able to care for this himself at home. Pt also states that he sees Dr. Cruz as an OP and that the Legislative Director refers him to the [facility] at time. Pt denies needing to be set up with the [facility] at this time. Pt?s goal: Return home Plan: Anticipate DC home with pt once medically ready. The sap senior developer states that no surgical intervention is needed and that the pt will likely not need home IV ATBs. However, MRI is pending. CM will follow. Pt denies needs such as OP Tx, HH, or WHC. Pt states that he plans to Dc home with his once medically ready. Pt cleared OT and denies the need for PT here in the hospital. 6-click is 24. Pt denies further questions or concerns at this time. Blake Bruner RN, CM
[2024-02-10 10:40] LABS: Hemoglobin A1c 7.8 % (3.8-5.6)
--- NOTE | 2024-02-10 11:29 | WOUNDNOTE ---
was consulted on pt for left great toe wound. Dr Louis had already been in this am to see patient. Pt had been down to MRI. results pending. will follow as needed and can assist with wound care if Dr Louis desires.
[2024-02-10] MEDS: 0.9% Saline Lock 10 ML Syringe IV (12:19)
--- NOTE | 2024-02-10 16:13 | CHAPLAIN ---
Type of Pastoral Visit _x__ Initial Visit ___ Follow-up Visit ___ On-call Visit ___ General Patient Visit ___ Spiritual Assessment ___ Family Conference ___ Bereavement ___ Rapid Response ___ Code Blue ___ Other (describe below) Pastoral Care Referral From _x__ Patient ___ Family ___ Nurse ___ Physician ___ Service Plumber ___ Clinical Research Technician ___ Other (describe below) Sacrament/Intervention _x__ Active listening ___ Anointing ___ Holiness ___ Bereavement ___ Communion _x__ Ruby exploration ___ _x__ Life review _x__ Prayer ___ Reconciliation ___ Sacrament of Sick ___ Supportive presence ___ Wedding ___ Other (describe below) Pastoral Comments
[2024-02-10] MEDS: Insulin Lispro 100 UNIT/ML INSULN.PEN SC ×2 (16:45→21:07)
[2024-02-10 17:03] LABS: Bedside Glucose 176 mg/dL (74-106)
[2024-02-10 21:32] LABS: Bedside Glucose 168 mg/dL (74-106)
[2024-02-11 00:18] LABS: Vancomycin, Trough Level 17.4 ug/mL (5.0-15.0)
[2024-02-11] MEDS: Vancomycin IV 1,000 MG/200 ML BAG 200 MG IV (00:38)
[2024-02-11] MEDS: 0.9% Normal Saline (100mL Bag) 100 ML 15 ML IV (00:38)
[2024-02-11] MEDS: 0.9% Saline Lock 10 ML Syringe IV ×3 (00:38→08:19)
[2024-02-11 02:45] VITALS: BP 151/80; PULSE 72; RESP 14; TEMP 36.6; O2SAT 95
--- NOTE | 2024-02-11 04:24 | PCM.RX.CS ---
Consult Antibiotic Management Pharmacy has been consulted to manage selected antibiotic: Vancomycin Type of Intervention Type of Consult: Follow-up Labs Labs: Sodium 136 mmol/L (136-145) 02/10/24 05:50 Potassium 4.0 mmol/L (3.5-5.1) 02/10/24 05:50 Chloride 106 mmol/L (98-107) 02/10/24 05:50 Carbon Dioxide 25.0 mmol/L (21.0-32.0) 02/10/24 05:50 Anion Gap 5 (5-15) 02/10/24 05:50 BUN 23 mg/dL (7-18) H 02/10/24 05:50 Creatinine 1.44 mg/dL (0.70-1.30) H 02/10/24 05:50 Est GFR (MDRD) Af Amer 63 mL/min (>60) 02/10/24 05:50 Est GFR (MDRD) Non-Af 52 mL/min (>60) L 02/10/24 05:50 BUN/Creatinine Ratio 16.0 RATIO (10-20) 02/10/24 05:50 Glucose 91 mg/dL (74-106) 02/10/24 05:50 Vancomycin Trough 17.4 ug/mL (5.0-15.0) H 02/10/24 23:42 Microbiology Microbiology: Microbiology 02/09/24 14:10 Wound Abcess - Left Foot Gram Stain - Final 02/09/24 14:10 Wound Abcess - Left Foot Wound Culture - Preliminary Beta streptococcus Mixed Gram Positive Organisms 02/09/24 12:50 Urine, Clean Catch Urine Culture - Preliminary Culture exhibits no growth. 02/09/24 13:23 Wound - Left Foot Skin and Soft Tissue MRSA/MSSA (PCR - Final Goal Trough Goal Trough: 15-20 mcg/mL Pharmacy Plan for Drug Dosing Pharmacy Plan for Drug Dosing: Pharmacy Service will continue to monitor and adjust dosing as required. TROUGH 17.4 @ 11.5 HOURS. NO CHANGES, FOLLOW UP TROUGH IN 2 DAYS Follow-Up Labs Follow-Up Labs: Trough: Vancomycin Date/Time Labs Ordered Labs to be done on [date and time ordered]: 02/12 @ 0000
[2024-02-11 04:34] LABS: Absolute Lymphocyte Count 1.72 X10^3/uL (0.83-4.51); Absolute Neutrophil Count 3.3 X10^3/uL (2.0-7.7); Basophil# 0.07 X10^3/uL; Basophil% 1.1 % (0-1); Eosinophil# 0.52 X10^3/uL; Hemoglobin 14.3 g/dL (13.0-16.5); Lymphocyte # 1.72 X10^3/ul (0.83-4.51); Lymphocyte % 26.4 % (19-41); Mean Corpuscular Hgb 30.3 pg (27.0-32.0); Monocyte# 0.81 X10^3/uL; Monocyte% 12.4 % (0-10); NRBC Flagged by Analyzer 0 % (0-5); Neutrophil # 3.33 X10^3/uL (2.7-7.7); Platelet Count 243 K/mm3 (150-450); RBC Distribution Width CV 12.9 % (11.6-14.6); RBC Distribution Width SD 42.5 fl (35.1-43.9); Red Blood Count 4.72 M/mm3 (4.6-6.2); White Blood Count 6.5 K/mm3 (4.4-11.0)
[2024-02-11 05:01] LABS: Anion Gap 7 (5-15); BUN 27 mg/dL (7-18); BUN/Creat Ratio 18.1 RATIO (10-20); Calcium,Total 9.5 mg/dL (8.5-10.1); Chloride 103 mmol/L (98-107); Creatinine, Serum 1.49 mg/dL (0.70-1.30); EST Glomerular Filtration Rate 50 mL/min (>60); Est Glom Filt Rate - Afr Amer 60 mL/min (>60); Estimated Creatinine Clearance 57.62 ml/min; Glucose 172 mg/dL (74-106); Magnesium 2.4 mg/dL (1.6-2.6); Phosphorus 3.7 mg/dL (2.5-4.9); Potassium 4.2 mmol/L (3.5-5.1); Sodium Level 134 mmol/L (136-145)
[2024-02-11 06:00] VITALS: BMI 36.1
[2024-02-11] MEDS: Piperacil/Tazobactam 3.375 GM in 0.9% Normal Saline (50mL MB+) 50 ML IV (06:10)
[2024-02-11] MEDS: Heparin Injection (Vial) 5,000 UNIT/ML VIAL 5000 UNIT SC (06:11)
[2024-02-11] MEDS: Insulin Lispro 100 UNIT/ML INSULN.PEN SC (08:18)
[2024-02-11] MEDS: Insulin Glargine-YFGN 100 UNIT/ML Pen 30 UNIT SC (08:19)
[2024-02-11] MEDS: amLODIPine 5 MG Tablet PO (08:23)
[2024-02-11] MEDS: Empagliflozin 25 MG Tablet PO (08:23)
[2024-02-11] MEDS: Aspirin E.C. 81 MG Tablet PO (08:23)
[2024-02-11] MEDS: Lisinopril 20 MG Tablet PO (08:23)
[2024-02-11 08:35] VITALS: BP 121/75; PULSE 72; RESP 16; TEMP 36.3; O2SAT 97
[2024-02-11 08:46] LABS: Bedside Glucose 205 mg/dL (74-106)
--- NOTE | 2024-02-11 09:17 | PCM.DC.SUM ---
Providers Date of Admission: 02/09/24 Date of Discharge: 02/11/24 Primary Care Physician: ESTER Yousif Consultations 02/09/24 14:25 Consult: Manager Services / Pulmonary Medicine Routine Consulting Provider: Intensivists/Pulmonary Med Reason for Consult: sepsis EMERGENT Consult: No MD Notified: Yes Date Notified: 02/09/24 Time Notified: 13:13 Method of Notification: Verbal Consult: Podiatry Routine Consulting Provider: Yinka Louis Reason for Consult: diabetic foot wound EMERGENT Consult: No MD Notified: Yes Date Notified: 02/09/24 Time Notified: 13:17 Method of Notification: Answering Service 02/09/24 18:18 Consult: Onc/Wound/meat hanger Routine Comment: Reason for Consult:: left great toe wound Reason For Visit: SEPSIS 2/2 DIABETIC FOOT INFECTION Diagnosis Discharge Diagnosis (1) Sepsis: Status: Acute Code(s): A41.9 - Sepsis, unspecified organism (2) Acute kidney injury: Status: Acute Code(s): N17.9 - Acute kidney failure, unspecified (3) Acidosis, lactic: Status: Acute Code(s): E87.20 - Acidosis, unspecified (4) Lymphangitis of lower extremity: Status: Acute Code(s): I89.1 - Lymphangitis (5) Cellulitis of great toe of left foot: Status: Acute Code(s): L03.032 - Cellulitis of left toe (6) Leukocytosis: Status: Acute Code(s): D72.829 - Elevated white blood cell count, unspecified Medications at Discharge Home Medications multivit,Ca,min-iron 8 mg-folic acid 200 mcg-lycopene 600 mcg tablet 1 tab PO DAILY supplement 09/16/19 amlodipine 5 mg tablet 5 mg PO BID HTN 12/08/22 aspirin 81 mg tablet,delayed release 81 mg PO DAILY 03/23/23 cholecalciferol (vitamin D3) 25 mcg (1,000 unit) tablet 25 mcg PO DAILY 03/23/23 lisinopril 20 mg tablet 20 mg PO BID 03/23/23 furosemide 20 mg tablet 20 mg PO DAILY PRN edema 06/25/23 pen needle, diabetic 32 gauge x 5/32 (BD Ultra-Fine [place]ton Pen Needle) #100 ea 06/25/23 blood-glucose sensor (CSIDStyle Rosalina 3 Sensor device) #2 ea 01/07/24 blood-glucose sensor (FreeStyle Rosalina 3 Plus Sensor device) #6 ea 01/18/24 empagliflozin 25 mg tablet (Jardiance) 25 mg PO DAILY #90 tabs 01/18/24 glimepiride 4 mg tablet 4 mg PO BID dm #180 tabs 01/18/24 insulin glargine 100 unit/mL (3 mL) subcutaneous pen (Basaglar KwikPen U-100 Insulin) 50 unit (0.5 mL) subcut DAILY #15 mL 01/18/24 metformin 1,000 mg tablet 1,000 mg PO BID dm #180 tabs 01/18/24 semaglutide 0.25 mg or 0.5 mg (2 mg/3 mL) subcutaneous pen injector (Ozempic) 0.5 mg (0.736 mL) subcut QWEEK #3 mL 01/18/24 cephalexin 500 mg capsule 500 mg PO Q6H #48 caps 02/11/24 Hospital Course Operations None Procedures - (Foot x-ray/MRI left foot) Summary of Care Provided Minutes Spent on Discharge: 38 Hospital Course: Mr. Acharya is a 68 M who presented to the emergency department [facility] [place] on 02/09/2024 with a chief complaint of left great toe wound with fever and chills. The patient has a history of sepsis related to a right foot infection related to osteomyelitis previously and has followed with Dr. Cruz in the past. Previous infection was with MSSA. He also has known peripheral vascular disease with previous angioplasty done by Dr. Lopez. Most recent ABIs were normal in August 2023. Patient indicated he had a temperature at home of 100.9. Patient does not check his feet on a regular basis and his wound was just noticed yesterday. Fever and chills started today. He denies any chest pain or shortness of breath and has been feeling well otherwise. Vital signs on presentation showed a temperature of 100.5 with a Tmax of 100.9, heart rate was 100, respiratory 22, blood pressure was 124/70 with a repeat at 108/74 and pulse ox was 100% on room air. CBC shows a significant leukocytosis with a white count of 16.4 and a left shift with an 84.6% neutrophilia. Coags are normal. Chemistry panel shows AGUSTIN with a BUN of 30 and a serum creatinine of 1.90. Glucose was 209. Patient did have a recent hemoglobin A1c on 12/16/2023 which was 7.7. Lactic acid was 2.2. CRP was 69.2 and ESR was 18. UA is not consistent with infection. Blood culture was obtained in the emergency department and request for admission was made. He was given IV antibiotics after cultures were obtained. Patient was treated with 30 cc bolus of IV fluids. Given his sepsis picture at the time of admission he was admitted to the intensive care unit and treated per sepsis protocol. His lactic acid cleared quickly with IV fluid administration and his renal function normalized. He did not require pressors. Blood pressure remained stable and up trended to his baseline and fevers quickly resolved once antibiotics were initiated. Podiatry was consulted and recommended MRI of the foot which was unremarkable for any bony involvement or deep soft tissue involvement. Medical management was recommended with ongoing antibiotic therapy and outpatient follow-up with his primary music video director Dr. Cruz. He was initially maintained on vancomycin and Zosyn with previous cultures showing MSSA. He does have previous admission for sepsis related to a right lower extremity infection. Cultures at this time of the wound showed beta Streptococcus and mixed gram-positive organisms which were likely contaminant and as well as negativity for MRSA PCR. Urine culture was unremarkable. Blood cultures unremarkable. Patient was doing much better clinically and feeling well by 02/11/2024. Given his beta Streptococcus on culture plan was for discharge on Keflex to complete a 14-day course of antibiotics. Prescription was sent to local pharmacy. I did recommend that he follow-up with Dr. Cruz to keep a close eye on his left foot and asked him to call to make an appointment to be seen next week sometime. I advised him to buy white socks and wear them given his diabetic neuropathy and to do to foot inspection daily. This was reflected in his discharge instructions as well. Patient was discharged home in stable condition on 02/11/2024. He can follow-up with his primary care physician as previously directed Discharge diagnoses: Sepsis secondary to cellulitis of the left foot Left foot beta Streptococcus cellulitis AGUSTIN on CKD stage IIIa Lactic acidosis-resolved Leukocytosis-resolved DM-2 PVD Essential HTN HPL Obesity Physical Exam Const alert, oriented x3, no apparent distress, no limitations, healthy appearing and well nourished; Negative for average body habitus Constitutional Narrative: Obese, pleasant, upper middle-aged, white male, sitting up in bed watching television, appears comfortable, nontoxic General Appearance: cooperative, comfortable, well kempt and well developed Orientation / Consciousness: awake, oriented to person, oriented to place and oriented to time Exam Limitations: no limitations Nutritional Appearance: obese HEENT normocephalic, head/scalp atraumatic, hearing grossly normal bilaterally and moist oral mucous membranes HEENT Narrative: Mallampati 3, no thrush Eyes EOMs intact bilaterally and conjunctivae normal Eyes Narrative: No scleral icterus Neck no lymphadenopathy and supple Neck Narrative: Trachea midline, no thyroid enlargement Resp normal respiratory effort, no retractions, no use of accessory muscles and clear to auscultation bilaterally Auscultation: Negative for rales, rhonchi or wheezes Cardio regular rate, regular rhythm, S1 normal heart sound, S2 normal heart sound, no murmurs, no rub, no gallops and no clicks GI normal to inspection, nondistended, normoactive bowel sounds, soft to palpation and non-tender Extremity no clubbing, cyanosis or edema Extremity Narrative: No clubbing or cyanosis, mild edema left foot related to infection Skin No no wounds, skin turgor normal and no jaundice Neuro oriented x3, moves all extremities and no focal motor deficits Neuro Narrative: Patient with decreased sensation bilateral distal lower extremities from neuropathy Speech: speech normal Psych affect normal Psych Narrative: Very pleasant, interacts appropriately Weight / BMI Weight Weight: 110.8 kg Body Mass Index (BMI) 36.1 ABG / Lab / Microbiology Data 02/11/24 03:54 02/11/24 03:54 Laboratory: Laboratory Results - last 24 hr 02/10/24 05:50: Hemoglobin A1c 7.8 H 02/10/24 16:41: POC Glucose 176 H 02/10/24 21:07: POC Glucose 168 H 02/10/24 23:42: Vancomycin Trough 17.4 H 02/11/24 03:54: WBC 6.5, RBC 4.72, Hgb 14.3, Hct 42.0, MCV 89.0, MCH 30.3, MCHC 34.0, RDW Std Deviation 42.5, RDW Coeff of [place] 12.9, Plt Count 243, MPV 9.0, Immature Gran % (Auto) 1.100 H, Neut % (Auto) 51.0, Lymph % (Auto) 26.4, [place] % (Auto) 12.4 H, Eos % (Auto) 8.0 H, Baso % (Auto) 1.1 H, Absolute Neuts (auto) 3.3, Absolute Lymphs (auto) 1.72, Nucleated RBC % 0, Sodium 134 L, Potassium 4.2, Chloride 103, Carbon Dioxide 24.0, Anion Gap 7, BUN 27 H, Creatinine 1.49 H, Estim Creat Clear Calc 57.62, Est GFR (MDRD) Af Amer 60, Est GFR (MDRD) Non-Af 50 L, BUN/Creatinine Ratio 18.1, Glucose 172 H, Calcium 9.5, Phosphorus 3.7, Magnesium 2.4, TSH 1.520 02/11/24 08:16: POC Glucose 205 H Microbiology: Microbiology 02/09/24 14:10 Wound Abcess - Left Foot Gram Stain - Final 02/09/24 14:10 Wound Abcess - Left Foot Wound Culture - Preliminary Beta streptococcus Mixed Gram Positive Organisms 02/09/24 12:50 Urine, Clean Catch Urine Culture - Preliminary Culture exhibits no growth. 02/09/24 13:23 Wound - Left Foot Skin and Soft Tissue MRSA/MSSA (PCR - Final Radiography Diagnostic Testing: Radiology Impression Lower Extremity MRI 02/10/24 09:00 IMPRESSION: Normal unenhanced MRI of the forefoot. Electronically Signed: Rober Law MD at 12:23 EST , D/C Instructions Discharge Diet: Low fat / Low cholesterol and 1800 Calorie Control Diet Discharge Activity: Return to Normal Activity and - (Limit weightbearing on your foot as directed by Dr. Louis) DC O2, CPAP, BIPAP Needs Additional Home O2 Discharge instructions: No DC home with Oxygen: No Meaningful Use Info Meaningful Use Meaningful Use Diagnoses (Choose all that apply): None applicable Ischemic Stroke Statin Dosing Therapy Reference: STATIN DOSE THERAPY REFERENCE: * Patients > 75 years receive moderate or high dose statin therapy. * Patients 75 years or YOUNGER should receive HIGH intensity statin dose unless contraindicated. You will be required to document reason for non-treatment if statin daily dose does not meet guidelines. HIGH DOSE STATIN THERAPY DAILY Atorvastatin > than or = to 40 mg Rosuvastatin > than or = to 20 mg Amlodipine + Atorvastatin > than or = to 2.5/40 mg Ezetimibe + Simvastatin 10/80 mg Simvastatin 80mg Discharge Plan Admission Admit Date/Time: 02/09/24 13:02 Primary Reason for Your Visit: Left foot wound Attending Provider: Charu Solo Primary Care Provider: Roney Fong [employer] Consulting Providers: Yinka Louis Instructions Additional Instructions / Restrictions: 1. I would highly recommend you check your feet daily for any signs of skin breakdown or wounds. 2. Also would recommend that you wear white socks so you can see any changes including bleeding or drainage from the wound that may be present that you cannot fill. 3. Please call Dr. Cruz's office either later today or tomorrow to set up an appointment to be seen next week Discharge Orders/Prescriptions Prescriptions: New cephalexin 500 mg capsule 500 mg PO Q6H Qty: 48 0RF Continued lisinopril 20 mg tablet 20 mg PO BID amlodipine 5 mg tablet 5 mg PO BID aspirin 81 mg tablet,delayed release (DR/EC) 81 mg PO DAILY Patient Comments: TAKE ONE TABLET BY MOUTH ONCE DAILY cholecalciferol (vitamin D3) 25 mcg (1,000 unit) tablet 25 mcg PO DAILY furosemide 20 mg tablet 20 mg PO DAILY PRN (Reason: edema) Patient Comments: TAKE 1 TABLET BY MOUTH EVERY DAY (DME) pen needle, diabetic [BD Ultra-Fine Payton Pen Needle] 32 gauge x 5/32 needle See Rx Instructions .ROUTE .MEDSUPPLY Qty: 100 3RF Rx Instructions: As directed mv,Ca,rwn-uvbs-UH-lycopene 1 EACH tablet 1 tab PO DAILY (DME) FreeStyle Rosalina 3 Sensor Device See Rx Instructions .Route Qty: 2 5RF Rx Instructions: 1 sensor q 14 days (DME) FreeStyle Rosalina 3 Plus Sensor Device See Rx Instructions .Route Qty: 6 1RF Rx Instructions: As directed Jardiance 25 mg tablet 25 mg PO DAILY Qty: 90 1RF glimepiride 4 mg tablet 4 mg PO BID Qty: 180 1RF insulin glargine [Basaglar KwikPen U-100 Insulin] 100 unit/mL (3 mL) insulin pen 50 unit subcut DAILY Qty: 15 5RF metformin 1,000 mg tablet 1,000 mg PO BID Qty: 180 1RF Ozempic 0.25 mg or 0.5 mg (2 mg/3 mL) pen injector 0.5 mg subcut QWEEK Qty: 3 3RF Referrals / Follow Up: Dennys Cruz DPM [Med Staff - Active Staff] - See Referral Note (Call later today or tomorrow to set up an appointment to be seen next week) Otilio Sahu MD [Non-Staff] - See Referral Note (As previously directed) Roney Fong NP, [employer] [Primary Care Provider] - Disposition Disposition (needs filled in before D/C Order can be placed): Home, Self Care Charges/Coding Visit Charges Inpatient E&M: 04244 Disch Hosp >30min
== END 2024-02-11 11:15 | disposition home or self-care (01) | DRG 872 ==
LOC: ED 13:25 → ICU 13:32
PROVIDERS: Admitting Provider Internal Medicine; Emergency Provider Emergency Medicine; PCP Nurse Practitioner Primary Care; Visit Provider Internal Medicine
DX: A41.9 Sepsis, unspecified organism (principal); E87.1 Hypo-osmolality and hyponatremia; N17.9 Acute kidney failure, unspecified; E11.22 Type 2 diabetes mellitus with diabetic chronic kidney disease; D72.829 Elevated white blood cell count, unspecified; Z66 Do not resuscitate; N18.31 Chronic kidney disease, stage 3a; I12.9 Hypertensive chronic kidney disease with stage 1 through stage 4 chronic kidney disease, or unspecified chronic kidney disease; E66.9 Obesity, unspecified; E11.621 Type 2 diabetes mellitus with foot ulcer; E11.40 Type 2 diabetes mellitus with diabetic neuropathy, unspecified; E11.51 Type 2 diabetes mellitus with diabetic peripheral angiopathy without gangrene; E78.00 Pure hypercholesterolemia, unspecified; I25.10 Atherosclerotic heart disease of native coronary artery without angina pectoris; Z79.4 Long term (current) use of insulin; I25.2 Old myocardial infarction; E11.628 Type 2 diabetes mellitus with other skin complications; E11.65 Type 2 diabetes mellitus with hyperglycemia; L97.529 Non-pressure chronic ulcer of other part of left foot with unspecified severity; M20.42 Other hammer toe(s) (acquired), left foot; M21.612 Bunion of left foot; B95.4 Other streptococcus as the cause of diseases classified elsewhere; L03.032 Cellulitis of left toe; Z95.1 Presence of aortocoronary bypass graft; Z68.36 Body mass index [BMI] 36.0-36.9, adult; Z79.82 Long term (current) use of aspirin; Z79.899 Other long term (current) drug therapy; Z79.84 Long term (current) use of oral hypoglycemic drugs; Z90.49 Acquired absence of other specified parts of digestive tract; Z98.890 Other specified postprocedural states; Z86.19 Personal history of other infectious and parasitic diseases; Z87.39 Personal history of other diseases of the musculoskeletal system and connective tissue; Z91.199 Patient's noncompliance with other medical treatment and regimen due to unspecified reason
CPT/HCPCS: 36415; 73630; 73718; 80048; 80053; 80202; 81001; 82962; 83036; 83605; 83735; 84100; 84443; 85025; 85610; 85652; 85730; 86140; 87040; 87070; 87077; 87086; 87186; 87205; 87640; 93005; 94668; 97165; 97802; 99285; J7030; J7040; A4216